=== PATIENT | female | born 1980 | race Caucasian/White ===

== ENCOUNTER 2020-04-18 21:40 | Emergency (ER) | payer MEDICARE, SELFPAY ==
[2020-04-18 21:45] VITALS: BP 145/84; PULSE 80; RESP 16; TEMP 36; O2SAT 99; BMI 29.5
--- NOTE | 2020-04-18 21:53 | ED_ITS ---
Documented by User: Prashanth Villarreal MD 04/18/20 22:52 HPI - Abdominal Pain General: Chief Complaint: Abdominal Pain Stated Complaint: r lower abd pain Time Seen by Provider: 04/18/20 21:48 Source: patient Mode of arrival: ambulatory Limitations: no limitations History of Present Illness: HPI narrative: 39-year-old female states she has a history ovarian cyst states she had abdominal pain throughout the day. States it is worsened throughout the day and is sharp in nature and is in the right lower quadrant. She had an appendectomy at age 21. She denies any fevers. States the pain is sharp in nature and rates it a 6 out of 10 currently. She has had a tubal ligation and denies any vaginal bleeding or discharge. MD elicited complaint: abdominal pain Pertinent past history: none Onset (ago): hour(s) Pain Consistency: constant Location: RLQ Severity: moderate Quality: sharp Radiation: none Migration to: no migration Exacerbating factors: nothing Relieving factors: nothing Associated Symptoms: Denies chills, dysuria and fever(s) Review of Systems Const: Denies: fever(s), chills, body aches or change in appetite Eyes: Denies: blurry vision or eye discomfort ENMT: Denies: throat pain or dental pain Card: Denies: chest pain Resp: Denies: dyspnea GI: Reports: abdominal pain : Denies: dysuria Musc: Denies: neck pain or back pain Skin/Breast: Denies: rash Neuro: Denies: headache(s) Psych: Denies: depression Jaden/Lymph: Denies: easy bruising All/Imm: Denies: urticaria PFSH ED PFSH: Social History Smoking and tobacco status: never smoked Physical Exam Const: COMMON NORMALS: no acute distress, patient oriented x3 and healthy appearing HENMT: COMMON NORMALS: normocephalic and atraumatic HEAD & SCALP: normoc ephalic and atraumatic Eye: COMMON NORMALS: Equal, round and reactive pupils present and EOMs intact bilaterally PUPIL: Yes Equal, round and reactive pupils present Neck/C-Spine: COMMON NORMALS: full ROM and supple Chest: COMMONS NORMALS: normal inspection of the chest and normal palpation of entire chest wall Resp: COMMON NORMALS: normal respiratory effort, No retractions, No use of accessory muscles and clear to auscultation bilaterally AUSCULTATION: clear to auscultation bilaterally Cardio: COMMON NORMALS: regular rate, regular rhythm and No murmurs present (Cardio) RATE: regular rate RHYTHM: regular rhythm GI: COMMON NORMALS: Normal to inspection, nondistended, normoactive bowel sounds present, Soft to palpation and no masses PALPATION: Yes Soft to palpation and Yes Tenderness to palpation present (GI) Details: RLQ Extremity: COMMON NORMALS: normal to inspection and full ROM Neuro: COMMON NORMALS: patient oriented x3, moves all extremities and no focal motor deficits Psych: COMMON NORMALS: mental status grossly normal, Normal thought process present and cooperative THOUGHT PROCESS: Normal thought process present Skin: COMMON NORMALS: no rashes or lesions noted and no wounds GENERAL SKIN EXAM: no rashes or lesions noted Course Vital Signs: Vital signs: Vital Signs Temperature 96.8 F L 04/18/20 21:45 Pulse Rate 78 04/19/20 00:50 Respiratory Rate 16 04/19/20 00:50 Blood Pressure 92/58 04/19/20 00:50 Pulse Oximetry 98 04/19/20 00:50 MDM - Abdominal Pain MDM Narrative: Medical decision making narrative: Patient presents with abdominal pain does have a history ovarian cyst. Patient's white count and lab work here so far is normal. Patient is pending her CT abdomen. I turned patien t's care over to Dr. Luu at this time. Lab Data: Labs: Lab Results 04/18/20 04/18/20 04/18/20 Range/Units 22:08 22:08 22:08 WBC 8.1 (4.0-10.0) 10^3/ uL RBC 4.58 (4.1-5.3) 10^6/u L Hgb 13.3 (11.5-15.3) g/dL Hct 42.1 (37.0-47.0) % MCV 91.9 (81-99) fL MCH 29.0 (28.0-34.0) pg MCHC 31.6 (30.0-36.0) g/dL RDW 13.9 (12.1-15.1) % Plt Count 255 (130-400) 10^3/c mm MPV 10.3 (7.4-10.4) fL Neut % (Auto) 56.4 % Lymph % (Auto) 32.0 % Beauregard % (Auto) 7.4 % Eos % (Auto) 2.5 % Baso % (Auto) 1.5 % Neut # (Auto) 4.6 (1.8-7.7) 10^3/u L Lymph # (Auto) 2.6 (0.8-4.8) 10^3/u L [place] # (Auto) 0.6 (0.2-0.9) 10^3/u L Eos # (Auto) 0.2 (0.0-0.8) 10^3/u L Baso # (Auto) 0.1 (0.0-0.1) 10^3/u L Nucleated RBC % (a uto) 0 % Nucleated RBCs # 0.0 /100WBC Sodium 136 (136-145) mmol/L Potassium 3.8 (3.5-5.1) mmol/L Chloride 99 (98-107) mmol/L Carbon Dioxide 26 (22-29) mmol/L Anion Gap 14.8 (5-19) BUN 14 (6-20) mg/dL Creatinine 1.1 H (0.5-0.9) mg/dL GFR Calculation 55.9 L (90-130) mL/min Glucose 258 H (65-115) mg/dL Calculated Osmolal ity 287 (285-295) mOsm/k g Calcium 9.9 (8.5-10.5) mg/dL Total Bilirubin 0.2 (0.15-1.2) mg/dL AST 14 (0-32) U/L ALT 12 (0-33) U/L Alkaline Phosphata se 94 (35-105) IU/L Total Protein 7.4 (6.6-8.7) g/dL Albumin 4.4 (3.5-5.2) g/dL Globulin 3.0 (1.3-4.6) g/dL Lipase 20 (13-60) U/L HCG, Qual Negative (Negative) Urine Color (Yellow) Urine Appearance (CLEAR) Urine pH (5-7) Ur Specific Gravit y (1.005-1.030) Urine Protein (Negative) Urine Glucose (UA) (Normal) Urine Ketones (Negative) Urine Blood (Negative) Urine Nitrate (Negative) Urine Bilirubin (NEGATIVE) Urine Urobilinogen (Negative) mg/dL Ur Leukocyte Kia ase (Negative) Urine RBC (0-2) /hpf Urine WBC (0-5) /hpf Ur Squamous Epith Cells (0-5) Amorphous Sediment Urine Bacteria (NONE) Urine Mucus 04/18/20 Range/Units 22:30 WBC (4.0-10.0) 10^3/ uL RBC (4.1-5.3) 10^6/u L Hgb (11.5-15.3) g/dL Hct (37.0-47.0) % MCV (81-99) fL MCH (28.0-34.0) pg MCHC (30.0-36.0) g/dL RDW (12.1-15.1) % Plt Count (130-400) 10^3/c mm MPV (7.4-10.4) fL Neut % (Auto) % Lymph % (Auto) % Beauregard % (Auto) % Eos % (Auto) % Baso % (Auto) % Neut # (Auto) (1.8-7.7) 10^3/u L Lymph # (Auto) (0.8-4.8) 10^3/u L [place]gard # (Auto) (0.2-0.9) 10^3/u L Eos # (Auto) (0.0-0.8) 10^3/u L Baso # (Auto) (0.0-0.1) 10^3/u L Nucleated RBC % (a uto) % Nucleated RBCs # /100WBC Sodium (136-145) mmol/L Potassium (3.5-5.1) mmol/L Chloride (98-107) mmol/L Carbon Dioxide (22-29) mmol/L Anion Gap (5-19) BUN (6-20) mg/dL Creatinine (0.5-0.9) mg/dL GFR Calculation (90-130) mL/min Glucose (65-115) mg/dL Calculated Osmolal ity (285-295) mOsm/k g Calcium (8.5-10.5) mg/dL Total Bilirubin (0.15-1.2) mg/dL AST (0-32) U/L ALT (0-33) U/L Alkaline Phosphata se (35-105) IU/L Total Protein (6.6-8.7) g/dL Albumin (3.5-5.2) g/dL Globulin (1.3-4.6) g/dL Lipase (13-60) U/L HCG, Qual (Negative) Urine Color Yellow (Yellow) Urine Appearance Sl hazy (CLEAR) Urine pH 5 (5-7) Ur Specific Gravit y 1.020 (1.005-1.030) Urine Protein Neg (Negative) Urine Glucose (UA) 4+ H (Normal) Urine Ketones Negative (Negative) Urine Blood Neg (Negative) Urine Nitrate Negative (Negative) Urine Bilirubin Neg (NEGATIVE) Urine Urobilinogen Norm (Negative) mg/dL Ur Leukocyte Kia ase Negative (Negative) Urine RBC 0-4 H (0-2) /hpf Urine WBC 0-4 H (0-5) /hpf Ur Squamous Epith Cells 5-10 H (0-5) Amorphous Sediment 1+ Urine Bacteria Trace (NONE) Urine Mucus Trace Discharge Plan Discharge Patient Disposition: Home, Self-Care Clinical Impression: Gastroenteritis Abdominal pain Qualifiers: Abdominal location: generalized Qualified Code(s): R10.84 - Generalized abdominal pain Condition: Stable Prescriptions: New Flagyl 500 mg tablet 500 mg PO TID 10 Days Qty: 30 RF: 0 Cipro 500 mg tablet 500 mg PO BID Qty: 20 RF: 0 Reglan 10 mg tablet 10 mg PO Q6H PRN (Reason: nausea and vomiting) Qty: 20 RF: 0 Discharge Orders: Discharge Order (Routine); Ordered 04/19/20 Ordered By: Clara Kan Referrals: Tobi Hernandez RN, REGIONAL SALES LEADER [Primary Care Provider] - Discharge Diet: Advance as tolerated and Clear Liquid Discharge Activity: Increase activity as tolerated Patient Instructions: Abdominal Pain (ED) Activity Restrictions/Additional Instructions: Please return to the ER immediately for any of the signs or symptoms listed on your discharge instruction sheets, worsening/changing of your symptoms, you are not getting better as quickly as expected, or for ANY other cause or concerns. Follow a clear liquid diet and advance it slowly as tolerated. If you change your mind and want to have a pelvic ultrasound performed to rule out any type of gynecologic/ovarian problems you are more than welcome to return at any time for this procedure. Return for fever, vomiting, blood in your stools, worsening pain or for any other cause for concern. Be certain to follow-up with your doctor as you will need a referral to a health therapist for further work-up of your recurrent abdominal pain and bowel problems. Discharge Date/Time: 04/19/20 00:51 Sign Out Sign Out Data: Patient Sign Out occurred on 04/18/20 at 23:06. Patient's care was discussed, and care was transferred from to Clara Kan. Coding Level of Care Code ED Uniform [employer] Captain for Chg Fwd Exam Comprehensive Documented by User: Clara Kan 04/19/20 20:10 HPI - Abdominal Pain General: Chief Complaint: Abdominal Pain Stated Complaint: r lower abd pain Time Seen by Provider: 04/18/20 21:48 PFSH ED PFSH: Social History Smoking and tobacco status: never smoked Course Vital Signs: Vital signs: Vital Signs Temperature 96.8 F L 04/18/20 21:45 Pulse Rate 78 04/19/20 00:50 Respiratory Rate 16 04/19/20 00:50 Blood Pressure 92/58 04/19/20 00:50 Pulse Oximetry 98 04/19/20 00:50 MDM - Abdominal Pain MDM Narrative: Medical decision making narrative: Kellen is a nice 39-year-old female turned over to me at change of shift from Dr. Villarreal. Patient CT scan shows evidence of gastroenteritis but no evidence of ovarian cyst. Patient has not had any vomiting or diarrhea. On my exam the patient's abdomen is soft and nontender to palpation. I have offered and recommended a ultrasound to definitively rule out ovarian torsion or cyst but she declines. CT scan does show evidence of gastroenteritis or inflammatory bowel enteritis. Patient states this is a recurrent problem that she has had worked up before in the 2 previous times that she was not told it was an ovarian cyst but told it was a problem with her bowels. I have informed her I recommend she follow-up with a health therapist for definitive work-up. She has again declined an ultrasound to rule out ovarian cyst and torsion and I think this is unlikely as the patient has no other gynecological complaints and there is no evidence of mass, enlargement or cyst on the CT scan. The patient understands though this is a threat to her fertility if missed any even can become an issue that would require surgery which could have complications but she still declines. I will p lace her on Cipro and Flagyl for a possible infectious etiology of her gastroenteritis and she does agree to follow-up with her regular doctor or return here if she worsens at all. Lab Data: Attestation: I reviewed the patient's lab results. Labs: Lab Results 04/18/20 04/18/20 04/18/20 Range/Units 22:08 22:08 22:08 WBC 8.1 (4.0-10.0) 10^3/ uL RBC 4.58 (4.1-5.3) 10^6/u L Hgb 13.3 (11.5-15.3) g/dL Hct 42.1 (37.0-47.0) % MCV 91.9 (81-99) fL MCH 29.0 (28.0-34.0) pg MCHC 31.6 (30.0-36.0) g/dL RDW 13.9 (12.1-15.1) % Plt Count 255 (130-400) 10^3/c mm MPV 10.3 (7.4-10.4) fL Neut % (Auto) 56.4 % Lymph % (Auto) 32.0 % Beauregard % (Auto) 7.4 % Eos % (Auto) 2.5 % Baso % (Auto) 1.5 % Neut # (Auto) 4.6 (1.8-7.7) 10^3/u L Lymph # (Auto) 2.6 (0.8-4.8) 10^3/u L Bea[place]gard # (Auto) 0.6 (0.2-0.9) 10^3/u L Eos # (Auto) 0.2 (0.0-0.8) 10^3/u L Baso # (Auto) 0.1 (0.0-0.1) 10^3/u L Nucleated RBC % (a uto) 0 % Nucleated RBCs # 0.0 /100WBC Sodium 136 (136-145) mmol/L Potassium 3.8 (3.5-5.1) mmol/L Chloride 99 (98-107) mmol/L Carbon Dioxide 26 (22-29) mmol/L Anion Gap 14.8 (5-19) BUN 14 (6-20) mg/dL Creatinine 1.1 H (0.5-0.9) mg/dL GFR Calculation 55.9 L (90-130) mL/min Glucose 258 H (65-115) mg/dL Calculated Osmolal ity 287 (285-295) mOsm/k g Calcium 9.9 (8.5-10.5) mg/dL Total Bilirubin 0.2 (0.15-1.2) mg/dL AST 14 (0-32) U/L ALT 12 (0-33) U/L Alkaline Phosphata se 94 (35-105) IU/L Total Protein 7.4 (6.6-8.7) g/dL Albumin 4.4 (3.5-5.2) g/dL Globulin 3.0 (1.3-4.6) g/dL Lipase 20 (13-60) U/L HCG, Qual Negative (Negative) Urine Color (Yellow) Urine Appearance (CLEAR) Urine pH (5-7) Ur Specific Gravit y (1.005-1.030) Urine Protein (Negative) Urine Glucose (UA) (Normal) Urine Ketones (Negative) Urine Blood (Negative) Urine Nitrate (Negative) Urine Bilirubin (NEGATIVE) Urine Urobilinogen (Negative) mg/dL Ur Leukocyte Kia ase (Negative) Urine RBC (0-2) /hpf Urine WBC (0-5) /hpf Ur Squamous Epith Cells (0-5) Amorphous Sediment Urine Bacteria (NONE) Urine Mucus 04/18/20 Range/Units 22:30 WBC (4.0-10.0) 10^3/ uL RBC (4.1-5.3) 10^6/u L Hgb (11.5-15.3) g/dL Hct (37.0-47.0) % MCV (81-99) fL MCH (28.0-34.0) pg MCHC (30.0-36.0) g/dL RDW (12.1-15.1) % Plt Count (130-400) 10^3/c mm MPV (7.4-10.4) fL Neut % (Auto) % Lymph % (Auto) % Bea[place]gard % (Auto) % Eos % (Auto) % Baso % (Auto) % Neut # (Auto) (1.8-7.7) 10^3/u L Lymph # (Auto) (0.8-4.8) 10^3/u L Bea[place]gard # (Auto) (0.2-0.9) 10^3/u L Eos # (Auto) (0.0-0.8) 10^3/u L Baso # (Auto) (0.0-0.1) 10^3/u L Nucleated RBC % (a uto) % Nucleated RBCs # /100WBC Sodium (136-145) mmol/L Potassium (3.5-5.1) mmol/L Chloride (98-107) mmol/L Carbon Dioxide (22-29) mmol/L Anion Gap (5-19) BUN (6-20) mg/dL Creatinine (0.5-0.9) mg/dL GFR Calculation (90-130) mL/min Glucose (65-115) mg/dL Calculated Osmolal ity (285-295) mOsm/k g Calcium (8.5-10.5) mg/dL Total Bilirubin (0.15-1.2) mg/dL AST (0-32) U/L ALT (0-33) U/L Alkaline Phosphata se (35-105) IU/L Total Protein (6.6-8.7) g/dL Albumin (3.5-5.2) g/dL Globulin (1.3-4.6) g/dL Lipase (13-60) U/L HCG, Qual (Negative) Urine Color Yellow (Yellow) Urine Appearance Sl hazy (CLEAR) Urine pH 5 (5-7) Ur Specific Gravit y 1.020 (1.005-1.030) Urine Protein Neg (Negative) Urine Glucose (UA) 4+ H (Normal) Urine Ketones Negative (Negative) Urine Blood Neg (Negative) Urine Nitrate Negative (Negative) Urine Bilirubin Neg (NEGATIVE) Urine Urobilinogen Norm (Negative) mg/dL Ur Leukocyte Kia ase Negative (Negative) Urine RBC 0-4 H (0-2) /hpf Urine WBC 0-4 H (0-5) /hpf Ur Squamous Epith Cells 5-10 H (0-5) Amorphous Sediment 1+ Urine Bacteria Trace (NONE) Urine Mucus Trace Imaging Data ^: CT Abd/Pel: Radiologist's impression: [facility] [address] [place] [address] CT Scan Report Signed Patient: Kellen Joseph Unit #: [id number] : 1980 Age/Sex: 39 / F ADM Date: 04/18/20 Loc: ER Room/Bed: Attending Dr: Ordering Provider/Ordering MD: Prashanth Villarreal MD Date of Service: 04/18/20 Procedure(s): CT abdomen pelvis w con* [id number] Accession Number(s): [id number] Report Number: [id number] PROCEDURE INFORMATION: Exam: CT Abdomen And Pelvis With Contrast Exam date and time: 04/18/2020 11:02 PM Age: 39 years old Clinical indication: Abdominal pain; Generalized; Prior surgery; Surgery type: Btl, appy, 2 ; Patient HX: HX cervical CA; Additional info: Abd pain TECHNIQUE: Imaging protocol: Computed tomography of the abdomen and pelvis with intravenous contrast. Radiation optimization: All CT scans at this facility use at least one of these dose optimization techniques: automated exposure control; mA and/or kV adjustment per patient size (includes targeted exams where dose is matched to clinical indication); or iterative reconstruction. Contrast material: VISI; Contrast volume: 95 ml; Contrast route: 20G; COMPARISON: US No relevant prior studies available. RADIATION DOSE METRICS: Total DLP: 1285.13 mGy-cm FINDINGS: Lungs: The lung bases are clear. Liver: Unremarkable. Gallbladder and bile ducts: No definite gallbladder abnormality by CT. Ultrasound could be more sensitive for detecting gallstones, if clinically needed. No biliary tree dilation. Pancreas: Unremarkable. Spleen: Unremarkable. Adrenals: Unremarkable. Kidneys and ureters: Unremarkable. Stomach and bowel: Several small bowel loops are fluid-filled and borderline prominent in size. The overall appearance is not suggestive of significant small bowel obstruction at this time. Some proximal small bowel loops may have mild diffuse mucosal/wall thickening, although this could be a transit the appearance on CT. While nonspecific, this appearance could be secondary to some type of gastroenteritis, or other inflammatory bowel disease/enteritis. Please correlate clinically. No definite surrounding inflammatory changes. The stomach appears somewhat distended at the time of scanning. Please correlate clinically. There are no CT findings to strongly suggest diverticulitis. Appendix: Reportedly, there has been prior appendectomy. Intraperitoneal space: No free air, or ascites. Vasculature: No evidence for abdominal aortic aneurysm. Lymph nodes: No retroperitoneal adenopathy. Bladder: Possibly some mild diffuse urinary bladder wall thickening. Evaluation is somewhat limited, as the bladder is not well distended. While nonspecific, this could indicate evidence for cystitis. Please correlate clinically. Reproductive: Small amount of cul-de-sac fluid. No definite ovarian/adnexal cyst or mass by CT. Bones/joints: No significant acute finding. Soft tissues: No significant acute finding. CT/CT abdomen pelvis w con* [id number] IMPRESSION: 1. Several small bowel loops are fluid-filled and borderline prominent in size. Some may have mild diffuse mucosal/wall thickening, see above discussion. This appearance could be secondary to some type of gastroenteritis, or other inflammatory bowel disease/enteritis. 2. Somewhat distended stomach. 3. No free intraperitoneal air. 4. Possible mild urinary bladder wall thickening, see above. 5. Small amount of cul-de-sac fluid. No definite ovarian/adnexal cyst or mass by CT. 6. . 7. Other findings discussed above. Radiation Dose CTDIVOL = (mGy): DLP = 1285.13 (mGy-cm) Dictated By: Tera Pickering MD Signed By: Tera Pickering MD Signed Date/Time: 04/18/202344 DD/ 42 Discharge Plan Discharge Patient Disposition: Home, Self-Care Clinical Impression: Gastroenteritis Abdominal pain Qualifiers: Abdominal location: generalized Qualified Code(s): R10.84 - Generalized abdominal pain Condition: Stable Prescriptions: New Flagyl 500 mg tablet 500 mg PO TID 10 Days Qty: 30 RF: 0 Cipro 500 mg tablet 500 mg PO BID Qty: 20 RF: 0 Reglan 10 mg tablet 10 mg PO Q6H PRN (Reason: nausea and vomiting) Qty: 20 RF: 0 Discharge Orders: Discharge Order (Routine); Ordered 04/19/20 Ordered By: Clara Kan Referrals: Tobi Hernandez RN, REGIONAL SALES LEADER [Primary Care Provider] - Discharge Diet: Advance as tolerated and Clear Liquid Discharge Activity: Increase activity as tolerated Patient Instructions: Abdominal Pain (ED) Activity Restrictions/Additional Instructions: Please return to the ER immediately for any of the signs or symptoms listed on your discharge instruction sheets, worsening/changing of your symptoms, you are not getting better as quickly as expected, or for ANY other cause or concerns. Follow a clear liquid diet and advance it slowly as tolerated. If you change your mind and want to have a pelvic ultrasound performed to rule out any type of gynecologic/ovarian problems you are more than welcome to return at any time for this procedure. Return for fever, vomiting, blood in your stools, worsening pain or for any other cause for concern. Be certain to follow-up with your doctor as you will need a referral to a health therapist for further work-up of your recurrent abdominal pain and bowel problems. Discharge Date/Time: 04/19/20 00:51 Sign Out Sign Out Data: Patient Sign Out occurred on 04/18/20 at 23:06. Patient's care was discussed, and care was transferred from to Clara Kan. Coding Level of Care Code ED Uniform [employer] Captain for Chg Fwd Exam Comprehensive
[2020-04-18 22:16] LABS: Basophils # 0.1 10^3/uL (0.0-0.1); Basophils % 1.5 %; Eosinophils # 0.2 10^3/uL (0.0-0.8); Eosinophils % 2.5 %; Hematocrit 42.1 % (37.0-47.0); Hemoglobin 13.3 g/dL (11.5-15.3); Lymphocytes # 2.6 10^3/uL (0.8-4.8); Mean Corpuscular HGB Conc 31.6 g/dL (30.0-36.0); Mean Corpuscular Volume 91.9 fL (81-99); Mean Platelet Volume 10.3 fL (7.4-10.4); Monocytes # 0.6 10^3/uL (0.2-0.9); Monocytes % 7.4 %; Neutrophils # 4.6 10^3/uL (1.8-7.7); Neutrophils % 56.4 %; Nucleated Red Blood Cells % 0 %; Platelet Count 255 10^3/cmm (130-400); Red Blood Count 4.58 10^6/uL (4.1-5.3); Red Cell Distribution Width 13.9 % (12.1-15.1); White Blood Count 8.1 10^3/uL (4.0-10.0)
[2020-04-18 22:23] VITALS: RESP 18; O2SAT 98
[2020-04-18] MEDS: ondansetron 2 mg/ML SDV 2 mL 4 MG IVP (22:23)
[2020-04-18] MEDS: morphine 4 mg/mL SDV 1 mL IVP (22:23)
[2020-04-18 22:31] VITALS: BP 123/78; PULSE 74; RESP 18; O2SAT 96
[2020-04-18 22:31] LABS: Alanine Aminotransferase 12 U/L (0-33); Albumin Level 4.4 g/dL (3.5-5.2); Alkaline Phosphatase 94 IU/L (35-105); Anion Gap 14.8 (5-19); Aspartate Amino Transferase 14 U/L (0-32); Blood Urea Nitrogen 14 mg/dL (6-20); Calcium 9.9 mg/dL (8.5-10.5); Carbon Dioxide 26 mmol/L (22-29); Chloride 99 mmol/L (98-107); Glomerular Filtration Rate 55.9 mL/min (90-130); Glucose 258 mg/dL (65-115); Lipase 20 U/L (13-60); Osmolality Calculated 287 mOsm/kg (285-295); Potassium 3.8 mmol/L (3.5-5.1); Sodium 136 mmol/L (136-145); Total Bilirubin 0.2 mg/dL (0.15-1.2); Total Protein 7.4 g/dL (6.6-8.7)
[2020-04-18 22:50] LABS: Bilirubin Urine Neg (NEGATIVE); Blood Urine Neg (Negative); Glucose Urine UA 4+ (Normal); Ketones Urine Negative (Negative); Leukocyte Esterase Urine Negative (Negative); Nitrate Urine Negative (Negative); Protein Urine Neg (Negative); Urine Appearance SL Hazy (CLEAR); Urine Color Yellow (Yellow); Urobilinogen Urine Norm (Negative); pH Urine 5 (5-7)
[2020-04-18 22:52] LABS: Add Urine Culture? No; Amorphous Sediment Urine 1+; Bacteria Urine TRACE; Mucus Urine TRACE; RBC Urine 0-4 /hpf (0-2); WBC Urine 0-4 /hpf (0-5)
[2020-04-18] MEDS: iodixanol 320 mg/mL 100mL Btl IV (23:03)
[2020-04-18 23:13] LABS: HCG, Serum Qual Negative (Negative)
[2020-04-19] MEDS: ciprofloxacin 500 mg Tablet PO (00:12)
[2020-04-19] MEDS: metroNIDAZOLE 500 MG Tablet PO (00:12)
[2020-04-19 00:13] VITALS: BP 119/78; PULSE 80; RESP 16; O2SAT 97
[2020-04-19 00:50] VITALS: BP 92/58; PULSE 78; RESP 16; O2SAT 98
== END 2020-04-19 00:51 | disposition home or self-care (01) ==
PROVIDERS: Emergency Provider Emergency Medicine; PCP Nurse Practitioner Family
DX: K52.9 Noninfective gastroenteritis and colitis, unspecified (principal)
CPT/HCPCS: 12345; 74177; 80053; 81001; 83690; 84703; 85025; 96374; 96375; 99283; J2270; J2405; Q9967

== ENCOUNTER 2020-05-17 20:16 | Emergency (ER) | payer MEDICARE, SELFPAY ==
[2020-05-17 20:28] VITALS: BP 143/73; PULSE 90; RESP 16; TEMP 36.9; O2SAT 99; BMI 29.9
--- NOTE | 2020-05-17 21:11 | XRR_ITS ---
PROCEDURE INFORMATION: Exam: XR Right Wrist Exam date and time: 05/17/2020 9:12 PM Age: 39 years old Clinical indication: Injury or trauma; Fall; Initial encounter; Blunt trauma (contusions or hematomas; Wrist; Right; Additional info: Right wrist pain TECHNIQUE: Imaging protocol: XR Right wrist. Views: 3 or more views. COMPARISON: No relevant prior studies available. FINDINGS: Bones/joints: Incidental cyst in the distal pole the scaphoid. No fracture or AVN. Soft tissues: Normal. XR/XR wrist RT min 3V* [id number] IMPRESSION: No acute findings
[2020-05-17 23:14] VITALS: RESP 14; O2SAT 98
[2020-05-17] MEDS: oxyCODONE-APAP 5-325 mg Tablet 1 TAB PO (23:14)
[2020-05-17 23:31] VITALS: BP 139/65; PULSE 72; RESP 18; O2SAT 99
--- NOTE | 2020-05-19 06:53 | W.ED.EXTPRO ---
HPI - Extremity Problem General: Chief complaint: Extremity Injury, Upper Stated complaint: right wrist injury Time Seen by Provider: 05/17/20 21:54 History of Present Illness: HPI Narrative: 39-year-old female who fell 1 week ago, and has persistent right wrist pain. Pain is located over anatomic snuffbox. She has some swelling as well. She has pain with movement of her fingers, especially with publication specialist. She also has pain with movement of her thumb. MD Complaint: joint swelling and joint pain Onset (ago): day(s) Pain Consistency: constant Location: right Quality: constant Radiation: none Relieving factors: nothing Exacerbating factors: range of motion Associated symptoms: Reports no associated symptoms; Deny chest pain, fever(s) or rash Review of Systems Const: Denies: fever(s) or chills Card: Denies: chest pain Resp: Denies: dyspnea Skin/Breast: Denies: rash PFSH ED PFSH: Social History Smoking and tobacco status: former smoker Female Reproductive History: Date of last menstrual period: 04/17/20 Physical Exam Const: COMMON NORMALS: no acute distress and patient oriented x3 Chest: COMMONS NORMALS: normal inspection of the chest Resp: COMMON NORMALS: normal respiratory effort and clear to auscultation bilaterally AUSCULTATION: clear to auscultation bilaterally Cardio: COMMON NORMALS: regular rate and regular rhythm RATE: regular rate RHYTHM: regular rhythm GI: INSPECTION: Yes normal to inspection Extremity: NARRATIVE EXTREMITY EXAM: Tenderness to palpation of the left anatomic snuffbox. There is mild swelling. There is pain on axial loading of the thumb. There is no deformity. Neuro: COMMON NORMALS: patient oriented x3 Course Vital Signs: Vital signs: Vital Signs Temperature 98.4 F 05/17/20 20:28 Pulse Rate 72 05/17/20 23:31 Respiratory Rate 18 05/17/20 23:31 Blood Pressure 139/65 05/17/20 23:31 Pulse Oximetry 99 05/17/20 23:31 MDM - Extremity (Nontraumatic) MDM Narrative: Medical decision making narrative: 39-year-old female with anatomic snuffbox pain. X-rays are negative for fracture, but there is cystic change in the distal pole of scaphoid. She will be splinted and thumb spica splint, and asked to follow-up with orthopedics Discharge Plan Discharge Patient Disposition: Home, Self-Care Clinical Impression: Sprain and strain of wrist Condition: Stable Prescriptions: [place] 5-325 mg tablet 1 tab PO Q6H Qty: 10 RF: 0 No Action Cipro 500 mg tablet 500 mg PO BID Qty: 20 RF: 0 Reglan 10 mg tablet 10 mg PO Q6H PRN (Reason: nausea and vomiting) Qty: 20 RF: 0 Discharge Orders: Discharge Order (Routine); Ordered 05/17/20 Ordered By: Derek Allan Referrals: Mika Calderon DO [Physician] - 4-7 days Discharge Diet: Usual diet Discharge Activity: Limit activity as instructed Patient Instructions: Sprains - Wrist Activity Restrictions/Additional Instructions: Call for an orthopedics appointment next week. Stay in splint until you are seen. You have a cyst in 1 of your wrist bones that can weaken the bone a bit, repeat x-ray may be needed. Return for worsening pain despite treatment, other concerning symptoms Discharge Date/Time: 05/17/20 23:35 Coding Level of Care Code ED Chipper Operator for Álvaro Armstrong
--- NOTE | 2020-05-19 10:54 | DCPLANNER ---
creative project manager had message to schedule a follow up appointment for patient with ortho. creative project manager called the ortho clinic, spoke with Becky, gave clinic patients information. creative project manager was told that patients information would be printed and reviewed. Clinic will call patient with appointment information.
--- NOTE | 2020-05-20 09:14 | DCPLANNER ---
Patient has a follow up appointment scheduled for Thursday, May 21, 2020 at 3:[address] Childers. Clinic will call patient with appointment information.
--- NOTE | 2020-05-22 11:03 | DCPLANNER ---
Patient did attend appointment scheduled for 05.21.20 with ortho.
== END 2020-05-17 23:35 | disposition home or self-care (01) ==
PROVIDERS: Emergency Provider Emergency Medicine
DX: S63.501A Unspecified sprain of right wrist, initial encounter (principal); S66.911A Strain of unspecified muscle, fascia and tendon at wrist and hand level, right hand, initial encounter; Z87.891 Personal history of nicotine dependence; W19.XXXA Unspecified fall, initial encounter
CPT/HCPCS: 12345; 29125; 73110; 99281; 99283

== ENCOUNTER → 2020-05-21 15:16 | Outpatient (BNVA) | payer MEDICARE, SELFPAY | PROVIDERS: Referring Provider Emergency Medicine; Visit Provider Specialist | DX: S63.501A Unspecified sprain of right wrist, initial encounter (principal); W19.XXXA Unspecified fall, initial encounter | CPT/HCPCS: 73110 ==

== ENCOUNTER 2020-05-21 16:06 | Outpatient (CLI) | payer MEDICARE, SELFPAY | END 2020-05-21 16:07 | disposition home or self-care (01) | LOC: SPT 16:06 | PROVIDERS: Visit Provider Specialist | DX: Z46.89 Encounter for fitting and adjustment of other specified devices (principal); S66.911D Strain of unspecified muscle, fascia and tendon at wrist and hand level, right hand, subsequent encounter; X58.XXXD Exposure to other specified factors, subsequent encounter; S63.501A Unspecified sprain of right wrist, initial encounter; W19.XXXA Unspecified fall, initial encounter | CPT/HCPCS: 73110; 97760; L3809 ==

== ENCOUNTER 2020-07-30 16:30 | Emergency (ER) | payer MEDICARE, SELFPAY ==
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
[2020-07-30 16:53] VITALS: BP 136/76; PULSE 74; RESP 18; TEMP 37.1; O2SAT 100; BMI 28.8
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
[2020-07-30] MEDS: acetaminophen 325 mg Tablet 650 MG PO (17:31)
[2020-07-30 17:37] LABS: Add Urine Microscopic? NO
[2020-07-30 17:48] LABS: Bilirubin Urine Neg (Negative); Blood Urine Neg (Negative); Glucose Urine UA 4+ (Normal); Ketones Urine Negative (Negative); Leukocyte Esterase Urine Negative (Negative); Nitrate Urine Negative (Negative); Protein Urine Neg (Negative); Specific Gravity, Urine 1.015 (1.005-1.030); Urine Appearance Clear (CLEAR); Urine Color Straw (Yellow); Urobilinogen Urine Norm (Negative)
[2020-07-30 18:37] VITALS: BP 132/71; PULSE 71; RESP 16; O2SAT 99
== END 2020-07-30 18:37 | disposition home or self-care (01) ==
PROVIDERS: Emergency Provider Nurse Practitioner Family; PCP Nurse Practitioner Family
DX: S06.0X0A Concussion without loss of consciousness, initial encounter (principal); Z79.4 Long term (current) use of insulin; Z87.891 Personal history of nicotine dependence; W22.8XXA Striking against or struck by other objects, initial encounter
CPT/HCPCS: 12345; 70450; 81003; 99282; 99283

== ENCOUNTER 2020-09-07 20:40 | Emergency (ER) | payer MEDICARE, SELFPAY ==
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
[2020-09-07 20:47] VITALS: BP 145/85; PULSE 93; RESP 18; TEMP 36.9; O2SAT 97; BMI 28.3
--- NOTE | 2020-09-07 20:54 | W.ED.EXTPRO ---
HPI - Extremity Problem General: Chief complaint: Extremity Injury, Lower Stated complaint: LEFT FOOT INJURY Time Seen by Provider: 09/07/20 20:49 Source: patient Mode of arrival: ambulatory Limitations: no limitations History of Present Illness: HPI Narrative: 39-year-old female who states she jammed her toe on her bed last night. States it was her fourth and fifth toe and is been having foot pain under the lateral aspect of her foot since then. She rates her pain a 8 out of 10. Denies any worsening or improving factors. Denies any other injuries. Associated symptoms: Deny chest pain, fever(s) or rash Review of Systems Const: Denies: fever(s), chills, body aches or change in appetite Eyes: Denies: blurry vision or eye discomfort ENMT: Denies: throat pain or dental pain Card: Denies: chest pain Resp: Denies: dyspnea GI: Denies: abdominal pain, nausea, vomiting or diarrhea : Denies: dysuria Musc: Denies: neck pain or back pain Skin/Breast: Denies: rash Neuro: Denies: headache(s) Psych: Denies: depression Jaden/Lymph: Denies: easy bruising All/Imm: Denies: urticaria PFSH ED PFSH: Social History Smoking and tobacco status: former smoker Female Reproductive History: Date of last menstrual period: 04/17/20 Physical Exam Const: COMMON NORMALS: no acute distress, patient oriented x3 and healthy appearing HENMT: COMMON NORMALS: normocephalic and atraumatic HEAD & SCALP: normocephalic and atraumatic Eye: COMMON NORMALS: Equal, round and reactive pupils present and EOMs intact bilaterally PUPIL: Yes Equal, round and reactive pupils present Neck/C-Spine: COMMON NORMALS: full ROM and supple Chest: COMMONS NORMALS: normal inspection of the chest and normal palpation of entire chest wall Resp: COMMON NORMALS: normal respiratory effort, No retractions, No use of accessory muscles and clear to auscultation bilaterally AUSCULTATION: clear to auscultation bilaterally Cardio: COMMON NORMALS: regular rate, regular rhythm and No murmurs present (Cardio) RATE: regular rate RHYTHM: regular rhythm GI: COMMON NORMALS: Normal to inspection, nondistended, normoactive bowel sounds present, Soft to palpation, non-tender and no masses PALPATION: Yes Soft to palpation Extremity: COMMON NORMALS: full ROM NARRATIVE EXTREMITY EXAM: Tenderness over the lateral portion of the left foot no obvious deformity Neuro: COMMON NORMALS: patient oriented x3, moves all extremities and no focal motor deficits Psych: COMMON NORMALS: mental status grossly normal, Normal thought process present and cooperative THOUGHT PROCESS: Normal thought process present Skin: COMMON NORMALS: no rashes or lesions noted and no wounds GENERAL SKIN EXAM: no rashes or lesions noted Course Vital Signs: Vital signs: Vital Signs Temperature 98.5 F 09/07/20 20:47 Pulse Rate 93 09/07/20 21:11 Respiratory Rate 16 09/07/20 21:11 Blood Pressure 100/82 09/07/20 21:11 Pulse Oximetry 96 09/07/20 21:11 MDM - Extremity (Nontraumatic) MDM Narrative: Medical decision making narrative: Patient presents with a foot contusion. X-ray here shows no fracture. Her exam is benign and she is stable for discharge. Imaging Data^: X-ray left foot: Attestation: I personally reviewed and interpreted this imaging study as follows: My impression: No acute abnormality Discharge Plan Discharge Patient Disposition: Home Clinical Impression: Acute pain of left foot Condition: Stable Prescriptions: No Action metoclopramide HCl [Reglan] 10 mg tablet 10 mg PO Q6H PRN (Reason: nausea and vomiting) Qty: 20 RF: 0 Philith 0.4-35 mg-mcg tablet 1 tab PO DAILY RF: 0 ropinirole 2 mg tablet 2 mg PO TID RF: 0 Singulair 10 mg Tablet 10 mg PO DAILY RF: 0 Vitamin D2 1,250 mcg (50,000 unit) capsule 50,000 unit PO Q7D RF: 0 Miralax 17 gram/dose Powder See Rx Instructions .ROUTE .COMPLEX RF: 0 ProAir HFA 90 mcg/actuation Hfa Aerosol Inhaler 2 puff INHALATION Q4H PRN (Reason: Shortness Of Breath) RF: 0 topiramate 100 mg tablet 100 mg PO BID RF: 0 Synthroid 112 mcg tablet See Rx Instructions .ROUTE .COMPLEX RF: 0 aripiprazole 30 mg tablet 30 mg PO DAILY RF: 0 Novolog Flexpen U-100 Insulin 100 unit/mL (3 mL) insulin pen See Rx Instructions .ROUTE .COMPLEX RF: 0 Tresiba FlexTouch U-100 100 unit/mL (3 mL) insulin pen 22 unit SUBCUT QAM RF: 0 Farxiga 5 mg tablet 5 mg PO DAILY RF: 0 Probiotic Gummy 2 tab PO DAILY RF: 0 Discharge Orders: Discharge Order (Routine); Ordered 09/07/20 Ordered By: Prashanth Villarreal Referrals: Tobi Hernandez RN, AIR INTERCEPT CONTROLLER [Primary Care Provider] - Discharge Diet: Advance as tolerated Discharge Activity: Resume usual activity Patient Instructions: Arthralgia (ED) Coding Level of Care Code ED Director Of Placement for Chg Fwd Exam Comprehensive
[2020-09-07] MEDS: naproxen 500 mg Tablet PO (21:08)
[2020-09-07 21:11] VITALS: BP 100/82; PULSE 93; RESP 16; O2SAT 96
[2020-09-07 21:36] VITALS: BP 107/78
== END 2020-09-07 21:37 | disposition home or self-care (01) ==
PROVIDERS: Emergency Provider Emergency Medicine; PCP Nurse Practitioner Family
DX: M79.672 Pain in left foot (principal); Z87.891 Personal history of nicotine dependence; Z79.4 Long term (current) use of insulin
CPT/HCPCS: 12345; 73630; 99283

== ENCOUNTER 2020-10-18 11:42 | Emergency (ER) | payer MEDICARE, SELFPAY ==
[2020-10-18 11:44] VITALS: BP 135/72; PULSE 99; RESP 16; TEMP 36; O2SAT 97; BMI 27.2
--- NOTE | 2020-10-18 11:57 | XRR_ITS ---
PROCEDURE INFORMATION: Exam: XR Right Ribs with PA Chest, 3 Views Exam date and time: 10/18/2020 12:03 PM Age: 39 years old Clinical indication: Other: RT rib pain; Additional info: Rib pain after it popped TECHNIQUE: Imaging protocol: XR Right ribs 3 views with PA chest. COMPARISON: CR Chest 1 [place] [id number] 02/03/2019 11:06 PM FINDINGS: Lungs: Unremarkable. No consolidation. Pleural space: Unremarkable. No pleural effusion. No pneumothorax. Heart/Mediastinum: Unremarkable. No cardiomegaly. Bones/joints: Unremarkable. The right ribs appear normal. XR/XR ribs RT mn 3V w CXR1V [id number] IMPRESSION: No acute findings.
--- NOTE | 2020-10-18 11:57 | CTR_ITS ---
PROCEDURE INFORMATION: Exam: CT Abdomen And Pelvis With Contrast Exam date and time: 10/18/2020 12:03 PM Age: 39 years old Clinical indication: Abdominal pain; Prior surgery; Surgery date: 6+ months; Surgery type: Appy; Patient HX: C/O epigastric pain and blood in vomit; Additional info: Hematemesis TECHNIQUE: Imaging protocol: Computed tomography of the abdomen and pelvis with intravenous contrast. Radiation optimization: All CT scans at this facility use at least one of these dose optimization techniques: automated exposure control; mA and/or kV adjustment per patient size (includes targeted exams where dose is matched to clinical indication); or iterative reconstruction. Contrast material: OMNI 300; Contrast volume: 95 ml; Contrast route: INTRAVENOUS (IV); Other contrast: Oral, Dilute Omni 300, 450 ml total volume; COMPARISON: CT abdomen pelvis w con* [id number] 04/18/2020 11:09 PM RADIATION DOSE METRICS: Total DLP (mGy-cm): 937.07 FINDINGS: Liver: Normal. No mass. Gallbladder and bile ducts: Normal. No calcified stones. No ductal dilation. Pancreas: Normal. No ductal dilation. Spleen: Normal. No splenomegaly. Adrenal glands: Normal. No mass. Kidneys and ureters: Normal. No hydronephrosis. Stomach and bowel: There is prominence of the amount of stool in the colon which may indicate constipation. There is no evidence of small bowel obstruction or dilatation. Appendix: No evidence of appendicitis. Intraperitoneal space: Unremarkable. No free air. No significant fluid collection. Vasculature: Unremarkable. No abdominal aortic aneurysm. Lymph nodes: Unremarkable. No enlarged lymph nodes. Urinary bladder: Unremarkable as visualized. Reproductive: Unremarkable as visualized. Bones/joints: Unremarkable. No acute fracture. Soft tissues: There is a small fat containing umbilical hernia. CT/CT abdomen pelvis w con* [id number] IMPRESSION: 1. Mild prominence of the amount of stool consistent with constipation. 2. No acute abnormalities are seen in the abdomen and pelvis. Radiation Dose CTDIVOL = (mGy): DLP = 937.07 (mGy-cm)
--- NOTE | 2020-10-18 12:00 | ECG_ITS ---
[facility] Test Date: 2020-10-18 Pat Name: Kellen Joseph Department: Room: Gender: Female Developmental Education Instructor: : 1980 Requested By: Ty Montero I Order Number: [id number] Reading MD: ROBERTO CHURCHILL Measurements Intervals [place] Rate: 91 P: 68 NM: 103 QRS: 66 QRSD: 84 T: 14 QT: 350 QTc: 432 Interpretive Statements SINUS RHYTHM WITH SHORT NM INTERVAL POSSIBLE LEFT ATRIAL ENLARGEMENT [-0.1mV P WAVE IN V1/V2] NONSPECIFIC T-WAVE ABNORMALITY Compared to ECG 02/03/2019 22:58:55 No significant changes Electronically Signed On 10-18-2020 18:02:38 BOTTLE HOP by ROBERTO CHURCHILL [id number]
--- NOTE | 2020-10-18 12:01 | ED_ITS ---
HPI - General Adult General: Chief complaint: General Medical Stated complaint: Spitting/Puking up blood/Possible Ulcer/Sent by Time Seen by Provider: 10/18/20 11:48 Source: patient Mode of arrival: ambulatory Limitations: no limitations History of Present Illness: HPI narrative: The patient is a 39-year-old female with a history of diabetes and remote history of a stomach ulcer presents to the emergency department with hematemesis. A few days ago her was hugging her and it slipped and she said she felt her ribs popped. After that she had been taking 800 mg of ibuprofen twice a day and subsequently started vomiting blood she has been multiple episodes a day. Has vomited once so far today and 3 times last night. Each time there is blood in her vomit. She has mild epigastric pain. She called her primary care provider who asked her to come into the emergency department because he was concerned that she may be having a bleeding ulcer. complaint: hematemesis Onset (ago): day(s) (3) Associated symptoms: Reports nausea and vomiting; Deny chest pain, confusion, cough, diaphoresis, decreased appetite, dyspnea, fevers/chills, headache(s), malaise, rash, palpitations, seizures, short of breath, syncope or weakness Treatments prior to arrival: none Review of Systems General: Reports: 10 or more systems reviewed and unremarkable except in HPI and below Const: Denies: malaise or diaphoresis Eyes: Denies: change in vision or blurry vision ENMT: Denies: throat pain, enlarged tonsils, odynophagia, hoarseness, mouth pain or swelling of lips/tongue Card: Denies: chest pain, palpitations or syncope Resp: Denies: dyspnea GI: Reports: nausea and vomiting : Denies: flank pain, difficulty voiding, dysuria, urinary frequency, urinary urgency or urinary hesitancy Musc: Denies: neck pain, back pain or extremity swelling Skin/Breast: Denies: rash Neuro: Denies: headache(s) or confusion Endo: Denies: polyuria, polydipsia or tired all the time [facility] ED PFSH: Social History Smoking and tobacco status: former smoker Female Reproductive History: Date of last menstrual period: 04/17/20 Physical Exam Const: COMMON NORMALS: no acute distress, average body habitus, patient oriented x3, no limitations, healthy appearing, alert and well nourished HENMT: COMMON NORMALS: normocephalic, atraumatic and moist oral mucous membranes HEAD & SCALP: normocephalic and atraumatic Neck/C-Spine: COMMON NORMALS: no meningeal signs and no JVD Resp: COMMON NORMALS: normal respiratory effort, No retractions, No use of accessory muscles, clear to auscultation bilaterally and percussion normal AUSCULTATION: clear to auscultation bilaterally PERCUSSION: percussion normal Cardio: COMMON NORMALS: no JVD, regular rate, regular rhythm, S1 normal heart sound present, S2 normal heart sound present, No gallops present (Cardio), No clicks present (Cardio), No murmurs present (Cardio), No rub (Cardio) and Peripheral pulses 2+ throughout RATE: regular rate RHYTHM: regular rhythm HEART SOUNDS: S1 normal heart sound present and S2 normal heart sound present PERIPHERAL PULSES: Peripheral pulses 2+ throughout GI: COMMON NORMALS: Normal to inspection, nondistended, normoactive bowel sounds present, Soft to palpation, No hepatosplenomegaly present, no masses and no bruits PALPATION: Yes Soft to palpation, Yes Tenderness to palpation present (GI) (Epigastric) and Yes No hepatosplenomegaly present Extremity: COMMON NORMALS: normal to inspection, full ROM, capillary refill normal, no calf tenderness and no pedal edema Neuro: COMMON NORMALS: patient oriented x3 SENSORIUM/ORIENTATION: Yes alert MENINGEAL SIGNS: Yes no meningeal signs Skin: COMMON NORMALS: no rashes or lesions noted, no wounds, turgor normal, no jaundice, no petechiae and no mottling GENERAL SKIN EXAM: no rashes or lesions noted and turgor normal Course Reevaluation(s): Reevaluation #1: Discussed her lab and imaging findings with her. Also discussed my conversation with the surgeon. She declined an NG tube and said she would like to be discharged home on oral medications and if he gets worse or persist she will return. I explained to her the reason why wanted to do the NG tube to see if she is having active bleeding but she still declined while voicing understanding. We will discharge her home with a prescription for Protonix and Carafate. She understood that if she developed massive bleeding she may not have enough time to make it to the hospital and may . She is willing to take the risk. Time: 14:40 Consultations: Consultation #1: Discussed the patient with Dr. Rm, surgeon national flatbed truck driver. He suggested that we drop an NG tube and aspirate to see if she is having active bleeding. If she is then she will definitely need to be admitted for an upper GI endoscopy. If there is no active bleeding she can be discharged home on Protonix and Carafate. Time: 14:27 Vital Signs: Vital signs: Vital Signs Temperature 96.8 F L 10/18/20 11:44 Pulse Rate 91 10/18/20 15:02 Respiratory Rate 18 10/18/20 15:02 Blood Pressure 119/80 10/18/20 15:02 Pulse Oximetry 100 10/18/20 15:02 MDM - General Adult MDM Narrative: Medical decision making narrative: 39-year-old female patient who presents to the emergency department with hematemesis. She had no episode of vomiting in the ED until he was not witnessed. She also declined an NG tube insertion for evaluation of stomach contents. She wanted to be discharged home on oral medications as she discharged home on oral pantoprazole and Carafate. She will be referred to general surgery for upper GI endoscopy. She is advised to return for any concerns or if she has any repeat episodes. Medical Records: Attestation: I reviewed the patient's medical records. Lab Data: Attestation: I reviewed the patient's lab results. Labs: Lab Results 10/18/20 10/18/20 10/18/20 Range/Units 12:45 12:45 12:45 WBC 7.6 (4.0-10.0) 10^3/ uL RBC 5.41 H (4.1-5.3) 10^6/u L Hgb 14.9 (11.5-15.3) g/dL Hct 47.8 H (37.0-47.0) % MCV 88.4 (81-99) fL MCH 27.5 L (28.0-34.0) pg MCHC 31.2 (30.0-36.0) g/dL RDW 12.8 (12.1-15.1) % Plt Count 268 (130-400) 10^3/c mm MPV 11.6 H (7.4-10.4) fL Neut % (Auto) 71.1 % Lymph % (Auto) 21.0 % [place] % (Auto) 5.4 % Eos % (Auto) 1.2 % Baso % (Auto) 1.2 % Neut # (Auto) 5.39 (1.8-7.7) 10^3/u L Lymph # (Auto) 1.6 (0.8-4.8) 10^3/u L [place] # (Auto) 0.4 (0.2-0.9) 10^3/u L Eos # (Auto) 0.1 (0.0-0.8) 10^3/u L Baso # (Auto) 0.1 (0.0-0.1) 10^3/u L Nucleated RBC % (a uto) 0 % Nucleated RBCs # 0.0 /100WBC PT 13.90 (12.1-14.9) SECO NDS INR 1.04 (0.8-1.2) Sodium 138 (136-145) mmol/L Potassium 3.6 (3.5-5.1) mmol/L Chloride 106 (98-107) mmol/L Carbon Dioxide 21 L (22-29) mmol/L Anion Gap 14.6 (5-19) BUN 12 (6-20) mg/dL Creatinine 0.8 (0.5-0.9) mg/dL GFR Calculation 80.7 L (90-130) mL/min Glucose 116 H (65-115) mg/dL Calculated Osmolal ity 287 (285-295) mOsm/k g Lactate Calcium 9.1 (8.5-10.5) mg/dL Total Bilirubin 0.4 (0.15-1.2) mg/dL AST 10 (0-32) U/L ALT 20 (0-33) U/L Alkaline Phosphata se 72 (35-105) IU/L Creatine Kinase 30 (26-192) U/L C-Reactive Protein 15.4 H (0.0-4.9) mg/L Total Protein 7.1 (6.6-8.7) g/dL Albumin 4.3 (3.5-5.2) g/dL Globulin 2.8 (1.3-4.6) g/dL Lipase 18 (13-60) U/L HCG, Qual (Negative) Blood Type Rho(D) Type Antibody Screen 10/18/20 10/18/20 10/18/20 Range/Units 12:45 12:45 12:45 WBC (4.0-10.0) 10^3/ uL RBC (4.1-5.3) 10^6/u L Hgb (11.5-15.3) g/dL Hct (37.0-47.0) % MCV (81-99) fL MCH (28.0-34.0) pg MCHC (30.0-36.0) g/dL RDW (12.1-15.1) % Plt Count (130-400) 10^3/c mm MPV (7.4-10.4) fL Neut % (Auto) % Lymph % (Auto) % [place] % (Auto) % Eos % (Auto) % Baso % (Auto) % Neut # (Auto) (1.8-7.7) 10^3/u L Lymph # (Auto) (0.8-4.8) 10^3/u L [place] # (Auto) (0.2-0.9) 10^3/u L Eos # (Auto) (0.0-0.8) 10^3/u L Baso # (Auto) (0.0-0.1) 10^3/u L Nucleated RBC % (a uto) % Nucleated RBCs # /100WBC PT (12.1-14.9) SECO NDS INR (0.8-1.2) Sodium (136-145) mmol/L Potassium (3.5-5.1) mmol/L Chloride (98-107) mmol/L Carbon Dioxide (22-29) mmol/L Anion Gap (5-19) BUN (6-20) mg/dL Creatinine (0.5-0.9) mg/dL GFR Calculation (90-130) mL/min Glucose (65-115) mg/dL Calculated Osmolal ity (285-295) mOsm/k g Lactate Cancelled Calcium (8.5-10.5) mg/dL Total Bilirubin (0.15-1.2) mg/dL AST (0-32) U/L ALT (0-33) U/L Alkaline Phosphata se (35-105) IU/L Creatine Kinase (26-192) U/L C-Reactive Protein (0.0-4.9) mg/L Total Protein (6.6-8.7) g/dL Albumin (3.5-5.2) g/dL Globulin (1.3-4.6) g/dL Lipase (13-60) U/L HCG, Qual Negative (Negative) Blood Type O Positive Rho(D) Type Positive Antibody Screen Negative Imaging Data^: Other Xray: Attestation: I personally reviewed and interpreted this imaging study as follows: Radiologist's impression: [address] [address] XRay Report Signed Patient: Kellen Joseph #: [id number] : 1980Acct#:[id number] Age/Sex: 39 / FADM Date: 10/18/20 Loc: ERRoom/Bed: Attending Dr: Ordering Provider/Ordering MD: Ty Montero MD, [facility] [place] Date of Service: 10/18/20 Procedure(s): XR ribs RT mn 3V w CXR1V [id number] Accession Number(s): [id number] Report Number: [id number] PROCEDURE INFORMATION: Exam: XR Right Ribs with PA Chest, 3 Views Exam date and time: 10/18/2020 12:03 PM Age: 39 years old Clinical indication: Other: RT rib pain; Additional info: Rib pain after it popped TECHNIQUE: Imaging protocol: XR Right ribs 3 views with PA chest. COMPARISON: CR Chest 1 [place] [id number] 02/03/2019 11:06 PM FINDINGS: Lungs: Unremarkable. No consolidation. Pleural space: Unremarkable. No pleural effusion. No pneumothorax. Heart/Mediastinum: Unremarkable. No cardiomegaly. Bones/joints: Unremarkable. The right ribs appear normal. XR/XR ribs RT mn 3V w CXR1V [id number] IMPRESSION: No acute findings. Dictated By:Tim Vela Signed By:Tim VelaSishekhar Date/Time:10/18/20 1228 DD/ 1226 CT Abd/Pel: Attestation: I personally reviewed and interpreted this imaging study as follows: Radiologist's impression: [address] [address] [address] Scan Report Signed Patient: Kellen Joseph #: [id number] : 1980Acct#:[id number] Age/Sex: 39 / FADM Date: 10/18/20 Loc: ERRoom/Bed: Attending Dr: Ordering Provider/Ordering MD: Ty Montero MD, [facility] [place] Date of Service: 10/18/20 Procedure(s): CT abdomen pelvis w con* [id number] Accession Number(s): [id number] Report Number: [id number] PROCEDURE INFORMATION: Exam: CT Abdomen And Pelvis With Contrast Exam date and time: 10/18/2020 12:03 PM Age: 39 years old Clinical indication: Abdominal pain; Prior surgery; Surgery date: 6+ months; Surgery type: Appy; Patient HX: C/O epigastric pain and blood in vomit; Additional info: Hematemesis TECHNIQUE: Imaging protocol: Computed tomography of the abdomen and pelvis with intravenous contrast. Radiation optimization: All CT scans at this facility use at least one of these dose optimization techniques: automated exposure control; mA and/or kV adjustment per patient size (includes targeted exams where dose is matched to clinical indication); or iterative reconstruction. Contrast material: OMNI 300; Contrast volume: 95 ml; Contrast route: INTRAVENOUS (IV); Other contrast: Oral, Dilute Omni 300, 450 ml total volume; COMPARISON: CT abdomen pelvis w con* [id number] 04/18/2020 11:09 PM RADIATION DOSE METRICS: Total DLP (mGy-cm): 937.07 FINDINGS: Liver: Normal. No mass. Gallbladder and bile ducts: Normal. No calcified stones. No ductal dilation. Pancreas: Normal. No ductal dilation. Spleen: Normal. No splenomegaly. Adrenal glands: Normal. No mass. Kidneys and ureters: Normal. No hydronephrosis. Stomach and bowel: There is prominence of the amount of stool in the colon which may indicate constipation. There is no evidence of small bowel obstruction or dilatation. Appendix: No evidence of appendicitis. Intraperitoneal space: Unremarkable. No free air. No significant fluid collection. Vasculature: Unremarkable. No abdominal aortic aneurysm. Lymph nodes: Unremarkable. No enlarged lymph nodes. Urinary bladder: Unremarkable as visualized. Reproductive: Unremarkable as visualized. Bones/joints: Unremarkable. No acute fracture. Soft tissues: There is a small fat containing umbilical hernia. CT/CT abdomen pelvis w con* [id number] IMPRESSION: 1. Mild prominence of the amount of stool consistent with constipation. 2. No acute abnormalities are seen in the abdomen and pelvis. Radiation Dose CTDIVOL = (mGy): DLP = 937.07 (mGy-cm) Dictated By:Tim Vela Signed By:Tim VelaSignteto Date/Time:10/18/20 1400 DD/ 1359 EKG Data^: EKG 1: Attestation: I personally reviewed and interpreted this EKG as follows: EKG interpretation date: 10/18/20 EKG interpretation time: 12:17 Prior EKG tracings: not available for review Interpretation: Sinus rhythm with short OR interval. Heart rate [address] changes. Normal axis Computer generated interpretation: Abdomen/Pelvis CT 10/18/20 11:57 IMPRESSION: 1. Mild prominence of the amount of stool consistent with constipation. 2. No acute abnormalities are seen in the abdomen and pelvis. Radiation Dose CTDIVOL = (mGy): DLP = 937.07 (mGy-cm) Ribs X-Ray 10/18/20 11:57 IMPRESSION: No acute findings. Discharge Plan Discharge Patient Disposition: Home Clinical Impression: Hematemesis Qualifiers: Nausea presence: with nausea Qualified Code(s): K92.0 - Hematemesis Gastritis Qualifiers: Gastritis type: unspecified gastritis Chronicity: acute Gastritis bleeding: with bleeding Qualified Code(s): K29.01 - Acute gastritis with bleeding Condition: Stable Prescriptions: New Protonix 40 mg tablet,delayed release (DR/EC) 40 mg PO DAILY 28 Days Qty: 30 RF: 0 Carafate 100 mg/mL suspension 1 g PO Q6H 28 Days Qty: 1120 RF: 0 Continued metoclopramide HCl [Reglan] 10 mg tablet 10 mg PO Q6H PRN (Reason: nausea and vomiting) Qty: 20 RF: 0 Philith 0.4-35 mg-mcg tablet 1 tab PO DAILY RF: 0 ropinirole 2 mg tablet 2 mg PO TID RF: 0 Singulair 10 mg Tablet 10 mg PO DAILY RF: 0 Vitamin D2 1,250 mcg (50,000 unit) capsule 50,000 unit PO Q7D RF: 0 Miralax 17 gram/dose Powder See Rx Instructions .ROUTE .COMPLEX RF: 0 ProAir HFA 90 mcg/actuation Hfa Aerosol Inhaler 2 puff INHALATION Q4H PRN (Reason: Shortness Of Breath) RF: 0 topiramate 100 mg tablet 100 mg PO BID RF: 0 Synthroid 112 mcg tablet See Rx Instructions .ROUTE .COMPLEX RF: 0 aripiprazole 30 mg tablet 30 mg PO DAILY RF: 0 Novolog Flexpen U-100 Insulin 100 unit/mL (3 mL) insulin pen See Rx Instructions .ROUTE .COMPLEX RF: 0 Tresiba FlexTouch U-100 100 unit/mL (3 mL) insulin pen 22 unit SUBCUT QAM RF: 0 Farxiga 5 mg tablet 5 mg PO DAILY RF: 0 Probiotic Gummy 2 tab PO DAILY RF: 0 Discharge Orders: Discharge Order (Routine); Ordered 10/18/20 Ordered By: yT Montero Referrals: Tobi Hernandez RN, ASSISTANT PLANT CONTROL OPERATOR [Primary Care Provider] - 1-3 days Eric Olmstead MD [Physician] - 4-7 days Discharge Diet: As Directed Discharge Activity: Resume usual activity Patient Instructions: Gastritis (ED), Diet for Ulcers and Gastritis (ED) Activity Restrictions/Additional Instructions: Return for any new or worsening symptoms. Follow-up with your primary care provider within 3 days. You will be contacted to schedule an appointment with the surgeon in the office. Avoid NSAIDs such as ibuprofen, Aleve, naproxen, reduce your caffeinated beverages. Avoid spicy foods. Take the medications as prescribed. Coding Level of Care Code ED Account Support Manager for Chg Fwd Exam Comprehensive
[2020-10-18] MEDS: sodium chloride 0.9% 1,000 ML 999 ML IV (12:55)
[2020-10-18] MEDS: pantoprazole 40 mg SDV IVP (12:57)
[2020-10-18 13:05] LABS: Basophils # 0.1 10^3/uL (0.0-0.1); Basophils % 1.2 %; Eosinophils # 0.1 10^3/uL (0.0-0.8); Eosinophils % 1.2 %; Hematocrit 47.8 % (37.0-47.0); Hemoglobin 14.9 g/dL (11.5-15.3); Lymphocytes # 1.6 10^3/uL (0.8-4.8); Mean Corpuscular HGB Conc 31.2 g/dL (30.0-36.0); Mean Corpuscular Hemoglobin 27.5 pg (28.0-34.0); Mean Corpuscular Volume 88.4 fL (81-99); Mean Platelet Volume 11.6 fL (7.4-10.4); Monocytes # 0.4 10^3/uL (0.2-0.9); Monocytes % 5.4 %; Neutrophils # 5.39 10^3/uL (1.8-7.7); Neutrophils % 71.1 %; Nucleated Red Blood Cells % 0 %; Platelet Count 268 10^3/cmm (130-400); Red Blood Count 5.41 10^6/uL (4.1-5.3); Red Cell Distribution Width 12.8 % (12.1-15.1); White Blood Count 7.6 10^3/uL (4.0-10.0)
[2020-10-18 13:08] VITALS: BP 112/73; PULSE 81; RESP 20; O2SAT 100
[2020-10-18 13:15] LABS: INR 1.04 (0.8-1.2)
[2020-10-18 13:18] LABS: HCG, Serum Qual Negative (Negative)
[2020-10-18 13:25] LABS: Alanine Aminotransferase 20 U/L (0-33); Albumin Level 4.3 g/dL (3.5-5.2); Alkaline Phosphatase 72 IU/L (35-105); Anion Gap 14.6 (5-19); Aspartate Amino Transferase 10 U/L (0-32); Blood Urea Nitrogen 12 mg/dL (6-20); C Reactive Protein 15.4 mg/L (0.0-4.9); Calcium 9.1 mg/dL (8.5-10.5); Carbon Dioxide 21 mmol/L (22-29); Chloride 106 mmol/L (98-107); Creatine Phosphokinase 30 U/L (26-192); Globulin 2.8 g/dL (1.3-4.6); Glomerular Filtration Rate 80.7 mL/min (90-130); Glucose 116 mg/dL (65-115); Lipase 18 U/L (13-60); Osmolality Calculated 287 mOsm/kg (285-295); Potassium 3.6 mmol/L (3.5-5.1); Sodium 138 mmol/L (136-145); Total Bilirubin 0.4 mg/dL (0.15-1.2); Total Protein 7.1 g/dL (6.6-8.7)
[2020-10-18] MEDS: iohexol 300 mg/mL 50 mL Btl PO (13:41)
[2020-10-18] MEDS: iohexol 300 mg/mL 100 mL Btl IV (13:42)
[2020-10-18 15:02] VITALS: BP 119/80; PULSE 91; RESP 18; O2SAT 100
== END 2020-10-18 15:03 | disposition home or self-care (01) ==
PROVIDERS: Emergency Provider Family Medicine; PCP Nurse Practitioner Family
DX: K29.01 Acute gastritis with bleeding (principal); Z79.4 Long term (current) use of insulin; Z87.891 Personal history of nicotine dependence
CPT/HCPCS: 12345; 71101; 74177; 80053; 82550; 83690; 84703; 85025; 85610; 86140; 86850; 86900; 93005; 96361; 96374; 96375; 99282; 99283; C9113; J7030; Q9967

== ENCOUNTER 2020-12-21 13:23 | Emergency (ER) | payer MEDICARE, SELFPAY ==
[2020-12-21 13:30] VITALS: BP 133/88; PULSE 90; RESP 16; TEMP 36.3; O2SAT 99; BMI 25.1
--- NOTE | 2020-12-21 13:35 | ED_ITS ---
HPI - General Adult General: Chief complaint: Upper Respiratory Infection Stated complaint: sore throat Time Seen by Provider: 12/21/20 13:30 History of Present Illness: HPI narrative: Patient is a 40-year-old female comes to the ED with sore throat. Symptoms started last night. She just found out that her tested positive for strep so she was wanting to get checked as well. Denies any fever, chills, cough, shortness of breath, nasal drainage or congestion, chest pain, nausea/vomiting, bladder or bowel symptoms. Associated symptoms: Deny chest pain, dyspnea, headache(s), nausea, rash, palpitations or vomiting Review of Systems Const: Denies: fever(s), chills or fatigue Eyes: Denies: change in vision or eye discomfort ENMT: Reports: throat pain; Denies: odynophagia, nasal discharge or nasal congestion Card: Denies: chest pain, palpitations, edema, swelling of feet/ankles, dyspnea on exertion or orthopnea Resp: Denies: dyspnea, productive cough or non-productive cough GI: Denies: abdominal pain, nausea, vomiting, diarrhea, constipation or hematochezia : Denies: flank pain, dysuria or hematuria Musc: Denies: neck pain, back pain or extremity swelling Skin/Breast: Denies: rash or new lesions Neuro: Denies: headache(s), numbness in extremities or weakness in extremities PFSH ED PFSH: Social History Smoking and tobacco status: former smoker Alcohol intake: current Alcohol intake frequency: holidays/special occasions only Substance/Drug Use: never Female Reproductive History: Date of last menstrual period: 12/21/20 Physical Exam Const: COMMON NORMALS: no acute distress, patient oriented x3, healthy appearing and alert GENERAL APPEARANCE: cooperative and comfortable HENMT: COMMON NORMALS: normocephalic HEAD & SCALP: normocephalic MOUTH: Normal oral and palatal mucosa present THROAT: uvula midline and posterior oropharynx abnormal erythema; no exudates Neck/C-Spine: COMMON NORMALS: supple GENERAL: Yes normal visual inspection Resp: COMMON NORMALS: normal respiratory effort, No retractions, No use of accessory muscles and clear to auscultation bilaterally AUSCULTATION: clear to auscultation bilaterally Cardio: COMMON NORMALS: regular rate, regular rhythm, S1 normal heart sound present, S2 normal heart sound present, No gallops present (Cardio), No clicks present (Cardio), No murmurs present (Cardio) and Peripheral pulses 2+ throughout RATE: regular rate RHYTHM: regular rhythm HEART SOUNDS: S1 normal heart sound present and S2 normal heart sound present PERIPHERAL PULSES: Peripheral pulses 2+ throughout GI: COMMON NORMALS: Normal to inspection, nondistended, normoactive bowel sounds present, Soft to palpation, non-tender and no masses PALPATION: Yes Soft to palpation : COMMON NORMALS: Yes no CVA tenderness BLADDER/KIDNEY EXAM: Yes no CVA tenderness Back/Pelvis: COMMON NORMALS: no CVA tenderness Extremity: COMMON NORMALS: normal to inspection and no pedal edema Neuro: COMMON NORMALS: patient oriented x3 and moves all extremities SENSORIUM/ORIENTATION: Yes alert Skin: GENERAL SKIN EXAM: dry skin Course Vital Signs: Vital signs: Vital Signs Temperature 97.3 F L 12/21/20 13:30 Pulse Rate 90 12/21/20 13:30 Respiratory Rate 17 12/21/20 14:34 Blood Pressure 133/88 12/21/20 13:30 Pulse Oximetry 99 12/21/20 13:30 MDM - General Adult MDM Narrative: Medical decision making narrative: Patient is a 40-year-old female comes to the ED with sore throat. Her was just diagnosed with strep throat and wanted to be tested for. Rapid strep test negative. Patient was diagnosed with viral pharyngitis and discharged. Follow-up with PCP in 7 to 10 days. Return to ED precautions given. Patient understood and agreed with plan. Lab Data: Labs: Lab Results 12/21/20 Range/Units 13:47 Group A Strep Rapi d Negative (Negative) Discharge Plan Discharge Patient Disposition: Home Clinical Impression: Viral pharyngitis Condition: Stable Prescriptions: No Action metoclopramide HCl [Reglan] 10 mg tablet 10 mg PO Q6H PRN (Reason: nausea and vomiting) Qty: 20 RF: 0 Philith 0.4-35 mg-mcg tablet 1 tab PO DAILY RF: 0 ropinirole 2 mg tablet 2 mg PO TID RF: 0 Singulair 10 mg Tablet 10 mg PO DAILY RF: 0 Vitamin D2 1,250 mcg (50,000 unit) capsule 50,000 unit PO Q7D RF: 0 Miralax 17 gram/dose Powder See Rx Instructions .ROUTE .COMPLEX RF: 0 ProAir HFA 90 mcg/actuation Hfa Aerosol Inhaler 2 puff INHALATION Q4H PRN (Reason: Shortness Of Breath) RF: 0 topiramate 100 mg tablet 100 mg PO BID RF: 0 Synthroid 112 mcg tablet See Rx Instructions .ROUTE .COMPLEX RF: 0 aripiprazole 30 mg tablet 30 mg PO DAILY RF: 0 Novolog Flexpen U-100 Insulin 100 unit/mL (3 mL) insulin pen See Rx Instructions .ROUTE .COMPLEX RF: 0 Tresiba FlexTouch U-100 100 unit/mL (3 mL) insulin pen 22 unit SUBCUT QAM RF: 0 Farxiga 5 mg tablet 5 mg PO DAILY RF: 0 Probiotic Gummy 2 tab PO DAILY RF: 0 Discharge Orders: Discharge ED (Routine); Ordered 12/21/20 Ordered By: Nate Agarwal Referrals: Tobi Hernandez RN, DATA INTEGRATION DEVELOPER [Primary Care Provider] - Discharge Diet: Regular Discharge Activity: Resume usual activity Patient Instructions: Pharyngitis (ED) Activity Restrictions/Additional Instructions: Follow-up with medical provider as directed in 7 to 10 days for reevaluation. Gargle salt water to help with symptoms. Take [id number] ibuprofen or Tylenol for pain or fevers. Return to the ER or your medical provider if condition worsens. Please read and understand discharge instructions. If any questions, please ask. Coding Level of Care Code ED Rig Site Engineer for Álvaro Fwaraceli Exam Comprehensive
[2020-12-21 13:48] VITALS: RESP 18
[2020-12-21 14:01] LABS: Rapid Strep A Test Negative (Negative)
[2020-12-21 14:34] VITALS: RESP 17
== END 2020-12-21 14:34 | disposition home or self-care (01) ==
PROVIDERS: Emergency Provider Physician Assistant; PCP Nurse Practitioner Family
DX: J02.8 Acute pharyngitis due to other specified organisms (principal); Z79.4 Long term (current) use of insulin; Z87.891 Personal history of nicotine dependence
CPT/HCPCS: 12345; 87081; 87880; 99281

== ENCOUNTER 2021-01-29 07:35 | Emergency (ER) | payer MEDICARE, SELFPAY ==
[2021-01-29 07:44] VITALS: BP 126/47; PULSE 84; RESP 18; TEMP 36.6; O2SAT 100; BMI 25.4
--- NOTE | 2021-01-29 07:46 | XR_ITS ---
WS: [id number] Portable AP upright chest, 01/29/2021 today Clinical Data: cough/SOB Comparison: Portable chest, 10/18/2020. Findings: No nodules, masses or effusions are seen. The heart is normal. The pulmonary vascularity is not increased. No pneumonia or pneumothorax is seen. XR/XR chest 1V portable [id number] Impression: Negative chest.
--- NOTE | 2021-01-29 07:49 | W.ED.ANXIETY ---
HPI - Anxiety General: Chief Complaint: Anxiety Stated Complaint: Panic attack/cough/sob Time Seen by Provider: 01/29/21 07:43 Source: patient Mode of arrival: ambulatory Limitations: no limitations History of Present Illness: HPI narrative: Patient is a 40-year-old female who presents to ED today for evaluation of pain in her chest following a panic attack. Patient tells me she has a longstanding history of panic attacks. She states this morning she was arguing with her son when she became emotionally worked up and experienced a panic attack. Patient tells me the panic attack and then triggered an asthma attack. She tried her albuterol inhaler without much relief. She is complaining that she feels like an elephant is sitting on her chest currently feels short of breath. Patient has no known cardiac history. She is not having any palpitations. No drug or alcohol use. No radiation to her discomfort. MD complaint: anxiety and other (panic attack/chest pain/asthma) Onset (ago): hour(s) Place: home History of similar episodes: Yes Provoking factors: emotional stress (fighting with her son) Associated symptoms: Reports chest pain; Deny chills, fever(s), headache(s), malaise, nausea, palpitations, syncope or vomiting Review of Systems Const: Denies: fever(s), chills, body aches, fatigue or malaise Eyes: Denies: change in vision, blurry vision or photophobia Card: Reports: chest pain; Denies: palpitations, irregular heart rhythm, edema, swelling of feet/ankles, lightheadedness, syncope, pre-syncope, dyspnea on exertion, orthopnea, leg pain with exertion or acrocyanosis Resp: Reports: dyspnea; Denies: productive cough, non-productive cough, wheezing, stridor, pain on inspiration, change in phlegm color, hemoptysis or chest congestion GI: Denies: abdominal pain, nausea, vomiting or diarrhea : Denies: flank pain or dysuria Musc: Denies: neck pain, back pain, extremity pain, extremity swelling, joint pain or joint swelling Skin/Breast: Denies: rash Neuro: Denies: headache(s), numbness in extremities, weakness in extremities or sensory changes PFS ED PFSH: Social History Smoking and tobacco status: former smoker Alcohol intake: current Alcohol intake frequency: holidays/special occasions only Female Reproductive History: Date of last menstrual period: 12/21/20 Physical Exam Const: COMMON NORMALS: no acute distress, average body habitus, patient oriented x3, no limitations, healthy appearing, alert and well nourished GENERAL APPEARANCE: cooperative ORIENTATION/CONSCIOUSNESS: Yes awake, Yes oriented to person, Yes oriented to place and Yes oriented to time Resp: COMMON NORMALS: normal respiratory effort and clear to auscultation bilaterally AUSCULTATION: clear to auscultation bilaterally Cardio: COMMON NORMALS: regular rate and regular rhythm RATE: regular rate RHYTHM: regular rhythm Neuro: COMMON NORMALS: patient oriented x3 SENSORIUM/ORIENTATION: Yes alert, Yes oriented to person, Yes oriented to place and Yes oriented to time Skin: COMMON NORMALS: no rashes or lesions noted GENERAL SKIN EXAM: no rashes or lesions noted Course Reevaluation(s): Reevaluation #1: Patient states she feels much better after DuoNeb treatment. Vital Signs: Vital signs: Vital Signs Temperature 97.8 F 01/29/21 07:44 Pulse Rate 87 01/29/21 08:27 Respiratory Rate 16 01/29/21 08:23 Blood Pressure 103/71 01/29/21 08:17 Pulse Oximetry 100 01/29/21 08:23 MDM - Anxiety MDM Narrative: Medical decision making narrative: Patient feeling much better after nebulizer treatment-chest pain has almost completely subsided. Her labs are non-concerning. Troponin is normal. EKG without ischemic changes. Normal CXR. Patient states she feels well enough to go home. Return to ED precautions given. Imaging Data^: CXR: Radiologist's impression: [facility] [address] [place] [address] XRay Report Signed Patient: Kellen Joseph Unit #: [id number] : 1980 Age/Sex: 40 / F ADM Date: 01/29/21 Loc: ER Room/Bed: Attending Dr: Ordering Provider/Ordering MD: Yanet Fajardo Date of Service: 01/29/21 Procedure(s): XR chest 1V portable [id number] Accession Number(s): [id number] Report Number: [id number] WS: [id number] Portable AP upright chest, 01/29/2021 today Clinical Data: cough/SOB Comparison: Portable chest, 10/18/2020. Findings: No nodules, masses or effusions are seen. The heart is normal. The pulmonary vascularity is not increased. No pneumonia or pneumothorax is seen. XR/XR chest 1V portable [id number] Impression: Negative chest. Dictated By: Annamarie Storey MD Signed By: Annamarie Storey MD Signed Date/Time: 01/29/21855 DD/ 4 EKG Data^: EKG 1: EKG interpretation date: 01/29/21 EKG interpretation time: 08:11 Interpretation: Chest X-Ray 01/29/21 07:46 Impression: Negative chest. Sinus rhythm with sinus arrhythmia with short NC interval Rate [address] elevation or depression changes noted Other EKG comments: Chest X-Ray 01/29/21 07:46 Impression: Negative chest. Lab Data: Labs: Lab Results 01/29/21 01/29/21 01/29/21 Range/Units 08:12 08:12 08:12 WBC 7.3 (4.0-10.0) 10^3/ uL RBC 4.51 (4.1-5.3) 10^6/u L Hgb 11.4 L (11.5-15.3) g/dL Hct 37.5 (37.0-47.0) % MCV 83.1 (81-99) fL MCH 25.3 L (28.0-34.0) pg MCHC 30.4 (30.0-36.0) g/dL RDW 13.4 (12.1-15.1) % Plt Count 256 (130-400) 10^3/c mm MPV 11.4 H (7.4-10.4) fL Neut % (Auto) 63.4 % Lymph % (Auto) 23.4 % [place] % (Auto) 9.5 % Eos % (Auto) 2.2 % Baso % (Auto) 1.2 % Neut # (Auto) 4.62 (1.8-7.7) 10^3/u L Lymph # (Auto) 1.7 (0.8-4.8) 10^3/u L [place] # (Auto) 0.7 (0.2-0.9) 10^3/u L Eos # (Auto) 0.2 (0.0-0.8) 10^3/u L Baso # (Auto) 0.1 (0.0-0.1) 10^3/u L Nucleated RBC % (a uto) 0 % Nucleated RBCs # 0.0 /100WBC Sodium 140 (136-145) mmol/L Potassium 4.1 (3.5-5.1) mmol/L Chloride 108 H (98-107) mmol/L Carbon Dioxide 22 (22-29) mmol/L Anion Gap 14.1 (5-19) BUN 20 (6-20) mg/dL Creatinine 0.9 (0.5-0.9) mg/dL GFR Calculation 70.1 L (90-130) mL/min Glucose 161 H (65-115) mg/dL Calculated Osmolal ity 296 H (285-295) mOsm/k g Calcium 9.1 (8.5-10.5) mg/dL Total Bilirubin 0.3 (0.15-1.2) mg/dL AST 11 (0-32) U/L ALT 8 (0-33) U/L Alkaline Phosphata se 77 (35-105) IU/L Troponin T Baselin e 6 (0-10) ng/L Total Protein 6.7 (6.6-8.7) g/dL Albumin 4.1 (3.5-5.2) g/dL Globulin 2.6 (1.3-4.6) g/dL Discharge Plan Discharge Patient Disposition: Home Clinical Impression: Panic attack Asthma Qualifiers: Asthma severity: mild Asthma persistence: intermittent Asthma complication type: with acute exacerbation Qualified Code(s): J45.21 - Mild intermittent asthma with (acute) exacerbation Condition: Stable Prescriptions: No Action metoclopramide HCl [Reglan] 10 mg tablet 10 mg PO Q6H PRN (Reason: nausea and vomiting) Qty: 20 RF: 0 Philith 0.4-35 mg-mcg tablet 1 tab PO DAILY RF: 0 ropinirole 2 mg tablet 2 mg PO TID RF: 0 Singulair 10 mg Tablet 10 mg PO DAILY RF: 0 Vitamin D2 1,250 mcg (50,000 unit) capsule 50,000 unit PO Q7D RF: 0 Miralax 17 gram/dose Powder See Rx Instructions .ROUTE .COMPLEX RF: 0 ProAir HFA 90 mcg/actuation Hfa Aerosol Inhaler 2 puff INHALATION Q4H PRN (Reason: Shortness Of Breath) RF: 0 topiramate 100 mg tablet 100 mg PO BID RF: 0 Synthroid 112 mcg tablet See Rx Instructions .ROUTE .COMPLEX RF: 0 aripiprazole 30 mg tablet 30 mg PO DAILY RF: 0 Novolog Flexpen U-100 Insulin 100 unit/mL (3 mL) insulin pen See Rx Instructions .ROUTE .COMPLEX RF: 0 Tresiba FlexTouch U-100 100 unit/mL (3 mL) insulin pen 22 unit SUBCUT QAM RF: 0 Farxiga 5 mg tablet 5 mg PO DAILY RF: 0 Probiotic Gummy 2 tab PO DAILY RF: 0 Discharge Orders: Discharge ED (Routine); Ordered 01/29/21 Ordered By: Yanet Fajardo Referrals: Tobi Hernandez RN, CREMATORY ATTENDANT [Primary Care Provider] - Patient Instructions: Opioid Safety, Panic Attack Activity Restrictions/Additional Instructions: [facility] is committed to fighting the nationwide opiate epidemic. We are providing ALL patients with information regarding opiate safety. If you received opiate pain medication during your stay or if you received a prescription for opiate pain medication-please review this handout. If not, you may disregard. Thank you. Coding Level of Care Code ED Food Beverage Manager for Álvaro Fwaraceli Exam Expanded Problem Focused
--- NOTE | 2021-01-29 07:53 | ECG_ITS ---
[facility] Test Date: 2021-01-29 Pat Name: Kellen Joseph Department: Room: Gender: Female Pharmacy Cashier: : 1980 Requested By: Yanet Fajardo Order Number: [id number] Kalia MD: Trino Decker M.D. Measurements Intervals Walker Rate: 75 P: 64 CO: 116 QRS: 60 QRSD: 93 T: 43 QT: 359 QTc: 402 Interpretive Statements SINUS RHYTHM WITH SINUS ARRHYTHMIA WITH SHORT CO INTERVAL Compared to ECG 10/18/2020 12:16:57 T-wave abnormality no longer present Electronically Signed On 01-29-2021 17:14:23 INSURANCE ASSISTANT by Trino Decker M.D. [id number]
[2021-01-29 08:17] VITALS: BP 103/71; PULSE 80; RESP 16; O2SAT 100
--- NOTE | 2021-01-29 08:21 | PC.NURSE ---
RT to room for br tx
[2021-01-29 08:23] VITALS: PULSE 82; RESP 16; O2SAT 100
[2021-01-29] MEDS: ipratropium-albuterol 3 mL Neb INHALATION (08:23)
[2021-01-29 08:27] VITALS: PULSE 87
[2021-01-29 08:27] LABS: Basophils # 0.1 10^3/uL (0.0-0.1); Basophils % 1.2 %; Eosinophils # 0.2 10^3/uL (0.0-0.8); Eosinophils % 2.2 %; Hematocrit 37.5 % (37.0-47.0); Hemoglobin 11.4 g/dL (11.5-15.3); Lymphocytes # 1.7 10^3/uL (0.8-4.8); Lymphocytes % 23.4 %; Mean Corpuscular HGB Conc 30.4 g/dL (30.0-36.0); Mean Corpuscular Hemoglobin 25.3 pg (28.0-34.0); Mean Corpuscular Volume 83.1 fL (81-99); Mean Platelet Volume 11.4 fL (7.4-10.4); Monocytes # 0.7 10^3/uL (0.2-0.9); Monocytes % 9.5 %; Neutrophils # 4.62 10^3/uL (1.8-7.7); Neutrophils % 63.4 %; Nucleated Red Blood Cells % 0 %; Platelet Count 256 10^3/cmm (130-400); Red Blood Count 4.51 10^6/uL (4.1-5.3); Red Cell Distribution Width 13.4 % (12.1-15.1); White Blood Count 7.3 10^3/uL (4.0-10.0)
[2021-01-29 08:55] LABS: Alanine Aminotransferase 8 U/L (0-33); Albumin Level 4.1 g/dL (3.5-5.2); Alkaline Phosphatase 77 IU/L (35-105); Anion Gap 14.1 (5-19); Aspartate Amino Transferase 11 U/L (0-32); Blood Urea Nitrogen 20 mg/dL (6-20); Calcium 9.1 mg/dL (8.5-10.5); Carbon Dioxide 22 mmol/L (22-29); Chloride 108 mmol/L (98-107); Globulin 2.6 g/dL (1.3-4.6); Glomerular Filtration Rate 70.1 mL/min (90-130); Glucose 161 mg/dL (65-115); Osmolality Calculated 296 mOsm/kg (285-295); Potassium 4.1 mmol/L (3.5-5.1); Sodium 140 mmol/L (136-145); Total Bilirubin 0.3 mg/dL (0.15-1.2); Total Protein 6.7 g/dL (6.6-8.7)
[2021-01-29 09:00] LABS: Troponin(5th) Baseline 6 ng/L (0-10)
[2021-01-29 09:48] VITALS: BP 119/69; PULSE 90; RESP 16
== END 2021-01-29 09:50 | disposition home or self-care (01) ==
PROVIDERS: Emergency Provider Physician Assistant; PCP Nurse Practitioner Family
DX: F41.0 Panic disorder [episodic paroxysmal anxiety] (principal); J45.21 Mild intermittent asthma with (acute) exacerbation; Z79.4 Long term (current) use of insulin; Z87.891 Personal history of nicotine dependence
CPT/HCPCS: 71045; 80053; 84484; 85025; 93005; 94640; 99284

== ENCOUNTER 2021-03-24 11:39 | Outpatient (CLI) | payer MEDICARE, SELFPAY ==
--- NOTE | 2021-03-24 11:42 | MR_ITS ---
WS: [id number] MRI RIGHT KNEE NONCONTRAST TECHNIQUE: Axial PD, coronal PD fat sat, coronal PD, sagittal PD, and sagittal PD fat-sat images obta ined. CLINICAL INFORMATION: UNSPEC INJURY RT LOWER LEG;ABNORMAL FINDING ON DIAG IMAGING COMPARISON: None. FINDINGS: Distal quadriceps and patella tendons are intact. Normal ACL and PCL. Small amount of prepatellar and infrapatellar soft tissue edema. No significant joint effusion. Mild chondromalacia patella. No subchondral edema. Normal medial and lateral meniscus. No acute appea ring meniscal tears. Normal medial and lateral collateral ligaments. Normal popliteal fossa. No bony contusion. No other significant findings. MR/MR knee RT wo con* [id number] IMPRESSION: 1. Normal anterior and posterior cruciate ligaments. 2. Normal meniscus. No acute meniscal tears. 3. Mild chondromalacia patella. 4. Medial and lateral collateral ligaments are intact. 5. No acute fractures. No evidence of bony contusion.
== END 2021-03-24 11:40 | disposition home or self-care (01) ==
LOC: RADSHAW 11:41
PROVIDERS: PCP Nurse Practitioner Family; Visit Provider Nurse Practitioner Family
DX: S89.91XA Unspecified injury of right lower leg, initial encounter (principal); X58.XXXA Exposure to other specified factors, initial encounter; M22.41 Chondromalacia patellae, right knee
CPT/HCPCS: 73721

== ENCOUNTER 2021-03-24 12:09 | Emergency (ER) | payer MEDICARE, SELFPAY ==
[2021-03-24 12:11] VITALS: BP 149/86; PULSE 95; RESP 16; TEMP 36.9; O2SAT 95; BMI 25.0
--- NOTE | 2021-03-24 12:23 | ED_ITS ---
HPI - Fall General: Chief Complaint: Fall Stated Complaint: FALL, BILAT KNEE, L SHOULDER PAIN Time Seen by Provider: 03/24/21 12:20 History of Present Illness: HPI Narrative: Patient fell on steps while entering hospital building here today. She said she fell on both knees. She has knee immobilizer in her right knee because she is post getting MRI today of her knee due to possible tear. Kori falls seem to be the left knee. She also said she outstretched her hands and her left shoulder arm wrist is hurting but does have good range of motion she says. complaint: fall Onset (ago): minute(s) Fall from: standing Fall witnessed: no Place fall occurred: other ([facility]) Loss of consciousness: None Context: tripped/slipped Location of injury - extremities: Left: shoulder and arm (wrist) and Bilateral: knee Severity: mild Severity scale (1-10): 2 Associated symptoms-after fall: Reports no associated symptoms; Denies abdominal pain, chest pain or headache(s) Review of Systems Const: Denies: fever(s), chills or body aches Eyes: Denies: change in vision or blurry vision ENMT: Denies: throat pain or nasal congestion Card: Denies: chest pain or dyspnea on exertion Resp: Denies: dyspnea, productive cough or non-productive cough GI: Denies: abdominal pain, nausea or vomiting Musc: Reports: extremity pain (Left shoulder left wrist and left knee from a fall today) Skin/Breast: Denies: rash Neuro: Denies: headache(s) Psych: Denies: anxiety or depression Jaden/Lymph: Denies: easy bruising PFS ED PFSH: Social History Smoking and tobacco status: former smoker Alcohol intake: current Alcohol intake frequency: holidays/special occasions only Female Reproductive History: Date of last menstrual period: 03/10/21 Physical Exam Const: COMMON NORMALS: no acute distress, average body habitus and patient oriented x3 HENMT: COMMON NORMALS: normocephalic HEAD & SCALP: normal to inspection and normocephalic FACE & SINUS: normal facial exam Eye: COMMON NORMALS: conjunctivae normal GENERAL EYE: appearance normal, both eyes and all related structures CONJUNCTIVA: Yes conjunctivae normal Neck/C-Spine: COMMON NORMALS: no JVD Chest: COMMONS NORMALS: normal inspection of the chest Resp: COMMON NORMALS: normal respiratory effort and clear to auscultation bilaterally AUSCULTATION: clear to auscultation bilaterally Cardio: COMMON NORMALS: no JVD, regular rate and regular rhythm RATE: regular rate RHYTHM: regular rhythm GI: COMMON NORMALS: Normal to inspection, nondistended, normoactive bowel sounds present Extremity: LEFT UPPER EXTREMITY: Yes shoulder joint (Slight tenderness range of motion no swelling, range of motion full.) and Yes wrist (Left wrist full range of motion mild tenderness no swelling bruising) LEFT LOWER EXTREMITY: Yes knee joint (Left knee is red mild swelling does have an abrasion. Limited range of mot) Neuro: COMMON NORMALS: patient oriented x3 Course Vital Signs: Vital signs: Vital Signs Temperature 98.4 F 03/24/21 12:11 Pulse Rate 94 03/24/21 12:41 Respiratory Rate 16 03/24/21 12:41 Blood Pressure 116/82 03/24/21 12:41 Pulse Oximetry 100 03/24/21 12:41 MDM - Fall MDM Narrative: Medical decision making narrative: Patient fell over [facility] when she is going to get her MRI. She fell on both knees. Left knee has abrasion and is bothering her. She also extend her arms and left shoulder and wrist hurt and she has no swelling she has full range of motion and is talking with moving her arms and shoulder without difficulty . Left knee was x- ray did not show any damage radiology report negative for any fractures dislocation. Patient is go ahead and get her MRI done today and follow-up with primary care provider Discharge Plan Discharge Patient Disposition: Home Clinical Impression: Sprain of left shoulder Qualifiers: Encounter type: initial encounter Shoulder sprain type: unspecified sprain Qualified Code(s): S43.402A - Unspecified sprain of left shoulder joint, initial encounter Left wrist sprain Qualifiers: Encounter type: initial encounter Qualified Code(s): S63.502A - Unspecified sprain of left wrist, initial encounter Contusion of knee, left Qualifiers: Encounter type: initial encounter Qualified Code(s): S80.02XA - Contusion of left knee, initial encounter Condition: Stable Prescriptions: No Action metoclopramide HCl [Reglan] 10 mg tablet 10 mg PO Q6H PRN (Reason: nausea and vomiting) Qty: 20 RF: 0 Philith 0.4-35 mg-mcg tablet 1 tab PO DAILY RF: 0 ropinirole 2 mg tablet 2 mg PO TID RF: 0 Singulair 10 mg Tablet 10 mg PO DAILY RF: 0 Vitamin D2 1,250 mcg (50,000 unit) capsule 50,000 unit PO Q7D RF: 0 Miralax 17 gram/dose Powder See Rx Instructions .ROUTE .COMPLEX RF: 0 ProAir HFA 90 mcg/actuation Hfa Aerosol Inhaler 2 puff INHALATION Q4H PRN (Reason: Shortness Of Breath) RF: 0 topiramate 100 mg tablet 100 mg PO BID RF: 0 Synthroid 112 mcg tablet See Rx Instructions .ROUTE .COMPLEX RF: 0 aripiprazole 30 mg tablet 30 mg PO DAILY RF: 0 Novolog Flexpen U-100 Insulin 100 unit/mL (3 mL) insulin pen See Rx Instructions .ROUTE .COMPLEX RF: 0 Tresiba FlexTouch U-100 100 unit/mL (3 mL) insulin pen 22 unit SUBCUT QAM RF: 0 Farxiga 5 mg tablet 5 mg PO DAILY RF: 0 Probiotic Gummy 2 tab PO DAILY RF: 0 Discharge Orders: Discharge ED (Routine); Ordered 03/24/21 Ordered By: Darci Berger Referrals: Tobi Hernandez RN, PACKAGE DYEING MACHINE OPERATOR [Primary Care Provider] - Discharge Diet: Usual diet Discharge Activity: Increase activity as tolerated Patient Instructions: Contusion in Adults (ED), Shoulder Sprain (ED), Wrist Sprain (ED) Activity Restrictions/Additional Instructions: Apply ice areas discomfort. Follow-up your primary care provider as needed. Go ahead and go get MRI of right knee as scheduled. Coding Level of Care Code ED Hearing Therapy Director for Chg Fwd Exam Comprehensive
--- NOTE | 2021-03-24 12:23 | XRR_ITS ---
PROCEDURE INFORMATION: Exam: XR Left Knee Exam date and time: 03/24/2021 12:27 PM Age: 40 years old Clinical indication: Pain and injury or trauma; Fall; Blunt trauma; Knee; Left; Injury date: 03/24/21; Injury details: Tripped on just waxed floor; Additional info: Fall, pain TECHNIQUE: Imaging protocol: XR Left knee. Views: 3 views. COMPARISON: No relevant prior studies available. FINDINGS: Bones/joints: Normal. Soft tissues: Normal. XR/XR knee LT 3V* [id number] IMPRESSION: No acute findings.
[2021-03-24 12:41] VITALS: BP 116/82; PULSE 94; RESP 16; O2SAT 100
== END 2021-03-24 12:59 | disposition home or self-care (01) ==
LOC: ER 12-10 17:56
PROVIDERS: Emergency Provider Nurse Practitioner Family; PCP Nurse Practitioner Family
DX: S43.402A Unspecified sprain of left shoulder joint, initial encounter (principal); S63.502A Unspecified sprain of left wrist, initial encounter; S80.02XA Contusion of left knee, initial encounter; W01.0XXA Fall on same level from slipping, tripping and stumbling without subsequent striking against object, initial encounter; Y92.538 Other ambulatory health services establishments as the place of occurrence of the external cause; Z79.4 Long term (current) use of insulin; Z87.891 Personal history of nicotine dependence
CPT/HCPCS: 73562; 99282

== ENCOUNTER 2021-03-26 20:00 | Outpatient (CLI) | payer MEDICARE, SELFPAY | END 2021-03-26 20:01 | disposition home or self-care (01) | LOC: SLEEP 03-27 12:02 | PROVIDERS: PCP Nurse Practitioner Family; Visit Provider Family Medicine | DX: G47.10 Hypersomnia, unspecified (principal) | CPT/HCPCS: 95810 ==

== ENCOUNTER 2021-05-17 18:54 | Emergency (ER) | payer MEDICARE, SELFPAY ==
[2021-05-17 19:00] VITALS: BP 159/82; PULSE 109; RESP 16; TEMP 37.4; O2SAT 98; BMI 25.2
--- NOTE | 2021-05-17 21:03 | XRR_ITS ---
PROCEDURE INFORMATION: Exam: XR Chest Exam date and time: 05/17/2021 9:03 PM Age: 40 years old Clinical indication: Cough TECHNIQUE: Imaging protocol: XR of the chest. Views: 1 view. COMPARISON: CR XR chest 1V portable [id number] 01/29/2021 7:50 AM FINDINGS: Lungs: Stable hyperaerated lungs consistent with deep inspiratory effort vs reactive airway disease vs mild COPD . Pleural spaces: Unremarkable. No pleural effusion. No pneumothorax. Heart/Mediastinum: Unremarkable. No cardiomegaly. Bones/joints: Unremarkable. XR/XR chest 1V portable [id number] IMPRESSION: Stable hyperaerated lungs consistent with deep inspiratory effort vs reactive airway disease vs mild COPD .
--- NOTE | 2021-05-17 21:03 | XRR_ITS ---
PROCEDURE INFORMATION: Exam: XR Abdomen Exam date and time: 05/17/2021 9:03 PM Age: 40 years old Clinical indication: Constipation; Abdominal pain; Generalized; Prior surgery; Surgery date: 6+ months; Surgery type: Appy, insulin pump; Additional info: Abdominal pain/constipation TECHNIQUE: Imaging protocol: XR of the abdomen. Views: 2 Views. Upright and supine views. COMPARISON: CT abdomen pelvis w con* [id number] 10/18/2020 1:30 PM FINDINGS: Gastrointestinal tract: Mild to moderate retained feces. Intraperitoneal space: Normal. No free air. Bones/joints: Unremarkable for age. XR/XR abdomen min 2V [id number] IMPRESSION: Mild to moderate retained feces.
--- NOTE | 2021-05-17 21:04 | W.ED.GENADLT ---
HPI - General Adult General: Chief complaint: General Medical Stated complaint: fluctuating blood sugar Time Seen by Provider: 05/17/21 20:47 Source: patient Mode of arrival: ambulatory Limitations: no limitations History of Present Illness: HPI narrative: Patient is a 40-year-old female who presents to ED today with multiple complaints. Patient tells me approximately 3 to 4 days ago her tested positive for strep. Patient began having a sore throat thus contacted her celery stripper who placed her on amoxicillin. Patient states since then she has developed a productive cough. She states after starting the antibiotics her sugars are way out of control . Patient tells me normal sugars run in the 100?150s but states over the past 24 hours they have been as high as three hundred. Patient feels very nauseous. She has had four episodes of vomiting today. She is reporting constipation. No fevers. Mild abdominal pain. She does have a history of DKA several years ago. She has a non-productive cough. No SOB. No fevers. Associated symptoms: Reports nausea and vomiting; Deny chest pain, dyspnea, headache(s), rash, palpitations or syncope Review of Systems Eyes: Denies: change in vision, blurry vision, photophobia, floaters or seeing flashes ENMT: Reports: throat pain and odynophagia; Denies: ear or mastoid pain, nasal discharge or nasal congestion Card: Denies: chest pain, palpitations, irregular heart rhythm, edema, swelling of feet/ankles, lightheadedness, syncope, pre-syncope, dyspnea on exertion or orthopnea Resp: Reports: non-productive cough and chest congestion; Denies: dyspnea, productive cough, wheezing, stridor or pain on inspiration GI: Reports: nausea, vomiting and constipation; Denies: abdominal pain, hematemesis, heartburn, diarrhea, hematochezia or melena : Denies: flank pain, difficulty voiding, dysuria, urinary frequency, urinary urgency or urinary hesitancy Musc: Denies: neck pain, back pain, extremity pain, extremity swelling, joint pain or joint swelling Skin/Breast: Denies: rash Neuro: Denies: headache(s), numbness in extremities, weakness in extremities or sensory changes PFSH ED PFSH: Social History Smoking and tobacco status: former smoker Alcohol intake: current Alcohol intake frequency: holidays/special occasions only Female Reproductive History: Date of last menstrual period: 05/13/21 Physical Exam Const: COMMON NORMALS: no acute distress, average body habitus, patient oriented x3, no limitations, healthy appearing, alert and well nourished HENMT: COMMON NORMALS: normocephalic, atraumatic, hearing grossly normal bilaterally, external ears normal, EAC's normal, TM's normal bilaterally, Normal external nose present, Normal nasal mucous membranes and turbinates present, moist oral mucous membranes, oropharynx normal and dentition normal HEAD & SCALP: normal to inspection, normocephalic and atraumatic FACE & SINUS: normal facial exam NOSE: Normal external nose present and Normal nasal mucous membranes and turbinates present EXTERNAL EAR: Yes external ears normal EXTERNAL AUDITORY CANAL: EAC's normal TYMPANIC MEMBRANE: TM's normal bilaterally THROAT: posterior oropharynx normal, tonsils normal and uvula midline Eye: GENERAL EYE: appearance normal, both eyes and all related structures Neck/C-Spine: COMMON NORMALS: full ROM, no lymphadenopathy and no meningeal signs Resp: COMMON NORMALS: normal respiratory effort and clear to auscultation bilaterally AUSCULTATION: clear to auscultation bilaterally Cardio: COMMON NORMALS: regular rate and regular rhythm RATE: regular rate RHYTHM: regular rhythm GI: COMMON NORMALS: Normal to inspection, nondistended, normoactive bowel sounds present, Soft to palpation, No hepatosplenomegaly present and no masses PALPATION: Yes Soft to palpation, Yes Tenderness to palpation present (GI) (mild, diffuse; non-surgical abdomen) and Yes No hepatosplenomegaly present : COMMON NORMALS: Yes no CVA tenderness BLADDER/KIDNEY EXAM: Yes no CVA tenderness Back/Pelvis: COMMON NORMALS: no CVA tenderness Extremity: COMMON NORMALS: no clubbing, cyanosis or edema, no calf tenderness and no pedal edema Neuro: ARCHIE COMA SCALE: document GCS findings Dumont coma scale eye opening: Spontaneous Archie coma scale verbal response: Orientated Archie coma scale motor response: Obey commands Dumont coma scale total score: 15 COMMON NORMALS: patient oriented x3 SENSORIUM/ORIENTATION: Yes alert MENINGEAL SIGNS: Yes no meningeal signs Skin: COMMON NORMALS: no rashes or lesions noted GENERAL SKIN EXAM: no rashes or lesions noted Course Vital Signs: Vital signs: Vital Signs Temperature 99.3 F 05/17/21 19:00 Pulse Rate 89 05/18/21 00:04 Respiratory Rate 18 05/17/21 22:03 Blood Pressure 132/77 05/18/21 00:04 Pulse Oximetry 97 05/18/21 00:04 MDM - General Adult MDM Narrative: Medical decision making narrative: Patient clinically appears non-ill and nontoxic. Her blood sugar here is 118. She has no evidence for DKA with a negative serum ketones and a normal arterial pH. Strep is negative. Remainder of labs are unremarkable. CXR with no acute abnormalities. She has constipation on her XR abdomen but nothing to suggest obstruction. Patient was swabbed twice for rapid COVID however lab states that for whatever reason her swabs are processing. Recommended PCR testing however patient states she does not want this because if its positive she does not want her family to have to quarantine. Recommend patient followup with her PCP and celery stripper. She verbalizes understanding. Return to ED precautions given. Lab Data: Labs: Lab Results 05/17/21 05/17/21 05/17/21 Range/Units 21:20 21:40 22:07 WBC 4.2 (4.0-10.0) 10^3/ uL RBC 5.16 (4.1-5.3) 10^6/u L Hgb 12.4 (11.5-15.3) g/dL Hct 41.3 (37.0-47.0) % MCV 80.0 L (81-99) fL MCH 24.0 L (28.0-34.0) pg MCHC 30.0 (30.0-36.0) g/dL RDW 23.9 H (12.1-15.1) % Plt Count 172 (130-400) 10^3/c mm MPV 10.9 H (7.4-10.4) fL Neut % (Auto) 70.7 % Lymph % (Auto) 20.3 % Laurel % (Auto) 8.1 % Eos % (Auto) 0.0 % Baso % (Auto) 0.7 % Neut # (Auto) 2.95 (1.8-7.7) 10^3/u L Lymph # (Auto) 0.9 (0.8-4.8) 10^3/u L Laurel # (Auto) 0.3 (0.2-0.9) 10^3/u L Eos # (Auto) 0.0 (0.0-0.8) 10^3/u L Baso # (Auto) 0.0 (0.0-0.1) 10^3/u L Nucleated RBC % (a uto) 0 % Nucleated RBCs # 0.0 /100WBC Specimen Type Arterial Sample Site Radial, left ABG pH 7.41 (7.35-7.45) ABG pCO2 29.3 L (35-45) mmHg ABG pO2 85.7 (80.0-100.0) mmH g ABG HCO3 18.6 L (22-26) mmol/L ABG O2 Saturation 97.8 ABG Base Excess -4.9 L (-2.0-2.0) mmol/ L Fran Test Pos A-a O2 Gradient 3.4 L (5-10) mmHg Hematocrit 37.8 (37-47) % Hgb O2 Saturation 96.6 (95-100) % Carboxyhemoglobin 0.4 (0.4-20.1) %THgb Methemoglobin 0.8 (0.4-1.5) % Total Hemoglobin 12.3 (12-16) g/dL Sodium 140.0 (131-143) mmol/L Potassium 3.6 (3.5-5.0) mmol/L Glucose 122.0 H (70-115) mg/dL Ionized Calcium 1.1 (1.1-1.4) mmol/L O2 Delivery Device Room air Lockstitch Collar Setter ID ellpe Chloride (98-107) mmol/L Carbon Dioxide (22-29) mmol/L Anion Gap (5-19) BUN (6-20) mg/dL Creatinine (0.5-0.9) mg/dL GFR Calculation (90-130) mL/min Calculated Osmolal ity (285-295) mOsm/k g Calcium (8.5-10.5) mg/dL Total Bilirubin (0.15-1.2) mg/dL AST (0-32) U/L ALT (0-33) U/L Alkaline Phosphata se (35-105) IU/L Total Protein (6.6-8.7) g/dL Albumin (3.5-5.2) g/dL Globulin (1.3-4.6) g/dL Lipase (13-60) U/L HCG, Qual (Negative) Urine Color Yellow (Yellow) Urine Appearance Clear (CLEAR) Urine pH 5 (5-7) Ur Specific Gravit y 1.020 (1.005-1.030) Urine Protein Neg (Negative) Urine Glucose (UA) 4+ H (Normal) Urine Ketones 1+ H (Negative) Urine Blood Neg (Negative) Urine Nitrate Negative (Negative) Urine Bilirubin Neg (Negative) Urine Urobilinogen 1 H (Negative) mg/dL Ur Leukocyte Kia ase Negative (Negative) Serum Ketones (Negative) SARS-CoV-2 Ag (Rap id) Group A Strep Rapi d (Negative) 05/17/21 05/17/21 05/17/21 Range/Units 22:07 22:07 22:07 WBC (4.0-10.0) 10^3/ uL RBC (4.1-5.3) 10^6/u L Hgb (11.5-15.3) g/dL Hct (37.0-47.0) % MCV (81-99) fL MCH (28.0-34.0) pg MCHC (30.0-36.0) g/dL RDW (12.1-15.1) % Plt Count (130-400) 10^3/c mm MPV (7.4-10.4) fL Neut % (Auto) % Lymph % (Auto) % Laurel % (Auto) % Eos % (Auto) % Baso % (Auto) % Neut # (Auto) (1.8-7.7) 10^3/u L Lymph # (Auto) (0.8-4.8) 10^3/u L Laurel # (Auto) (0.2-0.9) 10^3/u L Eos # (Auto) (0.0-0.8) 10^3/u L Baso # (Auto) (0.0-0.1) 10^3/u L Nucleated RBC % (a uto) % Nucleated RBCs # /100WBC Specimen Type Sample Site ABG pH (7.35-7.45) ABG pCO2 (35-45) mmHg ABG pO2 (80.0-100.0) mmH g ABG HCO3 (22-26) mmol/L ABG O2 Saturation ABG Base Excess (-2.0-2.0) mmol/ L Fran Test A-a O2 Gradient (5-10) mmHg Hematocrit (37-47) % Hgb O2 Saturation (95-100) % Carboxyhemoglobin (0.4-20.1) %THgb Methemoglobin (0.4-1.5) % Total Hemoglobin (12-16) g/dL Sodium 142 (131-143) mmol/L Potassium 3.7 (3.5-5.0) mmol/L Glucose 118 H (70-115) mg/dL Ionized Calcium (1.1-1.4) mmol/L O2 Delivery Device Lockstitch Collar Setter ID Chloride 107 (98-107) mmol/L Carbon Dioxide 20 L (22-29) mmol/L Anion Gap 18.7 (5-19) BUN 11 (6-20) mg/dL Creatinine 0.9 (0.5-0.9) mg/dL GFR Calculation 70.1 L (90-130) mL/min Calculated Osmolal ity 294 (285-295) mOsm/k g Calcium 8.7 (8.5-10.5) mg/dL Total Bilirubin 0.2 (0.15-1.2) mg/dL AST 13 (0-32) U/L ALT 9 (0-33) U/L Alkaline Phosphata se 68 (35-105) IU/L Total Protein 7.2 (6.6-8.7) g/dL Albumin 4.1 (3.5-5.2) g/dL Globulin 3.1 (1.3-4.6) g/dL Lipase 23 (13-60) U/L HCG, Qual Negative (Negative) Urine Color (Yellow) Urine Appearance (CLEAR) Urine pH (5-7) Ur Specific Gravit y (1.005-1.030) Urine Protein (Negative) Urine Glucose (UA) (Normal) Urine Ketones (Negative) Urine Blood (Negative) Urine Nitrate (Negative) Urine Bilirubin (Negative) Urine Urobilinogen (Negative) mg/dL Ur Leukocyte Kia ase (Negative) Serum Ketones Negative (Negative) SARS-CoV-2 Ag (Rap id) Group A Strep Rapi d (Negative) 05/17/21 05/17/21 05/17/21 Range/Units 22:07 22:07 23:05 WBC (4.0-10.0) 10^3/ uL RBC (4.1-5.3) 10^6/u L Hgb (11.5-15.3) g/dL Hct (37.0-47.0) % MCV (81-99) fL MCH (28.0-34.0) pg MCHC (30.0-36.0) g/dL RDW (12.1-15.1) % Plt Count (130-400) 10^3/c mm MPV (7.4-10.4) fL Neut % (Auto) % Lymph % (Auto) % Laurel % (Auto) % Eos % (Auto) % Baso % (Auto) % Neut # (Auto) (1.8-7.7) 10^3/u L Lymph # (Auto) (0.8-4.8) 10^3/u L Laurel # (Auto) (0.2-0.9) 10^3/u L Eos # (Auto) (0.0-0.8) 10^3/u L Baso # (Auto) (0.0-0.1) 10^3/u L Nucleated RBC % (a uto) % Nucleated RBCs # /100WBC Specimen Type Sample Site ABG pH (7.35-7.45) ABG pCO2 (35-45) mmHg ABG pO2 (80.0-100.0) mmH g ABG HCO3 (22-26) mmol/L ABG O2 Saturation ABG Base Excess (-2.0-2.0) mmol/ L Fran Test A-a O2 Gradient (5-10) mmHg Hematocrit (37-47) % Hgb O2 Saturation (95-100) % Carboxyhemoglobin (0.4-20.1) %THgb Methemoglobin (0.4-1.5) % Total Hemoglobin (12-16) g/dL Sodium (131-143) mmol/L Potassium (3.5-5.0) mmol/L Glucose (70-115) mg/dL Ionized Calcium (1.1-1.4) mmol/L O2 Delivery Device Lockstitch Collar Setter ID Chloride (98-107) mmol/L Carbon Dioxide (22-29) mmol/L Anion Gap (5-19) BUN (6-20) mg/dL Creatinine (0.5-0.9) mg/dL GFR Calculation (90-130) mL/min Calculated Osmolal ity (285-295) mOsm/k g Calcium (8.5-10.5) mg/dL Total Bilirubin (0.15-1.2) mg/dL AST (0-32) U/L ALT (0-33) U/L Alkaline Phosphata se (35-105) IU/L Total Protein (6.6-8.7) g/dL Albumin (3.5-5.2) g/dL Globulin (1.3-4.6) g/dL Lipase (13-60) U/L HCG, Qual (Negative) Urine Color (Yellow) Urine Appearance (CLEAR) Urine pH (5-7) Ur Specific Gravit y (1.005-1.030) Urine Protein (Negative) Urine Glucose (UA) (Normal) Urine Ketones (Negative) Urine Blood (Negative) Urine Nitrate (Negative) Urine Bilirubin (Negative) Urine Urobilinogen (Negative) mg/dL Ur Leukocyte Kia ase (Negative) Serum Ketones (Negative) SARS-CoV-2 Ag (Rap id) Cancelled Cancelled Group A Strep Rapi d Negative (Negative) Imaging Data^: CXR: Radiologist's impression: [address] [address]NDby ReportSigned Patient: Kellen Joseph #: [id number]: 1980Acct#:[id number]/Sex: 40 / FADM Date: 05/17/21[facility] Dr: Ordering Provider/Ordering MD: Yanet Fajardo Date of Service: 05/17/21 Procedure(s): XR chest 1V portable [id number] Accession Number(s): [id number] Report Number: [id number] PROCEDURE INFORMATION: Exam: XR Chest Exam date and time: 05/17/2021 9:03 PM Age: 40 years old Clinical indication: Cough TECHNIQUE: Imaging protocol: XR of the chest. Views: 1 view. COMPARISON: CR XR chest 1V portable [id number] 01/29/2021 7:50 AM FINDINGS: Lungs: Stable hyperaerated lungs consistent with deep inspiratory effort vs reactive airway disease vs mild COPD . Pleural spaces: Unremarkable. No pleural effusion. No pneumothorax. Heart/Mediastinum: Unremarkable. No cardiomegaly. Bones/joints: Unremarkable. XR/XR chest 1V portable [id number] IMPRESSION: Stable hyperaerated lungs consistent with deep inspiratory effort vs reactive airway disease vs mild COPD . Dictated By:Dave Peters MDSigned By:Dave Peters MDSigned Date/Time:05/17/212317DD/ 16 XR abdomen: Radiologist's impression: [employer] [address] XRay Report Signed Patient: Kellen Joseph Unit #: [id number] : 1980 Age/Sex: 40 / F ADM Date: 05/17/21 Loc: ER Room/Bed: Attending Dr: Ordering Provider/Ordering MD: Yanet Fajardo Date of Service: 05/17/21 Procedure(s): XR abdomen min 2V 10232 Accession Number(s): [id number] Report Number: [id number] PROCEDURE INFORMATION: Exam: XR Abdomen Exam date and time: 05/17/2021 9:03 PM Age: 40 years old Clinical indication: Constipation; Abdominal pain; Generalized; Prior surgery; Surgery date: 6+ months; Surgery type: Appy, insulin pump; Additional info: Abdominal pain/constipation TECHNIQUE: Imaging protocol: XR of the abdomen. Views: 2 Views. Upright and supine views. COMPARISON: CT abdomen pelvis w con* [id number] 10/18/2020 1:30 PM FINDINGS: Gastrointestinal tract: Mild to moderate retained feces. Intraperitoneal space: Normal. No free air. Bones/joints: Unremarkable for age. XR/XR abdomen min 2V [id number] IMPRESSION: Mild to moderate retained feces. Dictated By: Dave Peters MD Signed By: Dave Peters MD Signed Date/Time: 05/17/212317 DD/ 16 Discharge Plan Discharge Patient Disposition: Home Clinical Impression: Viral URI with cough, Hyperglycemia Constipation Qualifiers: Constipation type: other constipation type Qualified Code(s): K59.09 - Other constipation Condition: Stable Prescriptions: No Action metoclopramide HCl [Reglan] 10 mg tablet 10 mg PO Q6H PRN (Reason: nausea and vomiting) Qty: 20 RF: 0 Philith 0.4-35 mg-mcg tablet 1 tab PO DAILY RF: 0 ropinirole 2 mg tablet 2 mg PO TID RF: 0 Singulair 10 mg Tablet 10 mg PO DAILY RF: 0 Vitamin D2 1,250 mcg (50,000 unit) capsule 50,000 unit PO Q7D RF: 0 Miralax 17 gram/dose Powder See Rx Instructions .ROUTE .COMPLEX RF: 0 ProAir HFA 90 mcg/actuation Hfa Aerosol Inhaler 2 puff INHALATION Q4H PRN (Reason: Shortness Of Breath) RF: 0 topiramate 100 mg tablet 100 mg PO BID RF: 0 Synthroid 112 mcg tablet See Rx Instructions .ROUTE .COMPLEX RF: 0 aripiprazole 30 mg tablet 30 mg PO DAILY RF: 0 Novolog Flexpen U-100 Insulin 100 unit/mL (3 mL) insulin pen See Rx Instructions .ROUTE .COMPLEX RF: 0 Tresiba FlexTouch U-100 100 unit/mL (3 mL) insulin pen 22 unit SUBCUT QAM RF: 0 Farxiga 5 mg tablet 5 mg PO DAILY RF: 0 Probiotic Gummy 2 tab PO DAILY RF: 0 Discharge Orders: Discharge ED (Routine); Ordered 05/17/21 Ordered By: Yanet Fajardo Referrals: Nate Díaz MD [Primary Care Provider] - Activity Restrictions/Additional Instructions: Contact your celery stripper and primary care provider tomorrow for follow-up appointments. You may return to the emergency department for worsening shortness of breath or difficulty breathing, severe hyperglycemia, repetitive episodes of vomiting, severe abdominal pain, fevers, generally feeling unwell, or any other concerns you may have. You may continue MiraLAX and stool softeners as needed for your constipation. Coding Level of Care Code ED Vp Purchasing for Chg Fwd Exam Comprehensive
[2021-05-17 21:25] LABS: ABG PCO2 29.3 mmHg (35-45); ABG PH Result 7.41 (7.35-7.45); Alveolar-Arterial Oxygen Gradi 3.4 mmHg (5-10); Arterial Blood Gas Hematocrit 37.8 % (37-47); Base Excess ABG -4.9 mmol/L (-2.0-2.0); Blood Gas Allen Test Pos; Blood Gas Sample Site Radial, left; Blood Gas Sample Type Arterial; Carboxyhemoglobin 0.4 %THgb (0.4-20.1); HCO3 ABG 18.6 mmol/L (22-26); HGB O2 Sat 96.6 % (95-100); Ionized Calcium Level - ABG 1.1 mmol/L (1.1-1.4); Methemoglobin 0.8 % (0.4-1.5); Oxygen Device ROOM AIR; Oxygen Saturation ABG 97.8; PO2 ABG 85.7 mmHg (80.0-100.0); Potassium Level - ABG 3.6 mmol/L (3.5-5.0); Total Hemoglobin 12.3 g/dL (12-16)
[2021-05-17 21:50] LABS: Add Urine Microscopic? NO; Charge for UA Resulting for Rev
[2021-05-17 21:55] LABS: Bilirubin Urine Neg (Negative); Blood Urine Neg (Negative); Glucose Urine UA 4+ (Normal); Ketones Urine 1+ (Negative); Leukocyte Esterase Urine Negative (Negative); Nitrate Urine Negative (Negative); Protein Urine Neg (Negative); Urine Appearance Clear (CLEAR); Urine Color Yellow (Yellow); Urobilinogen Urine 1 mg/dL (Negative); pH Urine 5 (5-7)
[2021-05-17] MEDS: sodium chloride 0.9% 1,000 ML 999 ML IV (22:02)
[2021-05-17] MEDS: ondansetron 2 mg/ML SDV 2 mL 4 MG IVP (22:02)
[2021-05-17 22:03] VITALS: BP 143/84; PULSE 94; RESP 18; O2SAT 98
[2021-05-17 22:21] LABS: Rapid Strep A Test Negative (Negative)
[2021-05-17 22:25] LABS: Basophils % 0.7 %; Hematocrit 41.3 % (37.0-47.0); Hemoglobin 12.4 g/dL (11.5-15.3); Lymphocytes # 0.9 10^3/uL (0.8-4.8); Lymphocytes % 20.3 %; Mean Platelet Volume 10.9 fL (7.4-10.4); Monocytes # 0.3 10^3/uL (0.2-0.9); Monocytes % 8.1 %; Neutrophils # 2.95 10^3/uL (1.8-7.7); Neutrophils % 70.7 %; Nucleated Red Blood Cells % 0 %; Platelet Count 172 10^3/cmm (130-400); Red Blood Count 5.16 10^6/uL (4.1-5.3); Red Cell Distribution Width 23.9 % (12.1-15.1); White Blood Count 4.2 10^3/uL (4.0-10.0)
[2021-05-17 22:36] LABS: Alanine Aminotransferase 9 U/L (0-33); Albumin Level 4.1 g/dL (3.5-5.2); Alkaline Phosphatase 68 IU/L (35-105); Anion Gap 18.7 (5-19); Aspartate Amino Transferase 13 U/L (0-32); Blood Urea Nitrogen 11 mg/dL (6-20); Calcium 8.7 mg/dL (8.5-10.5); Carbon Dioxide 20 mmol/L (22-29); Chloride 107 mmol/L (98-107); Globulin 3.1 g/dL (1.3-4.6); Glomerular Filtration Rate 70.1 mL/min (90-130); Glucose 118 mg/dL (65-115); Lipase 23 U/L (13-60); Osmolality Calculated 294 mOsm/kg (285-295); Potassium 3.7 mmol/L (3.5-5.1); Sodium 142 mmol/L (136-145); Total Bilirubin 0.2 mg/dL (0.15-1.2); Total Protein 7.2 g/dL (6.6-8.7)
[2021-05-17 22:38] LABS: HCG, Serum Qual Negative (Negative); Ketone (Acetest) Serum Negative (Negative)
[2021-05-18 00:04] VITALS: BP 132/77; PULSE 89; O2SAT 97
== END 2021-05-18 00:04 | disposition home or self-care (01) ==
PROVIDERS: Emergency Provider Physician Assistant; PCP Family Medicine
DX: J06.9 Acute upper respiratory infection, unspecified (principal); K59.09 Other constipation; R73.9 Hyperglycemia, unspecified; Z87.891 Personal history of nicotine dependence; Z79.4 Long term (current) use of insulin
CPT/HCPCS: 36600; 71045; 74019; 80051; 80053; 81003; 82009; 82330; 82805; 83690; 84703; 85025; 87081; 87880; 96361; 96374; 99284; J2405; J7030

== ENCOUNTER 2021-05-20 13:01 | Emergency (ER) | payer MEDICARE, SELFPAY ==
[2021-05-20 13:09] VITALS: BP 101/60; PULSE 108; RESP 18; TEMP 37.1; O2SAT 95; BMI 25.2
--- NOTE | 2021-05-20 14:36 | XR_ITS ---
WS: [id number] Portable AP upright chest, 05/20/2021 Clinical Data: sob Comparison: Portable chest, 05/17/2021. Findings: Minimal patchy bilateral lower lobe opacities are seen. These changes could represent atele ctasis and/or minimal pneumonia. No nodules, masses or effusions are seen. The heart is normal. The p ulmonary vascularity is not increased. No pneumothorax is seen. XR/XR chest 1V portable [id number] Impression: 1. Minimal patchy bilateral lower lobe opacities which could represent atelecta sis and/or pneumonia. 2. Recommend follow-up chest x-ray in one to 2 days.
== END 2021-05-20 17:07 | disposition left against medical advice (07) ==
LOC: ER 13:04
PROVIDERS: Emergency Provider Family Medicine; PCP Family Medicine
DX: Z53.21 Procedure and treatment not carried out due to patient leaving prior to being seen by health care provider (principal)
CPT/HCPCS: 71045

== ENCOUNTER 2021-09-30 15:45 | Outpatient (CLI) | payer MEDICARE, SELFPAY ==
--- NOTE | 2021-09-30 | XR_ITS ---
WS: [id number] Right foot, 3 views, 09/30/2021 Clinical Data: FOOT PAIN Comparison: Right foot, 12/16/2009. Findings: No fractures or dislocations are seen. No bone destruction or erosion is noted. The joint spaces and soft tissues are normal. The old fracture at the base of the right fifth toe proximal phalanx has healed completely. XR/XR foot RT min 3V* [id number] Impression: Negative right foot.
== END 2021-09-30 15:46 | disposition home or self-care (01) ==
LOC: RAD 15:48
PROVIDERS: PCP Nurse Practitioner Family; Visit Provider Family Medicine
DX: M79.671 Pain in right foot (principal)
CPT/HCPCS: 73630

== ENCOUNTER 2022-01-20 00:42 | Emergency (ER) | payer MEDICARE, SELFPAY ==
--- NOTE | 2022-01-20 00:45 | XRR_ITS ---
PROCEDURE INFORMATION: Exam: XR Right Wrist Exam date and time: 01/20/2022 12:45 AM Age: 41 years old Clinical indication: Right; Patient HX: Sudden onset of pain to ulnar side of wrist with decreased rom. No known injury. TECHNIQUE: Imaging protocol: XR Right wrist. Views: 3 or more views. COMPARISON: No relevant prior studies available. FINDINGS: Bones/joints: Normal. Soft tissues: Normal. XR/XR wrist RT min 3V* [id number] IMPRESSION: No acute findings.
[2022-01-20 00:49] VITALS: BP 151/86; PULSE 85; RESP 18; TEMP 36.6; O2SAT 99; BMI 23.8
--- NOTE | 2022-01-20 01:24 | ED_ITS ---
HPI - General Adult General: Chief complaint: General Medical Stated complaint: Rt Wrist Pain Time Seen by Provider: 01/20/22 01:24 History of Present Illness: 41-year-old female comes in today with complaints of right wrist pain. Patient denies any injury. Patient reports tenderness along the ulnar side of the wrist. Patient has diabetes and is disabled. Patient was recommended by her primary care provider to follow-up in the ER for evaluation of the wrist. Review of Systems General: Reports: 10 or more systems reviewed and unremarkable except in HPI and below Const: Denies: fever(s) Musc: Reports: joint pain (Right wrist) PFSH ED PFSH: Social History Alcohol intake: current Alcohol intake frequency: holidays/special occasions only Female Reproductive History: Date of last menstrual period: 05/06/21 Physical Exam Const: COMMON NORMALS: alert Neck/C-Spine: COMMON NORMALS: full ROM Resp: COMMON NORMALS: normal respiratory effort and clear to auscultation bilaterally AUSCULTATION: clear to auscultation bilaterally Cardio: COMMON NORMALS: regular rate and regular rhythm RATE: regular rate RHYTHM: regular rhythm Extremity: COMMON NORMALS: no pedal edema RIGHT UPPER EXTREMITY: Yes wrist (Tenderness to the ulnar styloid) Right wrist: Yes inspection, Yes palpation, Yes ROM and Yes neurovascular exam Neuro: SENSORIUM/ORIENTATION: Yes alert Psych: COMMON NORMALS: cooperative Skin: COMMON NORMALS: no rashes or lesions noted GENERAL SKIN EXAM: no rashes or lesions noted Course Vital Signs: Vital signs: Vital Signs Temperature 98 F 01/20/22 00:49 Pulse Rate 85 01/20/22 00:49 Respiratory Rate 18 01/20/22 00:49 Blood Pressure 151/86 01/20/22 00:49 Pulse Oximetry 99 01/20/22 00:49 MDM - General Adult Medical Decision Making 41-year-old female comes in with right wrist pain. On exam he had tenderness along the ulnar styloid. Patient has guarded movement due to pain. Distal pulses and sensations are intact. Differential diagnosis includes tendinitis of the wrist, carpal tunnel syndrome, peripheral neuropathy. I believe patient probably has a wrist tendinitis. Recommended use of her Velcro wrist band and use acetaminophen for pain. Patient will follow up with her primary care for further instructions. Patient reported understanding and agreed to plan. Lab Data Radiology Impressions Wrist X-Ray 01/20/22 00:45 IMPRESSION: No acute findings. Discharge Plan Discharge Patient Disposition: Home Clinical Impression: Acute pain of right wrist Condition: Stable Prescriptions: No Action levothyroxine [Synthroid] 137 mcg tablet 137 mcg PO DAILY 0RF Balziva (28) 0.4-35 mg-mcg tablet 1 tab PO DAILY 0RF pregabalin 75 mg capsule 75 mg PO DAILY 0RF potassium chloride 10 mEq tablet extended release 10 meq PO DAILY 0RF furosemide [Lasix] 20 mg tablet 20 mg PO DAILY 0RF pantoprazole 40 mg tablet,delayed release (DR/EC) 40 mg PO DAILY 0RF (DME) Custom molded Orthotics See Rx Instructions .Route .MEDSUPPLY Qty: 1 0RF Rx Instructions: As directed [facility] [employer] [facility] Breo Ellipta 100-25 mcg/dose blister with device 1 inh inhalation DAILY 0RF cephalexin 500 mg capsule 500 mg PO BID 7 Days Qty: 14 0RF triamcinolone acetonide 0.1 % cream 1 applic topical BID Qty: 80 0RF diltiazem HCl 120 mg capsule,extended release 12 hr 120 mg PO ONCE 0RF metoclopramide HCl [Reglan] 10 mg tablet 10 mg PO Q6H PRN (Reason: nausea and vomiting) Qty: 20 0RF Rx Instructions: pt states she has this medication but isnt taking it ropinirole 2 mg tablet 2 mg PO TID 0RF Rx Instructions: pt states she takes 4mg po bid Singulair 10 mg Tablet 10 mg PO DAILY 0RF Vitamin D2 1,250 mcg (50,000 unit) capsule 50,000 unit PO Q7D 0RF Rx Instructions: pt states she takes on sundays Miralax 17 gram/dose Powder See Rx Instructions .ROUTE .COMPLEX 0RF Rx Instructions: 1/2 capful daily ProAir HFA 90 mcg/actuation Hfa Aerosol Inhaler 2 puff INHALATION Q4H PRN (Reason: Shortness Of Breath) 0RF topiramate 100 mg tablet 100 mg PO BID 0RF Rx Instructions: pt states she takes 200mg po daily Novolog Flexpen U-100 Insulin 100 unit/mL (3 mL) insulin pen See Rx Instructions .ROUTE .COMPLEX 0RF Rx Instructions: 9 unit subcutaneously at breakfast,14 units at lunch, amd 7 units with supper pt states it was just changed to this dose on tuesday Farxiga 5 mg tablet 5 mg PO DAILY 0RF Probiotic Gummy 2 tab PO DAILY 0RF Discharge Orders: Discharge ED (Routine); Ordered 01/20/22 Ordered By: [place] Mayorga Referrals: Tobi Hernandez RN, PRECISION AGRICULTURE TECHNICIAN [Primary Care Provider] - Discharge Diet: Usual diet Discharge Activity: Increase activity as tolerated Patient Instructions: Musculoskeletal Pain (ED) Activity Restrictions/Additional Instructions: Activity as tolerated. Use acetaminophen to help with your pain. Use ice or heat for further pain relief. Wear elastic or Velcro brace for the wrist for further comfort. Return to the emergency department for new concerns. You can follow-up with medical records for release of imaging or report for x-ray. Coding Level of Care Code ED Compliance Field Technician for Álvaro Armstrong
[2022-01-20 01:53] VITALS: BP 151/86; PULSE 85; RESP 18; TEMP 36.6; O2SAT 99
[2022-01-20 02:10] VITALS: BP 151/86; PULSE 85; RESP 18; TEMP 36.6; O2SAT 99
== END 2022-01-20 01:58 | disposition home or self-care (01) ==
PROVIDERS: Emergency Provider Nurse Practitioner Family; PCP Nurse Practitioner Family
DX: M25.531 Pain in right wrist (principal); Z79.4 Long term (current) use of insulin
CPT/HCPCS: 73110; 99282

== ENCOUNTER 2022-04-05 11:28 | Outpatient (CLI) | payer MEDICARE, SELFPAY ==
[2022-04-05 13:03] LABS: Alanine Aminotransferase 9 U/L (0-33); Albumin Level 4.7 g/dL (3.5-5.2); Alkaline Phosphatase 65 IU/L (35-105); Anion Gap 14.1 (5-19); Aspartate Amino Transferase 12 U/L (0-32); Blood Urea Nitrogen 14 mg/dL (6-20); Calcium 9.3 mg/dL (8.5-10.5); Carbon Dioxide 23 mmol/L (22-29); Chloride 106 mmol/L (98-107); Globulin 2.2 g/dL (1.3-4.6); Glomerular Filtration Rate 93.2 mL/min (90-130); Glucose 112 mg/dL (65-115); Osmolality Calculated 289 mOsm/kg (285-295); Potassium 4.1 mmol/L (3.5-5.1); Sodium 139 mmol/L (136-145); Total Bilirubin 0.4 mg/dL (0.15-1.2); Total Protein 6.9 g/dL (6.6-8.7)
[2022-04-05 13:04] LABS: Estmated Average Glucose 146; Hemoglobin A1C 6.7 % (4.0-6.0)
== END 2022-04-05 11:29 | disposition home or self-care (01) ==
LOC: LAB 11:32
PROVIDERS: PCP Nurse Practitioner Family; Visit Provider Podiatrist Foot & Ankle Surgery
DX: B35.1 Tinea unguium (principal)
CPT/HCPCS: 80053; 83036

== ENCOUNTER → 2022-04-07 12:23 | Outpatient (BNVA) | payer MEDICARE, SELFPAY | PROVIDERS: PCP Family Medicine; Visit Provider Family Medicine | DX: N39.0 Urinary tract infection, site not specified (principal); R61 Generalized hyperhidrosis | CPT/HCPCS: 81000; 83001; 87077; 87086; 87184 ==

== ENCOUNTER 2022-04-14 13:58 | Outpatient (CLI) | payer MEDICARE, SELFPAY ==
[2022-04-14 15:00] LABS: Free T4 Free Thyroxine 1.62 ng/dL (0.82-1.77); Thyroid Stimulating Hormone 0.69 uIU/mL (0.27-4.20)
== END 2022-04-14 13:59 | disposition home or self-care (01) ==
PROVIDERS: PCP Family Medicine; Visit Provider Family Medicine
DX: E03.9 Hypothyroidism, unspecified (principal)
CPT/HCPCS: 84439; 84443

== ENCOUNTER → 2022-05-10 14:52 | Outpatient (BNVA) | payer MEDICARE, SELFPAY | PROVIDERS: PCP Family Medicine; Visit Provider Family Medicine | DX: N39.0 Urinary tract infection, site not specified (principal) | CPT/HCPCS: 81000; 87086 ==

== ENCOUNTER 2022-05-17 09:56 | Outpatient (CLI) | payer MEDICARE, SELFPAY ==
--- NOTE | 2022-05-17 10:12 | XR_ITS ---
WS: [id number] LEFT SHOULDER: 3 VIEW(S) TECHNIQUE: Internal and external rotation with Y view. HISTORY: LEFT SHOULDER PAIN COMPARISON: None available. No fracture or dislocation or soft tissue abnormality. Glenohumeral and AC joints are unremarkable. XR/XR shoulder LT min 2V* [id number] IMPRESSION: Normal LEFT shoulder.
== END 2022-05-17 09:57 | disposition home or self-care (01) ==
LOC: RAD 10:02
PROVIDERS: PCP Family Medicine; Visit Provider Family Medicine
DX: M25.512 Pain in left shoulder (principal)
CPT/HCPCS: 73030

== ENCOUNTER 2022-05-17 11:49 | Outpatient (CLI) | payer MEDICARE, SELFPAY ==
--- NOTE | 2022-05-17 12:39 | XR_ITS ---
WS: [id number] XR abdomen 1V* [id number] REASON FOR EXAM: L FLANK PAIN FINDINGS: No free air or retroperitoneal air. Moderate amount of stool within the colon. No small bowel distention. No urinary tract calculi or other significant calcification in the abdomen or pelvis is identified. No mass is identified. XR/XR abdomen 1V* [id number] IMPRESSION: No acute abnormality is identified. No urinary tract calculi identified.
== END 2022-05-17 11:50 | disposition home or self-care (01) ==
LOC: RAD 11:53
PROVIDERS: PCP Family Medicine; Visit Provider Clinical Nurse Specialist Adult Health
DX: R10.32 Left lower quadrant pain (principal)
CPT/HCPCS: 74018; 81000; 87086

== ENCOUNTER 2022-05-31 02:32 | Emergency (ER) | payer MEDICARE, SELFPAY ==
[2022-05-31 02:38] VITALS: BP 125/81; PULSE 105; RESP 16; TEMP 36.7; O2SAT 99; BMI 22.6
[2022-05-31 02:41] VITALS: BP 128/86; PULSE 103; RESP 18; O2SAT 97
[2022-05-31 04:30] VITALS: BP 103/53; PULSE 101; RESP 14; O2SAT 98
--- NOTE | 2022-06-03 00:49 | W.ED.ANXIETY ---
HPI - Anxiety General: Chief Complaint: Anxiety Stated Complaint: MHE Time Seen by Provider: 05/31/22 02:48 Source: patient History of Present Illness: 41 year old female arriving by ambulance. She has had a difficult night. She evidently got in an argument with her , and police and emergency medical services were involved. She was told she should come to the emergency department for evaluation. She admits to depression, particularly situational depression. She has lost a family member recently, and is dealing with the stress on her family and household. She has had depression in the past, and had improved so much, that she was taken off of her medication. She reports prior suicide attempts, years ago, but nothing recent. She denies hallucinations, both auditory and visual. She denies homicidal or suicidal ideations, or a plan to harm herself. MD complaint: anxiety Onset (ago): hour(s) Symptoms: other Severity: moderate Quality: improving Place: home History of similar episodes: Yes Provoking factors: emotional stress and recent /illness of family member Relieving factors: nothing Exacerbating factors: other Associated symptoms: Reports nausea; Deny chest pain, confusion, fever(s), headache(s), short of breath or vomiting Review of Systems Const: Denies: fever(s) Card: Denies: chest pain Resp: Denies: dyspnea or productive cough GI: Reports: nausea; Denies: vomiting : Denies: difficulty voiding Musc: Reports: extremity swelling Neuro: Denies: headache(s) or confusion PFS ED PFSH: Social History Smoking and tobacco status: former smoker Alcohol intake: current Alcohol intake frequency: holidays/special occasions only Female Reproductive History: Date of last menstrual period: 05/06/21 Physical Exam Const: GENERAL APPEARANCE: cooperative, comfortable and well kempt; not ill appearing NUTRITIONAL APPEARANCE: thin ORIENTATION/CONSCIOUSNESS: Yes awake, Yes oriented to person, Yes oriented to place and Yes oriented to time; not confused HENMT: COMMON NORMALS: normocephalic, atraumatic and Normal external nose present HEAD & SCALP: normocephalic and atraumatic FACE & SINUS: normal facial exam; sinuses not nontender NOSE: Normal external nose present Eye: COMMON NORMALS: Equal, round and reactive pupils present and EOMs intact bilaterally PUPIL: Yes Equal, round and reactive pupils present Chest: COMMONS NORMALS: normal inspection of the chest Resp: COMMON NORMALS: normal respiratory effort, No use of accessory muscles and clear to auscultation bilaterally AUSCULTATION: clear to auscultation bilaterally Cardio: COMMON NORMALS: regular rate and regular rhythm RATE: regular rate RHYTHM: regular rhythm GI: COMMON NORMALS: Normal to inspection, nondistended, normoactive bowel sounds present Extremity: COMMON NORMALS: normal to inspection Neuro: ARCHIE COMA SCALE: document GCS findings Archie coma scale eye opening: Spontaneous [place] coma scale verbal response: Orientated Archie coma scale motor response: Obey commands Archie coma scale total score: 15 SENSORIUM/ORIENTATION: Yes oriented to person, Yes oriented to place and Yes oriented to time SPEECH: speech normal Psych: APPEARANCE: Yes well kempt Course Vital Signs: Vital signs: Vital Signs Temperature 98.1 F 05/31/22 02:38 Pulse Rate 101 H 05/31/22 04:30 Respiratory Rate 14 05/31/22 04:30 Blood Pressure 103/53 05/31/22 04:30 Pulse Oximetry 98 05/31/22 04:30 MDM - Anxiety Medical Decision Making This patient is clearly not homicidal, suicidal, or psychotic. She is not under the influence. She is reasonable. She simply has had a tough night, and is in a tough situation. She is calm now. We offered treatment in terms of acute treatment for anxiety, she declined. She notes that she feels safe in her home, and has no reason not to go back. She appears healthy physically. She is medically cleared, and will be allowed discharge. Discharge Plan Discharge Patient Disposition: Home Clinical Impression: Situational depression Condition: Stable Prescriptions: No Action levothyroxine [Synthroid] 137 mcg tablet 137 mcg PO DAILY 0RF Balziva (28) 0.4-35 mg-mcg tablet 1 tab PO DAILY 0RF pregabalin 75 mg capsule 75 mg PO DAILY 0RF potassium chloride 10 mEq tablet extended release 10 meq PO DAILY 0RF furosemide [Lasix] 20 mg tablet 20 mg PO DAILY 0RF pantoprazole 40 mg tablet,delayed release (DR/EC) 40 mg PO DAILY 0RF (DME) Custom molded Orthotics See Rx Instructions .Route .MEDSUPPLY Qty: 1 0RF Rx Instructions: As directed [facility] Breo Ellipta 100-25 mcg/dose blister with device 1 inh inhalation DAILY 0RF cephalexin 500 mg capsule 500 mg PO BID 7 Days Qty: 14 0RF triamcinolone acetonide 0.1 % cream 1 applic topical BID Qty: 80 0RF diltiazem HCl 120 mg capsule,extended release 12 hr 120 mg PO ONCE 0RF clobetasol 0.05 % lotion 1 applic topical DAILY 0RF terbinafine HCl 250 mg tablet 250 mg PO DAILY 90 Days Qty: 30 2RF metoclopramide HCl [Reglan] 10 mg tablet 10 mg PO Q6H PRN (Reason: nausea and vomiting) Qty: 20 0RF Rx Instructions: pt states she has this medication but isnt taking it ropinirole 2 mg tablet 2 mg PO TID 0RF Rx Instructions: pt states she takes 4mg po bid Singulair 10 mg Tablet 10 mg PO DAILY 0RF Vitamin D2 1,250 mcg (50,000 unit) capsule 50,000 unit PO Q7D 0RF Rx Instructions: pt states she takes on sundays Miralax 17 gram/dose Powder See Rx Instructions .ROUTE .COMPLEX 0RF Rx Instructions: 1/2 capful daily ProAir HFA 90 mcg/actuation Hfa Aerosol Inhaler 2 puff INHALATION Q4H PRN (Reason: Shortness Of Breath) 0RF topiramate 100 mg tablet 100 mg PO BID 0RF Rx Instructions: pt states she takes 200mg po daily Novolog Flexpen U-100 Insulin 100 unit/mL (3 mL) insulin pen See Rx Instructions .ROUTE .COMPLEX 0RF Rx Instructions: 9 unit subcutaneously at breakfast,14 units at lunch, amd 7 units with supper pt states it was just changed to this dose on tuesday Farxiga 5 mg tablet 5 mg PO DAILY 0RF Probiotic Gummy 2 tab PO DAILY 0RF Discharge Orders: Discharge ED (Routine); Ordered 05/31/22 Ordered By: Derek Allan Referrals: Nate Díaz MD [Primary Care Provider] - 1-3 days Discharge Diet: Usual diet Discharge Activity: Increase activity as tolerated Patient Instructions: Depression (ED) Activity Restrictions/Additional Instructions: Return to the ER for any thoughts or wishes to harm your self or anyone else. Coding Level of Care Code ED Physician Assistant Primary Care for Álvaro Armstrong
== END 2022-05-31 04:45 | disposition home or self-care (01) ==
PROVIDERS: Emergency Provider Emergency Medicine; PCP Family Medicine
DX: F43.21 Adjustment disorder with depressed mood (principal); Z79.4 Long term (current) use of insulin; Z87.891 Personal history of nicotine dependence
CPT/HCPCS: 99284

== ENCOUNTER 2022-06-03 14:59 | Outpatient (CLI) | payer MEDICARE, SELFPAY ==
--- NOTE | 2022-06-03 15:33 | MR_ITS ---
WS: [id number] MRI LEFT SHOULDER NONCONTRAST TECHNIQUE: Sagittal T2, coronal T1, T2 and proton density imaging. Axial gradient PDE imaging. CLINICAL INFORMATION: SHOULDER PAIN, LEFT COMPARISON: None. FINDINGS: Mild edema at the AC joint. Mild downsloping acromion. No significant AC joint widening. Subacromial space is preserved. Distal supraspinatus is intact. Normal infraspinatus. Normal teres minor. Subscap ularis is normal. Biceps tendon is intact within the bicipital groove. Biceps tendon is somewhat diminutive. Intra-alex cular biceps tendon is normal. Normal biceps labral anchor. Normal bone marrow signal in the glenoid and humerus. Glenoid labrum appears grossly normal. No other significant findings. MR/MR shoulder LT wo con* [id number] IMPRESSION: 1. Mild edema at the AC joint with mild downsloping acromion. No significant A C joint widening. 2. Rotator cuff is intact. No acute rotator cuff tears. 3. Somewhat diminutive Biceps tendon is intact within the bicipital groove. 4. Glenoid labrum appears grossly normal. 5. No other significant findings.
== END 2022-06-03 15:00 | disposition home or self-care (01) ==
PROVIDERS: PCP Family Medicine; Visit Provider Family Medicine
DX: M25.512 Pain in left shoulder (principal); M25.412 Effusion, left shoulder
CPT/HCPCS: 73221

== ENCOUNTER → 2022-06-09 08:02 | Outpatient (BNVA) | payer MEDICARE, SELFPAY | PROVIDERS: PCP Family Medicine; Visit Provider Podiatrist Foot & Ankle Surgery | DX: B35.1 Tinea unguium (principal); B35.3 Tinea pedis; E10.9 Type 1 diabetes mellitus without complications; Z79.4 Long term (current) use of insulin | CPT/HCPCS: 36415; 80053; 99213 ==

== ENCOUNTER 2022-06-21 15:37 | Outpatient (CLI) | payer MEDICARE, SELFPAY ==
[2022-06-21 16:10] LABS: Basophils # 0.1 10^3/uL (0.0-0.1); Eosinophils # 0.1 10^3/uL (0.0-0.8); Eosinophils % 1.2 %; Hematocrit 44.9 % (37.0-47.0); Lymphocytes # 1.6 10^3/uL (0.8-4.8); Lymphocytes % 20.7 %; Mean Corpuscular HGB Conc 31.2 g/dL (30.0-36.0); Mean Corpuscular Hemoglobin 29.3 pg (28.0-34.0); Mean Corpuscular Volume 93.9 fl (81-99); Mean Platelet Volume 10.6 fL (7.4-10.4); Monocytes # 0.6 10^3/uL (0.2-0.9); Neutrophils # 5.31 10^3/uL (1.8-7.7); Neutrophils % 68.8 %; Nucleated Red Blood Cells % 0 %; Platelet Count 198 10^3/cmm (130-400); Red Blood Count 4.78 10^6/uL (4.1-5.3); Red Cell Distribution Width 12.9 % (12.1-15.1); White Blood Count 7.7 10^3/uL (4.0-10.0)
[2022-06-21 16:31] LABS: Erythrocyte Sedimentation Rate < 1 mm/hr (0-15)
== END 2022-06-21 15:38 | disposition home or self-care (01) ==
LOC: LAB 15:40
PROVIDERS: PCP Family Medicine; Visit Provider Family Medicine
DX: Z51.81 Encounter for therapeutic drug level monitoring (principal); R23.3 Spontaneous ecchymoses
CPT/HCPCS: 85025; 85651; 86141

== ENCOUNTER 2022-07-07 11:06 | Outpatient (CLI) | payer MEDICARE, SELFPAY ==
[2022-07-07 11:47] LABS: Estmated Average Glucose 146; Hemoglobin A1C 6.7 % (4.0-6.0)
[2022-07-07 11:55] LABS: Anion Gap 12.9 (5-19); Blood Urea Nitrogen 14 mg/dL (6-20); Carbon Dioxide 25 mmol/L (22-29); Chloride 105 mmol/L (98-107); Glomerular Filtration Rate 111.3 mL/min (90-130); Glucose 125 mg/dL (65-115); Osmolality Calculated 290 mOsm/kg (285-295); Potassium 3.9 mmol/L (3.5-5.1); Sodium 139 mmol/L (136-145)
[2022-07-07 20:31] LABS: Free T4 Free Thyroxine 2.03 ng/dL (0.82-1.77); Thyroid Stimulating Hormone 0.22 uIU/mL (0.27-4.20)
== END 2022-07-07 11:07 | disposition home or self-care (01) ==
LOC: LAB 11:11
PROVIDERS: PCP Family Medicine; Visit Provider Nurse Practitioner Family
DX: E10.65 Type 1 diabetes mellitus with hyperglycemia (principal); E10.42 Type 1 diabetes mellitus with diabetic polyneuropathy
CPT/HCPCS: 36415; 80048; 83036; 84439; 84443

== ENCOUNTER 2022-07-20 09:59 | Oncology outpatient (recurring) (ONCR) | payer MEDICARE, SELFPAY ==
[2022-07-20 12:21] LABS: Basophils # 0.1 10^3/uL (0.0-0.1); Basophils % 1.2 %; Eosinophils # 0.1 10^3/uL (0.0-0.8); Eosinophils % 2.3 %; Hematocrit 46.1 % (37.0-47.0); Hemoglobin 14.8 g/dL (11.5-15.3); Lymphocytes # 1.6 10^3/uL (0.8-4.8); Lymphocytes % 28.2 %; Mean Corpuscular HGB Conc 32.1 g/dL (30.0-36.0); Mean Corpuscular Hemoglobin 30.4 pg (28.0-34.0); Mean Corpuscular Volume 94.7 fl (81-99); Mean Platelet Volume 10.6 fL (7.4-10.4); Monocytes # 0.5 10^3/uL (0.2-0.9); Monocytes % 9.5 %; Neutrophils # 3.35 10^3/uL (1.8-7.7); Neutrophils % 58.6 %; Nucleated Red Blood Cells % 0 %; Platelet Count 194 10^3/cmm (130-400); Red Blood Count 4.87 10^6/uL (4.1-5.3); Red Cell Distribution Width 12.7 % (12.1-15.1); White Blood Count 5.7 10^3/uL (4.0-10.0)
[2022-07-20 12:29] LABS: INR 1.15 (0.8-1.2)
[2022-07-20 13:04] LABS: LAB Peripheral Smear Sent for Review
[2022-07-27 13:17] LABS: Factor VIII Activity Clotting 50 % normal (50-180)
[2022-07-27 13:54] LABS: Von Willebrand Factor AG 70 % (50-217); Von Willebrand Ristocetin(Rcf) 60 % normal (42-200)
== END 2022-07-21 23:59 | disposition home or self-care (01) ==
PROVIDERS: PCP Family Medicine; Visit Provider Internal Medicine Medical Oncology
DX: R23.3 Spontaneous ecchymoses (principal)
CPT/HCPCS: 85025; 85240; 85245; 85246; 85610; 85730; 99204

== ENCOUNTER → 2022-08-09 15:00 | Outpatient (BNVA) | payer MEDICARE, SELFPAY | PROVIDERS: PCP Family Medicine; Visit Provider Specialist | DX: M75.02 Adhesive capsulitis of left shoulder (principal) | CPT/HCPCS: 73030; 99204 ==

== ENCOUNTER 2022-08-18 08:03 | Outpatient (RCR) | payer MEDICARE, SELFPAY | END 2022-08-20 23:59 | disposition home or self-care (01) | LOC: SPT 08:03 | PROVIDERS: PCP Family Medicine; Visit Provider Specialist | DX: M75.02 Adhesive capsulitis of left shoulder (principal); M25.512 Pain in left shoulder | CPT/HCPCS: 97110; 97140; 97162 ==

== ENCOUNTER 2022-08-21 06:00 | Outpatient (RCR) | payer MEDICARE, SELFPAY | END 2022-09-20 23:59 | disposition home or self-care (01) | LOC: SPT 06:00 | PROVIDERS: PCP Family Medicine; Visit Provider Specialist | DX: M75.02 Adhesive capsulitis of left shoulder (principal) | CPT/HCPCS: 97110; 97140 ==

== ENCOUNTER → 2022-09-03 09:13 | Outpatient (BNVA) | payer MEDICARE, SELFPAY | PROVIDERS: PCP Family Medicine; Visit Provider Family Medicine | DX: R30.0 Dysuria (principal); Z51.81 Encounter for therapeutic drug level monitoring; R25.2 Cramp and spasm; B37.9 Candidiasis, unspecified; E10.9 Type 1 diabetes mellitus without complications; R60.9 Edema, unspecified; R35.0 Frequency of micturition | CPT/HCPCS: 80053; 81000; 83735; 85025; 87077; 87086; 87184 ==

== ENCOUNTER 2022-09-06 14:28 | Oncology outpatient (recurring) (ONCR) | payer MEDICARE, SELFPAY ==
[2022-09-06 18:40] LABS: Partial Thromboplastin Time 31.1 SECONDS (23.9-36.7)
[2022-09-10 11:38] LABS: Factor VIII Activity Clotting 50 % normal (50-180)
[2022-09-10 12:34] LABS: Von Willebrand Factor AG 74 % (50-217); Von Willebrand Ristocetin(Rcf) 59 % normal (42-200)
== END 2022-09-20 23:59 | disposition home or self-care (01) ==
PROVIDERS: PCP Family Medicine; Visit Provider Internal Medicine Medical Oncology
DX: R23.3 Spontaneous ecchymoses (principal)
CPT/HCPCS: 85240; 85245; 85246; 85730; 99214

== ENCOUNTER → 2022-09-14 08:01 | Outpatient (BNVA) | payer MEDICARE, SELFPAY | PROVIDERS: PCP Family Medicine; Visit Provider Podiatrist Foot & Ankle Surgery | DX: L84 Corns and callosities (principal); E10.9 Type 1 diabetes mellitus without complications; B35.1 Tinea unguium; B35.3 Tinea pedis; Z79.4 Long term (current) use of insulin | CPT/HCPCS: 99213; 99214 ==

== ENCOUNTER → 2022-09-23 08:12 | Outpatient (BNVA) | payer MEDICARE, SELFPAY | PROVIDERS: PCP Family Medicine; Referring Provider Specialist; Visit Provider Specialist | DX: G56.23 Lesion of ulnar nerve, bilateral upper limbs (principal) | CPT/HCPCS: 95910; 95913 ==

== ENCOUNTER 2022-09-28 21:26 | Emergency (ER) | payer MEDICARE, SELFPAY ==
[2022-09-28 21:33] VITALS: BP 129/84; PULSE 89; RESP 17; TEMP 36.7; O2SAT 100; BMI 22.8
[2022-09-28 21:51] LABS: Glucose Point of Care 285 mg/dL (70-110)
--- NOTE | 2022-09-28 22:02 | ED_ITS ---
HPI - Fall General: Chief Complaint: Fall Stated Complaint: rib pain Time Seen by Provider: 09/28/22 22:02 History of Present Illness: Ms. Joseph is a 41-year-old female presenting to the emergency department due to fall with rib injury. She reports tripping on an hour cord and hitting the left side of her ribs on the side of bedpost. Immediately had pain. Pain is worse with palpation, movement, deep inspiration. Denies other injury. No other specific changes in health, exacerbating, or alleviating factors identified. Onset (ago): hour(s) Fall from: standing Place fall occurred: home Loss of consciousness: None Prolonged down time: no Symptoms prior to fall: none Context: tripped/slipped Location of injury: chest Severity: moderate Quality: stabbing and aching Associated symptoms-after fall: Reports no associated symptoms and short of breath Review of Systems General: Reports: 10 or more systems reviewed and unremarkable except in HPI and below PFSH ED PFSH: Medical History Asthma Chronic anxiety Chronic migraine Depression Environmental allergies Hypothyroidism Obsessive-compulsive disorder Peptic ulcer disease Type 1 diabetes mellitus Urinary tract infection due to extended-spectrum beta lactamase (ESBL) producing Escherichia coli Surgical History H/O section in 2007 and in 2009 H/O colonoscopy 2016 and 2018 H/O dilation and curettage 2015 H/O esophagogastroduodenoscopy 2016 and 2018 H/O tubal ligation 2010 History of hysterectomy 2021 Family History Family/Other Cancer Aunts, uterine cancer Other CAD (coronary artery disease) Dementia Diabetes Hypertension Lung disease Stroke Denies family history of Clotting disorder Hyperlipidemia Psychiatric illness Chronic kidney disease (CKD) Suicide Anesthesia complication Bleeding disorder Social History Smoking and tobacco status: former smoker (smoked x 17 years) Alcohol intake: never Female Reproductive History: Date of last menstrual period: 05/06/21 Physical Exam Const: COMMON NORMALS: alert GENERAL APPEARANCE: cooperative and well developed HENMT: COMMON NORMALS: normocephalic and atraumatic HEAD & SCALP: normocephalic and atraumatic Eye: COMMON NORMALS: conjunctivae normal CONJUNCTIVA: Yes conjunctivae normal SCLERA: sclerae normal Neck/C-Spine: COMMON NORMALS: supple GENERAL: Yes trachea midline Chest: OTHER: L lateral ttp, no crepitus or deformity/flail segment Resp: COMMON NORMALS: normal respiratory effort EFFORT & INSPECTION: Yes able to speak in complete sentences Cardio: COMMON NORMALS: regular rate and regular rhythm RATE: regular rate RHYTHM: regular rhythm GI: COMMON NORMALS: Soft to palpation PALPATION: Yes Soft to palpation and No Tenderness to palpation present (GI) PERCUSSION: normal to percussion Extremity: GENERAL: Yes normal exam except as noted and No edema Neuro: COMMON NORMALS: moves all extremities SENSORIUM/ORIENTATION: Yes alert and No Orientation impaired Psych: COMMON NORMALS: mental status grossly normal and Normal thought process present THOUGHT PROCESS: Normal thought process present Skin: NARRATIVE SKIN EXAM: abrasion without repairable lac Course Vital Signs: Vital signs: Vital Signs Temperature 98.1 F 09/28/22 21:33 Pulse Rate 89 09/28/22 21:33 Respiratory Rate 15 09/28/22 22:20 Blood Pressure 129/84 09/28/22 21:33 Pulse Oximetry 100 09/28/22 21:33 Oxygen Delivery Me thod 09/28/22 21:33 MDM - Fall Medical Decision Making 41-year-old lady presenting with rib pain secondary to fall. Worse with palpation and inspiration. Lung sounds clear to auscultation bilaterally. Exam as above. No evidence of acute fracture identified on x-ray. No pneumothorax. Somewhat improved with analgesia. Most likely etiology of symptoms is contusion with abrasion versus nondisplaced rib fractures, treatment remained similar regardless. Incentive spirometer for discharge. The results of ED evaluation were discussed with the patient including prescriptions and/or symptomatic cares (if applicable) including appropriate and responsible use, followup plan, and return precautions. The patient verbalized understanding and felt safe for discharge. Medical Records I reviewed the patient's medical records. Lab Data I reviewed the patient's lab results. Radiology Impressions Ribs X-Ray 09/28/22 22:06 IMPRESSION: No acute findings. Laboratory Results POC Glucose 285 mg/dL (70-110) H 09/28/22 21:41 Discharge Plan Discharge Patient Disposition: Home Clinical Impression: Fall, Rib injury Condition: Stable Prescriptions: New oxycodone 5 mg tablet 5 mg PO Q4H PRN (Reason: pain) Qty: 10 0RF No Action potassium chloride 10 mEq tablet extended release 10 meq PO DAILY pantoprazole 40 mg tablet,delayed release (DR/EC) 40 mg PO DAILY (DME) Custom molded Orthotics See Rx Instructions .Route .MEDSUPPLY Qty: 1 0RF Rx Instructions: As directed J P & O levothyroxine [Synthroid] 137 mcg tablet 125 mcg PO DAILY Breo Ellipta 100-25 mcg/dose blister with device 1 inh inhalation DAILY triamcinolone acetonide 0.1 % cream 1 applic topical BID Qty: 80 0RF clobetasol 0.05 % lotion 1 applic topical DAILY sumatriptan succinate 100 mg tablet See Rx Instructions PO .COMPLEX Rx Instructions: take 1 tab at onset of headache; if no relief, may repeat 1 tab after at least 2 hrs; max = 2 tabs/24 hrs PO furosemide 20 mg tablet 20 mg PO DAILY PRN (Reason: edema) Qty: 30 0RF ciprofloxacin HCl [Cipro] 500 mg tablet 500 mg PO BID 7 Days Qty: 14 0RF mupirocin 2 % ointment topical ferric citrate 210 mg iron tablet 210 mg PO DAILY Rx Instructions: administer with a meal bupropion HCl [Wellbutrin XL] 150 mg tablet extended release 24 hr 150 mg PO QAM insulin lispro [Humalog U-100 Insulin] 100 unit/mL solution See Rx Instructions SUBCUT TID Rx Instructions: 9 unit subcutaneously at breakfast,14 units at lunch, amd 7 units with supper subcutaneously three times daily; metoclopramide HCl [Reglan] 10 mg tablet 10 mg PO Q6H PRN (Reason: nausea and vomiting) Qty: 20 0RF Rx Instructions: pt states she has this medication but isnt taking it Singulair 10 mg Tablet 10 mg PO DAILY Vitamin D2 1,250 mcg (50,000 unit) capsule 50,000 unit PO Q7D Rx Instructions: pt states she takes on sundays Miralax 17 gram/dose Powder See Rx Instructions .ROUTE .COMPLEX Rx Instructions: 1/2 capful daily ProAir HFA 90 mcg/actuation Hfa Aerosol Inhaler 2 puff INHALATION Q4H PRN (Reason: Shortness Of Breath) Probiotic Gummy 2 tab PO DAILY topiramate 100 mg tablet 200 mg PO DAILY Rx Instructions: pt states she takes 200mg po daily Discharge Orders: Discharge ED (Routine); Ordered 09/28/22 Ordered By: Myron Mckeon Referrals: Nate Díaz MD [Primary Care Provider] - Discharge Diet: Usual diet Discharge Activity: Increase activity as tolerated Patient Instructions: Rib Fracture (ED), Rib Contusion (ED), Opioid Safety, Pain Management Activity Restrictions/Additional Instructions: Thank you for visiting the emergency department. You were seen about a for rib injury. No broken ribs were identified on x-ray however it is possible that you did crack them. The management is similar. I will prescribe oxycodone, please use this cautiously. You will also be discharged with an incentive spirometer. Please ensure that you are taking adequate breaths as there is risk of developing pneumonia with not deep enough breaths. Please follow-up with a primary care provider. Return to the emergency department for uncontrolled symptoms or anything else that you are concerned about a feel needs emergency department evaluation. Coding Level of Care Code ED Rodent Exterminator for Álvaro Armstrong
--- NOTE | 2022-09-28 22:06 | XRR_ITS ---
PROCEDURE INFORMATION: Exam: XR Left Ribs with PA Chest Exam date and time: 09/28/2022 10:24 PM Age: 41 years old Clinical indication: Chest wall pain and painful respiration; Left; Additional info: Fall, L lateral rib pain TECHNIQUE: Imaging protocol: Radiologic exam of the Left ribs with PA chest. Views: 3 views COMPARISON: CR XR chest 1V portable [id number] 05/20/2021 2:51 PM FINDINGS: Lungs: Unremarkable. No consolidation. Pleural spaces: Unremarkable. No pleural effusion. No pneumothorax. Heart/Mediastinum: Unremarkable. No cardiomegaly. Bones/joints: Unremarkable. XR/XR ribs LT mn 3V w CXR1V [id number] IMPRESSION: No acute findings.
[2022-09-28 22:20] VITALS: RESP 15
[2022-09-28] MEDS: oxyCODONE 5 mg IR Tab/Cap PO (22:20)
[2022-09-28] MEDS: ketorolac 30 mg/mL INJ IM (22:23)
== END 2022-09-28 23:01 | disposition home or self-care (01) ==
PROVIDERS: Emergency Provider Emergency Medicine; PCP Family Medicine
DX: S29.9XXA Unspecified injury of thorax, initial encounter (principal); W01.190A Fall on same level from slipping, tripping and stumbling with subsequent striking against furniture, initial encounter; Y92.9 Unspecified place or not applicable; E10.9 Type 1 diabetes mellitus without complications; Z87.440 Personal history of urinary (tract) infections; Z79.4 Long term (current) use of insulin
CPT/HCPCS: 36416; 71101; 81000; 82962; 87086; 96372; 99284; J1885

== ENCOUNTER 2022-10-01 11:48 | Outpatient (CLI) | payer MEDICARE, SELFPAY ==
--- NOTE | 2022-10-01 11:58 | XRR_ITS ---
PROCEDURE INFORMATION: Exam: XR Left Ribs Exam date and time: 10/01/2022 11:58 AM Age: 41 years old Clinical indication: Injury or trauma; Fall; Rib area, left side; Blunt trauma; Additional info: Fall, concern for rib fracture TECHNIQUE: Imaging protocol: Radiologic exam of the Left ribs. Views: 2 views. COMPARISON: CR (CHEST, ) 09/28/2022 10:24 PM FINDINGS: Bones/joints: Negative for acute bony abnormality. Soft tissues: Normal. XR/XR ribs LT 2V* [id number] IMPRESSION: Negative left rib x-ray examination
--- NOTE | 2022-10-01 11:58 | XRR_ITS ---
PROCEDURE INFORMATION: Exam: XR Chest Exam date and time: 10/01/2022 11:58 AM Age: 41 years old Clinical indication: Injury or trauma; Fall; Blunt trauma (contusions or hematomas); Additional info: R/O early pneumonia TECHNIQUE: Imaging protocol: Radiologic exam of the chest. Views: 2 views. COMPARISON: CR (CHEST, ) 09/28/2022 10:24 PM FINDINGS: Lungs: Unremarkable. No consolidation. Pleural spaces: Unremarkable. No pleural effusion. No pneumothorax. Heart/Mediastinum: Unremarkable. No cardiomegaly. Bones/joints: Unremarkable. New lines there has been no interval change comparing to prior examination XR/XR chest 2V* [id number] IMPRESSION: No acute findings.
== END 2022-10-01 11:49 | disposition home or self-care (01) ==
LOC: RAD 11:53
PROVIDERS: PCP Family Medicine; Visit Provider Family Medicine
DX: R05.9 Cough, unspecified (principal); R07.81 Pleurodynia; W19.XXXA Unspecified fall, initial encounter
CPT/HCPCS: 71046; 71100

== ENCOUNTER → 2022-10-20 10:49 | Outpatient (BNVA) | payer MEDICARE, SELFPAY | PROVIDERS: PCP Family Medicine; Visit Provider Specialist | DX: G56.21 Lesion of ulnar nerve, right upper limb (principal) | CPT/HCPCS: 73130 ==

== ENCOUNTER 2022-10-20 13:33 | Outpatient (CLI) | payer MEDICARE, SELFPAY | END 2022-10-20 13:34 | disposition home or self-care (01) | LOC: SPT 13:34 | PROVIDERS: PCP Family Medicine; Visit Provider Specialist | DX: Z46.89 Encounter for fitting and adjustment of other specified devices (principal); G56.20 Lesion of ulnar nerve, unspecified upper limb; M79.641 Pain in right hand; M67.431 Ganglion, right wrist | CPT/HCPCS: 97760; 99214; L3908 ==

== ENCOUNTER → 2022-10-21 13:30 | Outpatient (BNVA) | payer MEDICARE, SELFPAY | PROVIDERS: PCP Family Medicine; Referring Provider Specialist; Visit Provider Specialist | DX: M25.512 Pain in left shoulder (principal); G56.23 Lesion of ulnar nerve, bilateral upper limbs | CPT/HCPCS: 95861 ==

== ENCOUNTER 2022-10-24 22:02 | Emergency (ER) | payer MEDICARE, SELFPAY ==
[2022-10-24 22:06] VITALS: BP 113/62; PULSE 107; RESP 16; TEMP 37.1; O2SAT 96
[2022-10-24 22:19] LABS: HCG Qualitative Urine. Negative (Negative)
[2022-10-24 22:56] LABS: Add Urine Microscopic? NO; Charge for UA Resulting for Rev
[2022-10-24 23:02] LABS: Urine Appearance Clear (CLEAR); Urine Color Yellow (Yellow)
[2022-10-24 23:03] LABS: pH Urine 6 (5-7)
[2022-10-24 23:04] LABS: Bilirubin Urine Neg (Negative); Blood Urine Neg (Negative); Glucose Urine UA 4+ (Normal); Ketones Urine Negative (Negative); Leukocyte Esterase Urine Negative (Negative); Nitrate Urine Negative (Negative); Protein Urine Neg (Negative); Urobilinogen Urine Neg (Negative)
--- NOTE | 2022-10-24 23:04 | W.ED.BACK ---
HPI - Back Pain/Injury General: Chief Complaint: Back Pain/Injury Stated Complaint: cough, abdomen pain, blood in urine Time Seen by Provider: 10/24/22 23:03 History of Present Illness: 41-year-old female comes in today with complaints of cough starting last night. Patient is a type I diabetic. Patient reports some irritation with urination this morning. Patient has a history of recurrent UTIs. Patient appears nontoxic. Patient's other medical problems includes neuropathy, hypothyroidism, migraines, asthma, and back pain. Associated symptoms: Deny vomiting Review of Systems Const: Reports: malaise Resp: Reports: productive cough GI: Denies: vomiting : Reports: difficulty voiding PFSH ED PFSH: Medical History Asthma Chronic anxiety Chronic migraine Depression Environmental allergies Hypothyroidism Obsessive-compulsive disorder Peptic ulcer disease Type 1 diabetes mellitus Urinary tract infection due to extended-spectrum beta lactamase (ESBL) producing Escherichia coli Surgical History H/O section in 2007 and in 2009 H/O colonoscopy 2016 and 2018 H/O dilation and curettage 2016 H/O esophagogastroduodenoscopy 2016 and 2018 H/O tubal ligation 2010 History of hysterectomy 2021 Family History Family/Other Cancer Aunts, uterine cancer Other CAD (coronary artery disease) Dementia Diabetes Hypertension Lung disease Stroke Denies family history of Clotting disorder Hyperlipidemia Psychiatric illness Chronic kidney disease (CKD) Suicide Anesthesia complication Bleeding disorder Social History Smoking and tobacco status: former smoker (smoked x 17 years) Alcohol intake: never Female Reproductive History: Date of last menstrual period: 05/06/21 Physical Exam Const: COMMON NORMALS: alert HENMT: COMMON NORMALS: normocephalic HEAD & SCALP: normocephalic THROAT: posterior oropharynx normal Neck/C-Spine: COMMON NORMALS: full ROM Resp: COMMON NORMALS: normal respiratory effort and clear to auscultation bilaterally AUSCULTATION: clear to auscultation bilaterally Cardio: COMMON NORMALS: regular rate and regular rhythm RATE: regular rate RHYTHM: regular rhythm GI: COMMON NORMALS: Soft to palpation and non-tender PALPATION: Yes Soft to palpation : COMMON NORMALS: Yes no CVA tenderness BLADDER/KIDNEY EXAM: Yes no CVA tenderness Back/Pelvis: COMMON NORMALS: no CVA tenderness Extremity: COMMON NORMALS: normal to inspection Neuro: SENSORIUM/ORIENTATION: Yes alert Skin: COMMON NORMALS: turgor normal GENERAL SKIN EXAM: turgor normal Course Vital Signs: Vital signs: Vital Signs Temperature 98.8 F 10/24/22 22:06 Pulse Rate 97 10/25/22 00:41 Respiratory Rate 18 10/25/22 00:41 Blood Pressure 120/74 10/25/22 00:41 Pulse Oximetry 98 10/25/22 00:41 Oxygen Delivery Me thod 10/24/22 23:16 MDM - Back Pain/Injury Medical Decision Making Patient comes in today for complaints of cough, malaise, difficulty urinating and fever last night. On exam lungs are clear to auscultation. Abdomen soft nontender. No CVA tenderness. Vital signs are normal. Differential diagnosis includes but not limited to bronchitis, viral syndrome, upper respiratory infection, pneumonia, urinary tract infection, pyelonephritis. Patient CBC and CMP were unremarkable. Chest x-ray was normal. Patient was positive for influenza A. Patient was given 1 L of IV fluids for mild dehydration, ondansetron for nausea, and started on Tamiflu for the flu and increased risk of complications. Patient reported understanding of care plan and need for follow-up or return to ER. Labs 10/24/22 23:15 10/24/22 23:15 Radiology Impressions Chest X-Ray 10/24/22 23:23 IMPRESSION: No acute findings. Laboratory Results WBC 7.0 10^3/uL (4.0-10.0) 10/24/22 23:15 RBC 4.86 10^6/uL (4.1-5.3) 10/24/22 23:15 Hgb 14.5 g/dL (11.5-15.3) 10/24/22 23:15 Hct 45.0 % (37.0-47.0) 10/24/22 23:15 MCV 92.6 fl (81-99) 10/24/22 23:15 MCH 29.8 pg (28.0-34.0) 10/24/22 23:15 MCHC 32.2 g/dL (30.0-36.0) 10/24/22 23:15 RDW 13.0 % (12.1-15.1) 10/24/22 23:15 Plt Count 186 10^3/cmm (130-400) 10/24/22 23:15 MPV 11.2 fL (7.4-10.4) H 10/24/22 23:15 Neut % (Auto) 78.0 % 10/24/22 23:15 Lymph % (Auto) 8.5 % 10/24/22 23:15 [place] % (Auto) 11.3 % 10/24/22 23:15 Eos % (Auto) 1.0 % 10/24/22 23:15 Baso % (Auto) 0.9 % 10/24/22 23:15 Neut # (Auto) 5.45 10^3/uL (1.8-7.7) 10/24/22 23:15 Lymph # (Auto) 0.6 10^3/uL (0.8-4.8) L 10/24/22 23:15 [place] # (Auto) 0.8 10^3/uL (0.2-0.9) 10/24/22 23:15 Eos # (Auto) 0.1 10^3/uL (0.0-0.8) 10/24/22 23:15 Baso # (Auto) 0.1 10^3/uL (0.0-0.1) 10/24/22 23:15 Nucleated RBC % (auto) 0 % 10/24/22 23:15 Nucleated RBCs # 0.0 /100WBC 10/24/22 23:15 Sodium 138 mmol/L (136-145) 10/24/22 23:15 Potassium 3.7 mmol/L (3.5-5.1) 10/24/22 23:15 Chloride 104 mmol/L (98-107) 10/24/22 23:15 Carbon Dioxide 23 mmol/L (22-29) 10/24/22 23:15 Anion Gap 14.7 (5-19) 10/24/22 23:15 BUN 17 mg/dL (6-20) 10/24/22 23:15 Creatinine 0.9 mg/dL (0.5-0.9) 10/24/22 23:15 GFR Calculation 69.7 mL/min (90-130) L 10/24/22 23:15 Glucose 209 mg/dL (65-115) H 10/24/22 23:15 Calculated Osmolality 294 mOsm/kg (285-295) 10/24/22 23:15 Calcium 9.0 mg/dL (8.5-10.5) 10/24/22 23:15 Total Bilirubin 0.3 mg/dL (0.15-1.2) 10/24/22 23:15 AST 13 U/L (0-32) 10/24/22 23:15 ALT 12 U/L (0-33) 10/24/22 23:15 Alkaline Phosphatase 109 U/L (35-105) H 10/24/22 23:15 Total Protein 7.1 g/dL (6.6-8.7) 10/24/22 23:15 Albumin 4.6 g/dL (3.5-5.2) 10/24/22 23:15 Globulin 2.5 g/dL (1.3-4.6) 10/24/22 23:15 HCG, Qual Negative (Negative) 10/24/22 22:12 Urine Color Yellow (Yellow) 10/24/22 22:12 Urine Appearance Clear (CLEAR) 10/24/22 22:12 Urine pH 6 (5-7) 10/24/22 22:12 Ur Specific [place] 1.010 (1.005-1.030) 10/24/22 22:12 Urine Protein Neg (Negative) 10/24/22 22:12 Urine Glucose (UA) 4+ (Normal) H 10/24/22 22:12 Urine Ketones Negative (Negative) 10/24/22 22:12 Urine Blood Neg (Negative) 10/24/22 22:12 Urine Nitrate Negative (Negative) 10/24/22 22:12 Urine Bilirubin Neg (Negative) 10/24/22 22:12 Urine Urobilinogen Neg mg/dL (Negative) 10/24/22 22:12 Ur Leukocyte Esterase Negative (Negative) 10/24/22 22:12 Influenza Type A Ag positive (Negative) H 10/24/22 23:18 Influenza Type B Ag negative (Negative) 10/24/22 23:18 Discharge Plan Discharge Patient Disposition: Home Clinical Impression: Influenza A Condition: Stable Prescriptions: New Tamiflu 75 mg capsule 75 mg PO BID 5 Days Qty: 10 0RF ondansetron 4 mg tablet,disintegrating 4 mg PO Q8H PRN (Reason: nausea and vomiting) Qty: 10 0RF No Action potassium chloride 10 mEq tablet extended release 10 meq PO DAILY pantoprazole 40 mg tablet,delayed release (DR/EC) 40 mg PO DAILY (DME) Custom molded Orthotics See Rx Instructions .Route .MEDSUPPLY Qty: 1 0RF Rx Instructions: As directed J P & O levothyroxine [Synthroid] 137 mcg tablet 125 mcg PO DAILY Breo Ellipta 100-25 mcg/dose blister with device 1 inh inhalation DAILY triamcinolone acetonide 0.1 % cream 1 applic topical BID Qty: 80 0RF clobetasol 0.05 % lotion 1 applic topical DAILY sumatriptan succinate 100 mg tablet See Rx Instructions PO .COMPLEX Rx Instructions: take 1 tab at onset of headache; if no relief, may repeat 1 tab after at least 2 hrs; max = 2 tabs/24 hrs PO furosemide 20 mg tablet 20 mg PO DAILY PRN (Reason: edema) Qty: 30 0RF ciprofloxacin HCl [Cipro] 500 mg tablet 500 mg PO BID 7 Days Qty: 14 0RF mupirocin 2 % ointment topical Farxiga 5 mg tablet 5 mg PO DAILY (DME) COCK UP SPLINT. See Rx Instructions .Route .MEDSUPPLY Qty: 1 0RF Rx Instructions: As directed tobramycin 0.3 % drops See Rx Instructions .Route .COMPLEX Qty: 5 0RF Rx Instructions: Instill 1-2 drops into the affected eye(s) every 4-6 hours until better; ferric citrate 210 mg iron tablet 210 mg PO DAILY Rx Instructions: administer with a meal insulin lispro [Humalog U-100 Insulin] 100 unit/mL solution See Rx Instructions SUBCUT TID Rx Instructions: 9 unit subcutaneously at breakfast,14 units at lunch, amd 7 units with supper subcutaneously three times daily; bupropion HCl [Wellbutrin XL] 150 mg tablet extended release 24 hr 300 mg PO QAM baclofen 5 mg tablet 10 mg PO TID Qty: 180 0RF metoclopramide HCl [Reglan] 10 mg tablet 10 mg PO Q6H PRN (Reason: nausea and vomiting) Qty: 20 0RF Rx Instructions: pt states she has this medication but isnt taking it Singulair 10 mg Tablet 10 mg PO DAILY Vitamin D2 1,250 mcg (50,000 unit) capsule 50,000 unit PO Q7D Rx Instructions: pt states she takes on sundays Miralax 17 gram/dose Powder See Rx Instructions .ROUTE .COMPLEX Rx Instructions: 1/2 capful daily ProAir HFA 90 mcg/actuation Hfa Aerosol Inhaler 2 puff INHALATION Q4H PRN (Reason: Shortness Of Breath) Probiotic Gummy 2 tab PO DAILY topiramate 100 mg tablet 200 mg PO DAILY Rx Instructions: pt states she takes 200mg po daily Discharge Orders: Discharge ED (Routine); Ordered 10/25/22 Ordered By: [place] Mayorga Referrals: Nate Díaz MD [Primary Care Provider] - Discharge Diet: Usual diet Discharge Activity: Increase activity as tolerated Patient Instructions: Influenza (ED) Activity Restrictions/Additional Instructions: Drink plenty of fluids. Use acetaminophen or ibuprofen as needed for pain and fever. Follow-up with primary care for further instruction. Return to ED for new concerns or worsening symptoms. Coding Level of Care Code ED Irrigation Service Technician for Álvaro Fwaraceli Exam Comprehensive
[2022-10-24 23:16] VITALS: BP 118/65; PULSE 95; RESP 17; O2SAT 97
--- NOTE | 2022-10-24 23:23 | XRR_ITS ---
PROCEDURE INFORMATION: Exam: XR Chest Exam date and time: 10/25/2022 12:03 AM Age: 41 years old Clinical indication: Cough; Additional info: Cough, congestion, fever TECHNIQUE: Imaging protocol: Radiologic exam of the chest. Views: 1 view. COMPARISON: CR XR chest 2V* [id number] 10/01/2022 11:58 AM FINDINGS: Lungs: Unremarkable. No consolidation. Pleural spaces: Unremarkable. No pleural effusion. No pneumothorax. Heart/Mediastinum: Unremarkable. No cardiomegaly. Bones/joints: Unremarkable. XR/XR chest 1V portable [id number] IMPRESSION: No acute findings.
[2022-10-24 23:30] VITALS: BP 124/81; PULSE 99; RESP 18; O2SAT 99
[2022-10-24] MEDS: sodium chloride 0.9% 1,000 ML 999 ML IV (23:39)
[2022-10-24 23:45] LABS: Basophils # 0.1 10^3/uL (0.0-0.1); Basophils % 0.9 %; Eosinophils # 0.1 10^3/uL (0.0-0.8); Hemoglobin 14.5 g/dL (11.5-15.3); Lymphocytes # 0.6 10^3/uL (0.8-4.8); Lymphocytes % 8.5 %; Mean Corpuscular HGB Conc 32.2 g/dL (30.0-36.0); Mean Corpuscular Hemoglobin 29.8 pg (28.0-34.0); Mean Corpuscular Volume 92.6 fl (81-99); Mean Platelet Volume 11.2 fL (7.4-10.4); Monocytes # 0.8 10^3/uL (0.2-0.9); Monocytes % 11.3 %; Neutrophils # 5.45 10^3/uL (1.8-7.7); Nucleated Red Blood Cells % 0 %; Platelet Count 186 10^3/cmm (130-400); Red Blood Count 4.86 10^6/uL (4.1-5.3)
[2022-10-25 00:04] LABS: Influenza A by IFA positive (Negative); Influenza B by IFA negative (Negative)
[2022-10-25 00:06] LABS: Alanine Aminotransferase 12 U/L (0-33); Albumin Level 4.6 g/dL (3.5-5.2); Alkaline Phosphatase 109 U/L (35-105); Anion Gap 14.7 (5-19); Aspartate Amino Transferase 13 U/L (0-32); Blood Urea Nitrogen 17 mg/dL (6-20); Carbon Dioxide 23 mmol/L (22-29); Chloride 104 mmol/L (98-107); Globulin 2.5 g/dL (1.3-4.6); Glomerular Filtration Rate 69.7 mL/min (90-130); Glucose 209 mg/dL (65-115); Osmolality Calculated 294 mOsm/kg (285-295); Potassium 3.7 mmol/L (3.5-5.1); Sodium 138 mmol/L (136-145); Total Bilirubin 0.3 mg/dL (0.15-1.2); Total Protein 7.1 g/dL (6.6-8.7)
[2022-10-25] MEDS: ondansetron 2 mg/ML SDV 2 mL 4 MG IVP (00:33)
[2022-10-25] MEDS: oseltamivir phosphate 75 mg Capsule PO (00:33)
[2022-10-25 00:41] VITALS: BP 120/74; PULSE 97; RESP 18; O2SAT 98
== END 2022-10-25 00:43 | disposition home or self-care (01) ==
PROVIDERS: Emergency Medicine; Emergency Provider Nurse Practitioner Family; PCP Family Medicine
DX: J10.1 Influenza due to other identified influenza virus with other respiratory manifestations (principal); Z79.4 Long term (current) use of insulin; Z87.891 Personal history of nicotine dependence; E10.9 Type 1 diabetes mellitus without complications
CPT/HCPCS: 71045; 80053; 81003; 81025; 85025; 87804; 96361; 96374; 99284; J2405; J7030

== ENCOUNTER 2022-11-02 09:14 | Outpatient (CLI) | payer MEDICARE, SELFPAY ==
[2022-11-02 10:16] LABS: Alanine Aminotransferase 12 U/L (0-33); Albumin Level 4.5 g/dL (3.5-5.2); Alkaline Phosphatase 80 U/L (35-105); Aspartate Amino Transferase 12 U/L (0-32); Blood Urea Nitrogen 22 mg/dL (6-20); Carbon Dioxide 25 mmol/L (22-29); Chloride 107 mmol/L (98-107); Chol HDL Ratio 1.83 mg/dL (0.0-4.40); Cholesterol 126 mg/dL (0-200); Estmated Average Glucose 192; Globulin 2.5 g/dL (1.3-4.6); Glomerular Filtration Rate 111.3 mL/min (90-130); Glucose 179 mg/dL (65-115); HDL Cholesterol 69 mg/dL (60-100); Hemoglobin A1C 8.3 % (4.0-6.0); LDL Cholesterol Calculated 48 mg/dL (50-129); Osmolality Calculated 302 mOsm/kg (285-295); Sodium 142 mmol/L (136-145); Thyroid Stimulating Hormone 0.39 uIU/mL (0.27-4.20); Total Bilirubin 0.5 mg/dL (0.15-1.2); Triglycerides 44 mg/dL (0-150)
[2022-11-02 10:17] LABS: Creatinine Urine, Random 58 mg/dL (28-217); Microalbum Creatinine Ratio Ur 17 mg/dL (0-20); Microalbumin Random Urine 1 ug/dL (0-20)
== END 2022-11-02 09:15 | disposition home or self-care (01) ==
LOC: LAB 09:17
PROVIDERS: PCP Family Medicine; Visit Provider Nurse Practitioner Family
DX: E10.649 Type 1 diabetes mellitus with hypoglycemia without coma (principal); E03.8 Other specified hypothyroidism
CPT/HCPCS: 36415; 80053; 80061; 82044; 83036; 84439; 84443

== ENCOUNTER 2022-11-21 06:00 | Outpatient (RCR) | payer MEDICARE, SELFPAY | END 2022-12-21 23:59 | disposition home or self-care (01) | LOC: SOT 06:00 | PROVIDERS: PCP Family Medicine; Visit Provider Orthopaedic Surgery Hand Surgery | DX: G58.8 Other specified mononeuropathies (principal) | CPT/HCPCS: 97022; 97110; 97140; G0283 ==

== ENCOUNTER → 2022-12-13 08:44 | Outpatient (BNVA) | payer MEDICARE, SELFPAY | PROVIDERS: PCP Family Medicine; Visit Provider Specialist | DX: M75.02 Adhesive capsulitis of left shoulder (principal); M25.511 Pain in right shoulder; G89.29 Other chronic pain | CPT/HCPCS: 36415; 80053; 85651; 86140; 86160; 86162; 86200; 86235; 86255; 86376; 86431; 99214 ==

== ENCOUNTER 2023-01-12 20:11 | Emergency (ER) | payer MEDICARE, SELFPAY ==
[2023-01-12 20:19] VITALS: BP 162/90; PULSE 108; RESP 14; TEMP 36.6; O2SAT 98
--- NOTE | 2023-01-12 20:27 | ECG_ITS ---
[facility] Test Date: 2023-01-12 Pat Name: Kellen Joseph Department: Room: Gender: Female Senior Sales Administrator: : 1980 Requested By: Prashanth Villarreal Order Number: [id number] Kalia MD: Trino Decker M.D. Measurements Intervals [place] Rate: 103 P: 71 HI: 106 QRS: 64 QRSD: 85 T: 38 QT: 320 QTc: 420 Interpretive Statements SINUS TACHYCARDIA WITH SHORT HI INTERVAL POSSIBLE LEFT ATRIAL ENLARGEMENT [-0.1mV P-WAVE IN V1/V2] NONSPECIFIC T-WAVE ABNORMALITY Compared to ECG 01/29/2021 08:11:00 T-wave abnormality now present Sinus rhythm no longer present Sinus arrhythmia no longer present Electronically Signed On 01-12-2023 22:50:35 WIRE COINER by Trino Decker M.D. [id number]
[2023-01-12 22:05] VITALS: O2SAT 100
[2023-01-12 22:05] LABS: Add Urine Microscopic? NO; Charge for UA Resulting for Rev
--- NOTE | 2023-01-12 22:06 | ECG_ITS ---
[facility] Test Date: 2023-01-12 Pat Name: Kellen Joseph Department: Room: Gender: Female Cytogenetics Technologist: : 1980 Requested By: Prashanth Villarreal Order Number: [id number] Kalia MD: Trino Decker M.D. Measurements Intervals [place] Rate: 90 P: 63 VT: 115 QRS: 70 QRSD: 89 T: 54 QT: 349 QTc: 427 Interpretive Statements SINUS RHYTHM WITH SHORT VT INTERVAL Compared to ECG 01/12/2023 20:27:13 Sinus tachycardia no longer present T-wave abnormality no longer present Electronically Signed On 01-12-2023 22:50:09 MORTISING MACHINE OPERATOR by Trino Decker M.D. [id number]
--- NOTE | 2023-01-12 22:06 | XRR_ITS ---
PROCEDURE INFORMATION: Exam: XR Chest Exam date and time: 01/12/2023 10:24 PM Age: 42 years old Clinical indication: Other: Heart palpitatioins, shaking, fast hr; Additional info: Palpitations TECHNIQUE: Imaging protocol: Radiologic exam of the chest. Views: 1 view. COMPARISON: 1. CR (CHEST, ) 10/25/2022 12:03 AM 2. CR XR chest 1V portable [id number] 05/20/2021 2:51 PM 3. CR XR ribs RT mn 3V w CXR1V [id number] 10/18/2020 12:03 PM FINDINGS: Lungs: Stable benign 6 mm oval nodule in the mid left lung. The lungs are otherwise clear. Pleural spaces: Unremarkable. No pleural effusion. No pneumothorax. Heart/Mediastinum: Unremarkable. No cardiomegaly. Bones/joints: Unremarkable. XR/XR chest 1V portable [id number] IMPRESSION: 1. No acute findings.
--- NOTE | 2023-01-12 22:11 | ED_ITS ---
HPI - Arrhythmia/Palpitations General: Chief Complaint: Arrhythmia/Palpitations Stated Complaint: shaking, fast HR Time Seen by Provider: 01/12/23 22:03 Source: patient Mode of arrival: ambulatory Limitations: no limitations History of Present Illness: 42-year-old female who states she is at dinner today and started to feel like her heart was racing she had a heart rate over 100 states that her glucose has been fluctuating as well was over 600 she took insulin its improved currently she denies any chest pain denies any shortness of breath denies any vomiting or diarrhea. She denies any worsening proving factors. Associated symptoms: Deny nausea or vomiting Review of Systems Const: Denies: fever(s), chills, body aches or change in appetite Eyes: Denies: blurry vision or eye discomfort ENMT: Denies: throat pain or dental pain Card: Reports: palpitations Resp: Denies: dyspnea GI: Denies: abdominal pain, nausea, vomiting or diarrhea : Denies: dysuria Musc: Denies: neck pain or back pain Skin/Breast: Denies: rash Neuro: Denies: headache(s) Psych: Denies: depression Jaden/Lymph: Denies: easy bruising All/Imm: Denies: urticaria PFSH ED PFSH: Medical History Asthma Chronic anxiety Chronic migraine Depression Environmental allergies Hypothyroidism Obsessive-compulsive disorder Peptic ulcer disease Type 1 diabetes mellitus Urinary tract infection due to extended-spectrum beta lactamase (ESBL) producing Escherichia coli Surgical History H/O section in 2007 and in 2009 H/O colonoscopy 2016 and 2018 H/O dilation and curettage 2015 H/O esophagogastroduodenoscopy 2016 and 2018 H/O tubal ligation 2010 History of hysterectomy 2021 Family History Family/Other Cancer Aunts, uterine cancer Other CAD (coronary artery disease) Dementia Diabetes Hypertension Lung disease Stroke Denies family history of Clotting disorder Hyperlipidemia Psychiatric illness Chronic kidney disease (CKD) Suicide Anesthesia complication Bleeding disorder Social History Smoking and tobacco status: former smoker (smoked x 17 years) Alcohol intake: never Physical Exam Const: COMMON NORMALS: no acute distress, patient oriented x3 and healthy appearing HENMT: COMMON NORMALS: normocephalic and atraumatic HEAD & SCALP: normocephalic and atraumatic Eye: COMMON NORMALS: Equal, round and reactive pupils present and EOMs intact bilaterally PUPIL: Yes Equal, round and reactive pupils present Neck/C-Spine: COMMON NORMALS: full ROM and supple Chest: COMMONS NORMALS: normal inspection of the chest and normal palpation of entire chest wall Resp: COMMON NORMALS: normal respiratory effort, No retractions, No use of accessory muscles and clear to auscultation bilaterally AUSCULTATION: clear to auscultation bilaterally Cardio: COMMON NORMALS: regular rate, regular rhythm and No murmurs present (Cardio) RATE: regular rate RHYTHM: regular rhythm GI: COMMON NORMALS: Normal to inspection, nondistended, normoactive bowel sounds present, Soft to palpation, non-tender and no masses PALPATION: Yes Soft to palpation Extremity: COMMON NORMALS: normal to inspection and full ROM Neuro: COMMON NORMALS: patient oriented x3, moves all extremities and no focal motor deficits Psych: COMMON NORMALS: mental status grossly normal, Normal thought process present and cooperative THOUGHT PROCESS: Normal thought process present Skin: COMMON NORMALS: no rashes or lesions noted and no wounds GENERAL SKIN EXAM: no rashes or lesions noted Course Vital Signs: Vital signs: Vital Signs Temperature 97.8 F 01/12/23 20:19 Pulse Rate 75 01/12/23 23:00 Respiratory Rate 19 H 01/12/23 23:00 Blood Pressure 117/75 01/12/23 23:00 Pulse Oximetry 99 01/12/23 23:00 Oxygen Delivery Me thod 01/12/23 22:05 MDM - Arrhythmia/Palpitations Medical Decision Making Patient presents here with palpitations she has been well-appearing here her heart rate is much improved her troponins are normal she is stable for discharge she is to follow-up with PCP and return if worsening. Lab Data 01/12/23 22:10 01/12/23 22:10 Radiology Impressions Chest X-Ray 01/12/23 22:06 IMPRESSION: 1. No acute findings. Laboratory Results WBC 8.4 10^3/uL (4.0-10.0) 01/12/23 22:10 RBC 5.06 10^6/uL (4.1-5.3) 01/12/23 22:10 Hgb 15.4 g/dL (11.5-15.3) H 01/12/23 22:10 Hct 48.5 % (37.0-47.0) H 01/12/23 22:10 MCV 95.8 fl (81-99) 01/12/23 22:10 MCH 30.4 pg (28.0-34.0) 01/12/23 22:10 MCHC 31.8 g/dL (30.0-36.0) 01/12/23 22:10 RDW 12.8 % (12.1-15.1) 01/12/23 22:10 Plt Count 218 10^3/cmm (130-400) 01/12/23 22:10 MPV 10.2 fL (7.4-10.4) 01/12/23 22:10 Neut % (Auto) 58.3 % 01/12/23 22:10 Lymph % (Auto) 26.1 % 01/12/23 22:10 [place] % (Auto) 10.4 % 01/12/23 22:10 Eos % (Auto) 3.1 % 01/12/23 22:10 Baso % (Auto) 1.7 % 01/12/23 22:10 Neut # (Auto) 4.92 10^3/uL (1.8-7.7) 01/12/23 22:10 Lymph # (Auto) 2.2 10^3/uL (0.8-4.8) 01/12/23 22:10 [place] # (Auto) 0.9 10^3/uL (0.2-0.9) 01/12/23 22:10 Eos # (Auto) 0.3 10^3/uL (0.0-0.8) 01/12/23 22:10 Baso # (Auto) 0.1 10^3/uL (0.0-0.1) 01/12/23 22:10 Nucleated RBC % (auto) 0 % 01/12/23 22:10 Nucleated RBCs # 0.0 /100WBC 01/12/23 22:10 Sodium 142 mmol/L (136-145) 01/12/23 22:10 Potassium 3.8 mmol/L (3.5-5.1) 01/12/23 22:10 Chloride 108 mmol/L (98-107) H 01/12/23 22:10 Carbon Dioxide 22 mmol/L (22-29) 01/12/23 22:10 Anion Gap 15.8 (5-19) 01/12/23 22:10 BUN 12 mg/dL (6-20) 01/12/23 22:10 Creatinine 0.8 mg/dL (0.5-0.9) 01/12/23 22:10 GFR Calculation 79.4 mL/min (90-130) L 01/12/23 22:10 Glucose 76 mg/dL (65-115) 01/12/23 22:10 POC Glucose 76 mg/dL (70-110) 01/12/23 22:18 Calculated Osmolality 293 mOsm/kg (285-295) 01/12/23 22:10 Calcium 8.8 mg/dL (8.5-10.5) 01/12/23 22:10 Total Bilirubin 0.2 mg/dL (0.15-1.2) 01/12/23 22:10 AST 15 U/L (0-32) 01/12/23 22:10 ALT 10 U/L (0-33) 01/12/23 22:10 Alkaline Phosphatase 129 U/L (35-105) H 01/12/23 22:10 Troponin T Baseline 6 ng/L (0-10) 01/12/23 22:10 Troponin T 120 Minute 6.00 ng/L (0-10) 01/13/23 00:38 Total Protein 6.8 g/dL (6.6-8.7) 01/12/23 22:10 Albumin 4.4 g/dL (3.5-5.2) 01/12/23 22:10 Globulin 2.4 g/dL (1.3-4.6) 01/12/23 22:10 Urine Color Yellow (Yellow) 01/12/23 21:10 Urine Appearance Clear (CLEAR) 01/12/23 21:10 Urine pH 7 (5-7) 01/12/23 21:10 Ur Specific [place] 1.010 (1.005-1.030) 01/12/23 21:10 Urine Protein Neg (Negative) 01/12/23 21:10 Urine Glucose (UA) 4+ (Normal) H 01/12/23 21:10 Urine Ketones Negative (Negative) 01/12/23 21:10 Urine Blood Neg (Negative) 01/12/23 21:10 Urine Nitrate Negative (Negative) 01/12/23 21:10 Urine Bilirubin Neg (Negative) 01/12/23 21:10 Urine Urobilinogen Norm mg/dL (Negative) 01/12/23 21:10 Ur Leukocyte Esterase Negative (Negative) 01/12/23 21:10 EKG Data EKG 1: I personally reviewed and interpreted this EKG as follows: EKG interpretation date: 01/12/23 EKG interpretation time: 22:15 Interpretation: nsr hr [address] or t wave abnormalities qrs 89 qtc 396 Other EKG comments: Chest X-Ray 01/12/23 22:06 IMPRESSION: 1. No acute findings. EKG 2: I personally reviewed and interpreted this EKG as follows: EKG interpretation date: 01/13/23 EKG interpretation time: 00:07 Interpretation: nsr hr [address] or t wave abnormalities qrs 92 qtc 410 Other EKG comments: Chest X-Ray 01/12/23 22:06 IMPRESSION: 1. No acute findings. Discharge Plan Discharge Patient Disposition: Home Clinical Impression: Palpitations Condition: Stable Prescriptions: No Action potassium chloride 10 mEq tablet extended release 10 meq PO DAILY pantoprazole 40 mg tablet,delayed release (DR/EC) 40 mg PO DAILY (DME) Custom molded Orthotics See Rx Instructions .Route .MEDSUPPLY Qty: 1 0RF Rx Instructions: As directed J P & O levothyroxine [Synthroid] 137 mcg tablet 125 mcg PO DAILY Breo Ellipta 100-25 mcg/dose blister with device 1 inh inhalation DAILY triamcinolone acetonide 0.1 % cream 1 applic topical BID Qty: 80 0RF clobetasol 0.05 % lotion 1 applic topical DAILY sumatriptan succinate 100 mg tablet See Rx Instructions PO .COMPLEX Rx Instructions: take 1 tab at onset of headache; if no relief, may repeat 1 tab after at least 2 hrs; max = 2 tabs/24 hrs PO furosemide 20 mg tablet 20 mg PO DAILY PRN (Reason: edema) Qty: 30 0RF ciprofloxacin HCl [Cipro] 500 mg tablet 500 mg PO BID 7 Days Qty: 14 0RF mupirocin 2 % ointment topical Farxiga 5 mg tablet 5 mg PO DAILY (DME) COCK UP SPLINT. See Rx Instructions .Route .MEDSUPPLY Qty: 1 0RF Rx Instructions: As directed tobramycin 0.3 % drops See Rx Instructions .Route .COMPLEX Qty: 5 0RF Rx Instructions: Instill 1-2 drops into the affected eye(s) every 4-6 hours until better; ferric citrate 210 mg iron tablet 210 mg PO DAILY Rx Instructions: administer with a meal insulin lispro [Humalog U-100 Insulin] 100 unit/mL solution See Rx Instructions SUBCUT TID Rx Instructions: 9 unit subcutaneously at breakfast,14 units at lunch, amd 7 units with supper subcutaneously three times daily; bupropion HCl [Wellbutrin XL] 150 mg tablet extended release 24 hr 300 mg PO QAM baclofen 5 mg tablet 10 mg PO TID Qty: 180 0RF metoclopramide HCl [Reglan] 10 mg tablet 10 mg PO Q6H PRN (Reason: nausea and vomiting) Qty: 20 0RF Rx Instructions: pt states she has this medication but isnt taking it Singulair 10 mg Tablet 10 mg PO DAILY Vitamin D2 1,250 mcg (50,000 unit) capsule 50,000 unit PO Q7D Rx Instructions: pt states she takes on sundays Miralax 17 gram/dose Powder See Rx Instructions .ROUTE .COMPLEX Rx Instructions: 1/2 capful daily ProAir HFA 90 mcg/actuation Hfa Aerosol Inhaler 2 puff INHALATION Q4H PRN (Reason: Shortness Of Breath) Probiotic Gummy 2 tab PO DAILY topiramate 100 mg tablet 200 mg PO DAILY Rx Instructions: pt states she takes 200mg po daily ondansetron 4 mg tablet,disintegrating 4 mg PO Q8H PRN (Reason: nausea and vomiting) Qty: 10 0RF Discharge Orders: Discharge ED (Routine); Ordered 01/13/23 Ordered By: Prashanth Villarreal Referrals: Nate Díaz MD [Primary Care Provider] - 1-3 days Discharge Diet: Advance as tolerated Discharge Activity: Resume usual activity Patient Instructions: Heart Palpitations (ED) Coding Level of Care Code ED Sleep Medicine Physician for Álvaro Armstrong
[2023-01-12 22:12] LABS: Bilirubin Urine Neg (Negative); Blood Urine Neg (Negative); Glucose Urine UA 4+ (Normal); Ketones Urine Negative (Negative); Leukocyte Esterase Urine Negative (Negative); Nitrate Urine Negative (Negative); Protein Urine Neg (Negative); Urine Appearance Clear (CLEAR); Urine Color Yellow (Yellow); Urobilinogen Urine Norm (Negative); pH Urine 7 (5-7)
[2023-01-12] MEDS: labetalol 5 mg/mL SDV 20mL 10 MG IVP (22:18)
[2023-01-12] MEDS: sodium chloride 0.9% 1,000 ML 999 ML IV (22:18)
[2023-01-12 22:19] LABS: Basophils # 0.1 10^3/uL (0.0-0.1); Basophils % 1.7 %; Eosinophils # 0.3 10^3/uL (0.0-0.8); Eosinophils % 3.1 %; Hematocrit 48.5 % (37.0-47.0); Hemoglobin 15.4 g/dL (11.5-15.3); Lymphocytes # 2.2 10^3/uL (0.8-4.8); Lymphocytes % 26.1 %; Mean Corpuscular HGB Conc 31.8 g/dL (30.0-36.0); Mean Corpuscular Hemoglobin 30.4 pg (28.0-34.0); Mean Corpuscular Volume 95.8 fl (81-99); Mean Platelet Volume 10.2 fL (7.4-10.4); Monocytes # 0.9 10^3/uL (0.2-0.9); Monocytes % 10.4 %; Neutrophils # 4.92 10^3/uL (1.8-7.7); Neutrophils % 58.3 %; Nucleated Red Blood Cells % 0 %; Platelet Count 218 10^3/cmm (130-400); Red Blood Count 5.06 10^6/uL (4.1-5.3); Red Cell Distribution Width 12.8 % (12.1-15.1); White Blood Count 8.4 10^3/uL (4.0-10.0)
[2023-01-12 22:23] LABS: Glucose Point of Care 76 mg/dL (70-110)
[2023-01-12 22:30] VITALS: BP 148/95; PULSE 84; RESP 17; O2SAT 99
[2023-01-12 22:39] LABS: Alanine Aminotransferase 10 U/L (0-33); Albumin Level 4.4 g/dL (3.5-5.2); Alkaline Phosphatase 129 U/L (35-105); Anion Gap 15.8 (5-19); Aspartate Amino Transferase 15 U/L (0-32); Blood Urea Nitrogen 12 mg/dL (6-20); Calcium 8.8 mg/dL (8.5-10.5); Carbon Dioxide 22 mmol/L (22-29); Chloride 108 mmol/L (98-107); Globulin 2.4 g/dL (1.3-4.6); Glomerular Filtration Rate 79.4 mL/min (90-130); Glucose 76 mg/dL (65-115); Osmolality Calculated 293 mOsm/kg (285-295); Potassium 3.8 mmol/L (3.5-5.1); Sodium 142 mmol/L (136-145); Total Bilirubin 0.2 mg/dL (0.15-1.2); Total Protein 6.8 g/dL (6.6-8.7)
[2023-01-12 22:41] LABS: Troponin(5th) Baseline 6 ng/L (0-10)
[2023-01-12 23:00] VITALS: BP 117/75; BP 118/73; PULSE 74; PULSE 75; RESP 17; RESP 19; O2SAT 98; O2SAT 99
[2023-01-12 23:30] VITALS: BP 117/63; PULSE 80; RESP 15; O2SAT 95
[2023-01-13] VITALS: BP 117/67; PULSE 83; RESP 14; O2SAT 96
--- NOTE | 2023-01-13 00:07 | ECG_ITS ---
[facility] Test Date: 2023-01-13 Pat Name: Kellen Joseph Department: Room: Gender: Female National Account Executive: : 1980 Requested By: Prashanth Villarreal Order Number: [id number] Kalia MD: Everardo Jacques M.D. Measurements Intervals [place] Rate: 81 P: 65 MN: 142 QRS: 73 QRSD: 92 T: 60 QT: 373 QTc: 434 Interpretive Statements SINUS RHYTHM POSSIBLE RIGHT VENTRICULAR CONDUCTION DELAY [RSR (QR) IN V1/V2] Compared to ECG 01/12/2023 22:15:02 Short MN interval no longer present Electronically Signed On 01-13-2023 22:27:30 CLIENT REPRESENTATIVE by Everardo Jacques M.D. [id number]
[2023-01-13 00:30] VITALS: BP 122/69; PULSE 84; RESP 12; O2SAT 97
[2023-01-13 01:00] VITALS: BP 115/64; PULSE 79; RESP 15; O2SAT 96
[2023-01-13 01:10] VITALS: BP 115/64; PULSE 79; RESP 16; O2SAT 96
[2023-01-13 01:21] LABS: Troponin 5 2HR Delta 0 ABS# (0-10)
== END 2023-01-13 01:27 | disposition home or self-care (01) ==
PROVIDERS: Emergency Provider Emergency Medicine; PCP Family Medicine
DX: R00.2 Palpitations (principal); Z79.4 Long term (current) use of insulin; Z87.891 Personal history of nicotine dependence; E10.9 Type 1 diabetes mellitus without complications
CPT/HCPCS: 36416; 71045; 80053; 81003; 82962; 84484; 85025; 93005; 96361; 96374; 99285; J3490; J7030

== ENCOUNTER → 2023-01-18 08:33 | Outpatient (BNVA) | payer MEDICARE, SELFPAY | PROVIDERS: PCP Family Medicine; Visit Provider Podiatrist Foot & Ankle Surgery | DX: E10.9 Type 1 diabetes mellitus without complications (principal); B35.1 Tinea unguium; Z79.4 Long term (current) use of insulin | CPT/HCPCS: 99214 ==

== ENCOUNTER 2023-01-19 10:37 | Outpatient (CLI) | payer MEDICARE, SELFPAY ==
--- NOTE | 2023-01-19 10:30 | IR_ITS ---
WS: [id number] SHOULDER ARTHROGRAM LEFT Fluoroscopic guided left shoulder arthrogram CLINICAL INFORMATION: shoulder pain PROCEDURE: The procedure including risks, benefits and complications were discussed with the patient, who agreed to proceed. Using sterile technique, the patient was prepped and draped in the usual ster ile fashion. After 1% lidocaine injection using fluoroscopic guidance, a 22-gauge spinal needle was a dvanced into the glenohumeral joint. Approximately 13 ml of a solution containing 10 ml normal saline , 5 ml Omnipaque 240, 5 ml 1% lidocaine, and 0.1 ml gadolinium was administered. No immediate complic ations. FLUOROSCOPY TIME: 1min [id number] # of spot films: 1 IR/IR arthrogram shoulderLT [id number] IMPRESSION: Uncomplicated fluoroscopic-guided left shoulder arthrogram. MRI to follow.
--- NOTE | 2023-01-19 11:00 | MR_ITS ---
WS: [id number] EXAMINATION: MR shoulder LT wo/w con [id number] ORDER DATE: 01/19/2023 10:43 AM COMPARISON: None. HISTORY: shoulder pain CONTRAST: June 03, 2022 TECHNIQUE: Axial T2 STAR, coronal proton density fat sat, sagittal T2 fat sat, sagittal proton densit y fat sat, axial proton density fat sat, coronal T2 fat sat, and coronal T1 performed. After contrast , axial T1 fat sat, coronal T1 fat sat, and sagittal T1 fat sat were performed. FINDINGS: Shoulder arthrogram demonstrates normal biceps labral anchor. Glenoid labrum is normal. No acute appe aring labral tears. Normal bone marrow signal in the glenoid. Mild thickening of the axillary recess. Somewhat diminutive shoulder capsule can be seen with adhesive capsulitis in appropriate clinical se tting. Small amount of contrast injection dissecting into the subscapularis. Mild degenerative arthritis AC joint. Mild downsloping acromion. Trace subacromial fluid. Distal supr aspinatus is normal. Normal infraspinatus. Normal teres minor and subscapularis. Normal rotator inter [place]. Biceps tendon intact within the bicipital groove. Medial subluxation of the biceps tendon at the uppe r proximal bicipital groove. MR/MR shoulder LT wo/w con [id number] IMPRESSION: 1. Thickening of the axillary recess with visually small joint capsule. This c an be seen with adhesive capsulitis in appropriate clinical setting. 2. Arthrogram images are otherwise normal. Glenoid labrum is normal in appeara nce. Normal biceps labral anchor. Normal intra-articular biceps tendon. 3. Normal rotator cuff. 4. Medial subluxation of the biceps tendon in the proximal bicipital groove. 5. No other remarkable findings.
--- NOTE | 2023-01-19 11:45 | MR_ITS ---
WS: [id number] EXAMINATION: MR wrist RT wo con* [id number] ORDER DATE: 01/19/2023 10:43 AM COMPARISON: None. HISTORY: M25.539 - Pain in unspecified wrist CONTRAST: None. TECHNIQUE: Axial T1, axial T2 fat sat, coronal T1, coronal proton density fat sat, coronal STIR, peewee nal 3D, and sagittal T1 performed. After contrast, axial T1 fat sat, coronal T1 fat sat, and sagittal T1 fat sat were performed. FINDINGS: Mild ulna minus variance. Normal scapholunate interval. Increased signal with irregularity involving the TFCC compatible with TFCC tear at the foveal attachment. Small amount of fluid in the DRUJ. Small amount of fluid and edema along the extensor carpi ulnaris. Tenosynovitis involving the extensor car pi ulnaris. The carpal tunnel is normal in appearance. Edema with subchondral cystic changes involving the radial styloid. Subchondral cystic change involvi ng the underlying scaphoid. Subchondral cystic change involving the lunate and triquetrum. Small amou nt of cystic change involving the capitate. Proximal partially visualized metacarpals are normal in a ppearance. Small amount of edema involving the radial aspect of the wrist. Palpable marker corresponds to the extensor pollicis brevis and abductor pollicis longus tendons augustus g the radial aspect of the wrist. These tendons appear normal without significant signal abnormality. Small lobulated cluster of ganglion cysts along the undersurface of the radial styloid at the radios caphocapitate ligament also in the area of palpable marker. MR/MR wrist RT wo con* [id number] IMPRESSION: 1. Ulna minus variance with tear of the TFCC at the foveal attachment. 2. Narrowing of the radiocarpal joint with edema and degenerative changes at t he radial styloid with impingement on the scaphoid. Subchondral cystic changes involving the scaphoid. 3. Normal scapholunate interval. 4. Additional subchondral cystic changes involving the lunate, triquetrum, and capitate. 5. Tenosynovitis involving the extensor carpi ulnaris. Soft tissue edema along the ulnar aspect of the wrist. 6. Palpable marker corresponds to the extensor pollicis brevis and abductor po llicis longus tendons along the radial aspect of the wrist which appear normal. 7. Also deep to the palpable marker is a small cluster of lobulated ganglion c ysts along the undersurface of the radial styloid at the radioscaphocapitate li gament. Associated edema in the radial styloid.
[2023-01-19] MEDS: gadobenate dimeglumine 20 mL vial XX (12:52)
[2023-01-19] MEDS: iohexol 240 mg/mL 50 mL Btl INTRA-ARTI (12:54)
== END 2023-01-19 10:38 | disposition home or self-care (01) ==
PROVIDERS: PCP Family Medicine; Visit Provider Specialist
DX: M75.00 Adhesive capsulitis of unspecified shoulder (principal); M25.539 Pain in unspecified wrist; M65.9 Synovitis and tenosynovitis, unspecified
CPT/HCPCS: 23350; 73221; 73223; 77002; A9577; Q9966

== ENCOUNTER → 2023-01-26 10:34 | Outpatient (BNVA) | payer MEDICARE, SELFPAY | PROVIDERS: PCP Family Medicine; Visit Provider Nurse Practitioner Family | DX: M75.02 Adhesive capsulitis of left shoulder (principal); M75.01 Adhesive capsulitis of right shoulder; M25.531 Pain in right wrist | CPT/HCPCS: 99214 ==

== ENCOUNTER 2023-02-18 15:57 | Emergency (ER) | payer MEDICARE, SELFPAY ==
[2023-02-18 16:04] VITALS: BP 127/83; PULSE 110; RESP 18; TEMP 36.8; O2SAT 99; BMI 22.8
--- NOTE | 2023-02-18 16:10 | ECG_ITS ---
[facility] Test Date: 2023-02-18 Pat Name: Kellen Joseph Department: Room: Gender: Female Utilization Review Coordinator: : 1980 Requested By: Walker Garcia Order Number: [id number] Kalia MD: Trino Decker M.D. Measurements Intervals [place] Rate: 111 P: 72 KS: 115 QRS: 78 QRSD: 85 T: 40 QT: 316 QTc: 431 Interpretive Statements SINUS TACHYCARDIA WITH SHORT [place] INTERVAL POSSIBLE LEFT ATRIAL ENLARGEMENT [-0.1mV P-WAVE IN V1/V2] NONSPECIFIC ST & T-WAVE ABNORMALITY Compared to ECG 01/13/2023 00:07:04 Short [place] interval now present T-wave abnormality now present Sinus rhythm no longer present Electronically Signed On 02-18-2023 17:00:31 CDT by Trino Decker M.D. [id number]
[2023-02-18 18:02] LABS: Basophils # 0.1 10^3/uL (0.0-0.1); Basophils % 1.3 %; Eosinophils # 0.1 10^3/uL (0.0-0.8); Eosinophils % 1.9 %; Hemoglobin 15.8 g/dL (11.5-15.3); Lymphocytes # 1.5 10^3/uL (0.8-4.8); Lymphocytes % 22.3 %; Mean Corpuscular HGB Conc 31.6 g/dL (30.0-36.0); Mean Corpuscular Hemoglobin 30.2 pg (28.0-34.0); Mean Corpuscular Volume 95.6 fl (81-99); Mean Platelet Volume 10.2 fL (7.4-10.4); Monocytes # 0.7 10^3/uL (0.2-0.9); Monocytes % 10.6 %; Neutrophils # 4.24 10^3/uL (1.8-7.7); Neutrophils % 63.6 %; Nucleated Red Blood Cells % 0 %; Platelet Count 228 10^3/cmm (130-400); Red Blood Count 5.23 10^6/uL (4.1-5.3); Red Cell Distribution Width 12.1 % (12.1-15.1); White Blood Count 6.7 10^3/uL (4.0-10.0)
[2023-02-18 18:27] LABS: Troponin(5th) Baseline 6 ng/L (0-10)
[2023-02-18 18:34] LABS: Alanine Aminotransferase 11 U/L (0-33); Albumin Level 4.9 g/dL (3.5-5.2); Alkaline Phosphatase 79 U/L (35-105); Anion Gap 15.8 (5-19); Aspartate Amino Transferase 14 U/L (0-32); Blood Urea Nitrogen 15 mg/dL (6-20); Carbon Dioxide 27 mmol/L (22-29); Chloride 102 mmol/L (98-107); Globulin 2.3 g/dL (1.3-4.6); Glomerular Filtration Rate 69.3 mL/min (90-130); Glucose 144 mg/dL (65-115); Lipase 15 U/L (13-60); NT Pro B Type Natriuretic Pept 44 pg/mL (0-125); Osmolality Calculated 295 mOsm/kg (285-295); Potassium 3.8 mmol/L (3.5-5.1); Sodium 141 mmol/L (136-145); Total Bilirubin 0.3 mg/dL (0.15-1.2); Total Protein 7.2 g/dL (6.6-8.7)
--- NOTE | 2023-02-18 20:08 | ED_ITS ---
HPI - Chest Pain General: Chief Complaint: Chest Pain Stated Complaint: heart monitor/dizzy/sob Time Seen by Provider: 02/18/23 20:08 History of Present Illness: Ms. Joseph is a 42-year-old lady with history of type 1 diabetes presenting to the emergency department for abnormal neurologic event. She reports 1 month history roughly of palpitations as well as morning dizziness. Today she reports being at her normal health and eating when she had sudden onset of 3 short lasting episodes of bilateral vision loss associated with racing heart and some discomfort in the left neck that radiated up to her ear. She denies loss of tone or incontinence with this event. She does currently have a Holter monitor and apparently was told to come to the emergency department for further evaluation. Intensity of symptoms when present is moderate to severe. Intermittent in nature. Denies specific provoking event. Reports blood sugars have been well controlled. No other specific changes in health, exacerbating, or alleviating factors identified. Onset (ago): week(s) Timing of current episode: episodic Prior episodes: Yes Pain radiation: neck and jaw/teeth Quality: aching Relieving factors: nothing Exacerbating factors: nothing Review of Systems General: Reports: 10 or more systems reviewed and unremarkable except in HPI and below PFSH ED PFSH: Medical History Asthma Chronic anxiety Chronic migraine Depression Environmental allergies Hypothyroidism Obsessive-compulsive disorder Peptic ulcer disease Type 1 diabetes mellitus Urinary tract infection due to extended-spectrum beta lactamase (ESBL) producing Escherichia coli Surgical History H/O section in 2007 and in 2009 H/O colonoscopy 2016 and 2018 H/O dilation and curettage 2016 H/O esophagogastroduodenoscopy 2016 and 2019 H/O tubal ligation 2010 History of hysterectomy 2021 Family History Family/Other Cancer Aunts, uterine cancer Other CAD (coronary artery disease) Dementia Diabetes Hypertension Lung disease Stroke Denies family history of Clotting disorder Hyperlipidemia Psychiatric illness Chronic kidney disease (CKD) Suicide Anesthesia complication Bleeding disorder Social History Smoking and tobacco status: former smoker (smoked x 17 years) Alcohol intake: never Physical Exam Const: COMMON NORMALS: alert GENERAL APPEARANCE: cooperative and well developed HENMT: COMMON NORMALS: normocephalic and atraumatic HEAD & SCALP: normo cephalic and atraumatic THROAT: posterior oropharynx normal Eye: COMMON NORMALS: conjunctivae normal CONJUNCTIVA: Yes conjunctivae normal SCLERA: sclerae normal Neck/C-Spine: COMMON NORMALS: supple GENERAL: Yes trachea midline Resp: COMMON NORMALS: normal respiratory effort and clear to auscultation bilaterally EFFORT & INSPECTION: Yes able to speak in complete sentences AUSCULTATION: clear to auscultation bilaterally Cardio: COMMON NORMALS: regular rate and regular rhythm RATE: regular rate RHYTHM: regular rhythm GI: COMMON NORMALS: Soft to palpation PALPATION: Yes Soft to palpation and No Tenderness to palpation present (GI) Extremity: GENERAL: Yes normal exam except as noted and No edema Neuro: COMMON NORMALS: moves all extremities SENSORIUM/ORIENTATION: Yes alert and No Orientation impaired Psych: COMMON NORMALS: mental status grossly normal and Normal thought process present THOUGHT PROCESS: Normal thought process present Course Vital Signs: Vital signs: Vital Signs Temperature 98.3 F 02/18/23 16:04 Pulse Rate 80 02/19/23 01:04 Respiratory Rate 18 02/19/23 01:04 Blood Pressure 122/76 02/19/23 01:04 Pulse Oximetry 100 02/19/23 01:04 Oxygen Delivery Me thod Room Air 02/18/23 20:44 MDM - Chest Pain Medical Decision Making 42-year-old lady presenting with palpitations and associated cardiac symptoms intermittently for 1 month. Exam as above. EKG demonstrates sinus tachycardia with short NH interval, I do not appreciate delta waves, no STEMI. Labs with mild hemoconcentration, no significant hematologic or metabolic abnormality to explain symptoms. D-dimer is negative. Negative range 2-hour delta troponin. Holter monitor report does not report arrhythmia associated with symptoms. Patient treated with IV fluids with mild improvement. Exact etiology of patient's symptoms is unclear but given patroller and laboratory findings patient does not require inpatient management at this time. The results of ED evaluation were discussed with the patient including p rescriptions and/or symptomatic cares (if applicable) including appropriate and responsible use, followup plan, and return precautions. The patient verbalized understanding and felt safe for discharge. Medical Records I reviewed the patient's medical records. Lab Data I reviewed the patient's lab results. 02/18/23 17:35 02/18/23 17:35 Laboratory Results WBC 6.7 10^3/uL (4.0-10.0) 02/18/23 17:35 RBC 5.23 10^6/uL (4.1-5.3) 02/18/23 17:35 Hgb 15.8 g/dL (11.5-15.3) H 02/18/23 17:35 Hct 50.0 % (37.0-47.0) H 02/18/23 17:35 MCV 95.6 fl (81-99) 02/18/23 17:35 MCH 30.2 pg (28.0-34.0) 02/18/23 17:35 MCHC 31.6 g/dL (30.0-36.0) 02/18/23 17:35 RDW 12.1 % (12.1-15.1) 02/18/23 17:35 Plt Count 228 10^3/cmm (130-400) 02/18/23 17:35 MPV 10.2 fL (7.4-10.4) 02/18/23 17:35 Neut % (Auto) 63.6 % 02/18/23 17:35 Lymph % (Auto) 22.3 % 02/18/23 17:35 [place] % (Auto) 10.6 % 02/18/23 17:35 Eos % (Auto) 1.9 % 02/18/23 17:35 Baso % (Auto) 1.3 % 02/18/23 17:35 Neut # (Auto) 4.24 10^3/uL (1.8-7.7) 02/18/23 17:35 Lymph # (Auto) 1.5 10^3/uL (0.8-4.8) 02/18/23 17:35 [place] # (Auto) 0.7 10^3/uL (0.2-0.9) 02/18/23 17:35 Eos # (Auto) 0.1 10^3/uL (0.0-0.8) 02/18/23 17:35 Baso # (Auto) 0.1 10^3/uL (0.0-0.1) 02/18/23 17:35 Nucleated RBC % (auto) 0 % 02/18/23 17:35 Nucleated RBCs # 0.0 /100WBC 02/18/23 17:35 D-Dimer <= 0.27 ug/mIFEU (0-0.59) 02/18/23 17:35 Sodium 141 mmol/L (136-145) 02/18/23 17:35 Potassium 3.8 mmol/L (3.5-5.1) 02/18/23 17:35 Chloride 102 mmol/L (98-107) 02/18/23 17:35 Carbon Dioxide 27 mmol/L (22-29) 02/18/23 17:35 Anion Gap 15.8 (5-19) 02/18/23 17:35 BUN 15 mg/dL (6-20) 02/18/23 17:35 Creatinine 0.9 mg/dL (0.5-0.9) 02/18/23 17:35 GFR Calculation 69.3 mL/min (90-130) L 02/18/23 17:35 Glucose 144 mg/dL (65-115) H 02/18/23 17:35 Calculated Osmolality 295 mOsm/kg (285-295) 02/18/23 17:35 Calcium 9.0 mg/dL (8.5-10.5) 02/18/23 17:35 Total Bilirubin 0.3 mg/dL (0.15-1.2) 02/18/23 17:35 AST 14 U/L (0-32) 02/18/23 17:35 ALT 11 U/L (0-33) 02/18/23 17:35 Alkaline Phosphatase 79 U/L (35-105) 02/18/23 17:35 Troponin T Baseline 6 ng/L (0-10) 02/18/23 17:35 Troponin T 120 Minute 6.00 ng/L (0-10) 02/18/23 19:44 Delta Troponin T 0 ABS# (0-10) 02/18/23 19:44 NT-Pro-B Natriuret Pep 44 pg/mL (0-125) 02/18/23 17:35 Total Protein 7.2 g/dL (6.6-8.7) 02/18/23 17:35 Albumin 4.9 g/dL (3.5-5.2) 02/18/23 17:35 Globulin 2.3 g/dL (1.3-4.6) 02/18/23 17:35 Lipase 15 U/L (13-60) 02/18/23 17:35 Discharge Plan Discharge Patient Disposition: Home Clinical Impression: Pre-syncope, Tachycardia Condition: Stable Prescriptions: No Action potassium chloride 10 mEq tablet extended release 10 meq PO DAILY pantoprazole 40 mg tablet,delayed release (DR/EC) 40 mg PO DAILY (DME) Custom molded Orthotics See Rx Instructions .Route .MEDSUPPLY Qty: 1 0RF Rx Instructions: As directed J P & O levothyroxine [Synthroid] 137 mcg tablet 125 mcg PO DAILY Breo Ellipta 100-25 mcg/dose blister with device 1 inh inhalation DAILY clobetasol 0.05 % lotion 1 applic topical PRN sumatriptan succinate 100 mg tablet See Rx Instructions PO .COMPLEX PRN (Reason: Migraine Headache) Rx Instructions: take 1 tab at onset of headache; if no relief, may repeat 1 tab after at le ast 2 hrs; max = 2 tabs/24 hrs PO Farxiga 5 mg tablet 5 mg PO DAILY (DME) COCK UP SPLINT. See Rx Instructions .Route .MEDSUPPLY Qty: 1 0RF Rx Instructions: As directed insulin lispro [Humalog U-100 Insulin] 100 unit/mL solution See Rx Instructions SUBCUT TID Rx Instructions: sliding scale on pump. 9 unit subcutaneously at breakfast,14 units at lunch, amd 7 units with supper subcutaneously three times daily; bupropion HCl [Wellbutrin XL] 150 mg tablet extended release 24 hr 300 mg PO QAM montelukast [Singulair] 10 mg Tablet 10 mg PO DAILY ergocalciferol (vitamin D2) [Vitamin D2] 1,250 mcg (50,000 unit) capsule 50,000 unit PO DIRECTED Rx Instructions: pt states she takes every other tuesday polyethylene glycol 3350 [Miralax] 17 gram/dose Powder PO EVERY OTHER DAY Rx Instructions: 1/2 capful daily albuterol sulfate [ProAir HFA] 90 mcg/actuation Hfa Aerosol Inhaler 2 puff INHALATION Q4H PRN (Reason: Shortness Of Breath) Probiotic Gummy 2 tab PO DAILY topiramate 100 mg tablet 200 mg PO DAILY Rx Instructions: pt states she takes 200mg po daily ondansetron 4 mg tablet,disintegrating 4 mg PO Q8H PRN (Reason: nausea and vomiting) Qty: 10 0RF bupropion HCl 150 mg Tablet Sustained-Release 12 Hr 150 mg PO BEDTIME Iron (ferrous sulfate) 324 mg PO BID baclofen 5 mg tablet 10 mg PO BID Rx Instructions: prescribed TID per pt but she only takes BID Vraylar 1.5 mg Capsule 1.5 mg PO DAILY furosemide 20 mg tablet 20 mg PO DAILY tranexamic acid 650 mg tablet 650 mg PO DIRECTED PRN (Reason: Nasal Congestion) Rx Instructions: PT TAKES FOR EPISTAXIS WHEN SHE CAN'T GET BLOOD TO CLOT Dusty-Mag Zinc II Suspension 1 ml PO DAILY Discharge Orders: Discharge ED (Routine); Ordered 02/18/23 Ordered By: Myron Mckeon Referrals: Nate Díaz MD [Primary Care Provider] - Discharge Diet: Usual diet Discharge Activity: Increase activity as tolerated Patient Instructions: Near Syncope (ED), Tachycardia (ED) Activity Restrictions/Additional Instructions: Thank you for visiting the emergency department. You were seen and evaluated for presyncopal type episode associated with continued tachycardia. The exact cause of your symptoms is unclear. Based on ED evaluation you did not require inpatient management at this point. I recommend continued outpatient management. I will order an echocardiogram for further structural evaluation of the heart. Return to the emergency department for recurrent symptoms, any new neurologic symptoms, or anything else that you are concerned about and feel needs emergency department evaluation. Coding Level of Care Code ED Engineer Booster And Exhauster for Álvaro Armstrong
[2023-02-18 20:13] LABS: Troponin 5 2HR Delta 0 ABS# (0-10)
[2023-02-18 20:18] VITALS: BP 120/72; PULSE 85
[2023-02-18 20:31] LABS: D Dimer <= 0.27 ug/mIFEU (0-0.59)
[2023-02-18 20:44] VITALS: BP 124/82; PULSE 95; RESP 18; O2SAT 96
--- NOTE | 2023-02-18 20:44 | PC.NURSE ---
PT BROUGHT BACK TO ER ROOM 7 FROM WAITING ROOM, ATTACHED TO MONITORS.
[2023-02-18 20:46] VITALS: BP 110/77; BP 124/82; PULSE 84; PULSE 91
[2023-02-18 21:00] VITALS: PULSE 80
[2023-02-18] MEDS: sodium chloride 0.9% 1,000 ML 999 ML IV (21:06)
[2023-02-19 01:04] VITALS: BP 122/76; PULSE 80; RESP 18; O2SAT 100
--- NOTE | 2023-02-21 12:05 | DCPLANNER ---
Addendum entered by Jaylny Aleman 03/23/23 11:31: Patient had an outpatient echo scheduled - patient did attend appointment Addendum entered by Jaylyn Aleman 02/22/23 10:08: Patient has an outpatient echo scheduled for Saturday, March 18, 2023 at 1:30. Centralized scheduling will call patient with appointment information. Original Note: strategic sourcing manager had message to schedule an outpatient echo cardiogram for patient. strategic sourcing manager faxed signed order to centralized scheduling, who will call patient with appointment information.
== END 2023-02-18 23:00 | disposition home or self-care (01) ==
PROVIDERS: Nurse Practitioner Family; Emergency Provider Emergency Medicine; PCP Family Medicine
DX: R55 Syncope and collapse (principal); R00.0 Tachycardia, unspecified; Z79.4 Long term (current) use of insulin; Z87.891 Personal history of nicotine dependence; E10.9 Type 1 diabetes mellitus without complications
CPT/HCPCS: 36415; 80048; 80053; 83690; 83880; 84484; 85025; 85378; 93005; 99284; J7030

== ENCOUNTER 2023-03-11 01:23 | Emergency (ER) | payer MEDICARE, SELFPAY ==
[2023-03-11 01:30] VITALS: BP 108/66; PULSE 80; RESP 16; TEMP 36.6; O2SAT 100; BMI 23.1
--- NOTE | 2023-03-11 01:55 | ED_ITS ---
HPI - Wound/Laceration General: Chief Complaint: Wound/Laceration Stated Complaint: needs niko looked at Time Seen by Provider: 03/11/23 01:36 History of Present Illness: Patient reports today with laceration to her upper lip. She reports that she was bit by a friend's dog today. She reports that there is no rabies concern and she has had her tetanus vaccine within the past 1 week. She reports that she went to urgent care and they numbed the area and put 2 sutures in however she accidentally pulled 1 suture out at home tonight. She states that she is continuously oozing from the wound. She states that she has a bleeding disorder and she is also a type I diabetic. She has taken her tranexamic acid twice to keep this from bleeding too much. She would like another suture placed. Associated symptoms: Denies chills or fever(s) Review of Systems Const: Denies: fever(s) or chills Card: Denies: chest pain, palpitations or irregular heart rhythm Resp: Denies: dyspnea, productive cough or non-productive cough Skin/Breast: Reports: other (Laceration upper lip) [facility] ED PFSH: Medical History Asthma Chronic anxiety Chronic migraine Depression Environmental allergies Hypothyroidism Obsessive-compulsive disorder Peptic ulcer disease Type 1 diabetes mellitus Urinary tract infection due to extended-spectrum beta lactamase (ESBL) producing Escherichia coli Surgical History H/O section in 2007 and in 2009 H/O colonoscopy 2016 and 2018 H/O dilation and curettage 2015 H/O esophagogastroduodenoscopy 2016 and 2018 H/O tubal ligation 2010 History of hysterectomy 2021 Family History Family/Other Cancer Aunts, uterine cancer Other CAD (coronary artery disease) Dementia Diabetes Hypertension Lung disease Stroke Denies family history of Clotting disorder Hyperlipidemia Psychiatric illness Chronic kidney disease (CKD) Suicide Anesthesia complication Bleeding disorder Social History Smoking and tobacco status: former smoker (smoked x 17 years) Alcohol intake: never Substance/Drug Use: never Physical Exam Const: COMMON NORMALS: no acute distress, patient oriented x3 and alert Resp: COMMON NORMALS: normal respiratory effort and No use of accessory muscles Neuro: COMMON NORMALS: patient oriented x3 SENSORIUM/ORIENTATION: Yes alert Skin: NARRATIVE SKIN EXAM: Upper lip there is an approximate 2cm laceration. It has a jagged appearance but approximates well. There is 1 suture intact to the patient's left side edge of the wound. The right side suture is no longer in place and the wound is noted to have a slow ooze of blood. The wound does not go through and through and is superficial to the upper lip. Procedures Laceration Upper lip: Site: lip Size (cm): 2 Description: linear, irregular and clean Depth: simple, single layer Local Anesthetic: lidocaine 1% Amount of anesthesia used (mL): 1.5 Pre-repair: wound explored Skin layer closed with: nylon Size (cm): 5-0 Number of sutures: 2 Technique: simple, interrupted Course Vital Signs: Vital signs: Vital Signs Temperature 97.8 F 03/11/23 01:30 Pulse Rate 80 03/11/23 01:30 Respiratory Rate 16 03/11/23 01:30 Blood Pressure 108/66 03/11/23 01:30 Pulse Oximetry 100 03/11/23 01:30 Oxygen Delivery Me thod Room Air 03/11/23 01:30 MDM - Wound/Laceration Medical Decision Making Patient has a wound on her upper lip from a dog bite. She already has 1 suture in that wound she does have a continuous ooze from the side where the suture did fall out. Patient reportedly has a bleeding disorder that they have been unable to identify she takes medication as needed when she is bleeding excessively with wounds and what not. Patient is also a type I diabetic. She is requesting that the suture be replaced as it definitely helps control her bleeding. She states that her tetanus is up-to-date, the dog is up-to-date on rabies vaccinations, she has already been started on an antibiotic prophylactically for the dog bite. She understands the risk of infection after dog bite especially with suturing of a dog bite. Patient verbalizes understanding of all the benefits of suture repair and wishes suture repair of the laceration. See laceration tab for details. Suture repair with two 5-0 sutures done. Patient tolerated well with no immediate complications. Advised of aftercare. Continue with previously ordered antibiotics and follow-up. Return to the ER as needed for new or worsening symptoms Discharge Plan Discharge Patient Disposition: Home Clinical Impression: Dog bite, Laceration Condition: Stable Prescriptions: No Action potassium chloride 10 mEq tablet extended release 10 meq PO DAILY pantoprazole 40 mg tablet,delayed release (DR/EC) 40 mg PO DAILY (DME) Custom molded Orthotics See Rx Instructions .Route .MEDSUPPLY Qty: 1 0RF Rx Instructions: As directed J P & O levothyroxine [Synthroid] 137 mcg tablet 125 mcg PO DAILY Breo Ellipta 100-25 mcg/dose blister with device 1 inh inhalation DAILY clobetasol 0.05 % lotion 1 applic topical PRN sumatriptan succinate 100 mg tablet See Rx Instructions PO .COMPLEX PRN (Reason: Migraine Headache) Rx Instructions: take 1 tab at onset of headache; if no relief, may repeat 1 tab after at least 2 hrs; max = 2 tabs/24 hrs PO Farxiga 5 mg tablet 5 mg PO DAILY (DME) COCK UP SPLINT. See Rx Instructions .Route .MEDSUPPLY Qty: 1 0RF Rx Instructions: As directed insulin lispro [Humalog U-100 Insulin] 100 unit/mL solution See Rx Instructions SUBCUT TID Rx Instructions: sliding scale on pump. 9 unit subcutaneously at breakfast,14 units at lunch, amd 7 units with supper subcutaneously three times daily; bupropion HCl [Wellbutrin XL] 150 mg tablet extended release 24 hr 300 mg PO QAM montelukast [Singulair] 10 mg Tablet 10 mg PO DAILY ergocalciferol (vitamin D2) [Vitamin D2] 1,250 mcg (50,000 unit) capsule 50,000 unit PO DIRECTED Rx Instructions: pt states she takes every other tuesday polyethylene glycol 3350 [Miralax] 17 gram/dose Powder PO EVERY OTHER DAY Rx Instructions: 1/2 capful daily albuterol sulfate [ProAir HFA] 90 mcg/actuation Hfa Aerosol Inhaler 2 puff INHALATION Q4H PRN (Reason: Shortness Of Breath) Probiotic Gummy 2 tab PO DAILY topiramate 100 mg tablet 200 mg PO DAILY Rx Instructions: pt states she takes 200mg po daily ondansetron 4 mg tablet,disintegrating 4 mg PO Q8H PRN (Reason: nausea and vomiting) Qty: 10 0RF bupropion HCl 150 mg Tablet Sustained-Release 12 Hr 150 mg PO BEDTIME Iron (ferrous sulfate) 324 mg PO BID baclofen 5 mg tablet 10 mg PO BID Rx Instructions: prescribed TID per pt but she only takes BID Vraylar 1.5 mg Capsule 1.5 mg PO DAILY furosemide 20 mg tablet 20 mg PO DAILY tranexamic acid 650 mg tablet 650 mg PO DIRECTED PRN (Reason: Nasal Congestion) Rx Instructions: PT TAKES FOR EPISTAXIS WHEN SHE CAN'T GET BLOOD TO CLOT Dusty-Mag Zinc II Suspension 1 ml PO DAILY Discharge Orders: Discharge ED (Routine); Ordered 03/11/23 Ordered By: Mel Ty Referrals: Nate Díaz MD [Primary Care Provider] - Discharge Diet: Usual diet Discharge Activity: Resume usual activity Patient Instructions: Care For Your Stitches (ED) Activity Restrictions/Additional Instructions: Keep sutures clean and dry. Follow-up as already scheduled for suture removal in 3 to 5 days. Monitor closely for signs of infection. Take antibiotic as already prescribed. Return to the ER for new or worsening symptoms. Coding Level of Care Code ED Clinical Education Academic Coordinator for Álvaro Armstrong
== END 2023-03-11 02:03 | disposition home or self-care (01) ==
PROVIDERS: Emergency Provider Nurse Practitioner Family; PCP Family Medicine
DX: S01.551A Open bite of lip, initial encounter (principal); W54.0XXA Bitten by dog, initial encounter; Z87.891 Personal history of nicotine dependence; E10.9 Type 1 diabetes mellitus without complications; Z79.4 Long term (current) use of insulin
CPT/HCPCS: 12011; 99282

== ENCOUNTER 2023-03-15 13:28 | Outpatient (CLI) | payer MEDICARE, SELFPAY ==
[2023-03-15 15:56] LABS: Estmated Average Glucose 183
[2023-03-15 16:23] LABS: Alanine Aminotransferase 10 U/L (0-33); Albumin Level 4.3 g/dL (3.5-5.2); Alkaline Phosphatase 73 U/L (35-105); Anion Gap 13.9 (5-19); Aspartate Amino Transferase 12 U/L (0-32); Blood Urea Nitrogen 15 mg/dL (6-20); Calcium 8.7 mg/dL (8.5-10.5); Carbon Dioxide 24 mmol/L (22-29); Chloride 102 mmol/L (98-107); Free T4 Free Thyroxine 1.31 ng/dL (0.82-1.77); Globulin 1.9 g/dL (1.3-4.6); Glomerular Filtration Rate 79.4 mL/min (90-130); Glucose 263 mg/dL (65-115); Osmolality Calculated 292 mOsm/kg (285-295); Potassium 3.9 mmol/L (3.5-5.1); Sodium 136 mmol/L (136-145); Total Bilirubin 0.6 mg/dL (0.15-1.2); Total Protein 6.2 g/dL (6.6-8.7)
== END 2023-03-15 13:29 | disposition home or self-care (01) ==
PROVIDERS: PCP Family Medicine; Visit Provider Nurse Practitioner Family
DX: E10.649 Type 1 diabetes mellitus with hypoglycemia without coma (principal)
CPT/HCPCS: 36415; 80053; 83036; 84439; 84443

== ENCOUNTER 2023-03-18 13:33 | Outpatient (CLI) | payer MEDICARE, SELFPAY ==
--- NOTE | 2023-03-18 13:30 | USCV_ITS ---
Jake Kellen Age: 42 Gender: F : 1980 Exam Date: 03/18/2023 14:30 Ordering Phys: Myron Mckeon MD Technologist: Blanca Vidal [place]am [place] [facility] [place]: syncope, tachycardia BP: 90 / 59 HR: 72 Rhythm: Sinus Technical Quality: Good MEASUREMENTS (Male / Female) Normal Values 2D ECHO LV Diastolic Diameter PLAX 4.5 cm 4.2 - 5.9 / 3.9 - 5.3 cm LV Systolic Diameter PLAX 2.5 cm IVS Diastolic Thickness 0.5 cm 0.6 - 1.0 / 0.6 - 0.9 cm IVS Systolic Thickness 1.1 cm LVPW Diastolic Thickness 0.8 cm 0.6 - 1.0 / 0.6 - 0.9 cm LVPW Systolic Thickness 1.4 cm LVOT Diameter 2.0 cm LV Ejection Fraction 2D Teich 77.0 % LV Ejection Fraction MOD 2C 68.2 % LV Ejection Fraction 2C AL 69.4 % LA Diameter 3.3 cm LA Width 3.3 cm LA Height 3.6 cm RA Width 3.1 cm RA Height 3.4 cm Aorta at Sinotubular Diameter 2.8 cm IVC Diameter 1.2 cm M-MODE MV E Point Septal Separation 0.4 cm DOPPLER AV Peak Velocity 137.0 cm/s LVOT Peak Velocity 107.0 cm/s AV Area Cont Eq vti 2.6 cm squared AV Area Cont Eq pk 2.5 cm squared MV Peak Velocity 101.0 cm/s MV Area PHT 3.7 cm squared Mitral E to A Ratio 1.0 MV E' Velocity 45.0 cm/s Mitral E to MV E' Ratio 5.2 Mitral E to LV E' Lateral Ratio 5.1 Mitral E to LV E' Septal Ratio 5.3 TR Peak Velocity 94.7 cm/s TR Peak Gradient 3.6 mmHg Right Atrial Pressure 3.0 mmHg Pulmonary Artery Systolic Pressu 6.6 mmHg PV Peak Velocity 111.0 cm/s RV Acceleration Time 0.1 s RV Ejection Time 0.3 s RV AcT/ET 0.4 FINDINGS Left Ventricle Normal left ventricular size and systolic function, EF 71 %. No regional wall motion abnormalities. Right Ventricle The right ventricle is normal in size and function. Right Atrium The right atrium is normal in size. Left Atrium The left atrium is normal in size. Mitral Valve Trace mitral valve regurgitation. Aortic Valve No gross abnormalities noted Tricuspid Valve No gross abnormalities noted Pulmonic Valve Trace pulmonary valve regurgitation. Pericardium Normal pericardium without effusion. Aorta Normal ascending aorta dimension. IVC The inferior vena cava appears normal. CONCLUSIONS Normal left ventricular size and systolic function, EF 71 %. No regional wall motion abnormalities. Trace mitral valve regurgitation. Normal cardiac chamber sizes. No intracardiac shunts by color-flow Doppler examination. No intracardiac masses. There is no pericardial effusion. No similar previous studies are available for comparison Dr Everardo Jacques MD FACC (Electronically Signed) Final Date: 18 March 2023 18:21 S
== END 2023-03-18 13:34 | disposition home or self-care (01) ==
LOC: RAD 13:36
PROVIDERS: PCP Family Medicine; Visit Provider Emergency Medicine
DX: R55 Syncope and collapse (principal); R00.0 Tachycardia, unspecified
CPT/HCPCS: 93306

== ENCOUNTER 2023-04-20 07:38 | Outpatient (CLI) | payer MEDICARE, SELFPAY ==
[2023-04-20 08:43] LABS: Anion Gap 11.1 (5-19); Blood Urea Nitrogen 18 mg/dL (6-20); Calcium 8.1 mg/dL (8.5-10.5); Carbon Dioxide 22 mmol/L (22-29); Chloride 109 mmol/L (98-107); Glomerular Filtration Rate 69.3 mL/min (90-130); Glucose 122 mg/dL (65-115); Osmolality Calculated 289 mOsm/kg (285-295); Potassium 4.1 mmol/L (3.5-5.1); Sodium 138 mmol/L (136-145)
[2023-04-22 03:50] LABS: C-Peptide 1.97 ng/mL (0.80-3.85)
== END 2023-04-20 07:39 | disposition home or self-care (01) ==
PROVIDERS: PCP Family Medicine; Visit Provider Nurse Practitioner Family
DX: E10.649 Type 1 diabetes mellitus with hypoglycemia without coma (principal)
CPT/HCPCS: 36415; 80048; 84681; 86341

== ENCOUNTER 2023-04-21 07:45 | Outpatient (RCR) | payer MEDICARE, SELFPAY | END 2023-05-20 23:59 | disposition home or self-care (01) | LOC: SPT 07:45 | PROVIDERS: PCP Family Medicine; Visit Provider Physician Assistant | DX: M75.02 Adhesive capsulitis of left shoulder (principal) | CPT/HCPCS: 97110; 97161 ==

== ENCOUNTER → 2023-05-17 08:13 | Outpatient (BNVA) | payer MEDICARE, SELFPAY | PROVIDERS: PCP Family Medicine; Visit Provider Podiatrist Foot & Ankle Surgery | DX: E10.69 Type 1 diabetes mellitus with other specified complication (principal); B07.0 Plantar wart; Z79.4 Long term (current) use of insulin | CPT/HCPCS: 99214 ==

== ENCOUNTER 2023-05-20 12:59 | Outpatient (RCR) | payer MEDICARE, SELFPAY | END 2023-05-20 23:59 | disposition home or self-care (01) | LOC: SOT 12:59 | PROVIDERS: Visit Provider Orthopaedic Surgery Hand Surgery | DX: S63.591D Other specified sprain of right wrist, subsequent encounter (principal); X58.XXXD Exposure to other specified factors, subsequent encounter | CPT/HCPCS: 97022; 97110; 97166; 97530 ==

== ENCOUNTER 2023-05-21 06:00 | Outpatient (RCR) | payer MEDICARE, SELFPAY | END 2023-06-20 23:59 | disposition home or self-care (01) | LOC: SOT 06:00 | PROVIDERS: PCP Family Medicine; Visit Provider Orthopaedic Surgery Hand Surgery | DX: S63.591D Other specified sprain of right wrist, subsequent encounter (principal); X58.XXXD Exposure to other specified factors, subsequent encounter | CPT/HCPCS: 97022; 97110; 97140 ==

== ENCOUNTER 2023-05-21 06:00 | Outpatient (RCR) | payer MEDICARE, SELFPAY | END 2023-06-20 23:59 | disposition home or self-care (01) | LOC: SPT 06:00 | PROVIDERS: PCP Family Medicine; Visit Provider Physician Assistant | DX: M75.02 Adhesive capsulitis of left shoulder (principal) | CPT/HCPCS: 97110; G0283 ==

== ENCOUNTER → 2023-06-15 07:59 | Outpatient (BNVA) | payer MEDICARE, SELFPAY | PROVIDERS: PCP Family Medicine; Visit Provider Podiatrist Foot & Ankle Surgery | DX: B07.0 Plantar wart (principal); E10.9 Type 1 diabetes mellitus without complications; Z79.4 Long term (current) use of insulin | CPT/HCPCS: 99213 ==

== ENCOUNTER 2023-06-21 01:00 | Outpatient (RCR) | payer MEDICARE, SELFPAY | END 2023-07-21 23:59 | disposition home or self-care (01) | LOC: SOT 01:00 | PROVIDERS: PCP Family Medicine; Visit Provider Orthopaedic Surgery Hand Surgery | DX: M25.521 Pain in right elbow (principal) | CPT/HCPCS: 97022; 97110; 97140 ==

== ENCOUNTER 2023-06-21 06:00 | Outpatient (RCR) | payer MEDICARE, SELFPAY | END 2023-07-05 23:59 | disposition home or self-care (01) | LOC: SPT 06:00 | PROVIDERS: PCP Family Medicine; Visit Provider Physician Assistant | DX: M75.02 Adhesive capsulitis of left shoulder (principal) | CPT/HCPCS: 97110 ==

== ENCOUNTER 2023-07-21 08:55 | Outpatient (RCR) | payer MEDICARE, SELFPAY | END 2023-07-21 23:59 | disposition home or self-care (01) | LOC: SOT 08:55 | PROVIDERS: PCP Family Medicine; Visit Provider Orthopaedic Surgery Hand Surgery | DX: M25.521 Pain in right elbow (principal) | CPT/HCPCS: 97110; 97165; 97530 ==

== ENCOUNTER 2023-07-22 06:00 | Outpatient (RCR) | payer MEDICARE, SELFPAY | END 2023-08-20 23:59 | disposition home or self-care (01) | LOC: SOT 06:00 | PROVIDERS: PCP Family Medicine; Visit Provider Orthopaedic Surgery Hand Surgery | DX: M25.521 Pain in right elbow (principal) | CPT/HCPCS: 97022; 97035; 97110; G0283 ==

== ENCOUNTER 2023-09-02 06:00 | Outpatient (RCR) | payer MEDICARE, SELFPAY | END 2023-09-20 23:59 | disposition home or self-care (01) | LOC: SPT 06:00 | PROVIDERS: PCP Family Medicine; Visit Provider Student in an Organized Health Care Education/Training Program | DX: M75.02 Adhesive capsulitis of left shoulder (principal) | CPT/HCPCS: 97110; 97140; 97161 ==

== ENCOUNTER 2023-09-21 06:00 | Outpatient (RCR) | payer MEDICARE, SELFPAY | END 2023-10-07 09:33 | disposition home or self-care (01) | LOC: SPT 06:00 | PROVIDERS: PCP Family Medicine; Visit Provider Student in an Organized Health Care Education/Training Program | DX: M75.02 Adhesive capsulitis of left shoulder (principal); M25.512 Pain in left shoulder | CPT/HCPCS: 97110; 97140 ==

== ENCOUNTER → 2023-10-05 09:56 | Outpatient (BNVA) | payer MEDICARE, SELFPAY | PROVIDERS: PCP Family Medicine; Visit Provider Family Medicine | DX: J02.9 Acute pharyngitis, unspecified (principal) | CPT/HCPCS: 87426 ==

== ENCOUNTER 2023-10-10 06:57 | Outpatient (CLI) | payer MEDICARE, SELFPAY ==
[2023-10-10 07:25] LABS: Basophils # 0.1 10^3/uL (0.0-0.1); Basophils % 1.8 %; Eosinophils # 0.4 10^3/uL (0.0-0.8); Eosinophils % 5.9 %; Hematocrit 45.6 % (36-47); Lymphocytes # 2.3 10^3/uL (0.8-4.8); Lymphocytes % 30.8 %; Mean Corpuscular HGB Conc 32.5 g/dL (30-55); Mean Corpuscular Hemoglobin 30.2 pg (27-33); Mean Corpuscular Volume 93.1 fl (85-98); Mean Platelet Volume 9.4 fL (7.4-10.4); Monocytes # 0.7 10^3/uL (0.2-0.9); Neutrophils # 3.83 10^3/uL (1.8-7.7); Neutrophils % 52.4 %; Nucleated Red Blood Cells % 0 %; Platelet Count 198 10^3/cmm (157-399); Red Cell Distribution Width 12.8 % (12.1-15.1); White Blood Count 7.31 10^3/uL (3.29-11.43)
[2023-10-10 07:59] LABS: Alanine Aminotransferase 14 U/L (0-33); Alkaline Phosphatase 91 U/L (35-105); Anion Gap 14.1 (5-19); Aspartate Amino Transferase 13 U/L (0-32); Blood Urea Nitrogen 16 mg/dL (6-20); Calcium 8.8 mg/dL (8.5-10.5); Carbon Dioxide 22 mmol/L (22-29); Chloride 106 mmol/L (98-107); Globulin 2.2 g/dL (1.3-4.6); Glomerular Filtration Rate 79.4 mL/min (90-130); Glucose 156 mg/dL (65-115); Iron 152 ug/dL (37-145); Osmolality Calculated 290 mOsm/kg (285-295); Potassium 4.1 mmol/L (3.5-5.1); Sodium 138 mmol/L (136-145); Total Bilirubin 0.5 mg/dL (0.15-1.2); Total Protein 6.2 g/dL (6.6-8.7)
[2023-10-10 08:14] LABS: Percent Saturation 89.9 % (20-50); Total Iron Binding Capacity 169 mcg/dl; Unsaturated Iron Binding < 17 ug/dL (112-347)
[2023-10-10 11:29] LABS: Ferritin 172 ng/mL (15-150)
== END 2023-10-10 06:58 | disposition home or self-care (01) ==
LOC: LAB 06:59
PROVIDERS: PCP Nurse Practitioner Family; Visit Provider Pathology Blood Banking & Transfusion Medicine
DX: R23.3 Spontaneous ecchymoses (principal)
CPT/HCPCS: 36415; 80053; 82728; 83540; 83550; 85025

== ENCOUNTER 2023-12-19 09:38 | Outpatient (CLI) | payer MEDICARE, SELFPAY ==
[2023-12-19 10:58] LABS: Anion Gap 10.1 (5-19); Blood Urea Nitrogen 12 mg/dL (6-20); Carbon Dioxide 29 mmol/L (22-29); Chloride 105 mmol/L (98-107); Glucose 97 mg/dL (65-115); Osmolality Calculated 290 mOsm/kg (285-295); Potassium 4.1 mmol/L (3.5-5.1); Sodium 140 mmol/L (136-145)
[2023-12-19 11:01] LABS: Estmated Average Glucose 148; Hemoglobin A1C 6.8 % (4.0-6.0)
== END 2023-12-19 09:39 | disposition home or self-care (01) ==
LOC: LAB 09:40
PROVIDERS: PCP Family Medicine; Visit Provider Nurse Practitioner Family
DX: E10.649 Type 1 diabetes mellitus with hypoglycemia without coma (principal)
CPT/HCPCS: 36415; 80048; 83036

== ENCOUNTER 2024-02-08 09:05 | Emergency (ER) | payer MEDICARE, SELFPAY ==
--- NOTE | 2024-02-08 09:24 | XR_ITS ---
WS: [id number] Lumbar spine, 3 views, 02/08/2024 Clinical Data: pain Comparison: Lumbar spine, 02/24/2018. Findings: No compression fractures or subluxation is seen. No disc space narrowing is seen. The transverse proc esses and SI joints are normal. There is a large amount of fecal material in the colon. Impression: Negative lumbar spine.
--- NOTE | 2024-02-08 09:24 | XR_ITS ---
WS: [id number] Right hip, 2 views, AP pelvis, 02/08/2024 Clinical Data: pain Comparison: None. Findings: No fractures or dislocations are seen. The right hip shows no erosion, narrowing, sclerosis or fragme ntation of the right femoral head. The soft tissues are not remarkable. The adjacent pelvis is normal . The left hip is normal. Impression: Negative pelvis and right hip Tonnis classification: grade 0: normal radiographs
[2024-02-08 09:35] VITALS: BP 128/72; PULSE 84; TEMP 36.8; O2SAT 100
--- NOTE | 2024-02-08 10:07 | ED_ITS ---
HPI - Extremity Problem General: Chief complaint: Extremity Injury, Lower Stated complaint: Right hip pain/ lower back pain Time Seen by Provider: 02/08/24 09:24 Source: patient Mode of arrival: ambulatory Limitations: no limitations History of Present Illness: 43-year-old female states that she had s lipped down concrete steps yesterday. She states she landed on her right buttocks she has a bruise over her right buttocks with pain in that hip and low back. She has been ambulatory states that it hurts to walk though she has pain at rest as well she rates a 6 out of 10 denies hitting her head or any other injuries. Associated symptoms: Deny chest pain, fever(s) or rash Review of Systems Const: Denies: fever(s), chills, body aches or change in appetite ENMT: Denies: throat pain or dental pain Card: Denies: chest pain Resp: Denies: dyspnea GI: Denies: abdominal pain, nausea, vomiting or diarrhea Musc: Reports: back pain and extremity pain; Denies: neck pain Skin/Breast: Denies: rash Neuro: Denies: headache(s) PFSH ED PFSH: Medical History Urinary tract infection due to extended-spectrum beta lactamase (ESBL) producing Escherichia coli Depression Obsessive-compulsive disorder Chronic anxiety Peptic ulcer disease Hypothyroidism Environmental allergies Asthma Chronic migraine Type 1 diabetes mellitus Surgical History H/O section in 2007 and in 2009 H/O colonoscopy 2016 and 2018 History of hysterectomy 2021 H/O esophagogastroduodenoscopy 2016 and 2018 H/O dilation and curettage 2016 H/O tubal ligation 2010 Family History Family/Other Cancer Aunts, uterine cancer Other CAD (coronary artery disease) Dementia Diabetes Hypertension Lung disease Stroke Denies family history of Clotting disorder Hyperlipidemia Psychiatric illness Chronic kidney disease (CKD) Suicide Anesthesia complication Bleeding disorder Social History Smoking and tobacco/nicotine status: former use of tobacco/nicotine Alcohol intake: never Substance/Drug Use: never Physical Exam Const: COMMON NORMALS: no acute distress, patient oriented x3 and healthy appearing HENMT: COMMON NORMALS: normocephalic and atraumatic HEAD & SCALP: normocephalic and atraumatic Neck/C-Spine: COMMON NORMALS: full ROM and supple Chest: COMMONS NORMALS: normal inspection of the chest Resp: COMMON NORMALS: normal respiratory effort Cardio: COMMON NORMALS: regular rate, regular rhythm and No murmurs present (Cardio) RATE: regular rate RHYTHM: regular rhythm Extremity: COMMON NORMALS: normal to inspection and full ROM NARRATIVE EXTREMITY EXAM: Tenderness over right buttocks Neuro: COMMON NORMALS: patient oriented x3, moves all extremities and no focal motor deficits Psych: COMMON NORMALS: mental status grossly normal, Normal thought process present and cooperative THOUGHT PROCESS: Normal thought process present Skin: COMMON NORMALS: no rashes or lesions noted and no wounds GENERAL SKIN EXAM: no rashes or lesions noted Course Vital Signs: Vital signs: Vital Signs Temperature 98.3 F 02/08/24 09:35 Pulse Rate 84 02/08/24 09:35 Blood Pressure 128/72 02/08/24 09:35 Pulse Oximetry 100 02/08/24 09:35 Oxygen Delivery Me thod Room Air 02/08/24 09:35 MDM - Extremity (Nontraumatic) Medical Decision Making Patient presents for hip contusion from a fall x-ray shows no fractures patient is ambulatory she is stable for discharge follow-up PCP return if worsening. Medical Records I reviewed the patient's medical records. All radiology interpretation(s) finalized by discharge Discharge Plan Discharge Patient Disposition: Home Clinical Impression: Contusion of hip, right Condition: Stable Prescriptions: New Naprosyn 500 mg tablet 500 mg PO BID PRN (Reason: pain) Qty: 20 0RF No Action potassium chloride 10 mEq tablet extended release 10 meq PO DAILY pantoprazole 40 mg tablet,delayed release (DR/EC) 40 mg PO DAILY (DME) Custom molded Orthotics See Rx Instructions .Route .MEDSUPPLY Qty: 1 0RF Rx Instructions: As directed J P & O levothyroxine [Synthroid] 137 mcg tablet 125 mcg PO DAILY Breo Ellipta 100-25 mcg/dose blister with device 1 inh inhalation DAILY clobetasol 0.05 % lotion 1 applic topical PRN sumatriptan succinate 100 mg tablet See Rx Instructions PO .COMPLEX PRN (Reason: Migraine Headache) Rx Instructions: take 1 tab at onset of headache; if no relief, may repeat 1 tab after at least 2 hrs; max = 2 tabs/24 hrs PO Farxiga 5 mg tablet 5 mg PO DAILY (DME) COCK UP SPLINT. See Rx Instructions .Route .MEDSUPPLY Qty: 1 0RF Rx Instructions: As directed insulin lispro [Humalog U-100 Insulin] 100 unit/mL solution See Rx Instructions SUBCUT TID Rx Instructions: sliding scale on pump. 9 unit subcutaneously at breakfast,14 units at lunch, amd 7 units with supper subcutaneously three times daily; bupropion HCl [Wellbutrin XL] 150 mg tablet extended release 24 hr 450 mg PO QAM montelukast [Singulair] 10 mg Tablet 10 mg PO DAILY ergocalciferol (vitamin D2) [Vitamin D2] 1,250 mcg (50,000 unit) capsule 50,000 unit PO DIRECTED Rx Instructions: pt states she takes every other tuesday polyethylene glycol 3350 [Miralax] 17 gram/dose Powder PO EVERY OTHER DAY Rx Instructions: 1/2 capful daily Probiotic Gummy 2 tab PO DAILY topiramate 100 mg tablet 200 mg PO DAILY Rx Instructions: pt states she takes 200mg po daily ondansetron 4 mg tablet,disintegrating 4 mg PO Q8H PRN (Reason: nausea and vomiting) Qty: 10 0RF Iron (ferrous sulfate) 324 mg PO BID baclofen 5 mg tablet 10 mg PO BID Vraylar 1.5 mg Capsule 1.5 mg PO DAILY furosemide 20 mg tablet 20 mg PO DAILY tranexamic acid 650 mg tablet 650 mg PO DIRECTED PRN (Reason: Nasal Congestion) Rx Instructions: PT TAKES FOR EPISTAXIS WHEN SHE CAN'T GET BLOOD TO CLOT Dusty-Mag Zinc II Suspension 1 ml PO DAILY Discharge Orders: Discharge ED (Routine); Ordered 02/08/24 Ordered By: Prashanth Villarreal Referrals: Nate Díaz MD [Primary Care Provider] - 4-7 days Discharge Diet: Advance as tolerated Discharge Activity: Resume usual activity Patient Instructions: Contusion in Adults (ED) Coding Level of Care Code ED Motors Assembler for Álvaro Armstrong
[2024-02-08] MEDS: HYDROcodone-acetaminophen 5-325 mg Tablet 1 TAB PO (10:18)
[2024-02-08 11:27] VITALS: BP 139/71; PULSE 88; O2SAT 99
== END 2024-02-08 11:28 | disposition home or self-care (01) ==
PROVIDERS: Emergency Provider Emergency Medicine; PCP Family Medicine
DX: S30.0XXA Contusion of lower back and pelvis, initial encounter (principal); Z79.4 Long term (current) use of insulin; Z87.891 Personal history of nicotine dependence; E10.9 Type 1 diabetes mellitus without complications; W10.8XXA Fall (on) (from) other stairs and steps, initial encounter
CPT/HCPCS: 72100; 73502; 99284

== ENCOUNTER 2024-03-04 21:29 | Emergency (ER) | payer MEDICARE, SELFPAY ==
[2024-03-04 21:31] VITALS: BP 103/69; PULSE 88; RESP 16; TEMP 36.6; O2SAT 99; BMI 28.1
--- NOTE | 2024-03-04 22:21 | ED_ITS ---
HPI - Skin/Abscess/Foreign Bdy 2 General: Chief complaint: Skin/Abscess/Foreign Body Stated complaint: skin feels raw Time Seen by Provider: 03/04/24 22:21 History of Present Illness: 43-year-old female with a history of clari betes, neuropathy, and fibromyalgia comes in today for complaints of generalized burning and numbness in her body. Patient reports that she awakened this afternoon from a nap and had significant generalized skin pain. Patient reports that any touching was aggravating to her. Patient reported that even her 's hug was very painful to her. Review of Systems 2 General: Reports: 10 or more systems reviewed and unremarkable except in HPI and below PFSH ED 2 PFSH: Medical History Urinary tract infection due to extended-spectrum beta lactamase (ESBL) producing Escherichia coli Depression Obsessive-compulsive disorder Chronic anxiety Peptic ulcer disease Hypothyroidism Environmental allergies Asthma Chronic migraine Type 1 diabetes mellitus Surgical History H/O section in 2007 and in 2009 H/O colonoscopy 2016 and 2018 History of hysterectomy 2021 H/O esophagogastroduodenoscopy 2016 and 2019 H/O dilation and curettage 2016 H/O tubal ligation 2010 Family History Family/Other Cancer Aunts, uterine cancer Other CAD (coronary artery disease) Dementia Diabetes Hypertension Lung disease Stroke Denies family history of Clotting disorder Hyperlipidemia Psychiatric illness Chronic kidney disease (CKD) Suicide Anesthesia complication Bleeding disorder Social History Smoking and tobacco/nicotine status: former use of tobacco/nicotine Alcohol intake: never Substance/Drug Use: never Physical Exam 2 Const: COMMON NORMALS: alert HENMT: COMMON NORMALS: normocephalic HEAD & SCALP: normocephalic Neck/C-Spine: COMMON NORMALS: full ROM Resp: COMMON NORMALS: normal respiratory effort Cardio: COMMON NORMALS: regular rate RATE: regular rate Back/Pelvis: COMMON NORMALS: thoracic and lumbar spine normal to inspection Extremity: COMMON NORMALS: normal to inspection Neuro: SENSORIUM/ORIENTATION: Yes alert Skin: COMMON NORMALS: turgor normal GENERAL SKIN EXAM: turgor normal Course 2 Vital Signs: Vital signs: Vital Signs Temperature 97.9 F 03/04/24 21:31 Pulse Rate 84 03/04/24 23:20 Respiratory Rate 16 03/04/24 23:20 Blood Pressure 109/68 03/04/24 23:20 Pulse Oximetry 98 03/04/24 23:20 Oxygen Delivery Me thod Room Air 03/04/24 21:31 MDM - Skin/Abscess/Foreign Bdy Medicial Decision Making 43-year-old female comes in today for complaints of generalized numbness and tingling to the skin and burning sensation. Patient appears nontoxic. No rashes noted to the skin. Differential diagnosis includes not limited to polyneuropathy, anxiety, fibromyalgia. Laboratory values were unremarkable. Believe depression probably has peripheral neuropathy secondary to diabetes. Patient has allergies to gabapentin and similar medications. Offered a 1 mg dose of Ativan for her discomfort and recommended follow-up with primary care. Patient reported understanding and agreed to plan and need for follow-up for further recommendations. Lab Data 03/04/24 22:48 03/04/24 22:48 Laboratory Results WBC 7.96 10^3/uL (3.29-11.43) 03/04/24 22:48 RBC 5.07 10^6/uL (3.85-5.65) 03/04/24 22:48 Hgb 15.30 g/dL (11.27-16.99) 03/04/24 22:48 Hct 48.6 % (36-47) H 03/04/24 22:48 MCV 95.9 fl (85-98) 03/04/24 22:48 MCH 30.2 pg (27-33) 03/04/24 22:48 MCHC 31.5 g/dL (30-55) 03/04/24 22:48 RDW 13.2 % (12.1-15.1) 03/04/24 22:48 Plt Count 213 10^3/cmm (157-399) 03/04/24 22:48 MPV 10.0 fL (7.4-10.4) 03/04/24 22:48 Neut % (Auto) 56.1 % 03/04/24 22:48 Lymph % (Auto) 28.3 % 03/04/24 22:48 [place] % (Auto) 9.9 % 03/04/24 22:48 Eos % (Auto) 4.0 % 03/04/24 22:48 Baso % (Auto) 1.4 % 03/04/24 22:48 Neut # (Auto) 4.47 10^3/uL (1.8-7.7) 03/04/24 22:48 Lymph # (Auto) 2.3 10^3/uL (0.8-4.8) 03/04/24 22:48 [place] # (Auto) 0.8 10^3/uL (0.2-0.9) 03/04/24 22:48 Eos # (Auto) 0.3 10^3/uL (0.0-0.8) 03/04/24 22:48 Baso # (Auto) 0.1 10^3/uL (0.0-0.1) 03/04/24 22:48 Nucleated RBC % (auto) 0 % 03/04/24 22:48 Nucleated RBCs # 0.0 /100WBC 03/04/24 22:48 ESR 1 mm/hr (0-15) 03/04/24 22:48 Sodium 138 mmol/L (136-145) 03/04/24 22:48 Potassium 3.9 mmol/L (3.5-5.1) 03/04/24 22:48 Chloride 106 mmol/L (98-107) 03/04/24 22:48 Carbon Dioxide 22 mmol/L (22-29) 03/04/24 22:48 Anion Gap 13.9 (5-19) 03/04/24 22:48 BUN 19 mg/dL (6-20) 03/04/24 22:48 Creatinine 1.0 mg/dL (0.5-0.9) H 03/04/24 22:48 GFR Calculation 61.1 mL/min (90-130) L 03/04/24 22:48 Glucose 165 mg/dL (65-115) H 03/04/24 22:48 Calculated Osmolality 292 mOsm/kg (285-295) 03/04/24 22:48 Calcium 9.1 mg/dL (8.5-10.5) 03/04/24 22:48 Total Bilirubin 0.3 mg/dL (0.15-1.2) 03/04/24 22:48 AST 14 U/L (0-32) 03/04/24 22:48 ALT 10 U/L (0-33) 03/04/24 22:48 Alkaline Phosphatase 100 U/L (35-105) 03/04/24 22:48 C-Reactive Protein 5.8 mg/L (0.0-4.9) H 03/04/24 22:48 Total Protein 6.9 g/dL (6.6-8.7) 03/04/24 22:48 Albumin 4.0 g/dL (3.5-5.2) 03/04/24 22:48 Globulin 2.9 g/dL (1.3-4.6) 03/04/24 22:48 TSH 4.19 uIU/mL (0.27-4.20) 03/04/24 22:48 No radiology studies performed this visit Discharge Plan Discharge Patient Disposition: Home Clinical Impression: Neuropathy in diabetes Qualifiers: Diabetes mellitus type: due to underlying condition Diabetes mellitus complication detail: diabetic polyneuropathy Qualified Code(s): E08.42 - Diabetes mellitus due to underlying condition with diabetic polyneuropathy Condition: Stable Prescriptions: No Action potassium chloride 10 mEq tablet extended release 10 meq PO DAILY pantoprazole 40 mg tablet,delayed release (DR/EC) 40 mg PO DAILY (DME) Custom molded Orthotics See Rx Instructions .Route .MEDSUPPLY Qty: 1 0RF Rx Instructions: As directed J P & O levothyroxine [Synthroid] 137 mcg tablet 125 mcg PO DAILY Breo Ellipta 100-25 mcg/dose blister with device 1 inh inhalation DAILY clobetasol 0.05 % lotion 1 applic topical PRN sumatriptan succinate 100 mg tablet See Rx Instructions PO .COMPLEX PRN (Reason: Migraine Headache) Rx Instructions: take 1 tab at onset of headache; if no relief, may repeat 1 tab after at least 2 hrs; max = 2 tabs/24 hrs PO Farxiga 5 mg tablet 5 mg PO DAILY (DME) COCK UP SPLINT. See Rx Instructions .Route .MEDSUPPLY Qty: 1 0RF Rx Instructions: As directed insulin lispro [Humalog U-100 Insulin] 100 unit/mL solution See Rx Instructions SUBCUT TID Rx Instructions: sliding scale on pump. 9 unit subcutaneously at breakfast,14 units at lunch, amd 7 units with supper subcutaneously three times daily; bupropion HCl [Wellbutrin XL] 150 mg tablet extended release 24 hr 450 mg PO QAM montelukast [Singulair] 10 mg Tablet 10 mg PO DAILY ergocalciferol (vitamin D2) [Vitamin D2] 1,250 mcg (50,000 unit) capsule 50,000 unit PO DIRECTED Rx Instructions: pt states she takes every other tuesday polyethylene glycol 3350 [Miralax] 17 gram/dose Powder PO EVERY OTHER DAY Rx Instructions: 1/2 capful daily Probiotic Gummy 2 tab PO DAILY topiramate 100 mg tablet 200 mg PO DAILY Rx Instructions: pt states she takes 200mg po daily Naprosyn 500 mg tablet 500 mg PO BID PRN (Reason: pain) Qty: 20 0RF ondansetron 4 mg tablet,disintegrating 4 mg PO Q8H PRN (Reason: nausea and vomiting) Qty: 10 0RF Iron (ferrous sulfate) 324 mg PO BID baclofen 5 mg tablet 10 mg PO BID Vraylar 1.5 mg Capsule 1.5 mg PO DAILY furosemide 20 mg tablet 20 mg PO DAILY tranexamic acid 650 mg tablet 650 mg PO DIRECTED PRN (Reason: Nasal Congestion) Rx Instructions: PT TAKES FOR EPISTAXIS WHEN SHE CAN'T GET BLOOD TO CLOT Dusty-Mag Zinc II Suspension 1 ml PO DAILY Discharge Orders: Discharge ED (Routine); Ordered 03/04/24 Ordered By: [place] Mayorga Referrals: Nate Díaz MD [Primary Care Provider] - Discharge Diet: Usual diet Discharge Activity: Increase activity as tolerated Patient Instructions: Peripheral Neuropathy (ED) Activity Restrictions/Additional Instructions: Continue routine care. Follow-up with primary care for further instructions. Return to ED for new concerns. Coding Level of Care Code ED Agent Broker for Álvaro Armstrong
[2024-03-04 22:56] LABS: Erythrocyte Sedimentation Rate 1 mm/hr (0-15)
[2024-03-04 23:02] LABS: Basophils # 0.1 10^3/uL (0.0-0.1); Basophils % 1.4 %; Eosinophils # 0.3 10^3/uL (0.0-0.8); Hematocrit 48.6 % (36-47); Lymphocytes # 2.3 10^3/uL (0.8-4.8); Lymphocytes % 28.3 %; Mean Corpuscular HGB Conc 31.5 g/dL (30-55); Mean Corpuscular Hemoglobin 30.2 pg (27-33); Mean Corpuscular Volume 95.9 fl (85-98); Monocytes # 0.8 10^3/uL (0.2-0.9); Monocytes % 9.9 %; Neutrophils # 4.47 10^3/uL (1.8-7.7); Neutrophils % 56.1 %; Nucleated Red Blood Cells % 0 %; Platelet Count 213 10^3/cmm (157-399); Red Blood Count 5.07 10^6/uL (3.85-5.65); Red Cell Distribution Width 13.2 % (12.1-15.1); White Blood Count 7.96 10^3/uL (3.29-11.43)
[2024-03-04 23:12] LABS: Alanine Aminotransferase 10 U/L (0-33); Alkaline Phosphatase 100 U/L (35-105); Anion Gap 13.9 (5-19); Aspartate Amino Transferase 14 U/L (0-32); Blood Urea Nitrogen 19 mg/dL (6-20); C Reactive Protein 5.8 mg/L (0.0-4.9); Calcium 9.1 mg/dL (8.5-10.5); Carbon Dioxide 22 mmol/L (22-29); Chloride 106 mmol/L (98-107); Creatinine Clr Calc Pharmacy 84.0401; Globulin 2.9 g/dL (1.3-4.6); Glomerular Filtration Rate 61.1 mL/min (90-130); Glucose 165 mg/dL (65-115); Osmolality Calculated 292 mOsm/kg (285-295); Potassium 3.9 mmol/L (3.5-5.1); Sodium 138 mmol/L (136-145); Total Bilirubin 0.3 mg/dL (0.15-1.2); Total Protein 6.9 g/dL (6.6-8.7)
[2024-03-04 23:20] VITALS: BP 109/68; PULSE 84; RESP 16; O2SAT 98
[2024-03-04 23:29] LABS: Thyroid Stimulating Hormone 4.19 uIU/mL (0.27-4.20)
[2024-03-05] MEDS: LORazepam 2 mg/mL INJ 10 mL MDV 1 MG IM (00:05)
[2024-03-05 00:16] VITALS: BP 110/67; PULSE 86; RESP 18; O2SAT 97
== END 2024-03-05 00:17 | disposition home or self-care (01) ==
PROVIDERS: Emergency Provider Nurse Practitioner Family; PCP Family Medicine
DX: E10.42 Type 1 diabetes mellitus with diabetic polyneuropathy (principal); Z79.4 Long term (current) use of insulin; Z87.891 Personal history of nicotine dependence
CPT/HCPCS: 36415; 80053; 84443; 85025; 85651; 86140; 96372; 99284; J2060

== ENCOUNTER 2024-04-03 11:54 | Outpatient (CLI) | payer MEDICARE, SELFPAY ==
[2024-04-03 12:49] LABS: Estmated Average Glucose 169; Hemoglobin A1C 7.5 % (4.0-6.0)
[2024-04-03 13:04] LABS: Anion Gap 14.6 (5-19); Blood Urea Nitrogen 15 mg/dL (6-20); Calcium 8.6 mg/dL (8.5-10.5); Carbon Dioxide 20 mmol/L (22-29); Chloride 105 mmol/L (98-107); Free T4 Free Thyroxine 1.45 ng/dL (0.82-1.77); Glucose 284 mg/dL (65-115); Osmolality Calculated 293 mOsm/kg (285-295); Potassium 3.6 mmol/L (3.5-5.1); Sodium 136 mmol/L (136-145); Thyroid Stimulating Hormone 0.84 uIU/mL (0.27-4.20)
== END 2024-04-03 11:55 | disposition home or self-care (01) ==
PROVIDERS: PCP Family Medicine; Visit Provider Nurse Practitioner Family
DX: E10.649 Type 1 diabetes mellitus with hypoglycemia without coma (principal); E03.8 Other specified hypothyroidism
CPT/HCPCS: 36415; 80048; 83036; 84439; 84443

== ENCOUNTER 2024-05-03 10:01 | Emergency (ER) | payer MEDICARE, SELFPAY ==
--- NOTE | 2024-05-03 10:03 | ECG_ITS ---
[facility] Test Date: 2024-05-03 Pat Name: Kellen Joseph Department: Room: Gender: Female Train Braker: : 1980 Requested By: Walker Garcia Order Number: [id number] Kalia MD: Everardo Jacques M.D. Measurements Intervals [place] Rate: 74 P: 71 MT: 112 QRS: 66 QRSD: 84 T: 64 QT: 366 QTc: 406 Interpretive Statements SINUS RHYTHM WITH SHORT MT INTERVAL POSSIBLE LEFT ATRIAL ENLARGEMENT [-0.1mV P-WAVE IN V1/V2] Compared to ECG 02/18/2023 16:10:32 Sinus tachycardia no longer present T-wave abnormality no longer present Electronically Signed On 05-03-2024 21:58:55 CDT by Everardo Jacques M.D. [id number]
[2024-05-03 10:13] VITALS: BP 111/72; PULSE 84; RESP 18; TEMP 37; O2SAT 97; BMI 29.2
--- NOTE | 2024-05-03 10:40 | ED_ITS ---
HPI - Chest Pain 2 General: Chief Complaint: Chest Pain Stated Complaint: swelling in arms, chest pains Time Seen by Provider: 05/03/24 10:07 Source: patient Mode of arrival: ambulatory History of Present Illness: 43-year-old female presents emergency ro om complaining of chest discomfort that radiates to her left arm into her neck. She also been a little bit short of breath and nauseous since. She had a few episodes of loose stools in addition to this. She has no known history of coronary disease no history of any arrhythmias. When she woke up this morning she had her left arm felt very swollen than her right arm seem to swell. Few weeks ago she had a blood draw but no recent IVs. No fevers sweats or chills no hemoptysis or productive cough. Patient is diabetic reports her blood sugars been well-controlled recently MD complaint: chest pain Onset (ago): hour(s) Timing of current episode: episodic Onset: during rest Pain radiation: right arm and left arm Quality: heaviness Relieving factors: nothing Exacerbating factors: nothing Associated symptoms: Deny abdominal pain, diaphoresis, dyspnea, fever(s), leg edema, nausea, palpitations, sense of impending doom, syncope or vomiting Treatment prior to arrival: none Review of Systems 2 Const: Denies: fever(s), chills or diaphoresis Card: Denies: chest pain, palpitations or syncope Resp: Denies: dyspnea GI: Denies: abdominal pain, nausea or vomiting : Denies: dysuria, urinary frequency or urinary urgency Musc: Denies: neck pain or back pain Skin/Breast: Denies: rash PFSH ED 2 PFSH: Medical History Urinary tract infection due to extended-spectrum beta lactamase (ESBL) producing Escherichia coli Depression Obsessive-compulsive disorder Chronic anxiety Peptic ulcer disease Hypothyroidism Environmental allergies Asthma Chronic migraine Type 1 diabetes mellitus Surgical History H/O section in 2007 and in 2009 H/O colonoscopy 2016 and 2018 History of hysterectomy 2021 H/O esophagogastroduodenoscopy 2016 and 2018 H/O dilation and curettage 2016 H/O tubal ligation 2010 Family History Family/Other Cancer Aunts, uterine cancer Other CAD (coronary artery disease) Dementia Diabetes Hypertension Lung disease Stroke Denies family history of Clotting disorder Hyperlipidemia Psychiatric illness Chronic kidney disease (CKD) Suicide Anesthesia complication Bleeding disorder Social History Smoking and tobacco/nicotine status: former use of tobacco/nicotine Alcohol intake: never Substance/Drug Use: never Physical Exam 2 Const: GENERAL APPEARANCE: cooperative and comfortable O RIENTATION/CONSCIOUSNESS: Yes awake, Yes oriented to person, Yes oriented to place and Yes oriented to time HENMT: COMMON NORMALS: normocephalic, atraumatic and hearing grossly normal bilaterally HEAD & SCALP: normocephalic and atraumatic Resp: COMMON NORMALS: normal respiratory effort, No retractions, No use of accessory muscles and clear to auscultation bilaterally AUSCULTATION: clear to auscultation bilaterally Cardio: COMMON NORMALS: regular rate, regular rhythm and No murmurs present (Cardio) RATE: regular rate RHYTHM: regular rhythm GI: COMMON NORMALS: Soft to palpation and No hepatosplenomegaly present A USCULTATION: Yes normoactive bowel sounds PALPATION: Yes Soft to palpation, No Tenderness to palpation present (GI), No Guarding due to palpation present (GI) and Yes No hepatosplenomegaly present Extremity: COMMON NORMALS: normal to inspection, capillary refill normal, no clubbing, cyanosis or edema, no calf tenderness and no pedal edema OTHER: Sensation to the extremities normal neurovascular both upper extremities are intact Neuro: SENSORIUM/ORIENTATION: Yes oriented to person, Yes oriented to place and Yes oriented to time Skin: COMMON NORMALS: no rashes or lesions noted GENERAL SKIN EXAM: no rashes or lesions noted Course 2 Vital Signs: Vital signs: Vital Signs Temperature 98.6 F 05/03/24 10:13 Pulse Rate 76 05/03/24 14:10 Respiratory Rate 18 05/03/24 11:00 Blood Pressure 114/71 05/03/24 14:10 Pulse Oximetry 99 05/03/24 12:15 Oxygen Delivery Me thod Room Air 05/03/24 12:15 MDM - Chest Pain Medical Decision Making No sign of acute coronary syndrome pulmonary embolism pneumothorax dissecting aneurysm or pneumonia. Patient is complaining of swelling in her legs arms and her face although objectively on exam there is no swelling at this time is no stridor no evidence of respiratory distress. At this point and discharged home she can take cetirizine 10 mg twice a day follow-up with her primary care Medical Records I reviewed the patient's medical records. Lab Data I reviewed the patient's lab results. 05/03/24 10:57 05/03/24 10:57 Radiology Impressions Chest X-Ray 05/03/24 11:01 IMPRESSION: No acute findings. Laboratory Results WBC 6.15 10^3/uL (3.29-11.43) 05/03/24 10:57 RBC 5.08 10^6/uL (3.85-5.65) 05/03/24 10:57 Hgb 15.40 g/dL (11.27-16.99) 05/03/24 10:57 Hct 47.9 % (36-47) H 05/03/24 10:57 MCV 94.3 fl (85-98) 05/03/24 10:57 MCH 30.3 pg (27-33) 05/03/24 10:57 MCHC 32.2 g/dL (30-55) 05/03/24 10:57 RDW 12.9 % (12.1-15.1) 05/03/24 10:57 Plt Count 214 10^3/cmm (157-399) 05/03/24 10:57 MPV 10.4 fL (7.4-10.4) 05/03/24 10:57 Neut % (Auto) 60.4 % 05/03/24 10:57 Lymph % (Auto) 26.3 % 05/03/24 10:57 Nobles % (Auto) 8.3 % 05/03/24 10:57 Eos % (Auto) 3.3 % 05/03/24 10:57 Baso % (Auto) 1.5 % 05/03/24 10:57 Neut # (Auto) 3.72 10^3/uL (1.8-7.7) 05/03/24 10:57 Lymph # (Auto) 1.6 10^3/uL (0.8-4.8) 05/03/24 10:57 Nobles # (Auto) 0.5 10^3/uL (0.2-0.9) 05/03/24 10:57 Eos # (Auto) 0.2 10^3/uL (0.0-0.8) 05/03/24 10:57 Baso # (Auto) 0.1 10^3/uL (0.0-0.1) 05/03/24 10:57 Nucleated RBC % (auto) 0 % 05/03/24 10:57 Nucleated RBCs # 0.0 /100WBC 05/03/24 10:57 D-Dimer 0.36 ug/mLFEU (0-0.59) 05/03/24 10:57 Sodium 137 mmol/L (136-145) 05/03/24 10:57 Potassium 4.0 mmol/L (3.5-5.1) 05/03/24 10:57 Chloride 105 mmol/L (98-107) 05/03/24 10:57 Carbon Dioxide 23 mmol/L (22-29) 05/03/24 10:57 Anion Gap 13.0 (5-19) 05/03/24 10:57 BUN 13 mg/dL (6-20) 05/03/24 10:57 Creatinine 0.7 mg/dL (0.5-0.9) 05/03/24 10:57 GFR Calculation 92.2 mL/min (90-130) 05/03/24 10:57 Glucose 148 mg/dL (65-115) H 05/03/24 10:57 Calculated Osmolality 287 mOsm/kg (285-295) 05/03/24 10:57 Calcium 8.6 mg/dL (8.5-10.5) 05/03/24 10:57 Total Bilirubin 0.6 mg/dL (0.15-1.2) 05/03/24 10:57 AST 12 U/L (0-32) 05/03/24 10:57 ALT 10 U/L (0-33) 05/03/24 10:57 Alkaline Phosphatase 96 U/L (35-105) 05/03/24 10:57 Troponin T Baseline < 6 ng/L (0-10) 05/03/24 10:57 Troponin T 120 Minute 6.00 ng/L (0-10) 05/03/24 12:48 Delta Troponin T 0.21345 ABS# (0-10) 05/03/24 12:48 Total Protein 6.0 g/dL (6.6-8.7) L 05/03/24 10:57 Albumin 4.0 g/dL (3.5-5.2) 05/03/24 10:57 Globulin 2.0 g/dL (1.3-4.6) 05/03/24 10:57 All radiology interpretation(s) finalized by discharge Discharge Plan Discharge Patient Disposition: Home Clinical Impression: Chest discomfort, Arm swelling Condition: Stable Prescriptions: New cetirizine 10 mg tablet 10 mg PO BID Qty: 30 0RF No Action potassium chloride 10 mEq tablet extended release 10 meq PO DAILY pantoprazole 40 mg tablet,delayed release (DR/EC) 40 mg PO DAILY (DME) Custom molded Orthotics See Rx Instructions .Route .MEDSUPPLY Qty: 1 0RF Rx Instructions: As directed J P [employer] O Breo Ellipta 100-25 mcg/dose blister with device 1 inh inhalation DAILY sumatriptan succinate 100 mg tablet See Rx Instructions PO .COMPLEX PRN (Reason: Migraine Headache) Rx Instructions: take 1 tab at onset of headache; if no relief, may repeat 1 tab after at least 2 hrs; max = 2 tabs/24 hrs PO Farxiga 5 mg tablet 5 mg PO DAILY (DME) COCK UP SPLINT. See Rx Instructions .Route .MEDSUPPLY Qty: 1 0RF Rx Instructions: As directed insulin lispro [Humalog U-100 Insulin] 100 unit/mL solution See Rx Instructions SUBCUT TID Rx Instructions: sliding scale on pump. 9 unit subcutaneously at breakfast,14 units at lunch, amd 7 units with supper subcutaneously three times daily; bupropion HCl [Wellbutrin XL] 150 mg tablet extended release 24 hr 450 mg PO QAM montelukast [Singulair] 10 mg Tablet 10 mg PO DAILY ergocalciferol (vitamin D2) [Vitamin D2] 1,250 mcg (50,000 unit) capsule 50,000 unit PO DIRECTED Rx Instructions: pt states she takes every other tuesday polyethylene glycol 3350 [Miralax] 17 gram/dose Powder 8.5 g PO DAILY Probiotic Gummy 2 tab PO DAILY topiramate 100 mg tablet 200 mg PO DAILY Synthroid 125 mcg tablet 125 mcg PO DAILY vbdbdop-yrz-ahi [id number] [id number] jw-sm-qw-unit Tablet 1 tab PO DAILY baclofen 5 mg tablet 10 mg PO BID Vraylar 1.5 mg Capsule 1.5 mg PO DAILY furosemide 20 mg tablet 20 mg PO DAILY tranexamic acid 650 mg tablet 650 mg PO DIRECTED PRN (Reason: Nasal Congestion) Rx Instructions: PT TAKES FOR EPISTAXIS WHEN SHE CAN'T GET BLOOD TO CLOT Discharge Orders: Discharge ED (Routine); Ordered 05/03/24 Ordered By: Walker Trujillo Referrals: Nate Díaz MD [Primary Care Provider] - Discharge Diet: Usual diet Discharge Activity: Increase activity as tolerated Patient Instructions: Opioid Safety, Pain Management Activity Restrictions/Additional Instructions: Thank you for choosing [facility] for your healthcare needs today. It is very important that you follow up as instructed or that you return to the Emergency Department should you have concerns or if your condition changes or worsens in any way. You were seen today with complaints of chest discomfort and swelling in your arms. Clinically there did not appear to be any significant edema in your arms or is no signs of a clot in the arm the D-dimer was done to evaluate for clots and this was normal. Chest x-ray was negative cardiac enzymes and EKG did not show any abnormality. There was no sign wheezing or airway compromise. At this point recommend continue all of your current medications you can also start on cetirizine 10 mg twice a day. Follow-up with your doctor if there is any change in symptoms or worsening of symptoms. Coding Level of Care Code ED Inventory Control Associate for Álvaro Armstrong
[2024-05-03 11:00] VITALS: BP 128/81; PULSE 71; RESP 18; O2SAT 98
--- NOTE | 2024-05-03 11:01 | XRR_ITS ---
PROCEDURE INFORMATION: Exam: XR Chest Exam date and time: 05/03/2024 11:09 AM Age: 43 years old Clinical indication: Cough and dyspnea; Prior surgery; Surgery date: 6+ months; Surgery type: Insulin pump; Additional info: Dyspnea/cough TECHNIQUE: Imaging protocol: Radiologic exam of the chest. Views: 1 view. COMPARISON: CR (CHEST, ) 01/12/2023 10:24 PM FINDINGS: Lungs: Unremarkable. No consolidation. Pleural spaces: Unremarkable. No pleural effusion. No pneumothorax. Heart/Mediastinum: Unremarkable. No cardiomegaly. Bones/joints: Unremarkable. XR/XR chest 1V portable [id number] IMPRESSION: No acute findings.
[2024-05-03 11:16] LABS: Basophils # 0.1 10^3/uL (0.0-0.1); Basophils % 1.5 %; Eosinophils # 0.2 10^3/uL (0.0-0.8); Eosinophils % 3.3 %; Hematocrit 47.9 % (36-47); Lymphocytes # 1.6 10^3/uL (0.8-4.8); Lymphocytes % 26.3 %; Mean Corpuscular HGB Conc 32.2 g/dL (30-55); Mean Corpuscular Hemoglobin 30.3 pg (27-33); Mean Corpuscular Volume 94.3 fl (85-98); Mean Platelet Volume 10.4 fL (7.4-10.4); Monocytes # 0.5 10^3/uL (0.2-0.9); Monocytes % 8.3 %; Neutrophils # 3.72 10^3/uL (1.8-7.7); Neutrophils % 60.4 %; Nucleated Red Blood Cells % 0 %; Platelet Count 214 10^3/cmm (157-399); Red Blood Count 5.08 10^6/uL (3.85-5.65); Red Cell Distribution Width 12.9 % (12.1-15.1); White Blood Count 6.15 10^3/uL (3.29-11.43)
[2024-05-03 11:36] LABS: Alanine Aminotransferase 10 U/L (0-33); Alkaline Phosphatase 96 U/L (35-105); Aspartate Amino Transferase 12 U/L (0-32); Blood Urea Nitrogen 13 mg/dL (6-20); Calcium 8.6 mg/dL (8.5-10.5); Carbon Dioxide 23 mmol/L (22-29); Chloride 105 mmol/L (98-107); Creatinine Clr Calc Pharmacy 122.1778; Glomerular Filtration Rate 92.2 mL/min (90-130); Glucose 148 mg/dL (65-115); Osmolality Calculated 287 mOsm/kg (285-295); Sodium 137 mmol/L (136-145); Total Bilirubin 0.6 mg/dL (0.15-1.2); Troponin(5th) Baseline < 6 ng/L (0-10)
[2024-05-03 11:37] LABS: D Dimer 0.36 ug/mLFEU (0-0.59)
[2024-05-03 12:15] VITALS: BP 118/72; PULSE 83; O2SAT 99
[2024-05-03 13:10] LABS: Troponin 5 2HR Delta 0.00001 ABS# (0-10)
--- NOTE | 2024-05-03 13:10 | ECG_ITS ---
[facility] Test Date: 2024-05-03 Pat Name: Kellen Joseph Department: Room: Gender: Female Health Services Director: : 1980 Requested By: Walker Garcia Order Number: [id number] Kalia MD: Everardo Jacques M.D. Measurements Intervals [place] Rate: 73 P: 60 CT: 134 QRS: 56 QRSD: 92 T: 45 QT: 377 QTc: 417 Interpretive Statements SINUS RHYTHM Compared to ECG 05/03/2024 10:03:[address] interval no longer present Electronically Signed On 05-03-2024 22:10:50 CDT by Everardo Jacques M.D. [id number]
[2024-05-03 14:10] VITALS: BP 114/71; PULSE 76
== END 2024-05-03 14:11 | disposition home or self-care (01) ==
PROVIDERS: Emergency Provider Family Medicine; PCP Family Medicine
DX: R07.89 Other chest pain (principal); M79.89 Other specified soft tissue disorders; E10.9 Type 1 diabetes mellitus without complications; E03.9 Hypothyroidism, unspecified; J45.909 Unspecified asthma, uncomplicated; Z79.899 Other long term (current) drug therapy
CPT/HCPCS: 36415; 71045; 80053; 84484; 85025; 85378; 93005; 99285

== ENCOUNTER 2024-05-28 09:55 | Outpatient (CLI) | payer MEDICARE, SELFPAY | END 2024-05-28 09:56 | disposition home or self-care (01) | PROVIDERS: PCP Family Medicine | DX: R04.0 Epistaxis (principal) | CPT/HCPCS: 36415; 85025 ==

== ENCOUNTER 2024-05-30 10:03 | Outpatient (CLI) | payer MEDICARE, SELFPAY ==
[2024-05-30 10:53] LABS: Basophils # 0.1 10^3/uL (0.0-0.1); Eosinophils # 0.1 10^3/uL (0.0-0.8); Eosinophils % 1.5 %; Hematocrit 50.6 % (36-47); Lymphocytes # 1.5 10^3/uL (0.8-4.8); Lymphocytes % 18.7 %; Mean Corpuscular HGB Conc 31.4 g/dL (30-55); Mean Corpuscular Hemoglobin 30.2 pg (27-33); Mean Platelet Volume 10.7 fL (7.4-10.4); Monocytes # 0.6 10^3/uL (0.2-0.9); Monocytes % 7.9 %; Neutrophils # 5.51 10^3/uL (1.8-7.7); Neutrophils % 70.5 %; Nucleated Red Blood Cells % 0 %; Platelet Count 200 10^3/cmm (157-399); Red Blood Count 5.27 10^6/uL (3.85-5.65); Red Cell Distribution Width 12.8 % (12.1-15.1); White Blood Count 7.82 10^3/uL (3.29-11.43)
[2024-05-30 11:21] LABS: Alanine Aminotransferase 11 U/L (0-33); Albumin Level 4.1 g/dL (3.5-5.2); Alkaline Phosphatase 89 U/L (35-105); Anion Gap 14.1 (5-19); Aspartate Amino Transferase 11 U/L (0-32); Blood Urea Nitrogen 15 mg/dL (6-20); Calcium 8.5 mg/dL (8.5-10.5); Carbon Dioxide 21 mmol/L (22-29); Chloride 106 mmol/L (98-107); Globulin 2.7 g/dL (1.3-4.6); Glomerular Filtration Rate 92.2 mL/min (90-130); Glucose 224 mg/dL (65-115); Iron 96 ug/dL (37-145); Osmolality Calculated 292 mOsm/kg (285-295); Percent Saturation 56.1 % (20-50); Potassium 4.1 mmol/L (3.5-5.1); Sodium 137 mmol/L (136-145); Total Bilirubin 0.7 mg/dL (0.15-1.2); Total Iron Binding Capacity 171 mcg/dl; Total Protein 6.8 g/dL (6.6-8.7); Unsaturated Iron Binding 75 ug/dL (112-347)
== END 2024-05-30 10:04 | disposition home or self-care (01) ==
LOC: LAB 10:15
PROVIDERS: PCP Family Medicine
DX: R04.0 Epistaxis (principal)
CPT/HCPCS: 80053; 83540; 83550; 85025

== ENCOUNTER → 2024-06-18 12:42 | Outpatient (BNVA) | payer MEDICARE, SELFPAY | PROVIDERS: PCP Family Medicine; Referring Provider Nurse Practitioner Family; Visit Provider Nurse Practitioner | DX: M25.551 Pain in right hip; G89.29 Other chronic pain; M25.351 Other instability, right hip; Z87.828 Personal history of other (healed) physical injury and trauma | CPT/HCPCS: 73502; 99214 ==

== ENCOUNTER 2024-07-18 13:14 | Emergency (ER) | payer MEDICARE, SELFPAY ==
[2024-07-18 13:37] VITALS: BP 118/79; PULSE 85; RESP 18; TEMP 36.7; O2SAT 97; BMI 28.4
--- NOTE | 2024-07-18 13:40 | XR_ITS ---
WS: [id number] Exam: XR foot LT min 3V* [id number] Date/Time of Exam: 07/18/2024 1:41 PM Reason For Exam: injury Comparison 09/07/2020. No fracture or dislocation noted. The joints are preserved. No soft tissue foreign bodies. XR/XR foot LT min 3V* [id number] IMPRESSION: 1. Negative LEFT foot.
--- NOTE | 2024-07-18 14:27 | W.ED.EXTPRO ---
HPI - Extremity Problem General: Chief complaint: Extremity Injury, Lower Stated complaint: left foot pain/numb Time Seen by Provider: 07/18/24 14:16 Source: patient Mode of arrival: ambulatory Limitations: no limitations History of Present Illness: 43-year-old female states she had her left foot on the right pelvis last night states she had 1/5 and fourth hernia having her pain since then. States pain sharp in nature rates current pain worse with walking denies any other injuries Associated symptoms: Deny chest pain, fever(s) or rash Related Data Home Medications Medication Instructions Recorded Confirmed Probiotic Gummy 2 tab PO DAILY 07/30/20 06/18/24 montelukast 10 mg tablet 10 mg PO DAILY 07/30/20 06/18/24 (Singulair) polyethylene glycol 3350 17 8.5 g PO DAILY CONSTIPATION 07/30/20 06/18/24 gram/dose oral powder (Miralax) pantoprazole 40 mg tablet,delayed 40 mg PO DAILY 07/06/21 06/18/24 release potassium chloride 10 mEq 10 meq PO DAILY 07/06/21 06/18/24 tablet,extended release fluticasone furoate 100 1 inh inhalation DAILY 10/13/21 06/18/24 mcg-vilanterol 25 mcg/dose inhalation powder (Breo Ellipta) sumatriptan succinate 100 mg tablet See Rx Instructions PO .COMPLEX 07/20/22 06/18/24 PRN Migraine Headache insulin lispro 100 unit/mL See Rx Instructions SUBCUT TID 09/06/22 06/18/24 subcutaneous solution (Humalog U-100 Insulin) topiramate 100 mg tablet 200 mg PO DAILY 09/06/22 06/18/24 dapagliflozin propanediol 5 mg 5 mg PO DAILY 10/20/22 06/18/24 tablet (Farxiga) baclofen 5 mg tablet 10 mg PO BID 02/18/23 06/18/24 cariprazine 1.5 mg capsule 1.5 mg PO DAILY 02/18/23 06/18/24 (Vraylar) furosemide 20 mg tablet 20 mg PO DAILY 02/18/23 06/18/24 tranexamic acid 650 mg tablet 650 mg PO DIRECTED PRN Nasal 02/18/23 06/18/24 Congestion ipumxao-vab-tza J7-T0-fonytfey 250 1 tab PO DAILY 05/03/24 06/18/24 mg-40 mg-5 mg-125 unit tablet levothyroxine 125 mcg tablet 125 mcg PO DAILY 05/03/24 06/18/24 (Synthroid) Previous Rx's Medication Instructions Recorded Custom molded Orthotics #1 ea 07/06/21 COCK UP SPLINT. #1 ea 10/20/22 cetirizine 10 mg tablet 10 mg PO BID #30 tabs 05/03/24 Allergies Allergy/AdvReac Type Severity Reaction Status Date / Time cortisone Allergy Intermediate RASH Verified 06/18/24 12:47 pregabalin [From Lyrica] Allergy Mild ADR-Confusi Verified 06/18/24 12:47 on tizanidine Allergy Mild ADR-Halluci Verified 06/18/24 12:47 nating adhesive tape Allergy Unknown Verified 06/18/24 12:47 bee venom protein (honey bee) Allergy Unknown Verified 06/18/24 12:47 gabapentin Allergy ADR-Halluci Verified 06/18/24 12:47 nating guaifenesin Allergy Unknown Verified 06/18/24 12:47 promethazine [From Phenergan] Allergy Unknown Verified 06/18/24 12:47 levothyroxine AdvReac Unknown Verified 06/18/24 12:47 Allergens Allergy Unknown Uncoded 06/18/24 12:47 diltiazem Allergy Unknown Uncoded 06/18/24 12:47 Foods Allergy Unknown Uncoded 06/18/24 12:47 Review of Systems Const: Denies: fever(s), chills, body aches or change in appetite ENMT: Denies: throat pain or dental pain Card: Denies: chest pain Resp: Denies: dyspnea GI: Denies: abdominal pain, nausea, vomiting or diarrhea Musc: Reports: extremity pain; Denies: neck pain or back pain Skin/Breast: Denies: rash Neuro: Denies: headache(s) PFSH ED PFSH: Medical History Personal history of dislocation of hip Instability of right hip joint Chronic right hip pain Urinary tract infection due to extended-spectrum beta lactamase (ESBL) producing Escherichia coli Depression Obsessive-compulsive disorder Chronic anxiety Peptic ulcer disease Hypothyroidism Environmental allergies Asthma Chronic migraine Type 1 diabetes mellitus Surgical History H/O section in 2007 and in 2009 H/O colonoscopy 2016 and 2018 History of hysterectomy 2021 H/O esophagogastroduodenoscopy 2016 and 2018 H/O dilation and curettage 2015 H/O tubal ligation 2010 Family History Family/Other Cancer Aunts, uterine cancer Other CAD (coronary artery disease) Dementia Diabetes Hypertension Lung disease Stroke Denies family history of Clotting disorder Hyperlipidemia Psychiatric illness Chronic kidney disease (CKD) Suicide Anesthesia complication Bleeding disorder Social History Smoking and tobacco/nicotine status: former use of tobacco/nicotine Alcohol intake: never Substance/Drug Use: never Physical Exam Const: COMMON NORMALS: no acute distress, patient oriented x3 and healthy appearing HENMT: COMMON NORMALS: normocephalic and atraumatic HEAD & SCALP: normocephalic and atraumatic Neck/C-Spine: COMMON NORMALS: full ROM and supple Chest: COMMONS NORMALS: normal inspection of the chest Resp: COMMON NORMALS: normal respiratory effort Cardio: COMMON NORMALS: regular rate, regular rhythm and No murmurs present (Cardio) RATE: regular rate RHYTHM: regular rhythm Extremity: NARRATIVE EXTREMITY EXAM: Slight tenderness to left fourth and fifth toes no deformities noted Neuro: COMMON NORMALS: patient oriented x3, moves all extremities and no focal motor deficits Psych: COMMON NORMALS: mental status grossly normal, Normal thought process present and cooperative THOUGHT PROCESS: Normal thought process present Skin: COMMON NORMALS: no rashes or lesions noted and no wounds GENERAL SKIN EXAM: no rashes or lesions noted Course Vital Signs: Vital signs: Vital Signs Temperature 98.0 F 07/18/24 13:37 Pulse Rate 85 07/18/24 13:37 Respiratory Rate 18 07/18/24 13:37 Blood Pressure 118/79 07/18/24 13:37 Pulse Oximetry 97 07/18/24 13:37 Oxygen Delivery Me thod Room Air 07/18/24 13:37 MDM - Extremity (Nontraumatic) Medical Decision Making Patient presents with hip contusion x-ray here showed no fracture patient stable for discharge follow-up PCP return if worsening Medical Records I reviewed the patient's medical records. Lab Data Radiology Impressions Foot X-Ray 07/18/24 13:40 IMPRESSION: 1. Negative LEFT foot. All radiology interpretation(s) finalized by discharge Discharge Plan Discharge Patient Disposition: Home Clinical Impression: Contusion of toe, left Condition: Stable Prescriptions: No Action potassium chloride 10 mEq tablet extended release 10 meq PO DAILY pantoprazole 40 mg tablet,delayed release (DR/EC) 40 mg PO DAILY (DME) Custom molded Orthotics See Rx Instructions .Route .MEDSUPPLY Qty: 1 0RF Rx Instructions: As directed J P [employer] O Breo Ellipta 100-25 mcg/dose blister with device 1 inh inhalation DAILY sumatriptan succinate 100 mg tablet See Rx Instructions PO .COMPLEX PRN (Reason: Migraine Headache) Rx Instructions: take 1 tab at onset of headache; if no relief, may repeat 1 tab after at least 2 hrs; max = 2 tabs/24 hrs PO Farxiga 5 mg tablet 5 mg PO DAILY (DME) COCK UP SPLINT. See Rx Instructions .Route .MEDSUPPLY Qty: 1 0RF Rx Instructions: As directed insulin lispro [Humalog U-100 Insulin] 100 unit/mL solution See Rx Instructions SUBCUT TID Rx Instructions: sliding scale on pump. 9 unit subcutaneously at breakfast,14 units at lunch, amd 7 units with supper subcutaneously three times daily; montelukast [Singulair] 10 mg Tablet 10 mg PO DAILY polyethylene glycol 3350 [Miralax] 17 gram/dose Powder 8.5 g PO DAILY Probiotic Gummy 2 tab PO DAILY topiramate 100 mg tablet 200 mg PO DAILY Synthroid 125 mcg tablet 125 mcg PO DAILY taqgowb-jsi-qyd [id number]-oyivyobv [id number] cr-nb-iq-unit Tablet 1 tab PO DAILY cetirizine 10 mg tablet 10 mg PO BID Qty: 30 0RF baclofen 5 mg tablet 10 mg PO BID Vraylar 1.5 mg Capsule 1.5 mg PO DAILY furosemide 20 mg tablet 20 mg PO DAILY tranexamic acid 650 mg tablet 650 mg PO DIRECTED PRN (Reason: Nasal Congestion) Rx Instructions: PT TAKES FOR EPISTAXIS WHEN SHE CAN'T GET BLOOD TO CLOT Discharge Orders: Discharge ED (Routine); Ordered 07/18/24 Ordered By: Prashanth Villarreal Referrals: Nate Díaz MD [Primary Care Provider] - 4-7 days Discharge Diet: Advance as tolerated Discharge Activity: Resume usual activity Patient Instructions: Contusion in Adults (ED) Coding Level of Care Code ED Forestry Support Specialist for Álvaro Armstrong
[2024-07-18] MEDS: naproxen 500 mg Tablet PO (14:38)
[2024-07-18 14:58] VITALS: BP 131/76; PULSE 88; RESP 14; O2SAT 98
== END 2024-07-18 15:00 | disposition home or self-care (01) ==
PROVIDERS: Emergency Provider Emergency Medicine; PCP Family Medicine
DX: S90.122A Contusion of left lesser toe(s) without damage to nail, initial encounter (principal); Z79.4 Long term (current) use of insulin; Z87.891 Personal history of nicotine dependence; E10.9 Type 1 diabetes mellitus without complications; X58.XXXA Exposure to other specified factors, initial encounter
CPT/HCPCS: 73630; 99283

== ENCOUNTER 2024-07-31 15:19 | Outpatient (CLI) | payer MEDICARE, SELFPAY ==
[2024-07-31 16:21] LABS: Estmated Average Glucose 177; Hemoglobin A1C 7.8 % (4.0-6.0)
[2024-07-31 16:26] LABS: Creatinine Urine, Random 60 mg/dL (28-217); Microalbum Creatinine Ratio Ur 17 mg/dL (0-20); Microalbumin Random Urine 1 ug/dL (0-20)
[2024-07-31 16:34] LABS: Alanine Aminotransferase 13 U/L (0-33); Albumin Level 4.2 g/dL (3.5-5.2); Alkaline Phosphatase 114 U/L (35-105); Aspartate Amino Transferase 14 U/L (0-32); Blood Urea Nitrogen 16 mg/dL (6-20); Calcium 8.5 mg/dL (8.5-10.5); Carbon Dioxide 24 mmol/L (22-29); Chloride 103 mmol/L (98-107); Chol HDL Ratio 1.84 mg/dL (0.0-4.40); Cholesterol 136 mg/dL (0-200); Glucose 243 mg/dL (65-115); HDL Cholesterol 74 mg/dL (60-100); LDL Cholesterol Calculated 53 mg/dL (50-129); LDL HDL Ratio 0.72 RATIO (0.00-3.22); Osmolality Calculated 293 mOsm/kg (285-295); Sodium 137 mmol/L (136-145); Total Bilirubin 0.2 mg/dL (0.15-1.2); Total Protein 6.2 g/dL (6.6-8.7); Triglycerides 47 mg/dL (0-150)
[2024-08-04 13:59] LABS: Vit D 1,25 (Oh)2, Total 24 pg/mL (18-72); Vit D2 1,25 (Oh)2 24 pg/mL; Vit D3 1,25 (Oh)2 <8 pg/mL
== END 2024-07-31 15:20 | disposition home or self-care (01) ==
LOC: LAB 15:22
PROVIDERS: PCP Family Medicine; Visit Provider Nurse Practitioner Family
DX: E10.649 Type 1 diabetes mellitus with hypoglycemia without coma (principal); E55.9 Vitamin D deficiency, unspecified; Z13.220 Encounter for screening for lipoid disorders
CPT/HCPCS: 36415; 80053; 80061; 82044; 82652; 83036

== ENCOUNTER → 2024-09-06 14:42 | Outpatient (BNVA) | payer MEDICARE, SELFPAY | PROVIDERS: PCP Family Medicine; Visit Provider Family Medicine | DX: J06.9 Acute upper respiratory infection, unspecified (principal) | CPT/HCPCS: 87426 ==

== ENCOUNTER → 2024-09-27 14:11 | Outpatient (BNVA) | payer MEDICARE, SELFPAY | PROVIDERS: PCP Family Medicine; Visit Provider Family Medicine | DX: J06.9 Acute upper respiratory infection, unspecified (principal); R19.7 Diarrhea, unspecified | CPT/HCPCS: 87045; 87177; 87209; 87400; 87426; 87427; 87449 ==

== ENCOUNTER 2024-10-23 16:26 | Outpatient (CLI) | payer MEDICARE, SELFPAY ==
[2024-10-23 17:10] LABS: Estmated Average Glucose 157; Hemoglobin A1C 7.1 % (4.0-6.0)
[2024-10-23 17:50] LABS: Anion Gap 16.1 (5-19); Blood Urea Nitrogen 17 mg/dL (6-20); Carbon Dioxide 22 mmol/L (22-29); Chloride 105 mmol/L (98-107); Glucose 144 mg/dL (65-115); Osmolality Calculated 292 mOsm/kg (285-295); Potassium 4.1 mmol/L (3.5-5.1); Sodium 139 mmol/L (136-145); Thyroid Stimulating Hormone 0.57 uIU/mL (0.27-4.20)
[2024-10-23 21:23] LABS: Free T4 Free Thyroxine 1.19 ng/dL (0.82-1.77)
== END 2024-10-23 16:27 | disposition home or self-care (01) ==
LOC: LAB 16:27
PROVIDERS: PCP Family Medicine; Visit Provider Nurse Practitioner Family
DX: E03.8 Other specified hypothyroidism (principal); E10.649 Type 1 diabetes mellitus with hypoglycemia without coma
CPT/HCPCS: 36415; 80048; 83036; 84439; 84443

== ENCOUNTER 2024-11-07 21:04 | Emergency (ER) | payer MEDICARE, SELFPAY ==
[2024-11-07 21:06] VITALS: BP 120/67; PULSE 89; RESP 18; TEMP 36.7; O2SAT 99; BMI 28.0
[2024-11-07 21:24] LABS: Glucose Point of Care 176 mg/dL (70-110)
--- NOTE | 2024-11-07 23:09 | CTR_ITS ---
PROCEDURE INFORMATION: Exam: CTA Head With Contrast, Arteriography Exam date and time: 11/07/2024 11:25 PM Age: 43 years old Clinical indication: Headache and visual disturbance; Sudden visual loss; Additional info: Bilateral visual loss TECHNIQUE: Imaging protocol: Computed tomographic angiography of the head with contrast. Exam focused on the arteries. 3D rendering (Not supervised by radiologist): MIP and/or 3D reconstructed images were created by the technologist. Radiation optimization: All CT scans at this facility use at least one of these dose optimization techniques: automated exposure control; mA and/or kV adjustment per patient size (includes targeted exams where dose is matched to clinical indication); or iterative reconstruction. Contrast material: OMNI 350; Contrast volume: 100 ml; Contrast route: INTRAVENOUS (IV); COMPARISON: CT head wo con* [id number] 07/11/2024 23:23 RADIATION DOSE METRICS: Total DLP (mGy-cm): 441.91 FINDINGS: ANTERIOR CIRCULATION: Right internal carotid artery: Intracranial segment is patent with no significant stenosis. No aneurysm. Right middle cerebral artery: No occlusion or significant stenosis. No aneurysm. Right anterior cerebral artery: No occlusion or significant stenosis. No aneurysm. Left internal carotid artery: Intracranial segment is patent with no significant stenosis. No aneurysm. Left middle cerebral artery: No occlusion or significant stenosis. No aneurysm. Left anterior cerebral artery: No occlusion or significant stenosis. No aneurysm. POSTERIOR CIRCULATION: Right vertebral artery: No occlusion or significant stenosis. No aneurysm. Left vertebral artery: No occlusion or significant stenosis. No aneurysm. Basilar artery: No occlusion or significant stenosis. No aneurysm. Right posterior cerebral artery: No occlusion or significant stenosis. No aneurysm. Patent right posterior communicating artery, ends in PICA. Irregularity of the distal calcarine branch, suspicious for arteritis. Left posterior cerebral artery: No occlusion or significant stenosis. No aneurysm. Patent left posterior communicating artery. Irregularity of the distal calcarine branch suspicious for neuritis. Other arteries: Patent right ophthalmic artery. Brain: No definite mass, mass effect, or midline shift. Cerebral ventricles: No ventriculomegaly. Bones/joints: Unremarkable. No acute fracture. Soft tissues: Unremarkable. Other findings: Patent left ophthalmic PROCEDURE INFORMATION: Exam: CTA Neck With Contrast Exam date and time: 11/07/2024 11:25 PM Age: 43 years old Clinical indication: Headache and visual disturbance; Sudden visual loss; Additional info: Bilateral visual loss TECHNIQUE: Imaging protocol: Computed tomographic angiography of the neck with contrast. Exam focused on the cervical segments of the vasculature. 3D rendering (Not supervised by radiologist): MIP and/or 3D reconstructed images were created by the technologist. Radiation optimization: All CT scans at this facility use at least one of these dose optimization techniques: automated exposure control; mA and/or kV adjustment per patient size (includes targeted exams where dose is matched to clinical indication); or iterative reconstruction. Contrast material: OMNI 350; Contrast volume: 100 ml; Contrast route: INTRAVENOUS (IV); COMPARISON: CT head wo con* [id number] 07/11/2024 23:23 RADIATION DOSE METRICS: Total DLP (mGy-cm): 441.91 FINDINGS: Right common carotid artery: No significant stenosis. No dissection or occlusion. Right internal carotid artery: No significant stenosis of the extracranial segment. No dissection or occlusion. Right external carotid artery: No occlusion or significant stenosis of the origin. Left common carotid artery: No significant stenosis. No dissection or occlusion. Left internal carotid artery: No significant stenosis of the extracranial segment. No dissection or occlusion. Left external carotid artery: No occlusion or significant stenosis of the origin. Right vertebral artery: Distally hypoplastic, ends in PICA. No dissection or occlusion. Left vertebral artery: No significant stenosis. No dissection or occlusion. Soft tissues: No significant soft tissue swelling. Bones/joints: No acute fracture. CT/CT angio headneck* [id number] IMPRESSION: 1. No large vessel stenosis or occlusion. 2. Irregularity of the distal calcarine branches of the bilateral posterior cerebral arteries suspicious for arteritis versus artifact. IMPRESSION: Normal right and left extracranial internal carotid arteries by NASCET criteria. 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 Widely patent dominant left vertebral artery. REFERENCES: NASCET CRITERIA. The degree of stenosis in the cervical segment of the internal carotid artery is based on NASCET criteria. Normal is no stenosis. Mild is less than 50% stenosis. Moderate is 50-69% stenosis. Severe is 70% to 99% stenosis. Total occlusion is no detectable patent lumen.
--- NOTE | 2024-11-07 23:11 | CTR_ITS ---
PROCEDURE INFORMATION: Exam: CT Head Without Contrast Exam date and time: 11/07/2024 11:23 PM Age: 43 years old Clinical indication: Dizziness and visual disturbance; Additional info: Bilateral visual loss TECHNIQUE: Imaging protocol: Computed tomography of the head without contrast. Radiation optimization: All CT scans at this facility use at least one of these dose optimization techniques: automated exposure control; mA and/or kV adjustment per patient size (includes targeted exams where dose is matched to clinical indication); or iterative reconstruction. COMPARISON: CT head wo con* [id number] 07/30/2020 17:01 RADIATION DOSE METRICS: Total DLP (mGy-cm): 1149.99 FINDINGS: Brain: There is no evidence of intracranial hemorrhage. No mass effect or midline shift. No territorial edema. Unremarkable white matter. Cerebral ventricles: The ventricles and sulci are appropriate for the patient's age. Paranasal sinuses: There are no air-fluid levels. Mastoid air cells: The visualized mastoid air cells are well aerated. Orbital cavities: There is a gas bubble along the anterior aspect of the left orbital globe, favored to represent air trapped between the upper eyelid and the globe, incidental finding. However, correlate clinically with physical examination to exclude a partial scleral tear or any recent ophthalmology procedures. Bones: Unremarkable. No acute fracture. Soft tissues: Unremarkable. CT/CT head wo con* [id number] IMPRESSION: 1. No acute intracranial findings. 2. Gas under the left eyelid versus partial scleral tear. Clinical correlation with physical examination is recommended.
[2024-11-07] MEDS: iohexol 350 mg/mL 500 mL Btl (per mL) IV (23:27)
[2024-11-07 23:32] LABS: Basophils # 0.1 10^3/uL (0.0-0.1); Eosinophils # 0.2 10^3/uL (0.0-0.8); Eosinophils % 2.1 %; Hematocrit 46.5 % (36-47); Lymphocytes # 2.8 10^3/uL (0.8-4.8); Lymphocytes % 27.7 %; Mean Corpuscular Hemoglobin 29.9 pg (27-33); Mean Corpuscular Volume 93.2 fl (85-98); Mean Platelet Volume 9.7 fL (7.4-10.4); Monocytes # 0.8 10^3/uL (0.2-0.9); Monocytes % 8.2 %; Neutrophils # 6.04 10^3/uL (1.8-7.7); Neutrophils % 60.8 %; Nucleated Red Blood Cells % 0 %; Platelet Count 269 10^3/cmm (157-399); Red Blood Count 4.99 10^6/uL (3.85-5.65); Red Cell Distribution Width 12.6 % (12.1-15.1); White Blood Count 9.94 10^3/uL (3.29-11.43)
[2024-11-07 23:37] LABS: INR 1.11 (0.8-1.2)
[2024-11-07 23:38] LABS: Partial Thromboplastin Time 30.8 SECONDS (23.9-36.7)
--- NOTE | 2024-11-07 23:38 | ED_ITS ---
HPI - Eye Problem 2 General: Chief complaint: Eye Problems Stated complaint: vison loss. low BS doc sent Time Seen by Provider: 11/07/24 22:28 Source: patient Mode of arrival: ambulatory Limitations: no limitations History of Present Illness: Patient is a 43-year-old female with history of type 1 diabetes who presents the emergency department with bilateral eye burning onset earlier today. She states that prior to the burning, she had sudden unexplained onset of bilateral visual loss that lasted minutes. She states that once the burning started, she called her chief operations officer and was told to go to the ER for evaluation. She sees optometry once a year for her routine diabetic checkups, but does not see an referral specialist. She is not having any pain with extraocular movements or visual changes at this time. States that her visual acuity has been normal. She also reports that earlier today her blood glucose was low, at 59 which she states is very low for her. She says her last A1c was 7.1 which is the lowest it has been in a long time. Other than the bilateral eye burning she has no other symptoms to report at this time. No neurological deficits at time of physical exam. MD chief complaint: eye pain and vision change Onset (ago): hour(s) Onset description: sudden Duration: constant Location: both eyes Eye Symptoms: burning Mechanism: none Associated symptoms: Denies fever(s), headache(s), nausea, neck pain or vomiting Treatments Prior to Arrival: none Related Data Home Medications Medication Instructions Recorded Confirmed Probiotic Gummy 2 tab PO DAILY 07/30/20 11/08/24 montelukast 10 mg tablet 10 mg PO DAILY 07/30/20 11/08/24 (Singulair) potassium chloride 10 mEq 10 meq PO DAILY 07/06/21 11/08/24 tablet,extended release sumatriptan succinate 100 mg tablet See Rx Instructions PO .COMPLEX 07/20/22 11/08/24 PRN Migraine Headache insulin lispro 100 unit/mL See Rx Instructions SUBCUT TID 09/06/22 11/08/24 subcutaneous solution (Humalog U-100 Insulin) topiramate 100 mg tablet 200 mg PO DAILY 09/06/22 11/08/24 dapagliflozin propanediol 5 mg 5 mg PO DAILY 10/20/22 11/08/24 tablet (Farxiga) baclofen 5 mg tablet 10 mg PO BID 02/18/23 11/08/24 cariprazine 1.5 mg capsule 1.5 mg PO DAILY 02/18/23 11/08/24 (Vraylar) furosemide 20 mg tablet 20 mg PO DAILY 02/18/23 11/08/24 tranexamic acid 650 mg tablet 650 mg PO DIRECTED PRN Nasal 02/18/23 11/08/24 Congestion [id number]-kcj-cqm I4-U1-khsrcipp 250 1 tab PO DAILY 05/03/24 11/08/24 mg-40 mg-5 mg-125 unit tablet levothyroxine 125 mcg tablet 125 mcg PO DAILY 05/03/24 11/08/24 (Synthroid) buspirone 15 mg tablet 15 mg PO TID 11/08/24 11/08/24 ergocalciferol (vitamin D2) 1,250 1,250 mcg PO .Once a week 11/08/24 11/08/24 mcg (50,000 unit) capsule famotidine 40 mg tablet 40 mg PO DAILY 11/08/24 11/08/24 hydroxyzine HCl 25 mg tablet 25 mg PO TID PRN 11/08/24 11/08/24 pantoprazole 40 mg tablet,delayed 40 mg PO BID 11/08/24 11/08/24 release trazodone 100 mg tablet 100 mg PO DAILY 11/08/24 11/08/24 venlafaxine 37.5 mg tablet 37.5 mg PO BID 11/08/24 11/08/24 Previous Rx's Medication Instructions Recorded Custom molded Orthotics #1 ea 07/06/21 COCK UP SPLINT. #1 ea 10/20/22 cetirizine 10 mg tablet 10 mg PO BID #30 tabs 05/03/24 albuterol sulfate 90 mcg/actuation 2 puff inhalation Q6H PRN 09/06/24 aerosol inhaler shortness of breath or wheezing #8.5 grams propranolol 20 mg tablet 20 mg PO BID #60 tabs 11/08/24 Allergies Allergy/AdvReac Type Severity Reaction Status Date / Time cortisone Allergy Intermediate RASH Verified 11/08/24 08:27 pregabalin [From Lyrica] Allergy Mild ADR-Confusi Verified 11/08/24 08:27 on tizanidine Allergy Mild ADR-Halluci Verified 11/08/24 08:27 nating adhesive tape Allergy Unknown Verified 11/08/24 08:27 bee venom protein (honey bee) Allergy Unknown Verified 11/08/24 08:27 diltiazem Allergy Unknown Verified 11/08/24 08:27 gabapentin Allergy ADR-Halluci Verified 11/08/24 08:27 nating guaifenesin Allergy Unknown Verified 11/08/24 08:27 promethazine [From Phenergan] Allergy Unknown Verified 11/08/24 08:27 levothyroxine AdvReac Unknown Verified 11/08/24 08:27 Allergens Allergy Unknown Uncoded 11/08/24 08:27 Foods Allergy Unknown Uncoded 11/08/24 08:27 Review of Systems 2 General: Reports: 10 or more systems reviewed and unremarkable except in HPI and below Const: Denies: fever(s), chills or fatigue Eyes: Reports: change in vision and eye discomfort ENMT: Denies: throat pain, ear or mastoid pain or nasal discharge Card: Denies: chest pain, palpitations, swelling of feet/ankles or lightheadedness Resp: Denies: dyspnea, productive cough or wheezing GI: Denies: abdominal pain, nausea, vomiting, diarrhea or constipation : Denies: flank pain, difficulty voiding, dysuria or urinary frequency Musc: Denies: neck pain, back pain or joint pain Skin/Breast: Denies: rash Neuro: Denies: headache(s), numbness in extremities or weakness in extremities PFSH ED 2 PFSH: Medical History Personal history of dislocation of hip Instability of right hip joint Chronic right hip pain Urinary tract infection due to extended-spectrum beta lactamase (ESBL) producing Escherichia coli Depression Obsessive-compulsive disorder Chronic anxiety Peptic ulcer disease Hypothyroidism Environmental allergies Asthma Chronic migraine Type 1 diabetes mellitus Surgical History H/O section in 2007 and in 2009 H/O colonoscopy 2016 and 2018 History of hysterectomy 2021 H/O esophagogastroduodenoscopy 2016 and 2019 H/O dilation and curettage 2016 H/O tubal ligation 2010 Family History Family/Other Cancer Aunts, uterine cancer Other CAD (coronary artery disease) Dementia Diabetes Hypertension Lung disease Stroke Denies family history of Clotting disorder Hyperlipidemia Psychiatric illness Chronic kidney disease (CKD) Suicide Anesthesia complication Bleeding disorder Social History Smoking and tobacco/nicotine status: former use of tobacco/nicotine (quit 2016) Alcohol intake: never Substance/Drug Use: never Physical Exam 2 Const: COMMON NORMALS: no acute distress, patient oriented x3 and no limitations GENERAL APPEARANCE: cooperative, comfortable and well developed ORIENTATION/CONSCIOUSNESS: Yes awake, Yes oriented to person, Yes oriented to place and Yes oriented to time HENMT: COMMON NORMALS: normocephalic, atraumatic and hearing grossly normal bilaterally HEAD & SCALP: normocephalic and atraumatic Eye: COMMON NORMALS: Equal, round and reactive pupils present, EOMs intact bilaterally, conjunctivae normal, no scleral icterus, no papilledema, normal visual avila by confrontation and fundi normal bilaterally GENERAL EYE: a ppearance normal, both eyes and all related structures and normal light reflex VISUAL ACUITY: Yes acuity normal ALIGNMENT: Yes alignment normal P ERIORBITAL: periorbital findings normal CONJUNCTIVA: Yes conjunctivae normal PUPIL: Yes Equal, round and reactive pupils present DIRECT OPHTHALMOSCOPY: Yes normal light reflex, Yes no papilledema, Yes fundi normal bilaterally, No anterior chamber abnormal, No macular abnormality and No optic disc abnormality Neck/C-Spine: COMMON NORMALS: full ROM, supple and no JVD Resp: COMMON NORMALS: normal respiratory effort, No retractions, No use of accessory muscles and clear to auscultation bilaterally AUSCULTATION: clear to auscultation bilaterally Cardio: COMMON NORMALS: no JVD, regular rate, regular rhythm, No clicks present (Cardio), No murmurs present (Cardio) and No rub (Cardio) RATE: r egular rate RHYTHM: regular rhythm Extremity: COMMON NORMALS: normal to inspection, full ROM and capillary refill normal Neuro: COMMON NORMALS: patient oriented x3, CN's II-XII intact bilaterally, moves all extremities, no focal motor deficits and no sensory deficits noted SENSORIUM/ORIENTATION: Yes oriented to person, Yes oriented to place and Yes oriented to time Psych: COMMON NORMALS: mental status grossly normal and Normal thought process present THOUGHT PROCESS: Normal thought process present Skin: COMMON NORMALS: no rashes or lesions noted GENERAL SKIN EXAM: no rashes or lesions noted Course 2 Vital Signs: Vital signs: Vital Signs Temperature 98.1 F 11/07/24 21:06 Pulse Rate 69 11/08/24 02:10 Respiratory Rate 18 11/07/24 21:06 Blood Pressure 116/68 11/08/24 02:10 Pulse Oximetry 99 11/08/24 02:10 Oxygen Delivery Me thod Room Air 11/07/24 21:06 MDM - Eye Problem Medical Decision Making This patient presented for 1 episode earlier today of bilateral visual loss, painless. She has had some residual burning of her eyes since the incident occurred, was concerned that her blood sugar had dropped following the visual loss. She called her chief operations officer was told to come to the ER. Here she was neurologically intact, ophthalmological exam did not demonstrate any obvious severe findings. However wanted to speak to specialist, call Dr. Brown to relay this patient's case by him, he had stated with it being a bilateral visual loss to workup for TIA. CT was ordered without contrast, no acute findings. On CTA there was evidence of potentially bilateral BENDER MACHINE arteritis. Her lab work was all unremarkable. I then spoke with Dr. Lam, neurology, who had stated that no further action at this time but she would like to see this patient in her office first thing in the morning. Patient has not had any episodes of visual loss here, and treated her burning with artificial tears to see if this helps. She understands the plan for follow-up in the morning, she has seen Carole in the past for migraines and seizures. Return precautions were given, she will be discharged home at this time. Lab Data 11/07/24 23:15 11/07/24 23:15 Radiology Impressions Head/Neck CTA 11/07/24 23:09 IMPRESSION: 1. No large vessel stenosis or occlusion. 2. Irregularity of the distal calcarine branches of the bilateral posterior cerebral arteries suspicious for arteritis versus artifact. IMPRESSION: Normal right and left extracranial internal carotid arteries by NASCET criteria. 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 Widely patent dominant left vertebral artery. REFERENCES: NASCET CRITERIA. The degree of stenosis in the cervical segment of the internal carotid artery is based on NASCET criteria. Normal is no stenosis. Mild is less than 50% stenosis. Moderate is 50-69% stenosis. Severe is 70% to 99% stenosis. Total occlusion is no detectable patent lumen. ADDENDUM: 11/08/24 0100 Findings were discussed with LIAM ESCALANTE at 11/08/2024 12:59 AM LOG CARRIER OPERATOR. Head CT 11/07/24 23:11 IMPRESSION: 1. No acute intracranial findings. 2. Gas under the left eyelid versus partial scleral tear. Clinical correlation with physical examination is recommended. Laboratory Results WBC 9.94 10^3/uL (3.29-11.43) 11/07/24 23:15 RBC 4.99 10^6/uL (3.85-5.65) 11/07/24 23:15 Hgb 14.90 g/dL (11.27-16.99) 11/07/24 23:15 Hct 46.5 % (36-47) 11/07/24 23:15 MCV 93.2 fl (85-98) 11/07/24 23:15 MCH 29.9 pg (27-33) 11/07/24 23:15 MCHC 32.0 g/dL (30-55) 11/07/24 23:15 RDW 12.6 % (12.1-15.1) 11/07/24 23:15 Plt Count 269 10^3/cmm (157-399) 11/07/24 23:15 MPV 9.7 fL (7.4-10.4) 11/07/24 23:15 Neut % (Auto) 60.8 % 11/07/24 23:15 Lymph % (Auto) 27.7 % 11/07/24 23:15 [place] % (Auto) 8.2 % 11/07/24 23:15 Eos % (Auto) 2.1 % 11/07/24 23:15 Baso % (Auto) 1.0 % 11/07/24 23:15 Neut # (Auto) 6.04 10^3/uL (1.8-7.7) 11/07/24 23:15 Lymph # (Auto) 2.8 10^3/uL (0.8-4.8) 11/07/24 23:15 [place] # (Auto) 0.8 10^3/uL (0.2-0.9) 11/07/24 23:15 Eos # (Auto) 0.2 10^3/uL (0.0-0.8) 11/07/24 23:15 Baso # (Auto) 0.1 10^3/uL (0.0-0.1) 11/07/24 23:15 Nucleated RBC % (auto) 0 % 11/07/24 23:15 Nucleated RBCs # 0.0 /100WBC 11/07/24 23:15 PT 14.60 SECONDS (12.1-14.9) 11/07/24 23:15 INR 1.11 (0.8-1.2) 11/07/24 23:15 APTT 30.8 SECONDS (23.9-36.7) 11/07/24 23:15 Sodium 139 mmol/L (136-145) 11/07/24 23:15 Potassium 3.4 mmol/L (3.5-5.1) L 11/07/24 23:15 Chloride 104 mmol/L (98-107) 11/07/24 23:15 Carbon Dioxide 27 mmol/L (22-29) 11/07/24 23:15 Anion Gap 11.4 (5-19) 11/07/24 23:15 BUN 12 mg/dL (6-20) 11/07/24 23:15 Creatinine 0.7 mg/dL (0.5-0.9) 11/07/24 23:15 GFR Calculation 92.2 mL/min (90-130) 11/07/24 23:15 Glucose 100 mg/dL (65-115) 11/07/24 23:15 POC Glucose 176 mg/dL (70-110) H 11/07/24 21:10 Calculated Osmolality 288 mOsm/kg (285-295) 11/07/24 23:15 Calcium 8.8 mg/dL (8.5-10.5) 11/07/24 23:15 Total Bilirubin 0.3 mg/dL (0.15-1.2) 11/07/24 23:15 AST 13 U/L (0-32) 11/07/24 23:15 ALT 10 U/L (0-33) 11/07/24 23:15 Alkaline Phosphatase 94 U/L (35-105) 11/07/24 23:15 Total Protein 6.5 g/dL (6.6-8.7) L 11/07/24 23:15 Albumin 4.1 g/dL (3.5-5.2) 11/07/24 23:15 Globulin 2.4 g/dL (1.3-4.6) 11/07/24 23:15 All radiology interpretation(s) finalized by discharge Discharge Plan Discharge Patient Disposition: Home Clinical Impression: Transient visual loss of both eyes Condition: Stable Prescriptions: No Action potassium chloride 10 mEq tablet extended release 10 meq PO DAILY (DME) Custom molded Orthotics See Rx Instructions .Route .MEDSUPPLY Qty: 1 0RF Rx Instructions: As directed [facility] pantoprazole 40 mg tablet,delayed release (DR/EC) 40 mg PO BID sumatriptan succinate 100 mg tablet See Rx Instructions PO .COMPLEX PRN (Reason: Migraine Headache) Rx Instructions: take 1 tab at onset of headache; if no relief, may repeat 1 tab after at least 2 hrs; max = 2 tabs/24 hrs PO Farxiga 5 mg tablet 5 mg PO DAILY (DME) COCK UP SPLINT. See Rx Instructions .Route .MEDSUPPLY Qty: 1 0RF Rx Instructions: As directed propranolol 20 mg tablet 20 mg PO BID Qty: 60 5RF insulin lispro [Humalog U-100 Insulin] 100 unit/mL solution See Rx Instructions SUBCUT TID Rx Instructions: sliding scale on pump. 9 unit subcutaneously at breakfast,14 units at lunch, amd 7 units with supper subcutaneously three times daily; albuterol sulfate 90 mcg/actuation HFA aerosol inhaler 2 puff inhalation Q6H PRN (Reason: shortness of breath or wheezing) Qty: 8.5 6RF trazodone 100 mg tablet 100 mg PO DAILY ergocalciferol (vitamin D2) 1,250 mcg (50,000 unit) capsule 1,250 mcg PO .Once a week buspirone 15 mg tablet 15 mg PO TID famotidine 40 mg tablet 40 mg PO DAILY hydroxyzine HCl 25 mg tablet 25 mg PO TID PRN venlafaxine 37.5 mg tablet 37.5 mg PO BID montelukast [Singulair] 10 mg Tablet 10 mg PO DAILY Probiotic Gummy 2 tab PO DAILY topiramate 100 mg tablet 200 mg PO DAILY Synthroid 125 mcg tablet 125 mcg PO DAILY [id number] [id number] [id number] bx-do-ba-unit Tablet 1 tab PO DAILY cetirizine 10 mg tablet 10 mg PO BID Qty: 30 0RF baclofen 5 mg tablet 10 mg PO BID Vraylar 1.5 mg Capsule 1.5 mg PO DAILY furosemide 20 mg tablet 20 mg PO DAILY tranexamic acid 650 mg tablet 650 mg PO DIRECTED PRN (Reason: Nasal Congestion) Rx Instructions: PT TAKES FOR EPISTAXIS WHEN SHE CAN'T GET BLOOD TO CLOT Discharge Orders: Discharge ED (Routine); Ordered 11/08/24 Ordered By: Liam Escalante Referrals: Nate Díaz MD [Primary Care Provider] - Activity Restrictions/Additional Instructions: Follow-up with Dr. Lam, neurology, at 8 AM tomorrow morning, you may present to the medical office building as they are expecting your arrival. Please return with any new or concerning symptoms before then. Continue monitoring blood sugar closely. Coding Level of Care Code ED Director Of [employer] for Álvaro Armstrong
--- NOTE | 2024-11-07 23:42 | ECG_ITS ---
[facility] Date: 2024-11-07 Pat Name: Kellen Joseph Department: Room: Gender: Female Director Design: : 1980 Requested By: Tera King Order Number: [id number] Kalia MD: Everardo Jacques M.D. Measurements Intervals [place] Rate: 75 P: 62 ID: 120 QRS: 61 QRSD: 90 T: 52 QT: 380 QTc: 426 Interpretive Statements SINUS RHYTHM Compared to ECG 05/03/2024 13:10:54 No significant changes Electronically Signed On 11-09-2024 00:02:34 STEEL RIGGER by Everardo Jacques M.D. [email or web address]
[2024-11-07 23:46] LABS: Alanine Aminotransferase 10 U/L (0-33); Albumin Level 4.1 g/dL (3.5-5.2); Alkaline Phosphatase 94 U/L (35-105); Anion Gap 11.4 (5-19); Aspartate Amino Transferase 13 U/L (0-32); Blood Urea Nitrogen 12 mg/dL (6-20); Calcium 8.8 mg/dL (8.5-10.5); Carbon Dioxide 27 mmol/L (22-29); Chloride 104 mmol/L (98-107); Creatinine Clr Calc Pharmacy 123.8761; Globulin 2.4 g/dL (1.3-4.6); Glomerular Filtration Rate 92.2 mL/min (90-130); Glucose 100 mg/dL (65-115); Osmolality Calculated 288 mOsm/kg (285-295); Potassium 3.4 mmol/L (3.5-5.1); Sodium 139 mmol/L (136-145); Total Bilirubin 0.3 mg/dL (0.15-1.2); Total Protein 6.5 g/dL (6.6-8.7)
[2024-11-08 02:10] VITALS: BP 116/68; PULSE 69; O2SAT 99
[2024-11-08] MEDS: artificial tears Op Soln 15 mL Btl 1 DROP EYE-BOTH (02:10)
== END 2024-11-08 02:12 | disposition home or self-care (01) ==
PROVIDERS: Emergency Provider Physician Assistant; PCP Family Medicine
DX: H53.123 Transient visual loss, bilateral (principal); Z79.4 Long term (current) use of insulin; Z87.891 Personal history of nicotine dependence; E10.9 Type 1 diabetes mellitus without complications
CPT/HCPCS: 36416; 70450; 70496; 70498; 80053; 82962; 85025; 85610; 85730; 93005; 99285

== ENCOUNTER → 2024-11-08 07:45 | Outpatient (BNVA) | payer MEDICARE, SELFPAY | PROVIDERS: PCP Family Medicine; Visit Provider Specialist | DX: G43.711 Chronic migraine without aura, intractable, with status migrainosus; H53.123 Transient visual loss, bilateral | CPT/HCPCS: 99204; 99205 ==

== ENCOUNTER 2024-11-20 08:21 | Outpatient (CLI) | payer MEDICARE, SELFPAY ==
--- NOTE | 2024-11-20 08:30 | MR_ITS ---
WS: [id number] MRI HEAD WITH CONTRAST TECHNIQUE: Sagittal T1, T2 axial, T2 axial FLAIR, axial susceptibility weighted imaging, axial diffus ion weighted images, and coronal T2 images were obtained. Pre and post-T1 axial and post T1 coronal i mages. ADC and FSPGR images. 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 FINDINGS: Multiple repeat sequences performed. Some demonstrated by motion artifact. No evidence of restricted diffusion to suggest acute ischemia. Ventricular system and basal cisterns are patent. No suspicious intracranial signal abnormalities. Normal erazo-white differentiation. Georgie l posterior fossa. Normal vascular flow voids at the skull base. No extra-axial fluid collections. Mucosal thickening in the paranasal sinuses. Mastoid air cells are well aerated. No hemosiderin on th e susceptibility weighted images. No abnormal gadolinium enhancement. Normal dural venous sinuses. No other suspicious findings. Normal optic chiasm and pituitary infundibulum. MR/MR head wo/w con [id number] IMPRESSION: 1. No evidence of restricted diffusion to suggest acute ischemia. 2. No suspicious intracranial signal abnormalities. Normal erazo-white differen tiation. 3. Incidental slightly low-lying cerebellar tonsils. 4. No hemosiderin on the susceptibility weighted images. 5. No abnormal gadolinium enhancement. 6. Normal optic chiasm and pituitary infundibulum. Prechiasmatic optic nerves are normal in appearance.
--- NOTE | 2024-11-20 09:15 | MR_ITS ---
WS: [id number] MRA CAROTID WITHOUT AND WITH GADOLINIUM ENHANCEMENT TECHNIQUE: Axial 2-D TOF and gadolinium bolus images obtained with axial images and axial, sagittal, and coronal 2-D reformatted images. 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 FINDINGS: RIGHT: RIGHT common carotid artery is patent. No significant RIGHT ICA stenosis. RIGHT ICA is patent to the skull base. LEFT: LEFT common carotid artery is patent. No significant LEFT ICA stenosis. LEFT ICA is patent to t he skull base. LEFT dominant vertebral artery. Smaller but patent RIGHT vertebral artery which ends in PICA. Proxima l basilar artery is patent. Proximal subclavian arteries are patent. LEFT common carotid artery originates from the innominate. MR/MR angio neck w con* [id number] IMPRESSION: Normal neck MRA.
--- NOTE | 2024-11-20 10:00 | MR_ITS ---
WS: [id number] MRA HEAD TECHNIQUE: Axial 3-D TOF images obtained with axial images and axial, sagittal, and coronal 2-D refor matted images. 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 FINDINGS: Dominant distal LEFT vertebral artery. Tiny distal RIGHT vertebral artery predominantly ends in PICA. Proximal basilar artery is patent. Patent posterior communicating arteries bilaterally. Again seen is slight beaded irregularity in the ECOLOGICAL ECONOMIST vessels extending into the calcarine branches bi laterally. Subtle similar appearance to the anterior cerebral artery vessels. Very subtle slight bead ing irregularity involving the MCA vessels more prominent in the second and third order vessels. No e vidence of flow-limiting stenosis. Both ICAs are patent at the skull base. No evidence of flow-limiting stenosis or aneurysm. MR/MR angio head wo con [id number] IMPRESSION: 1. No evidence of flow-limiting stenosis or aneurysm. 2. Subtle slight beaded irregularity to the ECOLOGICAL ECONOMIST vessels bilaterally extending into the calcarine branches as seen on the CTA is similar in appearance. Findin gs can be seen with fibromuscular dysplasia, primary TRANSFER WORKER arteritis, and reversi ble vasoconstriction. Recommend correlation with clinical history. Some of this may be due to slight motion artifact. Consider 3-month MRA follow-up or furthe r evaluation with angiography. 3. Suspected slight involvement of the JOSEMANUEL and MCA vessels as well. 4. Dominant distal LEFT vertebral artery.
[2024-11-20] MEDS: gadobenate dimeglumine 20 mL vial 18 ML IV (10:02)
== END 2024-11-20 08:22 | disposition home or self-care (01) ==
LOC: RAD 08:21
PROVIDERS: PCP Family Medicine; Visit Provider Specialist
DX: H54.3 Unqualified visual loss, both eyes (principal); G43.711 Chronic migraine without aura, intractable, with status migrainosus; H53.123 Transient visual loss, bilateral; R93.0 Abnormal findings on diagnostic imaging of skull and head, not elsewhere classified; R93.89 Abnormal findings on diagnostic imaging of other specified body structures
CPT/HCPCS: 70544; 70548; 70553

== ENCOUNTER → 2024-12-05 15:30 | Outpatient (BNVA) | payer MEDICARE, SELFPAY | PROVIDERS: PCP Family Medicine; Visit Provider Specialist | DX: I77.3 Arterial fibromuscular dysplasia (principal); R03.0 Elevated blood-pressure reading, without diagnosis of hypertension; G43.711 Chronic migraine without aura, intractable, with status migrainosus; G45.0 Vertebro-basilar artery syndrome | CPT/HCPCS: 99215 ==

== ENCOUNTER 2025-01-17 15:24 | Outpatient (CLI) | payer MEDICARE, SELFPAY ==
[2025-01-17 17:24] LABS: Estmated Average Glucose 154
[2025-01-17 17:56] LABS: 25 Hydroxy Vitamin D 18 ng/mL (30-100); Alanine Aminotransferase 12 U/L (0-33); Albumin Level 3.9 g/dL (3.5-5.2); Alkaline Phosphatase 125 U/L (35-105); Anion Gap 10.8 (5-19); Aspartate Amino Transferase 13 U/L (0-32); Blood Urea Nitrogen 9 mg/dL (6-20); Calcium 8.7 mg/dL (8.5-10.5); Carbon Dioxide 29 mmol/L (22-29); Chloride 102 mmol/L (98-107); Globulin 2.2 g/dL (1.3-4.6); Glomerular Filtration Rate 91.8 mL/min (90-130); Glucose 186 mg/dL (65-115); Osmolality Calculated 290 mOsm/kg (285-295); Potassium 3.8 mmol/L (3.5-5.1); Sodium 138 mmol/L (136-145); Thyroid Stimulating Hormone 1.52 uIU/mL (0.27-4.20); Total Bilirubin 0.2 mg/dL (0.15-1.2); Total Protein 6.1 g/dL (6.6-8.7)
== END 2025-01-17 15:25 | disposition home or self-care (01) ==
PROVIDERS: PCP Family Medicine; Visit Provider Nurse Practitioner Family
DX: E55.9 Vitamin D deficiency, unspecified (principal); E10.649 Type 1 diabetes mellitus with hypoglycemia without coma; E03.8 Other specified hypothyroidism
CPT/HCPCS: 36415; 80053; 82306; 83036; 84443

== ENCOUNTER 2025-02-14 09:42 | Outpatient (CLI) | payer MEDICARE, SELFPAY ==
--- NOTE | 2025-02-14 10:00 | MR_ITS ---
WS: [id number] MRA ANGIOGRAPHY [place] HISTORY: I77.3 - Arterial fibromuscular dysplasia COMPARISON: None available. TECHNIQUE: 3-D MR angiography is performed of the [place]. All images are reviewed including source images. Dominant distal LEFT vertebral artery. Very small caliber distal RIGHT vertebral artery appears to end in the PICA. Normal sized basilar artery. Posterior cerebral and the posterior communicating arteries are normal. Previously described mild beading within the posterior cerebral arteries is not as evident today. Intracranial portion of the internal carotid arteries are normal course and caliber. No significant atherosclerosis, stenosis or aneurysm identified. Middle and anterior cerebral arteries are both patent with no significant disease. Anterior communicating artery is also normal. No beading or atherosclerotic disease within the middle cerebral arteries. No paucity of vessels distally. MR/MR angio head wo con [id number] IMPRESSION: 1. No definite beading within the posterior cerebral arteries or middle cerebr al arteries as previously described. There is no occlusion or stricture. No ranjeet nosis. 2. Dominant distal LEFT vertebral artery.
== END 2025-02-14 09:43 | disposition home or self-care (01) ==
LOC: RAD 09:44
PROVIDERS: PCP Family Medicine; Visit Provider Specialist
DX: I77.3 Arterial fibromuscular dysplasia (principal); R93.0 Abnormal findings on diagnostic imaging of skull and head, not elsewhere classified
CPT/HCPCS: 70544

== ENCOUNTER 2025-05-01 13:36 | Outpatient (CLI) | payer MEDICARE, SELFPAY ==
[2025-05-01 14:49] LABS: Alanine Aminotransferase 7 U/L (0-33); Albumin Level 4.1 g/dL (3.5-5.2); Alkaline Phosphatase 100 U/L (35-105); Anion Gap 13.8 (5-19); Aspartate Amino Transferase 12 U/L (0-32); Blood Urea Nitrogen 11 mg/dL (6-20); Calcium 9.1 mg/dL (8.5-10.5); Carbon Dioxide 26 mmol/L (22-29); Chloride 102 mmol/L (98-107); Free T4 Free Thyroxine 1.33 ng/dL (0.82-1.77); Globulin 2.7 g/dL (1.3-4.6); Glomerular Filtration Rate 109.6 mL/min (90-130); Glucose 146 mg/dL (65-115); Osmolality Calculated 288 mOsm/kg (285-295); Potassium 3.8 mmol/L (3.5-5.1); Sodium 138 mmol/L (136-145); Thyroid Stimulating Hormone 0.31 uIU/mL (0.27-4.20); Total Bilirubin 0.4 mg/dL (0.15-1.2); Total Protein 6.8 g/dL (6.6-8.7)
[2025-05-01 14:58] LABS: Estmated Average Glucose 157; Hemoglobin A1C 7.1 % (4.0-6.0)
[2025-05-01 15:24] LABS: 25 Hydroxy Vitamin D 17 ng/mL (30-100)
== END 2025-05-01 13:37 | disposition home or self-care (01) ==
PROVIDERS: PCP Family Medicine; Visit Provider Nurse Practitioner Family
DX: E10.649 Type 1 diabetes mellitus with hypoglycemia without coma (principal); E55.9 Vitamin D deficiency, unspecified; E03.8 Other specified hypothyroidism
CPT/HCPCS: 36415; 80053; 82306; 83036; 84439; 84443

== ENCOUNTER 2025-05-27 10:44 | Emergency (ER) | payer MEDICARE, SELFPAY ==
--- NOTE | 2025-05-27 10:54 | ECG_ITS ---
[facility] Test Date: 2025-05-27 Pat Name: Kellen Joseph Department: Room: Gender: Female Gyroscopic Instrument Tester: : 1980 Requested By: Prashanth Villarreal Order Number: [id number] Kalia MD: Trino Decker M.D. Measurements Intervals [place] Rate: 65 P: 66 [place]: 122 QRS: 60 QRSD: 102 T: 45 QT: 403 QTc: 419 Interpretive Statements SINUS RHYTHM Compared to ECG 11/07/2024 23:42:56 No significant changes Electronically Signed On 05-28-2025 08:22:08 CDT by Trino Decker M.D. [email or web address] [id number]
--- NOTE | 2025-05-27 11:04 | XR_ITS ---
WS: [id number] Exam: XR chest 1V portable [id number] Date/Time of Exam: 05/27/2025 11:36 AM Reason For Exam: cp Comparison 05/03/2024. Lungs are fully expanded and clear. Normal cardiomediastinal silhouette. Bony structures are intact. No pleural effusion. XR/XR chest 1V portable [id number] IMPRESSION: 1. Negative chest.
--- OUTSIDE RECORDS SUMMARY | 2025-05-27 11:08 | XMS_ITS | Encounter Summary ---
Author Organization [facility] Address [address] [place] [address] Care Team Providers Care Critical Care Physician Assistant Name Role Phone Nate Díaz MD Primary Care Provider [phone] Encounter Details Date Type Department Care Team (Late st Contact Info) Description 11/09/2008 Emergency [facility] Emergency Department [address] [place] [address] Ed, Physician NO ADDRESS ON FILE Mel Munoz MD [address] [place] [address] Social History Tobacco Use Types Packs/Day Years Used Date Smoking Tobacco: Never Assessed Comments Unknown Sex and Gender Information Value Date Recorded Sex Assigned at Not on file Legal Sex Female 7:10 AM MANAGER EQUITY Gender Identity Not on file Sexual Orientation Not on file documented as of this encounter Plan of Treatment Not on file documented as of this encounter Procedures Procedure Name Priority Date/Time Associated Diagnosis Comments POC GLUCOSE Routine 2008 12:44 AM MANAGER EQUITY URINALYSIS MICROSCOPY ONLY Stat 2008 12:43 AM MANAGER EQUITY URINALYSIS W/REFLEX MICROSCOPIC Stat 2008 12:43 AM MANAGER EQUITY POC GLUCOSE Routine 11/09/2008 11:04 PM MANAGER EQUITY CBC WITH DIFFERENTIAL Stat 11/09/2008 10:55 PM MANAGER EQUITY LIPASE Stat 11/09/2008 10:55 PM MANAGER EQUITY VALPROIC ACID LEVEL, TOTAL Stat 11/09/2008 10:55 PM MANAGER EQUITY COMPREHENSIVE METABOLIC PANEL Stat 11/09/2008 10:55 PM MANAGER EQUITY documented in this encounter Results * (ABNORMAL) POC GLUCOSE (2008 12:44 AM MANAGER EQUITY) GLUCOSE POC 211(H) 60 - 100 mg/dL [facility] Venous blood specimen (specimen) 2008 12:44 AM MANAGER EQUITY 2008 7:40 AM MANAGER EQUITY us Mel Munoz MD POINT OF CARE TESTING Lena l Result Performing Organization Address [facility] Phone Number INTERFACE SYSTEM Refer to clinic/hospital department [facility] CLIA# [id number] [address] [place] [address] * URINALYSIS MICROSCOPY ONLY (2008 12:43 AM MANAGER EQUITY) [facility] WBC URINE None Seen 0 - 2 [facility] RBC UA None Seen 0 - 2 [facility] BACTERIA UA None Seen None Seen [facility] Urine specimen (specimen) 2008 12:43 AM MANAGER EQUITY 2008 12:46 AM MANAGER EQUITY Narrative INTERFACE SYSTEM - 2008 1:01 AM MANAGER EQUITY Microscopic ordered by policy us Mel Munoz MD URINE ORDERABLES Final Res ult Performing Organization Address [facility] de Phone Number INTERFACE SYSTEM Refer to clinic/hospital department [facility] CLIA# [id number] [address] [place] [address] * (ABNORMAL) URINALYSIS (2008 12:43 AM MANAGER EQUITY) PH UA 5.5 5.0 - 9.0 [facility] BILIRUBIN UA NEGATIVE NEGATIVE [facility] LEUKOCYTE ESTERASE UA NEGATIVE NEGATIVE [facility] KETONES UA 40 mg/dl(A) NEGATIVE [facility] MICRO EXAM Yes(A) No [facility] COLOR UA Yellow Straw [facility] PROTEIN UA Trace(A) NEGATIVE [facility] BLOOD UA NEGATIVE NEGATIVE [facility] NITRITE UA NEGATIVE NEGATIVE [facility] UROBILINOGEN UA 0.2 0.2 [facility] CLARITY UA Clear Clear [facility] SPECIFIC GRAVITY UA >=1.030(A) <=1.005 [facility] GLUCOSE UA NEGATIVE NEGATIVE [facility] Urine specimen (specimen) 2008 12:43 AM MANAGER EQUITY 2008 12:46 AM MANAGER EQUITY us Mel Munoz MD URINE ORDERABLES Final Res ult Performing Organization Address [facility] Phone Number INTERFACE SYSTEM Refer to clinic/hospital department [facility] CLIA# [id number] [address] [place] [address] * (ABNORMAL) POC GLUCOSE (11/09/2008 11:04 PM MANAGER EQUITY) [facility] GLUCOSE POC 436(H) 60 - 100 mg/dL [facility] Venous blood specimen (specimen) 11/09/2008 11:04 PM MANAGER EQUITY 2008 7:56 AM MANAGER EQUITY us Mel Munoz MD POINT OF CARE TESTING Lena l Result Performing Organization Address [facility] Phone Number INTERFACE SYSTEM Refer to clinic/hospital department [facility] CLIA# [id number] [address] [place] [address] * (ABNORMAL) VALPROIC ACID LEVEL, TOTAL (11/09/2008 10:55 PM MANAGER EQUITY) [facility] VALPROIC ACID TOTAL 23.9(L) 50.0 - 100.0 mcg/mL [facility] Blood specimen (specimen) 11/09/2008 10:55 PM MANAGER EQUITY 11/09/2008 11:58 PM MANAGER EQUITY Mel Munoz MD CHEMISTRY ORDERABLES Final Result Performing Organization Address City/State/[facility] Co de Phone Number INTERFACE SYSTEM Refer to clinic/hospital department [facility] CLIA# [id number] [address] [place] [address] * (ABNORMAL) CBC WITH DIFFERENTIAL (11/09/2008 10:55 PM MANAGER EQUITY) [facility] MONOCYTE ABSOLUTE 0.7(H) 0.1 - 0.6 K/ul [facility] MONOCYTES 6.9 2.0 - 10.0 % [facility] WBC 10.8 4.5 - 11.0 K/ul [facility] MCH 28.8 27.0 - 34.0 pg [facility] NEUTROPHIL ABSOLUTE 9.4(H) 2.0 - 8.0 K/ul [facility] NEUTROPHILS 86.7(H) 42.2 - 75.2 % [facility] HEMATOCRIT 44.4 36.0 - 46.0 % [facility] EOSINOPHILS 0.8 0.0 - 7.0 % [facility] PLATELETS 100(L) 140 - 440 K/ul [facility] EOSINOPHIL ABSOLUTE 0.1 0.0 - 0.7 K/ul [facility] RBC 5.11 4.20 - 5.40 Mil/ul [facility] LYMPHOCYTES 5.3(L) 24.0 - 44.0 % [facility] MCHC 33.1 30.0 - 35.0 g/dL [facility] LYMPHOCYTE ABSOLUTE 0.6(L) 1.2 - 4.0 K/ul [facility] MCV 86.9 84.0 - 103.0 Fl [facility] MPV 10.5 8.9 - 12.8 Fl [facility] BASOPHILS ABSOLUTE 0.0 0.0 - 0.2 K/ul [facility] BASOPHILS 0.3 0.0 - 1.0 % [facility] HEMOGLOBIN 14.7 12.0 - 16.0 g/dL [facility] RDW 14.0 11.0 - 14.5 % [facility] Blood specimen (specimen) 11/09/2008 10:55 PM MANAGER EQUITY 11/09/2008 10:59 PM MANAGER EQUITY Mel Munoz MD HEMATOLOGY ORDERABLES Lena l Result Performing Organization Address [facility] Phone Number INTERFACE SYSTEM Refer to clinic/hospital department [facility] CLIA# [id number] [address] [place] [address] * LIPASE (11/09/2008 10:55 PM MANAGER EQUITY) LIPASE 23 6 - 51 U/L [facility] Blood specimen (specimen) 11/09/2008 10:55 PM MANAGER EQUITY 11/09/2008 10:59 PM MANAGER EQUITY Mel Munoz MD CHEMISTRY ORDERABLES Final Result Performing Organization Address [facility] Phone Number INTERFACE SYSTEM Refer to clinic/hospital department [facility] CLIA# [id number] [address] [place] [address] * (ABNORMAL) COMPREHENSIVE METABOLIC PANEL (11/09/2008 10:55 PM MANAGER EQUITY) GLOBULIN (CALC) 2.9 2.4 - 3.9 g/dL [facility] ALBUMIN 4.8 3.5 - 5.0 g/dL [facility] CREATININE 0.9 0.7 - 1.2 mg/dL [facility] ALT 17 4 - 36 IU/L [facility] CALCIUM 9.7 8.4 - 10.5 mg/dL [facility] OSMOLALITY, CALCULATED 301(H) 275 - 295 mOsm/Kg [facility] GLUCOSE 332(H) 70 - 110 mg/dL [facility] ALKALINE PHOSPHATASE 113(H) 25 - 100 U/L [facility] CHLORIDE 106 95 - 110 mEq/L [facility] ALBUMIN/GLOBULIN RATIO 1.7 1.0 - 2.3 [facility] TOTAL PROTEIN 7.7 6.3 - 8.2 g/dL [facility] SODIUM 138 136 - 145 mEq/L [facility] BILIRUBIN TOTAL 1.0 0.3 - 1.2 mg/dL [facility] BUN 21(H) 7 - 17 mg/dL [facility] CO2 24 22 - 32 mmol/l [facility] ANION GAP 13 9 - 20 mEq/L [facility] AST 22 8 - 33 U/L [facility] POTASSIUM 4.6 3.5 - 5.0 mEq/L [facility] Blood specimen (specimen) 11/09/2008 10:55 PM MANAGER EQUITY 11/09/2008 10:59 PM MANAGER EQUITY us Mel Munoz MD CHEMISTRY ORDERABLES Final Result Performing Organization Address [facility]/State/[facility] Co de Phone Number INTERFACE SYSTEM Refer to clinic/hospital department [facility] CLIA# [id number] [address] [place] [address] documented in this encounter Visit Diagnoses Not on filedocumented in this encounter Additional Health Concerns Infection Onset Date Last Indicated Resolved Time R/O COVID-19 05/20/2021 05/20/2021 05/20/2021 6:34 PM CDT COVID-19 05/20/2021 05/20/2021 06/09/2021 8:08 PM CDT documented as of this encounter Care Teams Critical Care Physician Assistant Relationship Specialty Start Date End Date Nate Díaz MD [address] [place] [phone] PCP - General Family Practice 05/20/21 documented as of this encounter
--- OUTSIDE RECORDS SUMMARY | 2025-05-27 11:08 | XMS_ITS | Encounter Summary ---
Author Organization [facility] Address [address] [place] [address] Care Team Providers Care Row Boss Name Role Phone Nate Díaz MD Primary Care Provider [phone] Reason for Referral * CT Scan (Routine) - Closed Specialty Diagnoses / Procedures Referred By Contac t Referred To Contact Radiology Diagnoses Solitary lung nodule Procedures CT CHEST HIGH RESOLUTION Tobi Hernandez FNP [address] [facility] [address] [place] [address] Phone: tel: fax: [facility] CT Scan [place] [address] [place] [address] Phone: tel: fax: Referral ID Status Reason Start Date Expiration Date V isits Requested Visits Authorized [id number] Closed [facility] View CTS to Schedule 03/05/2021 04/04/2021 1 1 Encounter Details Date Type Department Care Team (Latest Contact Info) Description 03/02/2021 Ancillary Orders [facility] Centralized Scheduling [address] [place] [address] Tobi Hernandez FNP [address] [facility] [address] [place] [address] Solitary lung nodule Social History Tobacco Use Types Packs/Day Years Used Date Smoking Tobacco: Former Cigarettes 0.5 10 0 01/20/2000 - 01/19/2010 Smokeless Tobacco: Never Alcohol Use Standard Drinks/Week Comments Yes 0 (1 standard drink = 0.6 oz pur e alcohol) rarely Comments No Sex and Gender Information Value Date Recorded Sex Assigned at Not on file 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 No / Unsure 03/02/2021 8:55 AM CDT documented as of this encounter Plan of Treatment Not on file documented as of this encounter Results * CT CHEST HIGH RESOLUTION (03/23/2021 1:18 PM CDT) Anatomical Region Laterality Modality Chest Computed Tomogra phy 03/23/2021 1:18 PM CDT Impressions 03/23/2021 2:39 PM CDT IMPRESSION: 5 mm left upper lobe pulmonary nodule. Low risk individuals with a nodule < 6mm do not require a routine follow up CT. High risk individuals can get an optional CT at 12 months. Nodules < 6 mm do not require routine follow-up, but certain patients at high risk with suspicious nodule morphology, upper lobe location, or both may warrant 12-month follow-up CT. These recommendations do not apply to patients with immunosuppression, or patients with known primary cancer. Fleischner Society guidelines 2017 [id number] Narrative 03/23/2021 2:[address] CHEST HIGH RESOLUTION Reason For Exam: See Diagnosis. Diagnosis: Solitary lung nodule. COMPARISON: 02/18/2021 TECHNIQUE: Helical scanning was obtained of the chest without intravenous contrast and reviewed in soft tissue and lung algorithm. FINDINGS: LUNGS: No focal consolidation. There is redemonstration of the 5 mm left upper lobe pulmonary nodule as seen on image 68 series 2. Left upper lobe calcified granuloma is also present. PLEURA: No pneumothorax or pleural effusion. LYMPH NODES: No pathologically enlarged mediastinal, hilar, or axillary lymph nodes. HEART: Heart size is within normal limits for age. No pericardial effusion is seen. GREAT VESSELS: Visualized portions of the aorta and main pulmonary artery are within normal limits for age. OSSEOUS STRUCTURES: No suspicious osseous lesion is seen. UPPER ABDOMEN: Within limitations of noncontrast technique the upper abdomen is unrevealing. Procedure Note Victorino Linn MD - 03/23/2021 CT CHEST HIGH RESOLUTION Reason For Exam: See Diagnosis. Diagnosis: Solitary lung nodule. COMPARISON: 02/18/2021 TECHNIQUE: Helical scanning was obtained of the chest without intravenous contrast and reviewed in soft tissue and lung algorithm. FINDINGS: LUNGS: No focal consolidation. There is redemonstration of the 5 mm left upper lobe pulmonary nodule as seen on image 68 series 2. Left upper lobe calcified granuloma is also present. PLEURA: No pneumothorax or pleural effusion. LYMPH NODES: No pathologically enlarged mediastinal, hilar, or axillary lymph nodes. HEART: Heart size is within normal limits for age. No pericardial effusion is seen. GREAT VESSELS: Visualized portions of the aorta and main pulmonary artery are within normal limits for age. OSSEOUS STRUCTURES: No suspicious osseous lesion is seen. UPPER ABDOMEN: Within limitations of noncontrast technique the upper abdomen is unrevealing. IMPRESSION: 5 mm left upper lobe pulmonary nodule. Low risk individuals with a nodule < 6mm do not require a routine follow up CT. High risk individuals can get an optional CT at 12 months. Nodules < 6 mm do not require routine follow-up, but certain patients at high risk with suspicious nodule morphology, upper lobe location, or both may warrant 12-month follow-up CT. These recommendations do not apply to patients with immunosuppression, or patients with known primary cancer. Fleischner Society guidelines 2017 [id number] us Tobi Hernandez [facility] CT ORDERABLES Final Res ult documented in this encounter Visit Diagnoses Diagnosis Solitary lung nodule Solitary pulmonary nodule Solitary lung nodule Solitary pulmonary nodule documented in this encounter Additional Health Concerns Infection Onset Date Last Indicated Resolved Time R/O COVID-19 05/20/2021 05/20/2021 05/20/2021 6:34 PM CDT COVID-19 05/20/2021 05/20/2021 06/09/2021 8:08 PM CDT documented as of this encounter Care Teams Row Boss Relationship Specialty Start Date End Date Nate Díaz MD [address] [place] [phone] PCP - General Family Practice 05/20/21 documented as of this encounter
--- OUTSIDE RECORDS SUMMARY | 2025-05-27 11:08 | XMS_ITS | Encounter Summary ---
Author Organization [facility] Address [address] [place] [address] Care Team Providers Care Historical Manuscripts Curator Name Role Phone Nate Díaz MD Primary Care Provider [phone] Encounter Details Date Type Department Care Team (Late st Contact Info) Description 04/13/2011 Ancillary Orders [facility] 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 Findings: 0.2 mL OptiMARK contrast and 5 mL Conray-60 contrast. Images confirm the injection of contrast in the hip joint. Please see the MRI of the same day. tjb - uploaded from [employer]- Procedure Note Mary Ellen Moreno MD - 04/13/2011 Exam: XR HIP 1 VW RIGHT Date/Time of Exam: April 13, 2011 01:47:00 PM History: Hip pain. Findings: 0.2 mL OptiMARK contrast and 5 mL Conray-60 contrast. Images confirm the injection of contrast in the hip joint. Please see the MRI of the same day. tjb - uploaded from [employer]- Gama Rothman MD DIAGNOSTIC IMAGING [facility] Final Result documented in this encounter Visit Diagnoses Diagnosis Hip pain Pain in joint, pelvic region and thigh Hip pain Pain in joint, pelvic region and thigh documented in this encounter Additional Health Concerns Infection Onset Date Last Indicated Resolved Time R/O COVID-19 05/20/2021 05/20/2021 05/20/2021 6:34 PM CDT COVID-19 05/20/2021 05/20/2021 06/09/2021 8:08 PM CDT documented as of this encounter Care Teams Historical Manuscripts Curator Relationship Specialty Start Date End Date Nate Díaz MD [address] [place] [address] PCP - General Family Practice 05/20/21 documented as of this encounter
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
--- OUTSIDE RECORDS SUMMARY | 2025-05-27 11:08 | XMS_ITS | Clinical Summary ---
Author Organization [facility] [address] [facility] Address [address] [place] [address] Phone Care Team Providers Care Enforcement Safety Officer Name Role Phone Nate Díaz MD Primary Care Provider [phone] Allergies Active Allergy Reactions Criticality Noted Date Comments Adhesive Tape Rash Medium 11/16/2009 Gabapentin Unknown 04/20/2021 DIDN'T FEEL RIGHT Guaifenesin-Sodium Citrate Hallucination High 2008 Promethazine Anxiety Medium 11/16/2009 Medications ALBUTEROL IN Take 2 Puffs by inhalation every 4 hours as needed. Active hydrOXYzine pamoate (VISTARIL) 25 mg Oral Cap Take 25 mg by mouth 2 times daily as needed. Active ARIPiprazole (ABILIFY) 2 mg tablet Take 2 mg by mouth daily. Active dapagliflozin (Farxiga) 5 mg Tablet Take 5 mg by mouth daily. Active ergocalciferol (Vitamin D2) 50,000 unit capsule Take 50,000 Units by mouth every 7 days. Active metoclopramide HCl (REGLAN) 10 mg tablet TAKE 1 TABLET BY MOUTH EVERY 6 HOURS NEEDED FOR NAUSEA AND VOMITING 0 Active montelukast (SINGULAIR) 10 mg tablet Take 10 mg by mouth daily. Active norethindrone-e thin. estradiol (BALZIVA, 28, ORAL) Active rOPINIRole (REQUIP) 2 mg Tablet Take 2 mg by mouth 3 times daily. Active topiramate (TOPAMAX) 100 mg tablet Take 200 mg by mouth daily. Active polyethylene glycol 3350 (MIRALAX) 17 gram/dose Powder Take 17 Grams by mouth daily. Dissolve in 8 ounces of fluid and drink entire liquid Active NOVOLOG U-100 INSULIN ASPART SUBCUT Inject by subcutaneous injection. Insulin pump 13.6 units in 24 hours basal rate. 0000-5am 0.5 units/hr 7215-8014 am 0.9units/hr 0772-6143 0.5 units/hr 1869-7361 0.9 units/hr 1929-3439 0.5units/hr Carb ratio 16 grams/unit Insulin sensitivity 60mg/unit/150 Blood glucose target 100-150mg/dL Active insulin time 4 hours Active pantoprazole (PROTONIX) 40 mg Tablet, Delayed Release (E.C.) Take 40 mg by mouth daily. Active furosemide (LASIX) 10 mg Tablet Take 10 mg by mouth daily. Active potassium chloride (KLOR-CON) 10 mEq Extended Release tablet Take 10 mEq by mouth daily with breakfast. Active ondansetron (ZOFRAN) 4 mg Tablet Take 1 Tablet (4 mg) by mouth every 6 hours as needed for Nausea/Emesis. 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 Gender Identity Not on file Sexual Orientation Not on file Last Filed Vital Signs Vital Sign Reading Time Taken Comments Blood Pressure 115/67 05/20/2021 8:35 PM CDT Pulse 85 05/20/2021 6:00 PM CDT Temperature 37.2 C (99 F) 05/20/2021 8:35 PM CDT Respiratory Rate 20 05/20/2021 8:35 PM CDT Oxygen Saturation 96% 05/20/2021 8:35 PM CDT Inhaled Oxygen Concentration - - Weight 72.6 kg (160 lb) 05/20/2021 5:32 PM CDT Height 172.7 cm (5' 8 ) 05/20/2021 5:32 PM CDT Body Mass Index 24.33 05/20/2021 5:32 PM CDT Plan of Treatment Health Maintenance Due Date Last Done Comments DIABETES ANNUAL FOOT EXAM 2000 DIABETES ANNUAL RETINAL EXAM 2000 DIABETES MICROALBUMIN ANNUAL SCREEN 2000 LDL CHOLESTEROL ANNUAL 2000 HEPATITIS B VACCINES (1 of 3 - 19+ 3-dose series) 2001 10/18/2006, 05/02/2006, 03/21/2006 HPV/Cotest (21-29) 2003 DTAP/TDAP/TD VACCINES (1 - Tdap) 03/22/2006 03/21/2006 CERVICAL CANCER SCREENING 2012 HPV/Cotest (30-65) 2012 PAP SMEAR 2012 DIABETES HBA1C Q 6 MONTHS 11/19/2021 05/20/2021 BREAST CANCER SCREENING 2022 INFLUENZA VACCINE (#1) 2025 0, 09/20/2019, 08/19/2018, Additional history exists HPV VACCINES Aged Out No longer eligi ble based on patient's age to complete this topic Procedures Procedure Name Priority Date/Time Associated Diagnosis Comments HEMOGLOBIN A1C Stat 05/20/2021 5:55 PM CDT from Last 3 Months or Most Recently Relevant to Health Maintenance Results * (ABNORMAL) HEMOGLOBIN A1C (05/20/2021 5:55 PM [...] 5.7 - 6.4% DIABETES: 6.5% OR GREATER Abram Tanner (Excluded Provider) Valery RICK CHEMISTRY ORDERABLES Final Result [facility] CLIA # [id number] [address] [place] [id number] from Last 3 Months or Most Recently Relevant to Health Maintenance Insurance [place]ICAID [place] Care Teams Enforcement Safety Officer Relationship Specialty Start Date End Date Nate Díaz MD [address] [place] [address] PCP - General Family Practice 05/20/21
[2025-05-27 11:09] VITALS: BP 128/75; PULSE 59; TEMP 36.6; O2SAT 98
--- NOTE | 2025-05-27 11:28 | W.ED.CHESTPA ---
HPI - Chest Pain General: Chief Complaint: Chest Pain Stated Complaint: cp,sob Time Seen by Provider: 05/27/25 11:28 History of Present Illness: 44-year-old female presents to the emergency room with complaint of chest comfort radiating to her back with shortness of breath and nausea. It began while she was at rest. She has no history of any arrhythmias no history of DVT or PE no history of any coronary artery disease. Patient is diabetic and is a former smoker. Patient admits to a history of anxiety issues she says this feels somewhat different. She has not taken anything for it. Associated symptoms: Deny abdominal pain, dyspnea or fever(s) Related Data Home Medications ?Medication ?Instructions ?Recorded ?Confirmed Probiotic Gummy 2 tab PO DAILY 07/30/20 02/15/25 montelukast 10 mg tablet 10 mg PO DAILY 07/30/20 02/15/25 (Singulair) potassium chloride 10 mEq 10 meq PO DAILY 07/06/21 02/15/25 tablet,extended release sumatriptan succinate 100 mg tablet See Rx Instructions PO .COMPLEX 07/20/22 02/15/25 PRN Migraine Headache insulin lispro 100 unit/mL See Rx Instructions SUBCUT TID 09/06/22 02/15/25 subcutaneous solution (Humalog U-100 Insulin) topiramate 100 mg tablet 200 mg PO DAILY 09/06/22 02/15/25 dapagliflozin propanediol 5 mg 5 mg PO DAILY 10/20/22 02/15/25 tablet (Farxiga) baclofen 5 mg tablet 10 mg PO BID 02/18/23 02/15/25 cariprazine 1.5 mg capsule 1.5 mg PO DAILY 02/18/23 02/15/25 (Vraylar) furosemide 20 mg tablet 20 mg PO DAILY 02/18/23 02/15/25 tranexamic acid 650 mg tablet 650 mg PO DIRECTED PRN Nasal 02/18/23 02/15/25 Congestion rqnkksl-bha-ztz G6-Q1-hismklul 250 1 tab PO DAILY 05/03/24 02/15/25 mg-40 mg-5 mg-125 unit tablet levothyroxine 125 mcg tablet 125 mcg PO DAILY 05/03/24 02/15/25 (Synthroid) buspirone 15 mg tablet 15 mg PO TID 11/08/24 02/15/25 ergocalciferol (vitamin D2) 1,250 1,250 mcg PO .Once a week 11/08/24 02/15/25 mcg (50,000 unit) capsule famotidine 40 mg tablet 40 mg PO DAILY 11/08/24 02/15/25 hydroxyzine HCl 25 mg tablet 25 mg PO TID PRN 11/08/24 02/15/25 pantoprazole 40 mg tablet,delayed 40 mg PO BID 11/08/24 02/15/25 release trazodone 100 mg tablet 100 mg PO DAILY 11/08/24 02/15/25 venlafaxine 37.5 mg tablet 37.5 mg PO BID 11/08/24 02/15/25 Previous Rx's ?Medication ?Instructions ?Recorded Custom molded Orthotics #1 ea 07/06/21 COCK UP SPLINT. #1 ea 10/20/22 cetirizine 10 mg tablet 10 mg PO BID #30 tabs 05/03/24 albuterol sulfate 90 mcg/actuation 2 puff inhalation Q6H PRN 09/06/24 aerosol inhaler shortness of breath or wheezing #8.5 grams galcanezumab-gnlm 120 mg/mL 120 mg SUBCUT ONCE #1 mL 11/27/24 subcutaneous syringe (Emgality) galcanezumab-gnlm 120 mg/mL 240 mg (2 mL) SUBCUT ONCE #2 mL 11/27/24 subcutaneous syringe (Emgality) Allergies Allergy/AdvReac Type Severity Reaction Status Date / Time cortisone Allergy Intermediate RASH Verified 05/27/25 11:13 pregabalin (From Lyrica) Allergy Mild ADR-Confusi Verified 05/27/25 11:13 on tizanidine Allergy Mild ADR-Halluci Verified 05/27/25 11:13 nating adhesive tape Allergy Unknown Verified 05/27/25 11:13 bee venom protein (honey bee) Allergy Unknown Verified 05/27/25 11:13 diltiazem Allergy Unknown Verified 05/27/25 11:13 gabapentin Allergy ADR-Halluci Verified 05/27/25 11:13 nating guaifenesin Allergy Unknown Verified 05/27/25 11:13 promethazine (From Phenergan) Allergy Unknown Verified 05/27/25 11:13 levothyroxine AdvReac Unknown Verified 05/27/25 11:13 Allergens Allergy Unknown Uncoded 05/27/25 11:13 Foods Allergy Unknown Uncoded 05/27/25 11:13 Review of Systems Const: Denies: fever(s) or chills Card: Denies: chest pain Resp: Denies: dyspnea GI: Denies: abdominal pain : Denies: dysuria, urinary frequency or urinary urgency Musc: Denies: neck pain or back pain Skin/Breast: Denies: rash PFSH ED PFSH: Medical History Personal history of dislocation of hip Instability of right hip joint Chronic right hip pain Urinary tract infection due to extended-spectrum beta lactamase (ESBL) producing Escherichia coli Depression Obsessive-compulsive disorder Chronic anxiety Peptic ulcer disease Hypothyroidism Environmental allergies Asthma Chronic migraine Type 1 diabetes mellitus Surgical History H/O section in 2007 and in 2009 H/O colonoscopy 2016 and 2018 History of hysterectomy 2021 H/O esophagogastroduodenoscopy 2016 and 2018 H/O dilation and curettage 2016 H/O tubal ligation 2010 Family History Family/Other Cancer Aunts, uterine cancer Other CAD (coronary artery disease) Dementia Diabetes Hypertension Lung disease Stroke Denies family history of Clotting disorder Hyperlipidemia Psychiatric illness Chronic kidney disease (CKD) Suicide Anesthesia complication Bleeding disorder Social History Smoking and tobacco/nicotine status: never used tobacco/nicotine Alcohol intake: never Substance/Drug Use: never Physical Exam Const: COMMON NORMALS: no acute distress GENERAL APPEARANCE: cooperative and comfortable ORIENTATION/CONSCIOUSNESS: Yes awake, Yes oriented to person, Yes oriented to place and Yes oriented to time HENMT: COMMON NORMALS: normocephalic, atraumatic and hearing grossly normal bilaterally HEAD & SCALP: normocephalic and atraumatic Resp: COMMON NORMALS: normal respiratory effort, No retractions, No use of accessory muscles and clear to auscultation bilaterally AUSCULTATION: clear to auscultation bilaterally Cardio: COMMON NORMALS: regular rate, regular rhythm and No murmurs present (Cardio) RATE: regular rate RHYTHM: regular rhythm GI: COMMON NORMALS: Soft to palpation and No hepatosplenomegaly present AUSCULTATION: Yes normoactive bowel sounds PALPATION: Yes Soft to palpation, No Tenderness to palpation present (GI), No Guarding due to palpation present (GI) and Yes No hepatosplenomegaly present Extremity: COMMON NORMALS: normal to inspection, capillary refill normal, no clubbing, cyanosis or edema, no calf tenderness and no pedal edema Neuro: SENSORIUM/ORIENTATION: Yes oriented to person, Yes oriented to place and Yes oriented to time Skin: COMMON NORMALS: no rashes or lesions noted GENERAL SKIN EXAM: no rashes or lesions noted Course Vital Signs: Vital signs: Vital Signs Temperature 97.9 F 05/27/25 11:09 Pulse Rate 60 05/27/25 14:55 Respiratory Rate 18 05/27/25 14:23 Blood Pressure 122/69 05/27/25 14:55 Pulse Oximetry 97 05/27/25 14:55 Oxygen Delivery Me thod Room Air 05/27/25 14:23 MDM - Chest Pain Medical Decision Making Atypical chest pain cardiac enzymes and EKG unremarkable did not show signs of acute coronary syndrome. Will discharge patient home recommend starting tiwm-lcd-daklirz Pepcid pantoprazole or omeprazole follow-up with primary care Lab Data 05/27/25 11:40 05/27/25 11:40 Radiology Impressions Chest X-Ray 05/27/25 11:04 IMPRESSION: 1. Negative chest. Laboratory Results WBC 7.62 10^3/uL (3.29-11.43) 05/27/25 11:40 RBC 4.99 10^6/uL (3.85-5.65) 05/27/25 11:40 Hgb 14.90 g/dL (11.27-16.99) 05/27/25 11:40 Hct 45.2 % (36-47) 05/27/25 11:40 MCV 90.6 fl (85-98) 05/27/25 11:40 MCH 29.9 pg (27-33) 05/27/25 11:40 MCHC 33.0 g/dL (30-55) 05/27/25 11:40 RDW 12.9 % (12.1-15.1) 05/27/25 11:40 Plt Count 238 10^3/cmm (157-399) 05/27/25 11:40 MPV 10.3 fL (7.4-10.4) 05/27/25 11:40 Neut % (Auto) 66.0 % 05/27/25 11:40 Lymph % (Auto) 23.5 % 05/27/25 11:40 Willacy % (Auto) 7.5 % 05/27/25 11:40 Eos % (Auto) 1.7 % 05/27/25 11:40 Baso % (Auto) 1.0 % 05/27/25 11:40 Neut # (Auto) 5.03 10^3/uL (1.8-7.7) 05/27/25 11:40 Lymph # (Auto) 1.8 10^3/uL (0.8-4.8) 05/27/25 11:40 Willacy # (Auto) 0.6 10^3/uL (0.2-0.9) 05/27/25 11:40 Eos # (Auto) 0.1 10^3/uL (0.0-0.8) 05/27/25 11:40 Baso # (Auto) 0.1 10^3/uL (0.0-0.1) 05/27/25 11:40 Nucleated RBC % (auto) 0 % 05/27/25 11:40 Nucleated RBCs # 0.0 /100WBC 05/27/25 11:40 PT 14.50 SECONDS (12.1-14.9) 05/27/25 11:40 INR 1.05 (0.8-1.2) 05/27/25 11:40 Sodium 138 mmol/L (136-145) 05/27/25 11:40 Potassium 4.1 mmol/L (3.5-5.1) 05/27/25 11:40 Chloride 103 mmol/L (98-107) 05/27/25 11:40 Carbon Dioxide 23 mmol/L (22-29) 05/27/25 11:40 Anion Gap 16.1 (5-19) 05/27/25 11:40 BUN 8 mg/dL (6-20) 05/27/25 11:40 Creatinine 0.6 mg/dL (0.5-0.9) 05/27/25 11:40 GFR Calculation 109.6 mL/min (90-130) 05/27/25 11:40 Glucose 149 mg/dL (65-115) H 05/27/25 11:40 Calculated Osmolality 287 mOsm/kg (285-295) 05/27/25 11:40 Calcium 9.7 mg/dL (8.5-10.5) 05/27/25 11:40 Total Bilirubin 0.7 mg/dL (0.15-1.2) 05/27/25 11:40 AST 13 U/L (0-32) 05/27/25 11:40 ALT 9 U/L (0-33) 05/27/25 11:40 Alkaline Phosphatase 81 U/L (35-105) 05/27/25 11:40 Troponin T Baseline < 6 ng/L (0-10) 05/27/25 11:40 Troponin T 120 Minute < 6.0 ng/L (0-10) 05/27/25 13:30 Delta Troponin T 0 ABS# (0-10) 05/27/25 13:30 NT-Pro-B Natriuret Pep 220 pg/mL (0-125) H 05/27/25 11:40 Total Protein 6.5 g/dL (6.6-8.7) L 05/27/25 11:40 Albumin 4.3 g/dL (3.5-5.2) 05/27/25 11:40 Globulin 2.2 g/dL (1.3-4.6) 05/27/25 11:40 All radiology interpretation(s) finalized by discharge EKG Data EKG 1: Interpretation: 05/27/2025 1054. Normal sinus rhythm no acute ST changes noted rate of 65 TN interval 122 QTc 419. Compared to EKG 11/07/2024 no changes Discharge Plan Discharge Patient Disposition: Home Clinical Impression: Atypical chest pain Condition: Stable Prescriptions: No Action potassium chloride 10 mEq tablet extended release 10 meq PO DAILY (DME) Custom molded Orthotics See Rx Instructions .Route .MEDSUPPLY Qty: 1 0RF Rx Instructions: As directed J P & O pantoprazole 40 mg tablet,delayed release (DR/EC) 40 mg PO BID sumatriptan succinate 100 mg tablet See Rx Instructions PO .COMPLEX PRN (Reason: Migraine Headache) Rx Instructions: take 1 tab at onset of headache; if no relief, may repeat 1 tab after at least 2 hrs; max = 2 tabs/24 hrs PO Farxiga 5 mg tablet 5 mg PO DAILY (DME) COCK UP SPLINT. See Rx Instructions .Route .MEDSUPPLY Qty: 1 0RF Rx Instructions: As directed insulin lispro [Humalog U-100 Insulin] 100 unit/mL solution See Rx Instructions SUBCUT TID Rx Instructions: sliding scale on pump. 9 unit subcutaneously at breakfast,14 units at lunch, amd 7 units with supper subcutaneously three times daily; albuterol sulfate 90 mcg/actuation HFA aerosol inhaler 2 puff inhalation Q6H PRN (Reason: shortness of breath or wheezing) Qty: 8.5 6RF trazodone 100 mg tablet 100 mg PO DAILY ergocalciferol (vitamin D2) 1,250 mcg (50,000 unit) capsule 1,250 mcg PO .Once a week buspirone 15 mg tablet 15 mg PO TID famotidine 40 mg tablet 40 mg PO DAILY hydroxyzine HCl 25 mg tablet 25 mg PO TID PRN venlafaxine 37.5 mg tablet 37.5 mg PO BID Emgality Syringe 120 mg/mL syringe 240 mg SUBCUT ONCE Qty: 2 0RF Rx Instructions: loading dose Emgality Syringe 120 mg/mL syringe 120 mg SUBCUT ONCE Qty: 1 5RF montelukast [Singulair] 10 mg Tablet 10 mg PO DAILY Probiotic Gummy 2 tab PO DAILY topiramate 100 mg tablet 200 mg PO DAILY Synthroid 125 mcg tablet 125 mcg PO DAILY [id number] [id number]-atxuczmm [id number] pk-bc-zl-unit Tablet 1 tab PO DAILY cetirizine 10 mg tablet 10 mg PO BID Qty: 30 0RF baclofen 5 mg tablet 10 mg PO BID Vraylar 1.5 mg Capsule 1.5 mg PO DAILY furosemide 20 mg tablet 20 mg PO DAILY tranexamic acid 650 mg tablet 650 mg PO DIRECTED PRN (Reason: Nasal Congestion) Rx Instructions: PT TAKES FOR EPISTAXIS WHEN SHE CAN'T GET BLOOD TO CLOT Discharge Orders: Discharge ED (Routine); Ordered 05/27/25 Ordered By: Walker Trujillo Referrals: Nate Díaz MD [Primary Care Provider, Family Practice] Discharge Diet: Usual diet Discharge Activity: Resume usual activity Patient Instructions: Diet for Stomach Ulcers and Gastritis (ED), GERD (Gastroesophageal Reflux Disease) (ED), Opioid Safety, Pain Management, Patient Portal & Gerald Instructions Activity Restrictions/Additional Instructions: Thank you for choosing [facility] for your healthcare needs today. It is very important that you follow up as instructed or that you return to the Emergency Department should you have concerns or if your condition changes or worsens in any way. You are seen in the emergency room chest discomfort. Your EKGs cardiac enzymes chest x-ray were all normal. There is no sign of pneumonia pneumothorax cardiac event or pulmonary embolism. Based on your description of symptoms suspect some of this may be GI related we will have you stop the famotidine and start pantoprazole 1 pill twice a day for 10 days then 1 pill daily follow-up with your primary care doctor. Print Language: Lithuanian Coding Level of Care Code ED Welfare Manager for Álvaro Armstrong
[2025-05-27 11:53] LABS: Hematocrit 45.2 % (36-47); Hemoglobin 14.90 g/dL (11.27-16.99); Mean Corpuscular HGB Conc 33.0 g/dL (30-55); Mean Corpuscular Hemoglobin 29.9 pg (27-33); Mean Corpuscular Volume 90.6 fl (85-98); Nucleated Red Blood Cells % 0 %; Platelet Count 238 10^3/cmm (157-399); Red Blood Count 4.99 10^6/uL (3.85-5.65); White Blood Count 7.62 10^3/uL (3.29-11.43)
[2025-05-27 12:04] LABS: INR 1.05 (0.8-1.2); Prothrombin Time 14.50 SECONDS (12.1-14.9)
[2025-05-27 12:14] LABS: Troponin(5th) Baseline < 6 ng/L (0-10)
[2025-05-27 12:27] LABS: Alanine Aminotransferase 9 U/L (0-33); Albumin Level 4.3 g/dL (3.5-5.2); Alkaline Phosphatase 81 U/L (35-105); Anion Gap 16.1 (5-19); Aspartate Amino Transferase 13 U/L (0-32); Blood Urea Nitrogen 8 mg/dL (6-20); Calcium 9.7 mg/dL (8.5-10.5); Carbon Dioxide 23 mmol/L (22-29); Chloride 103 mmol/L (98-107); Creatinine Clr Calc Pharmacy 144.8117; Globulin 2.2 g/dL (1.3-4.6); Glucose 149 mg/dL (65-115); NT Pro B Type Natriuretic Pept 220 pg/mL (0-125); Osmolality Calculated 287 mOsm/kg (285-295); Potassium 4.1 mmol/L (3.5-5.1); Sodium 138 mmol/L (136-145); Total Protein 6.5 g/dL (6.6-8.7)
[2025-05-27 13:54] LABS: Troponin 5 2HR < 6.0 ng/L (0-10); Troponin 5 2HR Delta 0 ABS# (0-10)
[2025-05-27 14:23] VITALS: BP 128/86; PULSE 65; RESP 18; O2SAT 99
[2025-05-27 14:55] VITALS: BP 122/69; PULSE 60; O2SAT 97
== END 2025-05-27 14:57 | disposition home or self-care (01) ==
PROVIDERS: Emergency Medicine; Emergency Provider Family Medicine; PCP Family Medicine
DX: R07.89 Other chest pain (principal); E10.9 Type 1 diabetes mellitus without complications
CPT/HCPCS: 36415; 71045; 80053; 83880; 84484; 85025; 85610; 93005; 99285; J9999

== ENCOUNTER → 2025-06-11 16:39 | Outpatient (BNVA) | payer MEDICARE, SELFPAY | PROVIDERS: PCP Family Medicine; Visit Provider Family Medicine | DX: R30.0 Dysuria (principal) | CPT/HCPCS: 81000; 87086 ==

== ENCOUNTER → 2025-06-27 08:55 | Outpatient (BNVA) | payer MEDICARE, SELFPAY | PROVIDERS: PCP Family Medicine; Visit Provider Podiatrist Foot & Ankle Surgery | DX: L60.0 Ingrowing nail (principal); L60.3 Nail dystrophy; E10.69 Type 1 diabetes mellitus with other specified complication; L84 Corns and callosities; Z79.4 Long term (current) use of insulin | CPT/HCPCS: 11056; 11750; J9999 ==

== ENCOUNTER 2025-07-02 11:26 | Outpatient (CLI) | payer MEDICARE, SELFPAY ==
--- NOTE | 2025-07-02 12:15 | US_ITS ---
WS: [id number] RENAL ULTRASOUND URINARY BLADDER ULTRASOUND HISTORY: Dysuria, flank pain [address] COMPARISON: None available. TECHNIQUE: 2-D and color Doppler imaging of the kidney submitted. Right kidney: 10.4 cm x 4.6 cm x 5.0 cm. Normal echogenicity with no hydronephrosis or mass. Left kidney: 10.2 cm x 5.1 cm x 5.7 cm. Normal echogenicity with no hydronephrosis or mass. Aorta: Normal. Urinary Bladder: Normal distention. No intraluminal filling defect or mass. Prevoid volume: 423 mL. Post void volume: 10 mL. US/US renal BI with PV bladder IMPRESSION: 1. Normal renal ultrasound. 2. No renal obstruction or mass. 3. No significant post void urinary bladder residual.
== END 2025-07-02 11:27 | disposition home or self-care (01) ==
LOC: RAD 11:27
PROVIDERS: PCP Family Medicine; Visit Provider Family Medicine
DX: R10.9 Unspecified abdominal pain (principal); R35.0 Frequency of micturition
CPT/HCPCS: 76770; 76857

== ENCOUNTER → 2025-07-05 13:45 | Outpatient (BNVA) | payer MEDICARE, SELFPAY | PROVIDERS: PCP Family Medicine; Visit Provider Podiatrist Foot & Ankle Surgery | DX: E10.69 Type 1 diabetes mellitus with other specified complication (principal); Z98.890 Other specified postprocedural states; Z79.4 Long term (current) use of insulin | CPT/HCPCS: 99213 ==

== ENCOUNTER → 2025-07-11 07:15 | Outpatient (BNVA) | payer MEDICARE, SELFPAY | PROVIDERS: PCP Family Medicine; Visit Provider Podiatrist Foot & Ankle Surgery | DX: E10.69 Type 1 diabetes mellitus with other specified complication (principal); Z98.890 Other specified postprocedural states; Z79.4 Long term (current) use of insulin; L60.3 Nail dystrophy | CPT/HCPCS: 99213 ==

== ENCOUNTER → 2025-07-25 07:01 | Outpatient (BNVA) | payer MEDICARE, SELFPAY ==
[2025-07-25 12:15] LABS: Estmated Average Glucose 146; Hemoglobin A1C 6.7 % (4.0-6.0)
[2025-07-25 12:36] LABS: Alanine Aminotransferase 8 U/L (0-33); Albumin Level 4.2 g/dL (3.5-5.2); Alkaline Phosphatase 86 U/L (35-105); Anion Gap 15.7 (5-19); Aspartate Amino Transferase 13 U/L (0-32); Blood Urea Nitrogen 13 mg/dL (6-20); Calcium 8.7 mg/dL (8.5-10.5); Carbon Dioxide 18 mmol/L (22-29); Chloride 108 mmol/L (98-107); Free T4 Free Thyroxine 1.39 ng/dL (0.82-1.77); Globulin 2.6 g/dL (1.3-4.6); Glucose 204 mg/dL (65-115); Osmolality Calculated 292 mOsm/kg (285-295); Potassium 3.7 mmol/L (3.5-5.1); Sodium 138 mmol/L (136-145); Thyroid Stimulating Hormone 0.68 uIU/mL (0.27-4.20); Total Protein 6.8 g/dL (6.6-8.7)
== END ==
LOC: PODOACUTE 07-26 08:58
PROVIDERS: Absent Provider Nurse Practitioner Family; PCP Family Medicine; Visit Provider Podiatrist Foot & Ankle Surgery
DX: L60.0 Ingrowing nail (principal); E10.8 Type 1 diabetes mellitus with unspecified complications; E55.9 Vitamin D deficiency, unspecified; E03.8 Other specified hypothyroidism; E10.69 Type 1 diabetes mellitus with other specified complication; L60.3 Nail dystrophy; Z79.4 Long term (current) use of insulin
CPT/HCPCS: 11750; 36415; 80053; 82306; 83036; 84439; 84443; 99213; J9999

== ENCOUNTER 2025-08-05 09:25 | Emergency (ER) | payer MEDICARE, SELFPAY ==
[2025-08-05 09:31] VITALS: BP 120/67; PULSE 81; RESP 16; TEMP 36.8; O2SAT 98; BMI 27.4
--- OUTSIDE RECORDS SUMMARY | 2025-08-05 09:43 | XMS_ITS | Encounter Summary ---
Author Organization [facility] Address [address] [place] [address] Care Team Providers Care Protective Service Specialist Name Role Phone Nate Díaz MD Primary Care Provider [phone] Reason for Referral * CT Scan (Routine) - Closed Specialty Diagnoses / Procedures Referred By Contac t Referred To Contact Radiology Diagnoses Solitary lung nodule Procedures CT CHEST HIGH RESOLUTION Tobi Hernandez FNP [address] [facility] [address] [place] [address] Phone: tel: fax: [facility] CT Scan [place] [address] [place] [address] Phone: tel: fax: Referral ID Status Reason Start Date Expiration Date V isits Requested Visits Authorized [id number] Closed [facility] View CTS to Schedule 03/05/2021 04/04/2021 1 1 Encounter Details Date Type Department Care Team (Latest Contact Info) Description 03/02/2021 Ancillary Orders [facility] Centralized Scheduling [address] [place] [address] Tobi Hernandez FNP [address] [facility] [address] [place] [address] Solitary lung nodule Social History Tobacco Use Types Packs/Day Years Used Date Smoking Tobacco: Former Cigarettes 0.5 10 0 01/20/2000 - 01/19/2010 Smokeless Tobacco: Never Alcohol Use Standard Drinks/Week Comments Yes 0 (1 standard drink = 0.6 oz pur e alcohol) rarely Comments No Sex and Gender Information Value Date Recorded Sex Assigned at Not on file 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 Fleischner Society guidelines 2017 [id number] Narrative 03/23/2021 2:[address] CHEST [...] known primary cancer. Fleischner Society guidelines 2017 [id number] us Tobi Hernandez [facility] CT ORDERABLES Final Res ult documented in this encounter Visit Diagnoses Diagnosis Solitary lung nodule Solitary pulmonary nodule Solitary lung nodule Solitary pulmonary nodule documented in this encounter Additional Health Concerns Infection Onset Date Last Indicated Resolved Time R/O COVID-19 05/20/2021 05/20/2021 05/20/2021 6:34 PM CDT COVID-19 05/20/2021 05/20/2021 06/09/2021 8:08 PM CDT documented as of this encounter Care Teams Protective Service Specialist Relationship Specialty Start Date End Date Nate Díaz MD [address] [place] [phone] PCP - General Family Practice 05/20/21 documented as of this encounter
--- OUTSIDE RECORDS SUMMARY | 2025-08-05 09:44 | XMS_ITS | Encounter Summary ---
Author Organization [facility] Address [address] [place] [address] Care Team Providers Care Product Advisor Name Role Phone Nate Díaz MD Primary Care Provider [phone] Encounter Details Date Type Department Care Team (Late st Contact Info) Description 11/09/2008 Emergency [facility] Emergency Department [address] [place] [address] Ed, Physician NO ADDRESS ON FILE Mel Munoz MD [address] [place] [address] Social History Tobacco Use Types Packs/Day Years Used Date Smoking Tobacco: Never Assessed Comments Unknown Sex and Gender Information Value Date Recorded Sex Assigned at Not on file 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 Gender Identity Not on file Sexual Orientation Not on file documented as of this encounter Plan of Treatment Not on file documented as of this encounter Procedures Procedure Name Priority Date/Time Associated Diagnosis Comments POC GLUCOSE Routine 2008 12:44 AM GAS DISTRIBUTION SUPERVISOR URINALYSIS MICROSCOPY ONLY Stat 2008 12:43 AM GAS DISTRIBUTION SUPERVISOR URINALYSIS W/REFLEX MICROSCOPIC Stat 2008 12:43 AM GAS DISTRIBUTION SUPERVISOR POC GLUCOSE Routine 11/09/2008 11:04 PM GAS DISTRIBUTION SUPERVISOR CBC WITH DIFFERENTIAL Stat 11/09/2008 10:55 PM GAS DISTRIBUTION SUPERVISOR LIPASE Stat 11/09/2008 10:55 PM GAS DISTRIBUTION SUPERVISOR VALPROIC ACID LEVEL, TOTAL Stat 11/09/2008 10:55 PM GAS DISTRIBUTION SUPERVISOR COMPREHENSIVE METABOLIC PANEL Stat 11/09/2008 10:55 PM GAS DISTRIBUTION SUPERVISOR documented in this encounter Results * (ABNORMAL) POC GLUCOSE (2008 12:44 AM GAS DISTRIBUTION SUPERVISOR) GLUCOSE POC 211(H) 60 - 100 mg/dL [facility] Venous blood specimen (specimen) 2008 12:44 AM GAS DISTRIBUTION SUPERVISOR 2008 7:40 AM GAS DISTRIBUTION SUPERVISOR us Mel Munoz MD POINT OF CARE TESTING Lena l Result Performing Organization Address [facility] Phone Number INTERFACE SYSTEM Refer to clinic/hospital department [facility] CLIA# [id number] [address] [place] [address] * URINALYSIS MICROSCOPY ONLY (2008 12:43 AM GAS DISTRIBUTION SUPERVISOR) [facility] WBC URINE None Seen 0 - 2 [facility] RBC UA None Seen 0 - 2 [facility] BACTERIA UA None Seen None Seen [facility] Urine specimen (specimen) 2008 12:43 AM GAS DISTRIBUTION SUPERVISOR 2008 12:46 AM GAS DISTRIBUTION SUPERVISOR Narrative INTERFACE SYSTEM - 2008 1:01 AM GAS DISTRIBUTION SUPERVISOR Microscopic ordered by policy us Mel Munoz MD URINE ORDERABLES Final Res ult Performing Organization Address [facility] de Phone Number INTERFACE SYSTEM Refer to clinic/hospital department [facility] CLIA# [id number] [address] [place] [address] * (ABNORMAL) URINALYSIS (2008 12:43 AM GAS DISTRIBUTION SUPERVISOR) PH UA 5.5 5.0 - 9.0 [facility] BILIRUBIN UA NEGATIVE NEGATIVE [facility] LEUKOCYTE ESTERASE UA NEGATIVE NEGATIVE [facility] KETONES UA 40 mg/dl(A) NEGATIVE [facility] MICRO EXAM Yes(A) No [facility] COLOR UA Yellow Straw [facility] PROTEIN UA Trace(A) NEGATIVE [facility] BLOOD UA NEGATIVE NEGATIVE [facility] NITRITE UA NEGATIVE NEGATIVE [facility] UROBILINOGEN UA 0.2 0.2 [facility] CLARITY UA Clear Clear [facility] SPECIFIC GRAVITY UA >=1.030(A) <=1.005 [facility] GLUCOSE UA NEGATIVE NEGATIVE [facility] Urine specimen (specimen) 2008 12:43 AM GAS DISTRIBUTION SUPERVISOR 2008 12:46 AM GAS DISTRIBUTION SUPERVISOR us Mel Munoz MD URINE ORDERABLES Final Res ult Performing Organization Address [facility] Phone Number INTERFACE SYSTEM Refer to clinic/hospital department [facility] CLIA# [id number] [address] [place] [address] * (ABNORMAL) POC GLUCOSE (11/09/2008 11:04 PM GAS DISTRIBUTION SUPERVISOR) [facility] GLUCOSE POC 436(H) 60 - 100 mg/dL [facility] Venous blood specimen (specimen) 11/09/2008 11:04 PM GAS DISTRIBUTION SUPERVISOR 2008 7:56 AM GAS DISTRIBUTION SUPERVISOR us Mel Munoz MD POINT OF CARE TESTING Lena l Result Performing Organization Address [facility] Phone Number INTERFACE SYSTEM Refer to clinic/hospital department [facility] CLIA# [id number] [address] [place] [address] * (ABNORMAL) VALPROIC ACID LEVEL, TOTAL (11/09/2008 10:55 PM GAS DISTRIBUTION SUPERVISOR) [facility] VALPROIC ACID TOTAL 23.9(L) 50.0 - 100.0 mcg/mL [facility] Blood specimen (specimen) 11/09/2008 10:55 PM GAS DISTRIBUTION SUPERVISOR 11/09/2008 11:58 PM GAS DISTRIBUTION SUPERVISOR Mel Munoz MD CHEMISTRY ORDERABLES Final Result Performing Organization Address City/State/[facility] Co de Phone Number INTERFACE SYSTEM Refer to clinic/hospital department [facility] CLIA# [id number] [address] [place] [address] * (ABNORMAL) CBC WITH DIFFERENTIAL (11/09/2008 10:55 PM GAS DISTRIBUTION SUPERVISOR) [facility] MONOCYTE ABSOLUTE 0.7(H) 0.1 - 0.6 K/ul [facility] MONOCYTES 6.9 2.0 - 10.0 % [facility] WBC 10.8 4.5 - 11.0 K/ul [facility] MCH 28.8 27.0 - 34.0 pg [facility] NEUTROPHIL ABSOLUTE 9.4(H) 2.0 - 8.0 K/ul [facility] NEUTROPHILS 86.7(H) 42.2 - 75.2 % [facility] HEMATOCRIT 44.4 36.0 - 46.0 % [facility] EOSINOPHILS 0.8 0.0 - 7.0 % [facility] PLATELETS 100(L) 140 - 440 K/ul [facility] EOSINOPHIL ABSOLUTE 0.1 0.0 - 0.7 K/ul [facility] RBC 5.11 4.20 - 5.40 Mil/ul [facility] LYMPHOCYTES 5.3(L) 24.0 - 44.0 % [facility] MCHC 33.1 30.0 - 35.0 g/dL [facility] LYMPHOCYTE ABSOLUTE 0.6(L) 1.2 - 4.0 K/ul [facility] MCV 86.9 84.0 - 103.0 Fl [facility] MPV 10.5 8.9 - 12.8 Fl [facility] BASOPHILS ABSOLUTE 0.0 0.0 - 0.2 K/ul [facility] BASOPHILS 0.3 0.0 - 1.0 % [facility] HEMOGLOBIN 14.7 12.0 - 16.0 g/dL [facility] RDW 14.0 11.0 - 14.5 % [facility] Blood specimen (specimen) 11/09/2008 10:55 PM GAS DISTRIBUTION SUPERVISOR 11/09/2008 10:59 PM GAS DISTRIBUTION SUPERVISOR Mel Munoz MD HEMATOLOGY ORDERABLES Lena l Result Performing Organization Address [facility] Phone Number INTERFACE SYSTEM Refer to clinic/hospital department [facility] CLIA# [id number] [address] [place] [address] * LIPASE (11/09/2008 10:55 PM GAS DISTRIBUTION SUPERVISOR) LIPASE 23 6 - 51 U/L [facility] Blood specimen (specimen) 11/09/2008 10:55 PM GAS DISTRIBUTION SUPERVISOR 11/09/2008 10:59 PM GAS DISTRIBUTION SUPERVISOR Mel Munoz MD CHEMISTRY ORDERABLES Final Result Performing Organization Address [facility] Phone Number INTERFACE SYSTEM Refer to clinic/hospital department [facility] CLIA# [id number] [address] [place] [address] * (ABNORMAL) COMPREHENSIVE METABOLIC PANEL (11/09/2008 10:55 PM GAS DISTRIBUTION SUPERVISOR) GLOBULIN (CALC) 2.9 2.4 - 3.9 g/dL [facility] ALBUMIN 4.8 3.5 - 5.0 g/dL [facility] CREATININE 0.9 0.7 - 1.2 mg/dL [facility] ALT 17 4 - 36 IU/L [facility] CALCIUM 9.7 8.4 - 10.5 mg/dL [facility] OSMOLALITY, CALCULATED 301(H) 275 - 295 mOsm/Kg [facility] GLUCOSE 332(H) 70 - 110 mg/dL [facility] ALKALINE PHOSPHATASE 113(H) 25 - 100 U/L [facility] CHLORIDE 106 95 - 110 mEq/L [facility] ALBUMIN/GLOBULIN RATIO 1.7 1.0 - 2.3 [facility] TOTAL PROTEIN 7.7 6.3 - 8.2 g/dL [facility] SODIUM 138 136 - 145 mEq/L [facility] BILIRUBIN TOTAL 1.0 0.3 - 1.2 mg/dL [facility] BUN 21(H) 7 - 17 mg/dL [facility] CO2 24 22 - 32 mmol/l [facility] ANION GAP 13 9 - 20 mEq/L [facility] AST 22 8 - 33 U/L [facility] POTASSIUM 4.6 3.5 - 5.0 mEq/L [facility] Blood specimen (specimen) 11/09/2008 10:55 PM GAS DISTRIBUTION SUPERVISOR 11/09/2008 10:59 PM GAS DISTRIBUTION SUPERVISOR us Mel Munoz MD CHEMISTRY ORDERABLES Final Result Performing Organization Address [facility]/State/[facility] Co de Phone Number INTERFACE SYSTEM Refer to clinic/hospital department [facility] CLIA# [id number] [address] [place] [address] documented in this encounter Visit Diagnoses Not on filedocumented in this encounter Additional Health Concerns Infection Onset Date Last Indicated Resolved Time R/O COVID-19 05/20/2021 05/20/2021 05/20/2021 6:34 PM CDT COVID-19 05/20/2021 05/20/2021 06/09/2021 8:0 8 PM CDT documented as of this encounter Care Teams Product Advisor Relationship Specialty Start Date End Date Nate Díaz MD [address] [place] [phone] PCP - General Family Practice 05/20/21 documented as of this encounter
--- OUTSIDE RECORDS SUMMARY | 2025-08-05 09:44 | XMS_ITS | Encounter Summary ---
Author Organization [facility] Address [address] [place] [address] Care Team Providers Care Bombsight Specialist Name Role Phone Nate Díaz MD Primary Care Provider [phone] Encounter Details Date Type Department Care Team (Late st Contact Info) Description 04/13/2011 Ancillary Orders [facility] Orthoped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 [email or web address] - uploaded from [employer]- Procedure Note Mary Ellen Moreno MD - 04/13/2011 Exam: XR HIP 1 VW RIGHT Date/Time of Exam: April 13, 2011 01:47:00 PM History: Hip pain. Findings: 0.2 mL OptiMARK contrast and 5 mL Conray-60 contrast. Images confirm the injection of contrast in the hip joint. Please see the MRI of the same day. tjb - uploaded from [employer]- Gama Rothman MD DIAGNOSTIC IMAGING GEOFF GRIFFIN [...] documented as of this encounter Care Teams Bombsight Specialist Relationship Specialty Start Date End Date Nate Díaz MD [address] [place] [address] PCP - General Family Practice 05/20/21 documented as of this encounter
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
--- OUTSIDE RECORDS SUMMARY | 2025-08-05 09:44 | XMS_ITS | Clinical Summary ---
Author Organization [facility] [address] [facility] Address [address] [place] [address] Phone Care Team Providers Care Credit Assessment Analyst Name Role Phone Nate Díaz MD Primary Care Provider [phone] Allergies Active Allergy Reactions Criticality Noted Date [...] 24 hours basal rate. 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 Gender Identity Not on file Sexual Orientation [...] 2003 DTAP/TDAP/TD VACCINES (1 - Tdap) 03/22/2006 03/21/20 06 HPV VACCINES (1 - 3-dose SCD M series) 2009 CERVICAL CANCER SCREENING 2012 HPV/Cotest (30-65) 2012 PAP SMEAR 2012 DIABETES HBA1C Q 6 MONTHS 11/19/2021 05/20/2021 BREAST CANCER SCREENING 2022 INFLUENZA VACCINE (#1) 2025 0, 09/20/2019, 08/19/2018, Additional history exists Procedures Procedure Name Priority Date/Time Associated Diagnosis Comments HEMOGLOBIN A1C Stat 05/20/2021 5:55 PM CDT from Last 3 Months or Most Recently Relevant to Health Maintenance Results * (ABNORMAL) HEMOGLOBIN A1C (05/20/2021 5:55 PM CDT) HEMOGLOBIN A1C 8.0(H) <=5.6 % 05/20/2021 6:46 PM CDT [facility] EST. AVG GLUCOSE, A1C 183 mg/dL 05/20/2021 6:46 PM CDT [facility] Blood BLOOD SPECIMEN / Unknown Collection / Unknown 05/20/2021 5:55 PM CDT 05/20/2021 6:08 PM CDT Narrative [facility] - 05/20/2021 6:46 PM CDT HGB A1C INTERPRETATION NORMAL: <5.7% PRE-DIABETES: 5.7 - 6.4% DIABETES: 6.5% OR GREATER Abram Tanner (Excluded Provider) Valery RICK CHEMISTRY ORDERABLES Final Result [facility] CLIA # [id number] [address] [place] [address] [phone] from Last 3 Months or Most Recently Relevant to Health Maintenance Insurance [place] Care Teams Credit Assessment Analyst Relationship Specialty Start Date End Date Nate Díaz MD [address] [place] [address] PCP - General Family Practice 05/20/21
--- NOTE | 2025-08-05 10:39 | ECG_ITS ---
[facility] 2025-[facility]05 Pat Name: Kellen Joseph Department: Room: Gender: Female Rectifying Operator: : 1980 Requested By: Walker Garcia Order Number: [id number] Kalia MD: Everardo Jacques M.D. Measurements Intervals Viola Rate: 80 P: 74 GA: 97 QRS: 66 QRSD: 89 T: 53 QT: 347 QTc: 402 Interpretive Statements SINUS RHYTHM WITH SINUS ARRHYTHMIA WITH SHORT GA INTERVAL Compared to ECG 05/27/2025 10:54:49 Short GA interval now present Electronically Signed On 08-06-2025 08:01:43 CDT by Everardo Jacques M.D. [email or web address]
--- NOTE | 2025-08-05 10:40 | XR_ITS ---
WS: [id number] XR chest 1V portable [id number] REASON FOR EXAM: dyspnea/cough FINDINGS: Chest is unchanged compared to 05/27/2025. The heart and mediastinum are within normal limits. Calcified granulomatous disease bilaterally. No acute pulmonary parenchymal or pleural abnormality. Bony thorax is intact without focal abnormality. XR/XR chest 1V portable [id number] IMPRESSION: Stable chest without acute abnormality.
[2025-08-05 10:44] VITALS: BP 118/90; PULSE 90; RESP 18; O2SAT 95
[2025-08-05 10:49] VITALS: PULSE 87; RESP 16; O2SAT 98
--- NOTE | 2025-08-05 11:19 | ED_ITS ---
HPI - SOB/Dyspnea 2 General: Chief Complaint: Shortness of Breath/Dyspnea Stated Complaint: sob Time Seen by Provider: 08/05/25 10:39 History of Present Illness: HPI Narrative: 44-year-old female presents emergency ro om with complaints of shortness of breath. 2 weeks ago she was diagnosed with bronchitis she was treated with Zithromax at that time. She states she still has trouble with wheezing she has been using a nebulizer at home she has a known history of asthma she is not on any maintenance medication she has noticed the albuterol does help. She has had some slight productive cough of clear mucus no hemoptysis no fever sweats or chills Associated symptoms: Deny abdominal pain, chest pain or fever(s) Related Data Home Medications ?Medication ?Instructions ?Recorded ?Confirmed sumatriptan succinate 100 mg tablet See Rx Instruction s PO .COMPLEX 07/20/22 07/25/25 PRN Migraine Headache insulin lispro 100 unit/mL See Rx Instructions SUBCUT TID 09/06/22 07/25/25 subcutaneous solution (Humalog U-100 Insulin) baclofen 5 mg tablet 10 mg PO BID 02/18/23 levothyroxine 125 mcg tablet 125 mcg PO DAILY 05/03/24 07/25/25 (Synthroid) ergocalciferol (vitamin D2) 1,250 1,250 mcg PO .Once a week 11/08/24 07/25/25 mcg (50,000 unit) capsule pantoprazole 40 mg tablet,delayed 40 mg PO BID 4 07/25/25 release Previous Rx's ?Medication ?Instructions ?Recorded albuterol sulfate 90 mcg/actuation 2 puff inhalation Q 6H PRN 09/06/24 aerosol inhaler shortness of breath or wheez ing #8.5 grams mupirocin 2 % topical ointment 1 applic topical BID 2 weeks #22 07/05/25 grams oxybutynin chloride 5 mg tablet 5 mg PO BID #60 tabs 0 07/09/25 doxycycline hyclate 100 mg capsule 100 mg PO BID #14 c aps 07/25/25 silver sulfadiazine 1 % topical 1 applic topical BID # 50 grams 07/25/25 cream (Silvadene) doxycycline hyclate 100 mg capsule 100 mg PO BID 10 da ys #20 caps 08/05/25 ipratropium 0.5 mg-albuterol 3 mg 3 ml inhalation Q4H PRN shortness 08/05/25 (2.5 mg base)/3 mL nebulization of breath or wheezing #90 mL soln prednisone 20 mg tablet 20 mg PO TID #15 tabs Allergies Allergy/AdvReac Type Severity Reaction Status Date / Time cortisone Allergy Intermediate RASH Verified 07/25/25 06:46 pregabalin (From Lyrica) Allergy Mild ADR-Confusi Verified 07/25/25 06:46 on tizanidine Allergy Mild ADR-Halluci Verified 07/25/25 06:46 nating adhesive tape Allergy Unknown Verified 07/25/25 06:46 animal dander Allergy Unknown Verified 07/25/25 06:46 bee venom protein (honey bee) Allergy Unknown Verified 07/25/25 06:46 hernández Allergy Unknown Verified 07/25/25 06:46 coconut Allergy Unknown Verified 07/25/25 06:46 diltiazem Allergy Unknown Verified 07/25/25 06:46 gabapentin Allergy ADR-Halluci Verified 07/25/25 06:46 nating guaifenesin Allergy Unknown Verified 07/25/25 06:46 house dust Allergy Unknown Verified 07/25/25 06:46 nut - unspecified Allergy Unknown Verified 07/25/25 06:46 oats Allergy Unknown Verified 07/25/25 06:46 pineapple Allergy Unknown Verified 07/25/25 06:46 promethazine (From Phenergan) Allergy Unknown Verified 07/25/25 06:46 shellfish derived Allergy Unknown Verified 07/25/25 06:46 levothyroxine AdvReac Unknown Verified 07/25/25 06:46 Review of Systems 2 Const: Denies: fever(s) or chills Card: Denies: chest pain Resp: Denies: dyspnea GI: Denies: abdominal pain : Denies: dysuria, urinary frequency or urinary urgency Musc: Denies: neck pain or back pain Skin/Breast: Denies: rash PFSH ED 2 PFSH: Medical History Personal history of dislocation of hip Instability of right hip joint Chronic right hip pain Urinary tract infection due to extended-spectrum beta lactamase (ESBL) producing Escherichia coli Depression Obsessive-compulsive disorder Chronic anxiety Peptic ulcer disease Hypothyroidism Environmental allergies Asthma Chronic migraine Type 1 diabetes mellitus with other specified complication Surgical History H/O section in 2007 and in 2009 H/O colonoscopy 2016 and 2018 History of hysterectomy 2021 H/O esophagogastroduodenoscopy 2016 and 2018 H/O dilation and curettage 2015 H/O tubal ligation 2010 Family History Family/Other Cancer Aunts, uterine cancer Other CAD (coronary artery disease) Dementia Diabetes Hypertension Lung disease Stroke Denies family history of Clotting disorder Hyperlipidemia Psychiatric illness Chronic kidney disease (CKD) Suicide Anesthesia complication Bleeding disorder Social History Smoking and tobacco/nicotine status: never used tobacco/nicotine Alcohol intake: never Substance/Drug Use: never Physical Exam 2 Const: GENERAL APPEARANCE: cooperative ORIENTATION/CONSCIOUSNESS: Yes awake, Yes oriented to person, Yes oriented to place and Yes oriented to time HENMT: COMMON NORMALS: normocephalic, atraumatic and hearing grossly normal bilaterally HEAD & SCALP: normocephalic and atraumatic Resp: COMMON NORMALS: normal respiratory effort, No retractions and No use of accessory muscles AUSCULTATION: wheezes Cardio: COMMON NORMALS: regular rate, regular rhythm and No murmurs present (Cardio) RATE: regular rate RHYTHM: regular rhythm GI: COMMON NORMALS: Soft to palpation and No hepatosplenomegaly present A USCULTATION: Yes normoactive bowel sounds PALPATION: Yes Soft to palpation, No Tenderness to palpation present (GI), No Guarding due to palpation present (GI) and Yes No hepatosplenomegaly present Extremity: COMMON NORMALS: normal to inspection, capillary refill normal, no clubbing, cyanosis or edema, no calf tenderness and no pedal edema Neuro: SENSORIUM/ORIENTATION: Yes oriented to person, Yes oriented to place and Yes oriented to time Skin: COMMON NORMALS: no rashes or lesions noted GENERAL SKIN EXAM: no rashes or lesions noted Course 2 Vital Signs: Vital signs: Vital Signs Temperature 98.2 F 08/05/25 09:31 Pulse Rate 92 08/05/25 12:00 Respiratory Rate 16 08/05/25 10:49 Blood Pressure 137/78 08/05/25 12:00 Pulse Oximetry 95 08/05/25 12:00 Oxygen Delivery Me thod Room Air 08/05/25 12:00 Fraction of Inspir ed Oxygen 21 08/05/25 10:49 MDM - SOB/Dyspnea Medical Decision Making Chest x-ray clear. Wheezing improved after nebulizer. Oxygen saturations are normal will discharge patient home 10-day course of doxycycline also use albuterol/ipratropium bromide neb and a steroid taper. She lives cortisone as an allergy but she has done oral prednisone without difficulty in the past. Recheck with her primary care doctor if symptoms persist patient may need to be restarted on long-term maintenance medication reviewed with her. Medical Records I reviewed the patient's medical records. Lab Data I reviewed the patient's lab results. 08/05/25 11:03 08/05/25 11:03 Labs/Radiology: Radiology Impressions Chest X-Ray 08/05/25 10:40 IMPRESSION: Stable chest without acute abnormality. Laboratory Results WBC 5.53 10^3/uL (3.29-11.43) 08/05/25 11:03 RBC 4.54 10^6/uL (3.85-5.65) 08/05/25 11:03 Hgb 13.30 g/dL (11.27-16.99) 08/05/25 11:03 Hct 41.8 % (36-47) 08/05/25 11:03 MCV 92.1 fl (85-98) 08/05/25 11:03 MCH 29.3 pg (27-33) 08/05/25 11:03 MCHC 31.8 g/dL (30-55) 08/05/25 11:03 RDW 14.0 % (12.1-15.1) 08/05/25 11:03 Plt Count 212 10^3/cmm (157-399) 08/05/25 11:03 MPV 11.0 fL (7.4-10.4) H 08/05/25 11:03 Neut % (Auto) 80.4 % 08/05/25 11:03 Lymph % (Auto) 16.8 % 08/05/25 11:03 [place] % (Auto) 2.2 % 08/05/25 11:03 Eos % (Auto) 0.2 % 08/05/25 11:03 Baso % (Auto) 0.2 % 08/05/25 11:03 Neut # (Auto) 4.45 10^3/uL (1.8-7.7) 08/05/25 11:03 Lymph # (Auto) 0.9 10^3/uL (0.8-4.8) 08/05/25 11:03 [place] # (Auto) 0.1 10^3/uL (0.2-0.9) L 08/05/25 11:03 Eos # (Auto) 0.0 10^3/uL (0.0-0.8) 08/05/25 11:03 Baso # (Auto) 0.0 10^3/uL (0.0-0.1) 08/05/25 11:03 Nucleated RBC % (auto) 0 % 08/05/25 11:03 Nucleated RBCs # 0.0 /100WBC 08/05/25 11:03 Sodium 144 mmol/L (136-145) 08/05/25 11:03 Potassium 3.5 mmol/L (3.5-5.1) 08/05/25 11:03 Chloride 110 mmol/L (98-107) H 08/05/25 11:03 Carbon Dioxide 20 mmol/L (22-29) L 08/05/25 11:03 Anion Gap 17.5 (5-19) 08/05/25 11:03 BUN 11 mg/dL (6-20) 08/05/25 11:03 Creatinine 0.8 mg/dL (0.5-0.9) 08/05/25 11:03 GFR Calculation 78.7 mL/min (90-130) L 08/05/25 11:03 Glucose 184 mg/dL (65-115) H 08/05/25 11:03 Calculated Osmolality 302 mOsm/kg (285-295) H 08/05/25 11:03 Calcium 8.7 mg/dL (8.5-10.5) 08/05/25 11:03 Total Bilirubin 0.5 mg/dL (0.15-1.2) 08/05/25 11:03 AST 10 U/L (0-32) 08/05/25 11:03 ALT 12 U/L (0-33) 08/05/25 11:03 Alkaline Phosphatase 74 U/L (35-105) 08/05/25 11:03 Total Protein 7.0 g/dL (6.6-8.7) 08/05/25 11:03 Albumin 4.3 g/dL (3.5-5.2) 08/05/25 11:03 Globulin 2.7 g/dL (1.3-4.6) 08/05/25 11:03 Urine Color Yellow (Yellow) 08/05/25 11:32 Urine Appearance Cloudy (CLEAR) A 08/05/25 11:32 Urine pH 7.5 (5-7) 08/05/25 11:32 Ur Specific [place] 1.010 (1.005-1.030) 08/05/25 11:32 Urine Protein Negative (Negative) 08/05/25 11:32 Urine Glucose (UA) Negative (Normal) 08/05/25 11:32 Urine Ketones Negative (Negative) 08/05/25 11:32 Urine Blood Negative (Negative) 08/05/25 11:32 Urine Nitrate Negative (Negative) 08/05/25 11:32 Urine Bilirubin Negative (Negative) 08/05/25 11:32 Urine Urobilinogen 0.2 mg/dL (Negative) 08/05/25 11:32 Ur Leukocyte Esterase Negative (Negative) 08/05/25 11:32 Urine RBC 0-2 /hpf (0-2) 08/05/25 11:32 Urine WBC 0-5 /hpf (0-5) 08/05/25 11:32 Ur Squamous Epith Cells 0-5 /hpf (0-5) 08/05/25 11:32 Amorphous Sediment Not Reportable 08/05/25 11:32 Urine Bacteria None seen /hpf (NONE) 08/05/25 11:32 Hyaline Casts 0.40 /lpf 08/05/25 11:32 All radiology interpretation(s) finalized by discharge Discharge Plan Discharge Patient Disposition: Home Clinical Impression: Asthma with exacerbation Condition: Stable Prescriptions: New doxycycline hyclate 100 mg capsule 100 mg PO BID 10 Days Qty: 20 0RF ipratropium-albuterol 0.5 mg-3 mg(2.5 mg base)/3 mL solution for nebulization 3 ml inhalation Q4H PRN (Reason: shortness of breath or wheezing) Qty: 90 0RF prednisone 20 mg tablet 20 mg PO TID Qty: 15 0RF Rx Instructions: 1 p.o. 3 times daily x3 days, 1 p.o. twice daily x2 days, 1 p.o. daily x2 days No Action pantoprazole 40 mg tablet,delayed release (DR/EC) 40 mg PO BID sumatriptan succinate 100 mg tablet See Rx Instructions PO .COMPLEX PRN (Reason: Migraine Headache) Rx Instructions: take 1 tab at onset of headache; if no relief, may repeat 1 tab after at least 2 hrs; max = 2 tabs/24 hrs PO mupirocin 2 % ointment 1 applic topical BID 14 Days Qty: 22 0RF insulin lispro [Humalog U-100 Insulin] 100 unit/mL solution See Rx Instructions SUBCUT TID Rx Instructions: sliding scale on pump. 9 unit subcutaneously at breakfast,14 units at lunch, amd 7 units with supper subcutaneously three times daily; albuterol sulfate 90 mcg/actuation HFA aerosol inhaler 2 puff inhalation Q6H PRN (Reason: shortness of breath or wheezing) Qty: 8.5 6RF ergocalciferol (vitamin D2) 1,250 mcg (50,000 unit) capsule 1,250 mcg PO .Once a week oxybutynin chloride 5 mg tablet 5 mg PO BID Qty: 60 1RF silver sulfadiazine [Silvadene] 1 % cream 1 applic topical BID Qty: 50 0RF Rx Instructions: apply a 1.5 mm thickness doxycycline hyclate 100 mg capsule 100 mg PO BID Qty: 14 0RF Synthroid 125 mcg tablet 125 mcg PO DAILY baclofen 5 mg tablet 10 mg PO BID Discharge Orders: Discharge ED (Routine); Ordered 08/05/25 Ordered By: Walker Trujillo Referrals: Nate Díaz MD [Primary Care Provider, Family Practice] Discharge Diet: Usual diet Discharge Activity: Increase activity as tolerated Patient Instructions: Opioid Safety, Pain Management, Patient Portal & Gerald Instructions Activity Restrictions/Additional Instructions: Thank you for choosing [facility] for your healthcare needs today. It is very important that you follow up as instructed or that you return to the Emergency Department should you have concerns or if your condition changes or worsens in any way. Emergency department visits are focused on emergent conditions, in some cases you may require further evaluation on an outpatient basis. You were seen in the emergency room with complaints of feeling short of breath your chest x-ray was normal. Wheezing improved after nebulizer treatment. White count is normal recommend starting on doxycycline 1 tablet twice a day for 10 days will give you albuterol ipratropium bromide to use in your nebulizer and also do a prednisone taper. Recommend you follow-up with your primary care doctor within the next week. (Please note that included in your discharge packet is information concerning opioid safety and pain management. This information is given to all patients were discharged from the ER regardless of their discharge diagnosis or the medicines they usually take or are prescribed.) Print Language: Lithuanian Coding Level of Care Code ED Manager [place] for Álvaro Armstrong
[2025-08-05 11:22] LABS: Hematocrit 41.8 % (36-47); Hemoglobin 13.30 g/dL (11.27-16.99); Mean Corpuscular HGB Conc 31.8 g/dL (30-55); Mean Corpuscular Hemoglobin 29.3 pg (27-33); Mean Corpuscular Volume 92.1 fl (85-98); Nucleated Red Blood Cells % 0 %; Platelet Count 212 10^3/cmm (157-399); Red Blood Count 4.54 10^6/uL (3.85-5.65); White Blood Count 5.53 10^3/uL (3.29-11.43)
[2025-08-05 11:41] LABS: Glucose Urine UA Negative (Normal); Nitrate Urine Negative (Negative); Specific Gravity, Urine 1.010 (1.005-1.030)
[2025-08-05 11:44] LABS: Alanine Aminotransferase 12 U/L (0-33); Albumin Level 4.3 g/dL (3.5-5.2); Alkaline Phosphatase 74 U/L (35-105); Anion Gap 17.5 (5-19); Aspartate Amino Transferase 10 U/L (0-32); Blood Urea Nitrogen 11 mg/dL (6-20); Calcium 8.7 mg/dL (8.5-10.5); Carbon Dioxide 20 mmol/L (22-29); Chloride 110 mmol/L (98-107); Creatinine Clr Calc Pharmacy 106.2468; Globulin 2.7 g/dL (1.3-4.6); Glucose 184 mg/dL (65-115); Osmolality Calculated 302 mOsm/kg (285-295); Potassium 3.5 mmol/L (3.5-5.1); Sodium 144 mmol/L (136-145); Total Protein 7.0 g/dL (6.6-8.7)
[2025-08-05 11:45] LABS: Add Urine Microscopic? YES
[2025-08-05 11:58] VITALS: BP 132/60; PULSE 95; O2SAT 96
[2025-08-05 12:00] VITALS: BP 137/78; PULSE 92; O2SAT 95
[2025-08-05 12:57] VITALS: BP 136/70; PULSE 101; O2SAT 93
== END 2025-08-05 12:57 | disposition home or self-care (01) ==
PROVIDERS: Emergency Provider Family Medicine; PCP Family Medicine
DX: J45.901 Unspecified asthma with (acute) exacerbation (principal); E10.9 Type 1 diabetes mellitus without complications; Z79.4 Long term (current) use of insulin
CPT/HCPCS: 36415; 71045; 80053; 81001; 85025; 93005; 94640; 96360; 99285; J7030; J9999

== ENCOUNTER 2025-08-14 22:09 | Emergency (ER) | payer MEDICARE, SELFPAY ==
[2025-08-14 22:16] VITALS: BP 157/79; PULSE 98; RESP 18; TEMP 36.7; O2SAT 97; BMI 27.7
[2025-08-14 22:37] VITALS: BP 149/72; PULSE 102; O2SAT 98
[2025-08-14 22:46] LABS: Hematocrit 41.6 % (36-47); Hemoglobin 13.60 g/dL (11.27-16.99); Mean Corpuscular HGB Conc 32.7 g/dL (30-55); Mean Corpuscular Hemoglobin 30.0 pg (27-33); Mean Corpuscular Volume 91.8 fl (85-98); Nucleated Red Blood Cells % 0 %; Platelet Count 217 10^3/cmm (157-399); Red Blood Count 4.53 10^6/uL (3.85-5.65); White Blood Count 13.41 10^3/uL (3.29-11.43)
[2025-08-14 22:47] LABS: Glucose Urine UA Negative (Normal); Nitrate Urine Negative (Negative); Specific Gravity, Urine 1.015 (1.005-1.030)
--- NOTE | 2025-08-14 22:47 | CTR_ITS ---
PROCEDURE INFORMATION: Exam: CT Abdomen And Pelvis With Contrast Exam date and time: 08/14/2025 11:28 PM Age: 44 years old Clinical indication: Abdominal pain; Prior surgery; Surgery date: 6+ months; Surgery type: C section, dilation&curettage, tubal, hysterectomy; Additional info: Diffuse abd pain TECHNIQUE: Imaging protocol: Computed tomography of the abdomen and pelvis with contrast. Radiation optimization: All CT scans at this facility use at least one of these dose optimization techniques: automated exposure control; mA and/or kV adjustment per patient size (includes targeted exams where dose is matched to clinical indication); or iterative reconstruction. Contrast material: OMNI 350; Contrast volume: 100 ml; Contrast route: INTRAVENOUS (IV); COMPARISON: CT abdomen pelvis w con* [id number] 10/18/2020 1:30 PM RADIATION DOSE METRICS: Total DLP (mGy-cm): 778.73 FINDINGS: Liver: Fatty infiltration versus 3rd inflow artifact is noted at the anterior falciform ligament. The liver is otherwise within normal limits. Gallbladder and biliary ducts: Normal. No calcified stones. No ductal dilation. Pancreas: Normal. No ductal dilation. Spleen: Normal. No splenomegaly. Adrenal glands: Normal. No mass. Kidneys and ureters: Normal. No hydronephrosis. Stomach and bowel: Unremarkable. No obstruction. No mucosal thickening. Appendix: The appendix is not clearly identified. No inflammation in the right lower quadrant is present to suggest acute appendicitis. Intraperitoneal space: Unremarkable. No free air. No significant fluid collection. Vasculature: Unremarkable. No abdominal aortic aneurysm. Lymph nodes: Unremarkable. No enlarged lymph nodes. Urinary bladder: Unremarkable as visualized. Reproductive: The uterus is surgically absent. A 2.5 cm simple fluid attenuating left adnexal cyst is present. Bones/joints: Unremarkable. No acute fracture. Soft tissues: Unremarkable. Other findings: No paraovarian fluid is noted. CT/CT abdomen pelvis w con* [id number] IMPRESSION: 1. No acute intra-abdominal process to explain the patient's symptoms. 2. A 2.5 cm simple fluid attenuating left adnexal cyst is present.
[2025-08-14 22:52] LABS: Add Urine Microscopic? YES
--- NOTE | 2025-08-14 22:57 | ED_ITS ---
HPI - Abdominal Pain 2 General: Chief Complaint: Abdominal Pain Stated Complaint: Possibly bowel obstruction Time Seen by Provider: 08/14/25 22:35 Source: patient Mode of arrival: ambulatory Limitations: no limitations History of Present Illness: This patient is a 44-year-old female with a past medical history of irritable bowel syndrome mixed, type 1 diabetes, hypothyroid, peptic ulcer disease, and numerous abdominal surgeries presenting with constipation for the past 4 days. States it has been 4 days since her last normal bowel movement, she called her primary care provider and they had told her to take Senokot and Dulcolax. Patient states she has taken numerous doses over the past 18 hours but has had no bowel movement or passage of stool. She does note 1 instance of encopresis, but that this was very minimal. Is starting to report diffuse abdominal pain and distention, and is feeling nauseous secondary to the pain. Denies history of previous bowel obstruction. Her vitals are stable at this time, overall nontoxic-appearing. Denies any blood in her stool, no vomiting. MD elicited complaint: abdominal pain Pertinent past history: other (IBS-M, numerous abdominal surgeries) Onset (ago): day(s) (4) Pain Consistency: constant Location: Diffuse Quality: cramping and fullness Radiation: none Context: other (Constipation) Associated Symptoms: Reports bloating, constipation, GI cramping and nausea; Denies chills, diarrhea, dysuria, fever(s), hematochezia and vomiting Treatments prior to arrival: other (Senokot/Dulcolax) Related Data Home Medications ?Medication ?Instructions ?Recorded ?Confirmed sumatriptan succinate 100 mg tablet See Rx Instruction s PO .COMPLEX 07/20/22 08/05/25 PRN Migraine Headache insulin lispro 100 unit/mL See Rx Instructions SUBCUT TID 09/06/22 08/05/25 subcutaneous solution (Humalog U-100 Insulin) levothyroxine 125 mcg tablet 125 mcg PO QAM 05/03/24 0 08/05/25 (Synthroid) ergocalciferol (vitamin D2) 1,250 1,250 mcg PO .TWICE A WEEK 11/08/24 08/05/25 mcg (50,000 unit) capsule pantoprazole 40 mg tablet,delayed 40 mg PO BID PRN Aci d Reflux 11/08/24 08/05/25 release ascorbic acid (vitamin C) 500 mg 500 mg PO DAILY 08/0508/05/25 tablet (Vitamin C) baclofen 10 mg tablet 10 mg PO BID 08/05/25 benzonatate 200 mg capsule 200 mg PO TID PRN Cough 08/05/25 ondansetron 4 mg disintegrating See Rx Instructions .R oute .COMPLEX 08/05/25 08/05/25 tablet oxybutynin chloride 5 mg tablet 5 mg PO DAILY 08/05/25 08/05/25 topiramate 100 mg tablet 100 mg PO BID 08/05/2508/05 Previous Rx's ?Medication ?Instructions ?Recorded mupirocin 2 % topical ointment 1 applic topical BID 2 weeks #22 07/05/25 grams silver sulfadiazine 1 % topical 1 applic topical BID # 50 grams 07/25/25 cream (Silvadene) doxycycline hyclate 100 mg capsule 100 mg PO BID 10 da ys #20 caps 08/05/25 prednisone 20 mg tablet 20 mg PO TID #15 tabs albuterol sulfate 90 mcg/actuation 2 puff inhalation Q 6H PRN 08/12/25 aerosol inhaler shortness of breath or wheez ing #8.5 grams fluticasone 250 mcg-salmeterol 50 1 inh inhalation BID #60 ea 08/12/25 mcg/dose blistr powdr for inhalation (Advair Diskus) ipratropium 0.5 mg-albuterol 3 mg 3 ml inhalation Q4H PRN shortness 08/12/25 (2.5 mg base)/3 mL nebulization of breath or wheezing #90 mL soln peg 3350-electrolytes 236 30 ml PO Q1M #4,000 mL 08/15 gram-22.74 gram-6.74 gram-5.86 gram solution (GaviLyte-G) Allergies Allergy/AdvReac Type Severity Reaction Status Date / Time cortisone Allergy Intermediate RASH Verified 08/14/25 22:19 pregabalin (From Lyrica) Allergy Mild ADR-Confusi Verified 08/14/25 22:19 on tizanidine Allergy Mild ADR-Halluci Verified 08/14/25 22:19 nating adhesive tape Allergy Unknown Verified 08/14/25 22:19 animal dander Allergy Unknown Verified 08/14/25 22:19 bee venom protein (honey bee) Allergy Unknown Verified 08/14/25 22:19 hernández Allergy Unknown Verified 08/14/25 22:19 coconut Allergy Unknown Verified 08/14/25 22:19 diltiazem Allergy Unknown Verified 08/14/25 22:19 gabapentin Allergy ADR-Halluci Verified 08/14/25 22:19 nating guaifenesin Allergy Unknown Verified 08/14/25 22:19 house dust Allergy Unknown Verified 08/14/25 22:19 nut - unspecified Allergy Unknown Verified 08/14/25 22:19 oats Allergy Unknown Verified 08/14/25 22:19 pineapple Allergy Unknown Verified 08/14/25 22:19 promethazine (From Phenergan) Allergy Unknown Verified 08/14/25 22:19 shellfish derived Allergy Unknown Verified 08/14/25 22:19 levothyroxine AdvReac Unknown Verified 08/14/25 22:19 Review of Systems 2 General: Reports: 10 or more systems reviewed and unremarkable except in HPI and below Const: Denies: fever(s), chills, change in appetite, change in weight or diaphoresis ENMT: Denies: throat pain or hoarseness Card: Denies: chest pain, palpitations or lightheadedness Resp: Denies: dyspnea, productive cough or wheezing GI: Reports: abdominal pain, nausea, constipation, bloating and GI cramping; Denies: vomiting, diarrhea or hematochezia : Denies: flank pain, difficulty voiding, dysuria, urinary frequency or urinary urgency Musc: Denies: neck pain or back pain Skin/Breast: Denies: rash or new lesions Neuro: Denies: headache(s) or dizziness PFSH ED 2 PFSH: Medical History Personal history of dislocation of hip Instability of right hip joint Chronic right hip pain Urinary tract infection due to extended-spectrum beta lactamase (ESBL) producing Escherichia coli Depression Obsessive-compulsive disorder Chronic anxiety Peptic ulcer disease Hypothyroidism Environmental allergies Asthma Chronic migraine Type 1 diabetes mellitus with other specified complication Surgical History H/O section in 2007 and in 2009 H/O colonoscopy 2016 and 2019 History of hysterectomy 2021 H/O esophagogastroduodenoscopy 2017 and 2019 H/O dilation and curettage 2016 H/O tubal ligation 2010 Family History Family/Other Cancer Aunts, uterine cancer Other CAD (coronary artery disease) Dementia Diabetes Hypertension Lung disease Stroke Denies family history of Clotting disorder Hyperlipidemia Psychiatric illness Chronic kidney disease (CKD) Suicide Anesthesia complication Bleeding disorder Social History Smoking and tobacco/nicotine status: never used tobacco/nicotine Alcohol intake: never Substance/Drug Use: never Physical Exam 2 Const: COMMON NORMALS: no acute distress, average body habitus, patient oriented x3, no limitations, healthy appearing, alert and well nourished G ENERAL APPEARANCE: cooperative and comfortable ORIENTATION/CONSCIOUSNESS: Yes awake Eye: COMMON NORMALS: Equal, round and reactive pupils present, EOMs intact bilaterally and conjunctivae normal CONJUNCTIVA: Yes conjunctivae normal P UPIL: Yes Equal, round and reactive pupils present Neck/C-Spine: COMMON NORMALS: full ROM, supple, no meningeal signs and no JVD Resp: COMMON NORMALS: normal respiratory effort, No retractions, No use of accessory muscles and clear to auscultation bilaterally AUSCULTATION: clear to auscultation bilaterally, no crackles, no rales, no rhonchi and no wheezes Cardio: COMMON NORMALS: no JVD, regular rate, regular rhythm, No gallops present (Cardio), No clicks present (Cardio), No murmurs present (Cardio) and No rub (Cardio) RATE: regular rate RHYTHM: regular rhythm GI: COMMON NORMALS: Normal to inspection, nondistended, normoactive bowel sounds present, Soft to palpation, No hepatosplenomegaly present and no masses AUSCULTATION: Yes Hypoactive bowel sounds present PALPATION: Yes Soft to palpation, Yes Tenderness to palpation present (GI) (Diffuse abdominal tenderness to light palpation), No Guarding due to palpation present (GI), No Rigid due to palpation and Yes No hepatosplenomegaly present RECTAL EXAM: d eferred Extremity: COMMON NORMALS: normal to inspection and full ROM Neuro: COMMON NORMALS: patient oriented x3, moves all extremities, no focal motor deficits and no sensory deficits noted SENSORIUM/ORIENTATION: Yes alert MENINGEAL SIGNS: Yes no meningeal signs Psych: COMMON NORMALS: mental status grossly normal, cooperative and speech normal SPEECH: Yes normal speech Skin: COMMON NORMALS: no rashes or lesions noted GENERAL SKIN EXAM: no rashes or lesions noted Course 2 Vital Signs: Vital signs: Vital Signs Temperature 98.1 F 08/14/25 22:16 Pulse Rate 102 H 08/14/25 22:37 Respiratory Rate 18 08/14/25 22:16 Blood Pressure 149/72 08/14/25 22:37 Pulse Oximetry 98 08/14/25 22:37 Oxygen Delivery Me thod Room Air 08/14/25 22:16 MDM - Abdominal Pain Medical Decision Making This patient has history of IBS?M and is presenting with complaints of constipation, last normal bowel movement was 4 days ago has been taking Senokot and Dulcolax with minimal to no feculent output. States she was sent here by primary care provider told that she might have bowel obstruction, history of previous abdominal surgeries but no previous SBO. On exam hypoactive bowel sounds, diffusely tender but no significant distention and overall the patient was nontoxic-appearing. Her vitals have been stable. Laboratory evaluation was unremarkable. CT abdomen and pelvis was ordered which does not show any bowel obstruction or significant stool impaction. Will send her home with combination of lactulose, mineral oil, and magnesium citrate to take, and if this is refractory she will take GoLytely. Overall stable for discharge, she is given strict return precautions and told to follow-up with primary care for further evaluation. No further workup necessary in the emergency department at this time, she does not have acute abdomen. Lab Data 08/14/25 22:30 08/14/25 22:30 Labs/Radiology: Radiology Impressions Abdomen/Pelvis CT 08/14/25 22:47 IMPRESSION: 1. No acute intra-abdominal process to explain the patient's symptoms. 2. A 2.5 cm simple fluid attenuating left adnexal cyst is present. Laboratory Results WBC 13.41 10^3/uL (3.29-11.43) H 08/14/25 22:30 RBC 4.53 10^6/uL (3.85-5.65) 08/14/25 22:30 Hgb 13.60 g/dL (11.27-16.99) 08/14/25 22:30 Hct 41.6 % (36-47) 08/14/25 22: MCV 91.8 fl (85-98) 08/14/25 22: MCH 30.0 pg (27-33) 08/14/25 22: MCHC 32.7 g/dL (30-55) 08/14/25: RDW 14.6 % (12.1-15.1) 08/14/25: Plt Count 217 10^3/cmm (157-399) 08/14/25 22: MPV 10.1 fL (7.4-10.4) 08/14/25 22: Neut % (Auto) 69.8 % 08/14/25 22: Lymph % (Auto) 19.8 % 08/14/25 22: [place] % (Auto) 8.1 % 08/14/25: Eos % (Auto) 1.3 % 08/14/25: Baso % (Auto) 0.6 % 08/14/25: Neut # (Auto) 9.37 10^3/uL (1.8-7.7) H 08/14/25 22:30 Lymph # (Auto) 2.7 10^3/uL (0.8-4.8) 08/14/25: [place] # (Auto) 1.1 10^3/uL (0.2-0.9) H 08/14/25 22:30 Eos # (Auto) 0.2 10^3/uL (0.0-0.8) 08/14/25: Baso # (Auto) 0.1 10^3/uL (0.0-0.1) 08/14/25: Nucleated RBC % (auto) 0 % 08/14/25: Nucleated RBCs # 0.0 /100WBC 08/14/25 22:30 Sodium 141 mmol/L (136-145) 08/14/25 22: Potassium 3.7 mmol/L (3.5-5.1) 08/14/25:30 Chloride 108 mmol/L (98-107) H 08/14/25 22:30 Carbon Dioxide 24 mmol/L (22-29) 08/14/25 22:30 Anion Gap 12.7 (5-19) 08/14/25 22:30 BUN 10 mg/dL (6-20) 08/14/25 22:30 Creatinine 0.8 mg/dL (0.5-0.9) 08/14/25 22:30 GFR Calculation 78.7 mL/min (90-130) L 08/14/25 22:30 Glucose 180 mg/dL (65-115) H 08/14/25 22:30 Calculated Osmolality 296 mOsm/kg (285-295) H 08/14/25 22:30 Calcium 8.5 mg/dL (8.5-10.5) 08/14/25 22: Total Bilirubin 0.4 mg/dL (0.15-1.2) 08/14/25 22: AST 11 U/L (0-32) 08/14/25 22:30 ALT 14 U/L (0-33) 08/14/25 22:30 Alkaline Phosphatase 93 U/L (35-105) 08/14/25 22: Total Protein 6.1 g/dL (6.6-8.7) L 08/14/25 22:30 Albumin 3.9 g/dL (3.5-5.2) 08/14/25 22: Globulin 2.2 g/dL (1.3-4.6) 08/14/25 22:30 Lipase 13 U/L (13-60) 08/14/25 22:30 HCG, Qual Negative (Negative) 08/14/25 22:30 Urine Color Yellow (Yellow) 08/14/25 22:40 Urine Appearance Turbid (CLEAR) A 08/14/25 22:40 Urine pH 7.5 (5-7) 08/14/25 22:40 Ur Specific [place] 1.015 (1.005-1.030) 08/14/25 22:40 Urine Protein Negative (Negative) 08/14/25 22:40 Urine Glucose (UA) Negative (Normal) 08/14/25 22:40 Urine Ketones Negative (Negative) 08/14/25 22:40 Urine Blood Negative (Negative) 08/14/25 22:40 Urine Nitrate Negative (Negative) 08/14/25 22:40 Urine Bilirubin Negative (Negative) 08/14/25 22: Urine Urobilinogen 1.0 mg/dL (Negative) 08/14/25 22:40 Ur Leukocyte Esterase Negative (Negative) 08/14/25 22:40 Urine RBC 0-2 /hpf (0-2) 08/14/25 22:40 Urine WBC 0-5 /hpf (0-5) 08/14/25 22:40 Ur Squamous Epith Cells 0-5 /hpf (0-5) 08/14/25 22:40 Amorphous Sediment Not Reportable 08/14/25 22:40 Urine Bacteria None seen /hpf (NONE) 08/14/25 22:40 Hyaline Casts 1.65 /lpf 08/14/25 22:40 All radiology interpretation(s) finalized by discharge Discharge Plan Discharge Patient Disposition: Home Clinical Impression: Constipation Qualifiers: Constipation type: unspecified constipation type Qualified Code(s): K59.00 - Constipation, unspecified Condition: Stable Prescriptions: New peg 3350-electrolytes [GaviLyte-G] 236-22.74-6.74 -5.86 gram recon soln 30 ml PO Q1M Qty: 4000 0RF Rx Instructions: until fecal effluent is clear No Action pantoprazole 40 mg tablet,delayed release (DR/EC) 40 mg PO BID PRN (Reason: Acid Reflux) sumatriptan succinate 100 mg tablet See Rx Instructions PO .COMPLEX PRN (Reason: Migraine Headache) Rx Instructions: Take 1 tablet at onset of headache; if no relief, may repeat 1 tablet after at least 2 hrs; max = 2 tabs/24 hrs PO mupirocin 2 % ointment 1 applic topical BID 14 Days Qty: 22 0RF insulin lispro [Humalog U-100 Insulin] 100 unit/mL solution See Rx Instructions SUBCUT TID Rx Instructions: sliding scale on pump. 9 unit subcutaneously at breakfast,14 units at lunch, amd 7 units with supper subcutaneously three times daily; ergocalciferol (vitamin D2) 1,250 mcg (50,000 unit) capsule 1,250 mcg PO .TWICE A WEEK Rx Instructions: Mon/Wed silver sulfadiazine [Silvadene] 1 % cream 1 applic topical BID Qty: 50 0RF Rx Instructions: apply a 1.5 mm thickness ipratropium-albuterol 0.5 mg-3 mg(2.5 mg base)/3 mL solution for nebulization 3 ml inhalation Q4H PRN (Reason: shortness of breath or wheezing) Qty: 90 3RF fluticasone propion-salmeterol [Advair Diskus] 250-50 mcg/dose blister with device 1 inh inhalation BID Qty: 60 6RF albuterol sulfate 90 mcg/actuation HFA aerosol inhaler 2 puff inhalation Q6H PRN (Reason: shortness of breath or wheezing) Qty: 8.5 6RF levothyroxine [Synthroid] 125 mcg tablet 125 mcg PO QAM doxycycline hyclate 100 mg capsule 100 mg PO BID 10 Days Qty: 20 0RF prednisone 20 mg tablet 20 mg PO TID Qty: 15 0RF Rx Instructions: 1 p.o. 3 times daily x3 days, 1 p.o. twice daily x2 days, 1 p.o. daily x2 days baclofen 10 mg tablet 10 mg PO BID oxybutynin chloride 5 mg tablet 5 mg PO DAILY benzonatate 200 mg capsule 200 mg PO TID PRN (Reason: Cough) ondansetron 4 mg tablet,disintegrating See Rx Instructions .ROUTE .COMPLEX Rx Instructions: DISSOLVE 1 TABLET ON TOP OF TONGUE, THEN SWALLOW WITH SALVIA EVERY 8 HOURS NEEDED FOR NAUSEA/EMESIS. topiramate 100 mg tablet 100 mg PO BID ascorbic acid (vitamin C) [Vitamin C] 500 mg Tablet 500 mg PO DAILY Discharge Orders: Discharge ED (Routine); Ordered 08/15/25 Ordered By: Tera Pathak Referrals: Nate Díaz MD [Primary Care Provider, [facility]] Patient Instructions: Patient Portal & Gerald Instructions Activity Restrictions/Additional Instructions: Constipation Discharge Instructions Discharge Instructions: Constipation Management Diagnosis: Chronic constipation, no evidence of obstruction or impaction on CT, unremarkable laboratory evaluation. Medications Prescribed: - Mineral oil (lubricant laxative): Softens stool and lubricates the gut to facilitate defecation. - Magnesium citrate (osmotic laxative): Draws water into the colon, increasing stool frequency and softening stool. - Lactulose (osmotic laxative): Increases water content in the colon, promoting peristalsis and stool passage. Instructions: 1. Medication Use: - Mineral oil: Take as directed. Typical adult dosing is 15?45 mL orally once daily, but titrate to effect and tolerance. May be taken with or without food. Do not use for prolonged periods due to risk of fat-soluble vitamin malabsorption. - Magnesium citrate: Take as directed. Standard dosing is 150?300 mL orally as a single dose, or as prescribed. Use with caution in patients with renal impairment due to risk of hypermagnesemia. - Lactulose: Start with 15?30 mL orally once daily; may increase up to 60 mL daily if needed. Titrate to achieve soft, regular bowel movements. Common side effects include bloating and flatulence, which are dose-dependent. 2. Diet and Lifestyle: - Maintain adequate hydration (at least 1.5?2 liters of water daily unless contraindicated). - Gradually increase dietary fiber (aim for 20?30 g/day from foods such as fruits, vegetables, whole grains, and legumes). - Engage in regular physical activity, as tolerated. 3. Monitoring and Follow-up: - Expect improvement in bowel movements within several days. - If no bowel movement occurs after 48?72 hours of therapy, or if symptoms worsen (e.g., severe abdominal pain, vomiting, distention), contact your healthcare provider promptly. - If the above regimen fails to produce adequate results, GoLYTELY (polyethylene glycol electrolyte solution) will be available at your pharmacy as a rescue therapy. Instructions for GoLYTELY: - Reconstitute with water as per package instructions. - Consume only clear liquids during administration; avoid solid food and red/purple liquids. - Drink the solution at a rate of 8 ounces every 10 minutes until 4 liters are consumed or until rectal effluent is clear. - Do not take other laxatives or oral medications within 1 hour before or during GoLYTELY administration. - If severe bloating, distention, or abdominal pain occurs, slow or temporarily discontinue drinking and contact your provider. 4. Precautions: - Avoid magnesium-based laxatives if you have significant renal impairment (creatinine clearance <20 mL/min). - Do not use mineral oil in patients at risk for aspiration (e.g., elderly, neurologic impairment). - Monitor for signs of dehydration, electrolyte imbalance, or allergic reaction, especially with GoLYTELY. 5. When to Seek Immediate Medical Attention: - Severe abdominal pain, persistent vomiting, inability to tolerate oral intake. - Signs of dehydration (dizziness, confusion, decreased urination). - Blood in stool or new onset of fever. Summary of Evidence: - Osmotic laxatives (magnesium salts, lactulose, polyethylene glycol) are recommended as first-line therapy for chronic constipation by the [place] [employer] and the [employer]. - Mineral oil is effective as a lubricant laxative, especially for short-term use. - GoLYTELY is reserved for refractory cases or for bowel cleansing, with specific administration precautions. Follow-up: Schedule follow-up as directed to reassess symptoms and response to therapy. Print Language: Estonian Coding Level of Care Code ED Qa Internship for Álvaro Armstrong
[2025-08-14 23:11] LABS: HCG, Serum Qual Negative (Negative)
[2025-08-15 00:03] LABS: Alanine Aminotransferase 14 U/L (0-33); Albumin Level 3.9 g/dL (3.5-5.2); Alkaline Phosphatase 93 U/L (35-105); Anion Gap 12.7 (5-19); Aspartate Amino Transferase 11 U/L (0-32); Blood Urea Nitrogen 10 mg/dL (6-20); Calcium 8.5 mg/dL (8.5-10.5); Carbon Dioxide 24 mmol/L (22-29); Chloride 108 mmol/L (98-107); Creatinine Clr Calc Pharmacy 106.7715; Globulin 2.2 g/dL (1.3-4.6); Glucose 180 mg/dL (65-115); Lipase 13 U/L (13-60); Osmolality Calculated 296 mOsm/kg (285-295); Potassium 3.7 mmol/L (3.5-5.1); Sodium 141 mmol/L (136-145); Total Protein 6.1 g/dL (6.6-8.7)
[2025-08-15] MEDS: lactulose oral liq 20 gm/30 mL UDC 30 GM PO (00:10)
[2025-08-15] MEDS: magnesium citrate Btl 296 mL PO (00:10)
[2025-08-15 00:18] VITALS: BP 124/73; PULSE 82; O2SAT 95
== END 2025-08-15 00:20 | disposition home or self-care (01) ==
PROVIDERS: Emergency Provider Physician Assistant; PCP Family Medicine
DX: K59.00 Constipation, unspecified (principal); E11.8 Type 2 diabetes mellitus with unspecified complications
CPT/HCPCS: 74177; 80053; 81001; 83690; 84703; 85025; 96360; 99284; J7040; J9999

== ENCOUNTER → 2025-08-22 07:09 | Outpatient (BNVA) | payer MEDICARE, SELFPAY | PROVIDERS: PCP Family Medicine; Visit Provider Podiatrist Foot & Ankle Surgery | DX: E10.69 Type 1 diabetes mellitus with other specified complication (principal); L60.0 Ingrowing nail; Z98.890 Other specified postprocedural states; L60.8 Other nail disorders; L60.3 Nail dystrophy | CPT/HCPCS: 11730; J9999 ==

== ENCOUNTER 2025-08-29 09:55 | Outpatient (CLI) | payer MEDICARE, SELFPAY ==
[2025-08-29 10:56] LABS: Hematocrit 43.4 % (36-47); Hemoglobin 14.00 g/dL (11.27-16.99); Mean Corpuscular HGB Conc 32.3 g/dL (30-55); Mean Corpuscular Hemoglobin 30.0 pg (27-33); Mean Corpuscular Volume 92.9 fl (85-98); Nucleated Red Blood Cells % 0 %; Platelet Count 237 10^3/cmm (157-399); Red Blood Count 4.67 10^6/uL (3.85-5.65); White Blood Count 5.41 10^3/uL (3.29-11.43)
[2025-08-29 11:08] LABS: Estmated Average Glucose 143; Hemoglobin A1C 6.6 % (4.0-6.0)
[2025-08-29 11:19] LABS: Anion Gap 14.7 (5-19); Blood Urea Nitrogen 13 mg/dL (6-20); Calcium 9.1 mg/dL (8.5-10.5); Carbon Dioxide 23 mmol/L (22-29); Chloride 108 mmol/L (98-107); Glucose 139 mg/dL (65-115); Magnesium 1.9 mg/dL (1.7-2.3); Osmolality Calculated 296 mOsm/kg (285-295); Potassium 3.7 mmol/L (3.5-5.1); Sodium 142 mmol/L (136-145)
== END 2025-08-29 09:56 | disposition home or self-care (01) ==
LOC: LAB 09:57
PROVIDERS: PCP Family Medicine; Visit Provider Family Medicine
DX: Z51.81 Encounter for therapeutic drug level monitoring (principal); R25.2 Cramp and spasm; E11.9 Type 2 diabetes mellitus without complications
CPT/HCPCS: 36415; 80048; 83036; 83735; 85025

== ENCOUNTER → 2025-09-16 07:46 | Outpatient (BNVA) | payer MEDICARE, SELFPAY | PROVIDERS: PCP Family Medicine; Visit Provider Podiatrist Foot & Ankle Surgery | DX: E10.69 Type 1 diabetes mellitus with other specified complication (principal); L60.3 Nail dystrophy; Z79.4 Long term (current) use of insulin | CPT/HCPCS: 99213 ==

== ENCOUNTER → 2025-09-30 16:34 | Outpatient (BNVA) | payer MEDICARE, SELFPAY | PROVIDERS: PCP Family Medicine; Visit Provider Family Medicine | DX: R30.0 Dysuria (principal) | CPT/HCPCS: 87086 ==

== ENCOUNTER → 2025-10-28 07:18 | Outpatient (BNVA) | payer MEDICARE, SELFPAY | PROVIDERS: PCP Family Medicine; Visit Provider Podiatrist Foot & Ankle Surgery | DX: E10.69 Type 1 diabetes mellitus with other specified complication (principal); L60.8 Other nail disorders; L60.3 Nail dystrophy; Z79.4 Long term (current) use of insulin | CPT/HCPCS: 99213 ==

== ENCOUNTER 2025-11-14 22:41 | Emergency (ER) | payer MEDICARE, SELFPAY ==
--- OUTSIDE RECORDS SUMMARY | 2025-11-14 22:48 | XMS_ITS | Encounter Summary ---
Author Organization [facility] Address [address] [place] [address] Care Team Providers Care Satellite Dish Technician Name Role Phone Ntae Díaz MD Primary Care Provider [phone] Reason for Referral * CT Scan (Routine) - Closed Specialty Diagnoses / Procedures Referred By Contac t Referred To Contact Radiology Diagnoses Solitary lung nodule Procedures CT CHEST HIGH RESOLUTION Tobi Hernandez FNP [address] [facility] [address] [place] [id number] Phone: tel: fax: [facility] CT Scan [place] [address] [place] [address] Phone: tel: fax: Referral ID Status Reason Start Date Expiration Date V isits Requested Visits Authorized [id number] Closed [facility] View CTS to Schedule 03/05/2021 04/04/2021 1 1 Encounter Details Date Type Department Care Team (Latest Contact Info) Description 03/02/2021 Ancillary Orders [facility] Centralized Scheduling [address] [place] [address] Tobi Hernandez FNP [address] [facility] [address] [place] [id number] Solitary lung nodule Social History Tobacco Use Types Packs/Day Years Used Date Smoking Tobacco: Former Cigarettes 0.5 10 0 01/20/2000 - 01/19/2010 Smokeless Tobacco: Never Alcohol Use Standard Drinks/Week Comments Yes 0 (1 standard drink = 0.6 oz pur e alcohol) rarely Comments No Sex and Gender Information Value Date Recorded Sex Assigned at Not on file 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 Fleischner Society guidelines 2017 [id number] Narrative 03/23/2021 2:[address] CHEST [...] known primary cancer. Fleischner Society guidelines 2017 [id number] us Tobi Hernandez [facility] ORDERABLES Final Res ult documented in this encounter Visit Diagnoses Diagnosis Solitary lung nodule Solitary pulmonary nodule Solitary lung nodule Solitary pulmonary nodule documented in this encounter Additional Health Concerns Infection Onset Date Last Indicated Resolved Time R/O COVID-19 05/20/2021 05/20/2021 05/20/2021 6:34 PM CDT COVID-19 05/20/2021 05/20/2021 06/09/2021 8:08 PM CDT documented as of this encounter Care Teams Satellite Dish Technician Relationship Specialty Start Date End Date Nate Díaz MD [address] [place] [id number] PCP - General Family Practice 05/20/21 documented as of this encounter
--- OUTSIDE RECORDS SUMMARY | 2025-11-14 22:48 | XMS_ITS | Encounter Summary ---
Author Organization [facility] Address [address] [place] [address] Care Team Providers Care Abalone Sheller Name Role Phone Nate Díaz MD Primary Care Provider [phone] Encounter Details Date Type Department Care Team (Late st Contact Info) Description 11/09/2008 Emergency [facility] Emergency Department [address] [place] [address] Ed, Physician NO ADDRESS ON FILE Mel Munoz MD [address] [place] [address] Social History Tobacco Use Types Packs/Day Years Used Date Smoking Tobacco: Never Assessed Comments Unknown Sex and Gender Information Value Date Recorded Sex Assigned at Not on file Legal Sex Female 7:10 AM BATTERY CHECKER Gender Identity Not on file Sexual Orientation Not on file documented as of this encounter Plan of Treatment Not on file documented as of this encounter Procedures Procedure Name Priority Date/Time Associated Diagnosis Comments POC GLUCOSE Routine 2008 12:44 AM BATTERY CHECKER URINALYSIS MICROSCOPY ONLY Stat 2008 12:43 AM BATTERY CHECKER URINALYSIS W/REFLEX MICROSCOPIC Stat 2008 12:43 AM BATTERY CHECKER POC GLUCOSE Routine 11/09/2008 11:04 PM BATTERY CHECKER CBC WITH DIFFERENTIAL Stat 11/09/2008 10:55 PM BATTERY CHECKER LIPASE Stat 11/09/2008 10:55 PM BATTERY CHECKER VALPROIC ACID LEVEL, TOTAL Stat 11/09/2008 10:55 PM BATTERY CHECKER COMPREHENSIVE METABOLIC PANEL Stat 11/09/2008 10:55 PM BATTERY CHECKER documented in this encounter Results * (ABNORMAL) POC GLUCOSE (2008 12:44 AM BATTERY CHECKER) GLUCOSE POC 211(H) 60 - 100 mg/dL [facility] Venous blood specimen (specimen) 2008 12:44 AM BATTERY CHECKER 2008 7:40 AM BATTERY CHECKER us Mel Munoz MD POINT OF CARE TESTING Lena l Result Performing Organization Address [facility] Phone Number INTERFACE SYSTEM Refer to clinic/hospital department [facility] CLIA# [id number] [address] [place] [address] * URINALYSIS MICROSCOPY ONLY (2008 12:43 AM BATTERY CHECKER) [facility] WBC URINE None Seen 0 - 2 [facility] RBC UA None Seen 0 - 2 [facility] BACTERIA UA None Seen None Seen [facility] Urine specimen (specimen) 2008 12:43 AM BATTERY CHECKER 2008 12:46 AM BATTERY CHECKER Narrative INTERFACE SYSTEM - 2008 1:01 AM BATTERY CHECKER Microscopic ordered by policy us Mel Munoz MD URINE ORDERABLES Final Res ult Performing Organization Address [facility] de Phone Number INTERFACE SYSTEM Refer to clinic/hospital department [facility] CLIA# [id number] [address] [place] [address] * (ABNORMAL) URINALYSIS (2008 12:43 AM BATTERY CHECKER) PH UA 5.5 5.0 - 9.0 [facility] BILIRUBIN UA NEGATIVE NEGATIVE [facility] LEUKOCYTE ESTERASE UA NEGATIVE NEGATIVE [facility] KETONES UA 40 mg/dl(A) NEGATIVE [facility] MICRO EXAM Yes(A) No [facility] COLOR UA Yellow Straw [facility] PROTEIN UA Trace(A) NEGATIVE [facility] BLOOD UA NEGATIVE NEGATIVE [facility] NITRITE UA NEGATIVE NEGATIVE [facility] UROBILINOGEN UA 0.2 0.2 [facility] CLARITY UA Clear Clear [facility] SPECIFIC GRAVITY UA >=1.030(A) <=1.005 [facility] GLUCOSE UA NEGATIVE NEGATIVE [facility] Urine specimen (specimen) 2008 12:43 AM BATTERY CHECKER 2008 12:46 AM BATTERY CHECKER us Mel Munoz MD URINE ORDERABLES Final Res ult Performing Organization Address [facility] Phone Number INTERFACE SYSTEM Refer to clinic/hospital department [facility] CLIA# [id number] [address] [place] [address] * (ABNORMAL) POC GLUCOSE (11/09/2008 11:04 PM BATTERY CHECKER) [facility] GLUCOSE POC 436(H) 60 - 100 mg/dL [facility] Venous blood specimen (specimen) 11/09/2008 11:04 PM BATTERY CHECKER 2008 7:56 AM BATTERY CHECKER us Mel Munoz MD POINT OF CARE TESTING Lena l Result Performing Organization Address [facility] Phone Number INTERFACE SYSTEM Refer to clinic/hospital department [facility] CLIA# [id number] [address] [place] [address] * (ABNORMAL) VALPROIC ACID LEVEL, TOTAL (11/09/2008 10:55 PM BATTERY CHECKER) [facility] VALPROIC ACID TOTAL 23.9(L) 50.0 - 100.0 mcg/mL [facility] Blood specimen (specimen) 11/09/2008 10:55 PM BATTERY CHECKER 11/09/2008 11:58 PM BATTERY CHECKER Mel Munoz MD CHEMISTRY ORDERABLES Final Result Performing Organization Address [facility]/State/[facility] Co de Phone Number INTERFACE SYSTEM Refer to clinic/hospital department [facility] CLIA# [id number] [address] [place] [address] * (ABNORMAL) CBC WITH DIFFERENTIAL (11/09/2008 10:55 PM BATTERY CHECKER) [facility] MONOCYTE ABSOLUTE 0.7(H) 0.1 - 0.6 K/ul [facility] MONOCYTES 6.9 2.0 - 10.0 % [facility] WBC 10.8 4.5 - 11.0 K/ul [facility] MCH 28.8 27.0 - 34.0 pg [facility] NEUTROPHIL ABSOLUTE 9.4(H) 2.0 - 8.0 K/ul [facility] NEUTROPHILS 86.7(H) 42.2 - 75.2 % [facility] HEMATOCRIT 44.4 36.0 - 46.0 % [facility] EOSINOPHILS 0.8 0.0 - 7.0 % [facility] PLATELETS 100(L) 140 - 440 K/ul [facility] EOSINOPHIL ABSOLUTE 0.1 0.0 - 0.7 K/ul [facility] RBC 5.11 4.20 - 5.40 Mil/ul [facility] LYMPHOCYTES 5.3(L) 24.0 - 44.0 % [facility] MCHC 33.1 30.0 - 35.0 g/dL [facility] LYMPHOCYTE ABSOLUTE 0.6(L) 1.2 - 4.0 K/ul [facility] MCV 86.9 84.0 - 103.0 Fl [facility] MPV 10.5 8.9 - 12.8 Fl [facility] BASOPHILS ABSOLUTE 0.0 0.0 - 0.2 K/ul [facility] BASOPHILS 0.3 0.0 - 1.0 % [facility] HEMOGLOBIN 14.7 12.0 - 16.0 g/dL [facility] RDW 14.0 11.0 - 14.5 % [facility] Blood specimen (specimen) 11/09/2008 10:55 PM BATTERY CHECKER 11/09/2008 10:59 PM BATTERY CHECKER Mel Munoz MD HEMATOLOGY ORDERABLES Lena l Result Performing Organization Address [facility] Phone Number INTERFACE SYSTEM Refer to clinic/hospital department [facility] CLIA# [id number] [address] [place] [address] * LIPASE (11/09/2008 10:55 PM BATTERY CHECKER) LIPASE 23 6 - 51 U/L [facility] Blood specimen (specimen) 11/09/2008 10:55 PM BATTERY CHECKER 11/09/2008 10:59 PM BATTERY CHECKER Mel Munoz MD CHEMISTRY ORDERABLES Final Result Performing Organization Address [facility] Phone Number INTERFACE SYSTEM Refer to clinic/hospital department [facility] CLIA# [id number] [address] [place] [address] * (ABNORMAL) COMPREHENSIVE METABOLIC PANEL (11/09/2008 10:55 PM BATTERY CHECKER) GLOBULIN (CALC) 2.9 2.4 - 3.9 g/dL [facility] ALBUMIN 4.8 3.5 - 5.0 g/dL [facility] CREATININE 0.9 0.7 - 1.2 mg/dL [facility] ALT 17 4 - 36 IU/L [facility] CALCIUM 9.7 8.4 - 10.5 mg/dL [facility] OSMOLALITY, CALCULATED 301(H) 275 - 295 mOsm/Kg [facility] GLUCOSE 332(H) 70 - 110 mg/dL [facility] ALKALINE PHOSPHATASE 113(H) 25 - 100 U/L [facility] CHLORIDE 106 95 - 110 mEq/L [facility] ALBUMIN/GLOBULIN RATIO 1.7 1.0 - 2.3 [facility] TOTAL PROTEIN 7.7 6.3 - 8.2 g/dL [facility] SODIUM 138 136 - 145 mEq/L [facility] BILIRUBIN TOTAL 1.0 0.3 - 1.2 mg/dL [facility] BUN 21(H) 7 - 17 mg/dL [facility] CO2 24 22 - 32 mmol/l [facility] ANION GAP 13 9 - 20 mEq/L [facility] AST 22 8 - 33 U/L [facility] POTASSIUM 4.6 3.5 - 5.0 mEq/L [facility] Blood specimen (specimen) 11/09/2008 10:55 PM BATTERY CHECKER 11/09/2008 10:59 PM BATTERY CHECKER us Mel Munoz MD CHEMISTRY ORDERABLES Final Result Performing Organization Address [facility]/State/[facility] Co de Phone Number INTERFACE SYSTEM Refer to clinic/hospital department [facility] CLIA# [id number] [address] [place] [address] documented in this encounter Visit Diagnoses Not on filedocumented in this encounter Additional Health Concerns Infection Onset Date Last Indicated Resolved Time R/O COVID-19 05/20/2021 05/20/2021 05/20/2021 6:34 PM CDT COVID-19 05/20/2021 05/20/2021 06/09/2021 8:08 PM CDT documented as of this encounter Care Teams Abalone Sheller Relationship Specialty Start Date End Date Nate Díaz MD [address] [place] [address] [phone] PCP - General Family Practice 05/20/21 documented as of this encounter
--- OUTSIDE RECORDS SUMMARY | 2025-11-14 22:48 | XMS_ITS | Continuity of Care Document ---
Author Organization BIJU Aakash Zohu [facility], [place], [facility] ([facility]) Address [address] [place] [address] Care Team Providers Care Stitcher Operator Name Role Phone KERRIE JETT Primary Care Provider Assessment No assessment recorded. Plan of Treatment Reminders Order Date Submit Date Provider Last Modified By Organization Details Last Modified Time Details Appointments None recorded. Lab None recorded. Referral None recorded. Procedures None recorded. Surgeries None recorded. Imaging None recorded. Medication Orders ketoconazol e 2 % topical cream 2024 025 [facility], [address], [place], [address], 5 16:08:51 Patient TargetsNo targets recorded. Patient InstructionsNo instructions recorded. Reason for Referral None Reported. Problems Name Problem SNOMED Code Status Onset Date Resolution Date Notes Provider Name and Address Organization Details Recorded Time Dysplasia of cervix 79838276 Active 2018 CERVICAL DYSPLASIA; Recorded 04/11/2019 6:21PM by Kathy Cruz LPN, Office Visit; Promoted; acuity set as *; Not Available [facility] 3 03:16:07 Hypothyro idism 09385270 Active 2018 HYPOTHYROI DISM; Recorded 04/11/2019 6:21PM by Kathy Cruz LPN, Office Visit; Promoted; acuity set as *; Not Available [facility] 3 03:16:07 Malignant neoplasti c disease 933499284 Active 2018 Cancer; cervical; 04/11/2019 6:21PM by Kathy Cruz LPN, Office Visit; Promoted; acuity set as *; Not Available [facility] 3 03:16:20 Migraine 57093767 Active 2018 MIGRAINE; Recorded 04/11/2019 6:21PM by Kathy Cruz LPN, Office Visit; Promoted; acuity set as *; Not Available [facility] 3 03:16:23 Type 2 diabetes mellitus without complicat ion 135095001 Active 2018 Insulin Dependent Diabetes Mellitus; Pt has insulin pump. Dr. Pappas/Avtar Garcia manages; 04/11/2019 6:21PM by Kathy Cruz LPN, Office Visit; Promoted; acuity set as *; Not Available [facility] 3 03:16:24 Problem Notes None recorded. Procedures Surgical History Date Name Laterality Status Provider Name and Address Organization Details Recorded Time 3 Laceration Repair completed ROSALINDA ESCOBAR, [address], [address], [facility] 03/10/2023 16:14:54 Imaging Results None recorded. Procedure Notes None recorded. Medical Equipment None Reported. Allergies Allergen ID Allergen Name Allergen Category Reaction Reaction Severity Criticality Documentation Date Start Date Code Code System Note Provider Name and Address Organization Details Recorded Time 90101 Phenergan medicatio n other Not available Not available 06/18/2023 03947 8 RxNorm React ion: Panic attac k; Comme nt: Recor ded 04/11 6:21P M by Jazmyne ruvalcaba LPN, Offic e Visit ; Promo darci; Signi fican ce: *; ; Not Available [facility] 3 02:23:56 25354 Sports Tape medicatio n Not available Not available Not available 06/18/2023 Comme nt: Recor ded 04/11 6:21P M by Jazmyne ruvalcaba LPN, Offic e Visit ; Promo darci; Signi fican ce: *; ; Not Available [facility] 3 02:24:01 90562 chlorphen iramine / hydrocodo ne / phenyleph rine medicatio n Not available Not available Not available 06/18/2023 37366 9 RxNorm Comme nt: Recor ded 04/11 6:21P M by Jazmyne ruvalcaba LPN, Offic e Visit ; Kali bejarano; Andrés beasley ce: *; ; Not Available [facility] 3 02:24:01 25157 Zanaflex medicatio n hallucina tions Not available Not available 09/25/2025 85021 6 [facility] 15:41:17 96765 terbinafi ne medicatio n hallucina tions Not available Not available 09/25/2025 91203 [facility] 15:41:43 40225 Lyrica medicatio n hallucina tions Not available Not available 09/25/2025 63072 1 [facility] 15:41:54 66737 gabapenti n medicatio n hallucina tions Not available Not available 09/25/2025 18404 Rx[facility] 15:42:08 20906 cortisone medicatio n Not available Not available Not available 09/25/2025 2878 RxNorm Haylee Nugent [facility] 15:42:44 Medications Name Sig Start Date Stop Date Status Note LastModified by Organization Details LastModified Time Singulair 10 mg tablet daily 09/25 completed 0; Recorded 04/11/20 19 6:22PM by Kathy Cruz LPN, Office Visit; Not Available Not Available Not Available amoxicill in 500 mg capsule two times daily 09/25 completed 0; Recorded 04/11/20 19 6:22PM by Kathy Cruz LPN, Office Visit; Not Available Not Available Not Available silver sulfadiaz ine 1 % topical cream APPLY 1.5 MM THICKNES S TO AFFECTED AREA TWICE DAILY FOR 2 WEEKS active Not Available Not Available No t Available fluticaso ne 250 mcg-salme terol 50 mcg/dose blistr powdr for inhalatio n INHALE 1 PUFF BY MOUTH TWICE DAILY active Not Available Not Available No t Available potassium chloride ER 10 mEq capsule,e xtended release TAKE 1 CAPSULE BY MOUTH EVERY DAY active Not Available Not Available No t Available doxycycli ne hyclate 100 mg capsule TAKE 1 CAPSULE BY MOUTH TWICE DAILY FOR 10 DAYS 10/06 completed Not Available Not Available Not Available ipratropi um 0.5 mg-albute rol 3 mg (2.5 mg base)/3 mL nebulizat ion soln USE 3 ML IN NEBULIZE R EVERY 4 HOURS NEEDED FOR SHORTNES S OF BREATH FOR WHEEZING active Not Available Not Available No t Available azithromy jesus 250 mg tablet TAKE 2 TABLETS BY MOUTH ON DAY 1, AND THEN TAKE 1 TABLET BY MOUTH ONCE A DAY ON DAY 2 THROUGH DAY 5 10/06 completed Not Available Not Available Not Available fluconazo le 150 mg tablet TAKE 1 TABLET BY MOUTH ONCE, MAY REPEAT IN 7 DAYS IF NEEDED 09/25 completed Not Available Not Available Not Available sumatript an 100 mg tablet TAKE 1 TABLET BY MOUTH EVERY DAY active Not Available Not Available No t Available sucralfat e 1 gram tablet TAKE 1 TABLET BY MOUTH 4 TIMES DAILY ON EMPTY STOMACH 30 MINUTES PRIOR TO MEAL. CAN BE MIXED DOWN IN WATER TO MAKE A SLURRY active Not Available Not Available No t Available Synthroid 125 mcg tablet TAKE 1 TABLET BY MOUTH EVERY DAY active Not Available Not Available No t Available famotidin e 40 mg tablet TAKE 1 TABLET BY MOUTH EVERYDAY AT BEDTIME active Not Available Not Available No t Available prednison e 20 mg tablet TAKE 1 TABLET BY MOUTH THREE TIMES DAILY FOR 3 DAYS, THEN 1 TAB TWICE DAILY FOR 2 DAYS, THEN 1 TAB ONCE DAILY FOR 2 DAYS active Not Available Not Available No t Available acetamino phen 300 mg-codein e 30 mg tablet TAKE 1 TABLET BY MOUTH EVERY 6 HOURS NEEDED FOR PAIN FOR 7 DAYS active Not Available Not Available No t Available ciproflox acin 500 mg tablet TAKE 1 TABLET BY MOUTH TWICE A DAY FOR 7 DAYS 09/25 completed Not Available Not Available Not Available sulfameth oxazole 800 mg-trimet hoprim 160 mg tablet TAKE 1 TABLET BY MOUTH TWICE A DAY 09/25 completed Not Available Not Available Not Available triamcino lone acetonide 0.1 % topical cream APPLY CREAM TOPICALL Y TO AFFECTED AREA ONCE DAILY active Not Available Not Available No t Available terbinafi ne HCl 250 mg tablet TAKE 1 TABLET BY MOUTH EVERY DAY 09/25 completed Not Available Not Available Not Available famotidin e 20 mg tablet TAKE 1 TABLET BY MOUTH TWICE DAILY active Not Available Not Available No t Available metoclopr amide 5 mg tablet TAKE 1 TABLET BY MOUTH 4 TIMES DAILY active Not Available Not Available No t Available trazodone 100 mg tablet TAKE 1 TABLET BY MOUTH EVERYDAY AT BEDTIME active Not Available Not Available No t Available cephalexi n 500 mg capsule TAKE 1 CAPSULE BY MOUTH THREE TIMES DAILY FOR 7 DAYS 10/06 completed Not Available Not Available Not Available pantopraz ole 40 mg tablet,de layed release TAKE 1 TABLET BY MOUTH TWICE DAILY active Not Available Not Available No t Available venlafaxi ne 37.5 mg tablet TAKE 1 TABLET BY MOUTH TWICE A DAY active Not Available Not Available No t Available oseltamiv ir 75 mg capsule TAKE ONE CAPSULE BY MOUTH TWICE DAILY 09/25 completed Not Available Not Available Not Available tobramyci n 0.3 % eye drops USE 1-2 DROPS INTO THE AFFECTED EYE(S) EVERY 4-6 HOURS UNTIL BETTER 09/25 completed Not Available Not Available Not Available prednison e 50 mg tablet TAKE 1 TABLET BY MOUTH EVERY DAY FOR 5 DAYS 09/25 completed Not Available Not Available Not Available fluoxetin e 10 mg capsule TAKE 1 CAPSULE BY MOUTH EVERY DAY 09/25 completed Not Available Not Available Not Available diltiazem CD 120 mg capsule,e xtended release 24 hr TAKE 1 CAPSULE BY MOUTH EVERY DAY 09/25 completed Not Available Not Available Not Available hydroxyzi ne HCl 25 mg tablet TAKE 1 TABLET BY MOUTH TWICE A DAY NEEDED FOR ANXIETY active Not Available Not Available No t Available halobetas ol propionat e 0.05 % topical cream APPLY 1 APPLICAT ION TOPICALL Y TWICE A DAY 09/25 completed Not Available Not Available Not Available mupirocin 2 % topical ointment APPLY OINTMENT TOPICALL Y TWICE DAILY FOR 2 WEEKS 10/06 completed Not Available Not Available Not Available furosemid e 20 mg tablet TAKE 1 TABLET BY MOUTH ONCE DAILY active Not Available Not Available No t Available Synthroid 112 mcg tablet daily 09/25 completed Tuesday and y takes 3 tabs; 0; Recorded 04/11/20 19 6:22PM by Kathy Cruz LPN, Office Visit; Not Available Not Available Not Available ergocalci ferol (vitamin D2) 1,250 mcg (50,000 unit) capsule TAKE 1 CAPSULE BY MOUTH ON MONDAYS AND active Not Available Not Available No t Available insulin lispro (U-100) 100 unit/mL subcutane ous solution INJECT 60 UNITS SUBCUTAN EOUSLY DAILY WITH CORRECTI ON active Not Available Not Available No t Available levofloxa jesus 500 mg tablet TAKE 1 TABLET BY MOUTH EVERY DAY 09/25 completed Not Available Not Available Not Available albuterol sulfate HFA 90 mcg/actua tion aerosol inhaler INHALE 2 PUFFS BY MOUTH EVERY 6 HOURS NEEDED FOR SHORTNES S OF BREATH FOR WHEEZING active Not Available Not Available No t Available propranol ol 20 mg tablet TAKE 1 TABLET BY MOUTH TWICE A DAY active Not Available Not Available No t Available ketoconaz ole 2 % topical cream APPLY CREAM TOPICALL Y TO AFFECTED AREA ONCE DAILY active Not Available Not Available No t Available oxybutyni n chloride 5 mg tablet TAKE 1 TABLET BY MOUTH TWICE DAILY active Not Available Not Available No t Available ondansetr on 4 mg disintegr ating tablet DISSOLVE 1 TABLET IN MOUTH THREE TIMES DAILY active Not Available Not Available No t Available topiramat e 100 mg tablet TAKE 1 TABLET BY MOUTH TWICE A DAY AT 9AM & 9PM active Not Available Not Available No t Available fluoxetin e 20 mg capsule TAKE 1 CAPSULE BY MOUTH EVERY DAY 09/25 completed Not Available Not Available Not Available amoxicill in 875 mg-potass ium clavulana te 125 mg tablet TAKE 1 TABLET BY MOUTH EVERY 12 HOURS FOR 10 DAYS 09/25 completed Not Available Not Available Not Available buspirone 15 mg tablet TAKE 1 TABLET BY MOUTH THREE TIMES A DAY active Not Available Not Available No t Available oxycodone 5 mg tablet TAKE 1 TABLET BY MOUTH EVERY 4 HOURS NEEDED FOR PAIN 09/25 completed Not Available Not Available Not Available Synthroid 137 mcg tablet TAKE 1 TABLET BY MOUTH ONCE DAILY AT 9AM 09/25 completed Not Available Not Available Not Available Abilify 15 mg tablet daily 09/25 completed 0; Recorded 04/11/20 19 6:22PM by Kathy Cruz LPN, Office Visit; Not Available Not Available Not Available bupropion HCl XL 300 mg 24 hr tablet, extended release TAKE 1 TABLET BY MOUTH EVERY DAY 09/25 completed Not Available Not Available Not Available bupropion HCl XL 150 mg 24 hr tablet, extended release TAKE 1 TABLET BY MOUTH EVERYDAY AT BEDTIME 09/25 completed Not Available Not Available Not Available Effexor XR daily 09/25 completed 0; Recorded 04/11/20 19 6:22PM by Kathy Cruz LPN, Office Visit; Not Available Not Available Not Available furosemid e active Not Available Not Available Not Available Vitamin D weekly 09/25 completed Tuesday; 0; Recorded 04/11/20 19 6:22PM by Kathy Cruz LPN, Office Visit; Not Available Not Available Not Available Humalog U-100 Insulin as directed active 6 units in AM 9 Units at lunch 18 units in evening; 0; Recorded 04/11/20 19 6:22PM by Kathy Cruz LPN, Office Visit; Not Available Not Available Not Available tranexami c acid 650 mg tablet TAKE 2 TABLETS BY MOUTH 3 TIMES A DAY NEEDED (FOR BLEEDING ) FOR UP TO 5 DAYS 09/25 completed Not Available Not Available Not Available Breo Ellipta 100 mcg-25 mcg/dose powder for inhalatio n INHALE 1 PUFF BY MOUTH DAILY 09/25 completed Not Available Not Available Not Available Farxiga 5 mg tablet TAKE 1 TABLET BY MOUTH EVERY DAY AT 9AM 09/25 completed Not Available Not Available Not Available Tresiba FlexTouch U-100 insulin 100 unit/mL (3 mL) subcutane ous pen at bedtime 09/25 completed 0; Recorded 04/11/20 19 6:22PM by Kathy Cruz LPN, Office Visit; Not Available Not Available Not Available Vraylar 1.5 mg capsule TAKE 1 CAPSULE BY MOUTH EVERY DAY 09/25 completed Not Available Not Available Not Available Vraylar 3 mg capsule TAKE 1 CAPSULE BY MOUTH EVERY DAY active Not Available Not Available No t Available baclofen 5 mg tablet TAKE 2 TABLETS BY MOUTH THREE TIMES A DAY active Not Available Not Available No t Available FreeStyle Jan 2 Sensor kit USE DIRECTED active Not Available Not Available No t Available FreeStyle Jan 2 Colt USE WITH SENSOR TO CHECK BLOOD GLUCOSE active Not Available Not Available No t Available Vitals Date Recorded Body height Body mass index (BMI) Body weight Oxygen saturation Heart rate Body temperature Systolic And Diastolic Provider Name and Address Organization Details Last Updated DateTime 172.72 cm 26 kg/m2 74024.3 g 98 % 93 /min 98.1 [degF] 116/58 mm[Hg] Haylee Nugent [facility] 15:53:30 Social History Question Answer Notes LastModified by Organizat ion Details LastModified Time Tobacco Smoking Status Former Smoker Haylee Nugent [facility] 09/25/2025 15:50:07 What Was The Date Of Your Most Recent Tobacco Screening? 09/25/2025 outs Information not available 09/25/2025 Sex: Unknown Functional Status None recorded. Mental Status None recorded. Family History Nothing Reported Notes:: Father Diabe maritza mellitus, Type II: Maternal Grandmother, Paternal Grandmother Hypertension: Maternal Grandmother Stroke: Denied, Hypertension: Denied, Diabetes: Denied, Heart Disease: Denied, Cancer: Denied TIA: Maternal Grandmother Medical History No medical history recorded. Gynecological HistoryNo gynecological history recorded. Obstetrics History GPAL:G 0 P 0 0 0 0 Immunizations Vaccine Type Date Status Note Provider Nam e and Address Organization Details Recorded Time Influenza, split virus, trivalent, preservative 9 completed Not Available [facility] 06/18/2023 02:27:39 Past Encounters Encounter ID Performer Location Encounter Start Date Encounter Closed Date Diagnosis/Indication Diagnosis SNOMED-CT Code Diagnosis ICD10 Code Diagnosis IMO Codes Diagnosis Note [id number] ABIGAIL SALGADO [facility] ([facility]) [address] [place] [address] 09/25/2025 15:30:50 09/25/2025 16:18:47 Dermatophytosis 33634495 B35.9 05170 Health Concerns Section Related Observation LastModified by Organization Detai ls LastModified Time None Recorded Concern Status LastModified by Organization Details LastModified Time None Recorded Payers Encounter Date Sequence Insurance Name Policy Number Policy Chao Covered Member ID Chao Member ID Guarantor Name 09/25/2025 1 [facility] (MEDICARE REPLACEMENT/A DVANTAGE - HMO) [id number] Kellen Joseph [id number] Kellen Joseph Notes Date Note Type Note Provider Name and Address Organization Details Recorded Time 09/25/2025 text/html ROS as noted in the HPI walk inx 5 days spot to right ankle, itching, burning EDENILSON HORN, [employer] [address] [place], [address], [facility], [place] 09/25/2025 16:10:45 OBGyn Episode No OBEpisode recorded.
--- OUTSIDE RECORDS SUMMARY | 2025-11-14 22:48 | XMS_ITS | Data Portability ---
Author Organization [facility] [employer] [place] [facility], [facility], [facility] Address [address] [facility], [facility] [place] [address] Care Team Providers Care Oven Tender Name Role Phone KERRIE JETT Primary Care Provider Assessment No assessment recorded. Plan of Treatment Reminders Order Date Submit Date Provider Last Modified By Organization Details Last Modified Time Details Appointments None recorded. Lab None recorded. Referral None recorded. Procedures None recorded. Surgeries None recorded. Imaging None recorded. Medication Orders ketoconazol e 2 % topical cream 2024 025 [facility], [address], [place], [address], 5 16:08:51 amoxicillin 875 mg-potassiu m clavulanate 125 mg tablet 2022 023 [id number], [address], [facility], [place], [address], 5 15:43:16 Patient TargetsNo targets recorded. Patient InstructionsNo instructions recorded. Reason for Referral None Reported. Problems Name Problem SNOMED Code Status Onset Date Resolution Date Notes Provider Name and Address Organization Details Recorded Time Dysplasia of cervix 04346974 Active 2018 CERVICAL DYSPLASIA; Recorded 04/11/2019 6:21PM by Kathy Cruz LPN, Office Visit; Promoted; acuity set as *; Not Available Counts include 234 beds at the [facility] 3 03:16:07 Hypothyro idism 54543441 Active 2018 HYPOTHYROI DISM; Recorded 04/11/2019 6:21PM by Kathy Cruz LPN, Office Visit; Promoted; acuity set as *; Not Available [facility] 3 03:16:07 Malignant neoplasti c disease 020790957 Active 2018 Cancer; cervical; 04/11/2019 6:21PM by Kathy Cruz LPN, Office Visit; Promoted; acuity set as *; Not Available [facility] 3 03:16:20 Migraine 44991688 Active 2018 MIGRAINE; Recorded 04/11/2019 6:21PM by Kathy Cruz LPN, Office Visit; Promoted; acuity set as *; Not Available [facility] 3 03:16:23 Type 2 diabetes mellitus without complicat ion 459960547 Active 2018 Insulin Dependent Diabetes Mellitus; Pt has insulin pump. Dr. Pappas/Avtar Garcia manages; 04/11/2019 6:21PM by Kathy Cruz LPN, Office Visit; Promoted; acuity set as *; Not Available [facility] 3 03:16:24 Problem Notes None recorded. Procedures Surgical History Date Name Laterality Status Provider Name and Address Organization Details Recorded Time 3 Laceration Repair completed ROSALINDA ESCOBAR, [address], [address], [facility] 03/10/2023 16:14:54 Imaging Results None recorded. Procedure Notes None recorded. Medical Equipment None Reported. Allergies Allergen ID Allergen Name Allergen Category Reaction Reaction Severity Criticality Documentation Date Start Date Code Code System Note Provider Name and Address Organization Details Recorded Time 85149 Phenergan medicatio n other Not available Not available 06/18/2023 67836 8 RxNorm React ion: Panic attac k; Comme nt: Recor ded 04/11 6:21P M by Jazmyne ruvalcaba LPN, Offic e Visit ; Promo darci; Signi gale ce: *; ; Not Available [facility] 3 02:23:56 85484 Sports Tape medicatio n Not available Not available Not available 06/18/2023 Comme nt: Recor ded 04/11 6:21P M by Jazmyne ruvalcaba LPN, Offic e Visit ; Promo darci; Signi gale ce: *; ; Not Available [facility] 3 02:24:01 88077 chlorphen iramine / hydrocodo ne / phenyleph rine medicatio n Not available Not available Not available 06/18/2023 93296 9 RxNorm Comme nt: Recor ded 04/11 6:21P M by Jazmyne ruvalcaba LPN, Offic e Visit ; Promo darci; Signi fican ce: *; ; Not Available [facility] 3 02:24:01 73586 Zanaflex medicatio n hallucina tions Not available Not available 09/25/2025 07790 6 [facility] 15:41:17 59262 terbinafi ne medicatio n hallucina tions Not available Not available 09/25/2025 30004 RxNorm [facility] 5 15:41:43 18884 Lyrica medicatio n hallucina tions Not available Not available 09/25/2025 10222 1 RxNorm [facility] 5 15:41:54 17078 gabapenti n medicatio n hallucina tions Not available Not available 09/25/2025 63879 RxNorm [facility] 5 15:42:08 16198 cortisone medicatio n Not available Not available Not available 09/25/2025 2878 RxNorm Haylee Nugent [facility] [place] [facility] 5 15:42:44 Medications Name Sig Start Date Stop [...] mcg tablet daily 09/25 completed Tuesday and takes 3 tabs; 0; Recorded 04/11/20 19 [...] Available No t Available FreeStyle Jan 2 [place] USE WITH SENSOR TO CHECK BLOOD GLUCOSE active Not Available Not Available No t Available Vitals Date Recorded Body weight Body mass index (BMI) Body height Body temperature Heart rate Oxygen saturation Systolic And Diastolic Provider Name and Address Organization Details Last Updated DateTime 3 46409.7 4 g 29.2 kg/m2 172.72 cm 98.3 [degF] 76 /min 98 % 112/76 mm[Hg] BITA PENA [facility] 3 15:33:09 Date Recorded Body height Body mass index (BMI) Body weight Oxygen saturation Body temperature Systolic And Diastolic Provider Name and Address Organization Details Last Updated DateTime 3 172.72 cm 29 kg/m2 08538.1 4 g 99 % 98.6 [degF] 115/74 mm[Hg] ANNA REYES [facility] 3 10:12:57 Date Recorded Body height Body mass index (BMI) Body weight Oxygen saturation Heart rate Body temperature Systolic And Diastolic Provider Name and Address Organization Details Last Updated DateTime 5 172.72 cm 26 kg/m2 32337.3 g 98 % 93 /min 98.1 [degF] 116/58 mm[Hg] Haylee Pabloidalia [facility] 5 15:53:30 Social History Question Answer Notes LastModified by Organizat ion Details LastModified Time Tobacco Smoking Status Former Smoker Haylee otero [facility] 09/25/2025 15:50:07 What Was The Date Of Your Most Recent Tobacco Screening? 09/25/2025 [email or web address] Information not available 09/25/2025 Sex: Unknown Functional [...] virus, trivalent, preservative 9 completed Not Available [facility] 06/18/2023 02:27:39 Past Encounters Encounter ID Performer Location Encounter Start Date Encounter Closed Date Diagnosis/Indication Diagnosis SNOMED-CT Code Diagnosis ICD10 Code Diagnosis IMO Codes Diagnosis Note [id number] ROSALINDA ESCOBAR [facility] ([facility]) [address] [place] [address] 03/10/2023 14:58:22 03/16/2023 08:43:14 Dog bite [id number] W54.0XXA Will contact the [facility], this was her friend's dog. Patient reports she has spoken with her friend and the dog is up to date with his vacckamilah ns. She reports she got a Tetanus shot on Tuesday. [id number] ROSALINDA ESCOBAR [facility] ([facility]) [address] [place] [phone] 03/18/2023 09:47:05 05/13/2023 04:06:11 [id number] MARICEL SIMONS [facility] ([facility]) [address] [place] [phone] 5 09/25/2025 15:30:50 09/25/2025 16:18:47 Dermatophytosis 98863242 B35.9 04364 Health Concerns Section Related Observation LastModified by Organization Detai ls LastModified Time None Recorded Concern Status LastModified by Organization Details LastModified Time None Recorded Advance Directives Directive None Recorded Payers Insurance Date Sequence Insurance Name Policy Number Policy Chao Covered Member ID Chao Member ID Guarantor Name 09/25/2025 1 [facility] (MEDICARE REPLACEMENT/A DVANTAGE - HMO) [id number] Kellen Joseph [id number] Kellen Joseph Notes Date Note Type Note Provider Name and Address Organization Details Recorded Time 03/10/2023 text/html Skin LesionRepor darci by PatientHPIFor location, patient reportslip (upper lip, laceration). For quality, patient reportspainfulandten rustam. For timing, patient reportsabrupt. For context, patient reportstrauma.ROS as noted in the HPI Pt has a dog bite on her top lip. ROSALINDA ESCOBAR, ABIGAIL [address] [place], [address], [facility], [place]ain 03/10/2023 16:18:45 09/25/2025 text/html ROS as noted in the HPI walk inx 5 days spot to right ankle, itching, burning EDENILSON HORN APRN [address] [place], [address], [facility], L[facility] 09/25/2025 16:10:45 OBGyn Episode No OBEpisode recorded.
--- OUTSIDE RECORDS SUMMARY | 2025-11-14 22:48 | XMS_ITS | Clinical Summary ---
Author Organization [facility] 1 [address] [facility] Address [address] [place] [address] Phone Care Team Providers Care Database Administrator Name Role Phone Nate Díaz MD Primary Care Provider [phone] Allergies Active Allergy Reactions Criticality Noted Date [...] 24 hours basal rate. 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 Gender Identity Not on file Sexual Orientation [...] VACCINES (1 - Tdap) 03/22/2006 03/21/20 06 CERVICAL CANCER SCREENING 2012 HPV/Cotest (30-65) 2012 PAP SMEAR 2012 DIABETES HBA1C Q 6 MONTHS 11/19/2021 05/20/2021 BREAST CANCER SCREENING 2022 INFLUENZA VACCINE (#1) 2025 , 09/20/2019, 08/19/2018, Additional history exists HPV VACCINES (No Doses Required) Completed Procedures Procedure Name Priority Date/Time Associated Diagnosis Comments HEMOGLOBIN A1C Stat 05/20/2021 5:55 PM CDT from Last 3 Months or Most Recently Relevant to Health Maintenance Results * (ABNORMAL) HEMOGLOBIN A1C (05/20/2021 5:55 PM CDT) HEMOGLOBIN A1C 8.0(H) <=5.6 % 05/20/2021 6:46 PM CDT [facility] EST. AVG GLUCOSE, A1C 183 mg/dL 05/20/2021 6:46 PM CDT [facility] Blood BLOOD SPECIMEN / Unknown Collection / Unknown 05/20/2021 5:55 PM CDT 05/20/2021 6:08 PM CDT Narrative [facility] - 05/20/2021 6:46 PM CDT HGB A1C INTERPRETATION NORMAL: <5.7% PRE-DIABETES: 5.7 - 6.4% DIABETES: 6.5% OR GREATER Abram Tanner (Excluded Provider) Valery RICK CHEMISTRY ORDERABLES Final Result [facility] CLIA # [id number] [address] [place] [address] from Last 3 Months or Most Recently Relevant to Health Maintenance Insurance [place]ICAID [place] Care Teams Database Administrator Relationship Specialty Start Date End Date Nate Díaz MD [address] [place] [phone] PCP - General Family Practice 05/20/21
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
--- OUTSIDE RECORDS SUMMARY | 2025-11-14 22:48 | XMS_ITS | Encounter Summary ---
Author Organization [facility] Address [address] [place] [address] Care Team Providers Care Ammonia Solution Preparer Name Role Phone Nate Díaz MD Primary Care Provider Encounter Details Date Type Department Care Team (Late st Contact Info) Description 04/13/2011 Ancillary Orders 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 tjb - uploaded from [employer]- Procedure Note Mary Ellen Moreno MD - 04/13/2011 Exam: XR HIP 1 VW RIGHT Date/Time of Exam: April 13, 2011 01:47:00 PM History: Hip pain. Findings: 0.2 mL OptiMARK contrast and 5 mL Conray-60 contrast. Images confirm the injection of contrast in the hip joint. Please see the MRI of the same day. tjb - uploaded from [employer]- Gama Rothman MD DIAGNOSTIC IMAGING GEOFF GRIFFIN [...] documented as of this encounter Care Teams Ammonia Solution Preparer Relationship Specialty Start Date End Date Nate Díaz MD [address] [place] [address] PCP - General Family Practice 05/20/21 documented as of this encounter
[2025-11-14 22:50] VITALS: BP 122/72; PULSE 72; RESP 16; TEMP 36.6; BMI 26.9
== END 2025-11-15 01:19 | disposition left against medical advice (07) ==
LOC: ER 22:45
PROVIDERS: Emergency Provider Emergency Medicine; PCP Family Medicine
DX: Z53.21 Procedure and treatment not carried out due to patient leaving prior to being seen by health care provider (principal)